=== PATIENT | female | born 1960 | race Caucasian/White ===

== ENCOUNTER 2023-01-09 16:18 | Outpatient (CLI) | payer MEDICAID, SELFPAY | END 2023-01-09 16:19 | disposition home or self-care (01) | LOC: NFLDREF 01-10 16:39 | PROVIDERS: PCP Family Medicine; Referring Provider Family Medicine; Visit Provider Family Medicine | DX: Z00.00 Encounter for general adult medical examination without abnormal findings (principal); R73.03 Prediabetes; I10 Essential (primary) hypertension; E55.9 Vitamin D deficiency, unspecified; M85.80 Other specified disorders of bone density and structure, unspecified site; E66.01 Morbid (severe) obesity due to excess calories; E78.5 Hyperlipidemia, unspecified; E11.69 Type 2 diabetes mellitus with other specified complication | CPT/HCPCS: 80048; 80061; 82306 ==

== ENCOUNTER 2023-04-10 16:35 | Outpatient (CLI) | payer MEDICAID, SELFPAY | END 2023-04-10 16:36 | disposition home or self-care (01) | LOC: NFLDREF 04-12 06:48 | PROVIDERS: PCP Family Medicine; Referring Provider Family Medicine; Visit Provider Family Medicine | DX: E11.69 Type 2 diabetes mellitus with other specified complication (principal); E66.9 Obesity, unspecified; I10 Essential (primary) hypertension; E55.9 Vitamin D deficiency, unspecified; E78.5 Hyperlipidemia, unspecified | CPT/HCPCS: 80053; 80061; 82043; 82306; 82570 ==

== ENCOUNTER 2023-04-20 16:18 | Outpatient (CLI) | payer MEDICAID, SELFPAY | END 2023-04-20 16:19 | disposition home or self-care (01) | LOC: NFLDREF 19:56 | PROVIDERS: PCP Family Medicine; Referring Provider Family Medicine; Visit Provider Family Medicine | DX: I10 Essential (primary) hypertension (principal) | CPT/HCPCS: 80048 ==

== ENCOUNTER 2023-05-09 16:20 | Outpatient (CLI) | payer MEDICAID, SELFPAY | END 2023-05-09 16:21 | disposition home or self-care (01) | LOC: NFLDREF 05-10 06:15 | PROVIDERS: PCP Family Medicine; Referring Provider Family Medicine; Visit Provider Family Medicine | DX: I10 Essential (primary) hypertension (principal); E78.5 Hyperlipidemia, unspecified; E55.9 Vitamin D deficiency, unspecified; Z79.1 Long term (current) use of non-steroidal anti-inflammatories (NSAID) | CPT/HCPCS: 80053 ==

== ENCOUNTER 2023-10-17 14:44 | Outpatient (CLI) | payer MEDICAID, SELFPAY | END 2023-10-17 14:45 | disposition home or self-care (01) | LOC: INJ CL 14:45 | PROVIDERS: PCP Family Medicine; Visit Provider Family Medicine | DX: M17.12 Unilateral primary osteoarthritis, left knee (principal); M25.562 Pain in left knee | CPT/HCPCS: 64454 ==

== ENCOUNTER 2023-11-21 13:09 | Outpatient (CLI) | payer MEDICAID, SELFPAY ==
--- OUTSIDE RECORDS SUMMARY | 2023-11-21 13:13 | XMS_ITS | Encounter Summary ---
Author Name Unknown Organization [facility] Address [address], [place] [address] Care Team Providers Care Special Education Classroom Aide Name Role Phone Needs Pcp, Assignment Primary Care Provider [phone] Reason for Visit * Reason Comments Refill Encounter Details Date Type Department Care Team Description 06/01/2023 Refill [place] [address] [place] [address]. [place], [place] [id number] Teresa Cameron MD [address] [place] [id number] Refill Social History Tobacco Use Types Packs/Day Years Used Date Smoking Tobacco: Never Smokeless Tobacco: Never Alcohol Use Standard Drinks/Week Comments Yes 0 (1 standard drink = 0.6 oz pur e alcohol) Sex and Gender Information Value Date Recorded Sex Assigned at Not on file Gender Identity Not on file Sexual Orientation Not on file documented as of this encounter Nursing Notes * Marjorie Dubois RN - 06/01/2023 11:42 AM CDT LV: 05/11/23 NV: 09/07/23 Renewed medication per medication refill standing order. Requested Prescriptions Signed Prescriptions Disp Refills secukinumab (COSENTYX SENSOREADY PEN) 150 MG/ML injection pen 1 mL 11 Sig: Inject 1 mL (150 mg) subcutaneously every 4 weeks. Indications: Rheumatic Disease causing Vertebrae Inflammation Authorizing Provider: TERESA CAMERON Ordering User: MARJORIE DUBOIS documented in this encounter Plan of Treatment Upcoming Encounters Date Type Department Care Team Description 12/14/2023 12:00 PM SWINE GENETICS RESEARCHER Appointment [facility] [address] [place], [place] [address] Teresa Cameron MD [address] [place] [address] documented as of this encounter Visit Diagnoses Not on filedocumented in this encounter Care Teams Special Education Classroom Aide Relationship Specialty Start Date End Date Needs Pcp, [place] [address] PCP - General 10/07/21 documented as of this encounter
--- OUTSIDE RECORDS SUMMARY | 2023-11-21 13:13 | XMS_ITS | Encounter Summary ---
Author Name Unknown Organization [facility] Address [address], [place] [address] Care Team Providers Care Hospice Volunteer Coordinator Name Role Phone Needs Pcp, Assignment Primary Care Provider [phone] Reason for Visit * Reason Comments Follow-up Encounter Details Date Type Department Care Team Description 09/07/2023 4:00 PM SUPERVISOR DRY CELL ASSEMBLY Office Visit [facility] [address] [place], [place] [address] Teresa Morales MD [address] [place] [address] Spondyloarthritis (HRC) (Primary Dx); Osteoarthritis of multiple joints, unspecified osteoarthritis type; Anti-cyclic citrullinated peptide antibody positive; 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); 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 current use of non-steroidal anti-inflammatories (NSAID) Social History Tobacco Use Types Packs/Day Years Used Date Smoking Tobacco: Never Smokeless Tobacco: Never Alcohol Use Standard Drinks/Week Comments Yes 0 (1 standard drink = 0.6 oz pur e alcohol) Sex and Gender Information Value Date Recorded Sex Assigned at Not on file Gender Identity Not on file Sexual Orientation Not on file documented as of this encounter Last Filed Vital Signs Vital Sign Reading Time Taken Comments Blood Pressure 133/88 09/07/2023 3:47 PM SUPERVISOR DRY CELL ASSEMBLY Pulse 99 09/07/2023 3:47 PM SUPERVISOR DRY CELL ASSEMBLY Temperature - - Respiratory Rate - - Oxygen Saturation - - Inhaled Oxygen Concentration - - Weight 125.2 kg (276 lb) 09/07/2023 3:47 PM SUPERVISOR DRY CELL ASSEMBLY Height - - Body Mass Index - - documented in this encounter Patient Instructions * Patient Instructions* Teresa Morales MD - 09/07/2023 4:00 PM SUPERVISOR DRY CELL ASSEMBLY CONTINUE the CONSENTYX for now Try diclofenac 1 tablet twice a day, don't take with IBUPROFEN MRI of the knees Touch base with PCP and avoid salty foods Follow up in 12-14 weeks RVISOR DRY CELL ASSEMBLY documented in this encounter Progress Notes * Teresa Morales MD - 09/07/2023 4:00 PM CST RHEUMATOLOGY FOLLOW-UP Chief Complaint Patient presents with Follow-up Encounter date: 09/07/2023 Date of last office visit: 05/11/2023 Rheumatologic history: The patient is a 62 y.o. female with medical history of breast ca, s/p bilateral mastectomy, pre diabetes, HTN, anxiety, hyperparathyroidism, and obesity who presented to our clinic initially in October 2020 for evaluation of joint pain in the setting of elevated inflammatory markers. Outside records received and reviewed from [facility]. She had been seen by her PCP regarding joint pain which started to worsen in July 2020. Prior to this time, she has had more chronic lower back pain for the past year. Her most recent visit with primary care in August 2020 she was started on prednisone 20 mg daily with tapering dose. She was noted to have a slightly elevated RF at 18 (ref at their clinic 0-14). CCP negative. AMY screen negative. ESR and CRP elevated at 61 and 4.50. HLA B27 negative. X-ray done of the bilateral hands done showing mild degenerative changes withno erosions. Left knee x-ray with tricompartmental DJD. Lumbar spine with degenerative disc disease. She was sick with a URI in December 2019 but no other preceding illness. She was taking daily tylenol, naproxen, and Advil up until August 2020 when she was given prednisone by her PCP. With 20 mg taper she had significant improvement in her pain. Denied dactylitis history, psoriasis, or IBD. Endorsed sicca symptoms. Denies known family history of autoimmune disease. Work up October 2020: HLA B27 negative RF 22 CCP 233 TSH wnl CRP 3.5 ESR 65 CK 59 Hepatitis panel negative HIV negative Synovial fluid inflammatory with greater than 10,000 WBC, no crystals, no growth Uric acid 4.4 SI joint x-ray with findings suspicious for sacroiliitis with enthesopathy at the b/l iliac crests. Oct 2020: started on sulfasalazine March 2021: Started on Humira and prednisone taper. September 2021: started methotrexate Nov 2021: restarted methotrexate February 2022, initially wanted to try prior authorization for Taltz though due to insurance issues needed to try Enbrel 1st. [employer] approved for this in February 2022. Started Celebrex. Stopped methotrexate. Nov 2022: approved for COSENTYX Interim history: She took the leflunomide for some time but stopped this a couple weeks ago. She did start taking ibuprofen 800 mg as needed. She continue to be on Consentyx once monthly. She feels like she has had some swelling of the legs and top of the feet. Her knees continue to be the most bothersome area. No rash. Fluoroscopic injection done of the left knee in February 2023. Notes that she only a couple minutes of benefit from this. She continues to be frustrated with her symptoms and is not interested in getting a knee replacement at this time. She did not feel that physical medicine and rehab was helpful for her. She already tried gabapentin without any improvement. ROS: Review of systems completed with patient today, and is as noted above. PMH: Updated in EMR Outpatient Encounter Medications as of 09/07/2023 Medication Sig Dispense Refill amLODIPine (NORVASC) 5 MG tablet Take 1 Tablet (5 mg) by mouth daily. chlorthalidone (HYGROTON) 25 MG tablet Take 0.5 Tablets (12.5 mg) by mouth every morning. cyclobenzaprine (FLEXERIL) 10 MG tablet Take 1-2 tablets at bedtime if needed 30 Tablet 0 ibuprofen (MOTRIN) 800 MG tablet Take 1 Tablet (800 mg) by mouth daily. metFORMIN (GLUCOPHAGE) 500 MG tablet Take 1 Tablet (500 mg) by mouth daily. rosuvastatin (CRESTOR) 5 MG tablet Take 1 Tablet (5 mg) by mouth daily. secukinumab (COSENTYX SENSOREADY PEN) 150 MG/ML injection pen Inject 1 mL (150 mg) subcutaneously every 4 weeks. Indications: Rheumatic Disease causing Vertebrae Inflammation 1 mL 11 [DISCONTINUED] cholecalciferol (VITAMIN D3) 1.25 MG (61512 UT) capsule Take 1 Capsule (50,000 Units) by mouth daily. [DISCONTINUED] diazePAM (VALIUM) 5 MG tablet Pt to bring with to appt. Do not take prior to arrival. MRI staff will instruct when to take med. 1 Tablet 0 [DISCONTINUED] leflunomide (ARAVA) 20 MG tablet TAKE 1 TABLET(20 MG) BY MOUTH DAILY 90 Tablet 0 No facility-administered encounter medications on file as of 09/07/2023. ALLERGIES: Updated in EMR Social History Tobacco Use Smoking Status Never Smokeless Tobacco Never Social History Substance and Sexual Activity Alcohol Use Yes MEDS: Reviewed and updated in the computerized record. Physical exam: Blood pressure 133/88, pulse 99, weight 276 lb (125.2 kg). General: Alert, no distress, appears comfortable Eyes: anicteric, no erythema, EOMI ENT: oral function appears symmetric Resp: breathing comfortably on room air. CV: Not examined Abd: Not examined Skin: no ulcerations, nodules, or rashes noted on visible skin Neuro: Continues to have a limping gait on the left side MSK: A focused joint exam was performed involving neck, back, SI joints, shoulders, elbows, wrists,hands, hips, knees, ankles, feet. The joint exam was negative for synovitis, deformity, tenderness,deformity with the exception of: Continues to have paraspinal muscle tenderness of the lower back and SI joint region. Full range of motion of the shoulders without tenderness to palpation. She does have soft tissue tender points of the upper body and iliotibial band region bilaterally. Crepitus ofthe knees bilaterally without effusion of the right knee. There is fullness and bony enlargement ofthe left knee in comparison to the right with pain with full extension. No tenderness to palpation of the left knee joint line. No evidence of synovitis of the elbows, wrists, hands. There is no evidence of overt dactylitis or synovitis of the MTP joints. Does have some soft tissue swelling of the bilateral lower extremities. Labs: Lab Results Component Value Date WBC 9.0 05/11/2023 RBC 4.97 05/11/2023 Hemoglobin 14.4 05/11/2023 HCT 42.6 05/11/2023 MCV 85.7 05/11/2023 RDW 13.2 05/11/2023 Platelets 220 05/11/2023 Lab Results Component Value Date AST (SGOT) 16 05/11/2023 , Lab Results Component Value Date ALT (SGPT) 11 05/11/2023 Lab Results Component Value Date Creatinine 0.70 05/11/2023 Lab Results Component Value Date Sedimentation Rate 54 (H) 05/11/2023 , Lab Results Component Value Date C-Reactive Protein 2.3 (H) 05/11/2023 RF 22 (negative) CCP 233 Outside records from [facility] reviewed August 2020: slightly elevated RF at 18 (ref at their clinic 0-14). CCP negative. AMY screen negative. ESR and CRP elevated at 61 and 4.50. HLA B27 negative. X-ray done of the bilateral hands done showing mild degenerative changes with no erosions. Left knee x-ray with tricompartmental DJD. Lumbar spine with degenerative disc disease. Imaging: MRI lumbar spine 05/19/2023: IMPRESSION: 1. Mild degenerative changes as above. 2. No evidence for focal nerve root impingement, stress reaction or vertebral body compression fracture. MR SI joints 05/19/2023: IMPRESSION: 1. Mild thinning of the cartilage in the anterior inferior aspects of both sacroiliac joints without evidence of erosive change or active synovitis. 2. Moderate degenerative arthritis in the visualized lower lumbar facet joints with mild surrounding edema and enhancement. XR left knee 02/28/2023: IMPRESSION COMPARISON: None. FINDINGS: 3 views obtained. No acute fracture. Severe medial compartment osteoarthritic degenerative narrowing. Mild-moderate lateral compartment osteoarthritic degenerative narrowing. Moderate-severe patellofemoral compartment osteoarthritic degenerative narrowing. Small-moderate joint effusion without layering lipohemarthrosis. Tricompartmental osteophytosis. Suggestion of osteopenia. XR SI joints 11/04/2020: FINDINGS: There is indistinctness of the lower synovial portions of the sacroiliac joints with adjacent sclerosis within the innominate greater than sacral bones. The finding are suspicious for sacroiliitis. The findings are greater on the right compared to left. Enthesopathy at the iliac crests. ASSESSMENT/PLAN: # asymmetric inflammatory arthritis with sacroilitis, SpA versus other inflammatory arthropathy # positive anti CCP # chronic back pain, likely mechanical back pain component # Immunosuppression due to drug therapy # severe osteoarthritis of the knees # myofascial pain # history of malignancy Ms. Alcaraz is a very pleasant 62 y.o.female with medical history of breast ca, s/p bilateral mastectomy (did not need chemotherapy or radiation), pre diabetes, HTN, anxiety, hyperparathyroidism, and obesity who is presenting to our clinic today for follow up in regards to her spondyloarthritis. She has continued to struggle with symptoms despite multiple biologics. We elected to get further imaging to evaluate for active inflammation in the lumbar spine and SI joints, we reviewed today that there was no evidence of active inflammatory changes or chronic inflammatory damage in her SI joints or lumbar spine which is very reassuring. At our last visit we did elect to do a trial of leflunomide, and she took this for a couple months without any significant benefit so stopped this about 2-3 weeks ago. She does feel that overall she has had less spasms/flare like episodes of back pain, though continues to struggles and early with bilateral knee pain that is limiting her ability to walk and work without pain. She is been taking ibuprofen 800 mg daily, we discussed trying a different anti-inflammatory with longer duration of efficacy, will try diclofenac 1 tablet twice daily and reviewed that she can take Tylenol as well. Reviewed today that I continue to feel that the majority of her knee pain is from severe osteoarthritis of the knees. She is very reluctant to consider a knee replacement though we reviewed that thisis the definitive treatment for osteoarthritis of the knees especially in her case where she is limited in her ability to function on a daily basis. I would recommend that we will forward with MRIs with and without contrast of the bilateral knees for further evaluation of active inflammatory changes verses additional etiologies such as meniscal involvement. Left knee is worse than the right though these both are very limiting for her. We did discuss consideration of a 2nd opinion from a different Orthopedics that may specialize in surgery on bariatric patients. She also continues to have a component of myofascial pain and we discussed consideration of other medications for this though elected to hold off on this for now. If she continues to have chronic pain symptoms despite all of the opt ions we have discussed, I would strongly recommend that she see a pain clinic for further management. Will plan on follow-up in 12-14 weeks. PLAN: - continue Cosentyx - trial of diclofenac 1 tablet twice daily, do not take with ibuprofen - MRI with and without contrast of the right and left knee - cyclobenzaprine at bedtime as needed - based on MRI results will consider referral to a different orthopedic surgeon for a 2nd opinion - continue follow-up with primary care provider - gentle exercise as tolerated - call if symptoms change prior to follow-up - follow up in 12-14 weeks Patient advised to call clinic if symptoms change or worsen or if new symptoms develop. All of the patient's questions were answered to the best of my ability. Billing based on: time. Teersa Morales MD [facility] RVISOR DRY CELL ASSEMBLY documented in this encounter Plan of Treatment Upcoming Encounters Date Type Department Care Team Description 12/14/2023 12:00 PM SUPERVISOR DRY CELL ASSEMBLY Appointment [facility] [address] [place], [place] [address] Teresa Morales MD [address] [place], [place] [phone] documented as of this encounter Visit Diagnoses Diagnosis Spondyloarthritis (HRC)- Primary Spondylosis of unspecified site without mention of myelopathy Osteoarthritis of multiple joints, unspecified osteoarthritis type Anti-cyclic citrullinated peptide antibody positive 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) 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
--- OUTSIDE RECORDS SUMMARY | 2023-11-21 13:13 | XMS_ITS | Encounter Summary ---
Author Name Unknown Organization [facility] Address [address], [place] [address] Care Team Providers Care Drop Clipper Name Role Phone Needs Pcp, Assignment Primary Care Provider [phone] Reason for Visit * Procedure/Equipment (Routine) - Incomplete Specialty Diagnoses / Procedures Referred By Zoran ibarra Referred To Contact Diagnoses Spondyloarthritis (HRC) Procedures MR Sacral-Iliac Joints W/WO IV Cont Teresa Morales MD [address] [place] [address] Referral ID Status Reason Start Date Expiration Date V isits Requested Visits Authorized [id number] Incomplete 05/11/2023 08/09/2024 1 1 Encounter Details Date Type Department Care Team Description 05/19/2023 1:30 PM CDT Ancillary Procedure [facility] [id number] [facility] [address] [place] [address] Teresa Morales MD [address] [place] [address] Spondyloarthritis (HRC) Social History Tobacco Use Types Packs/Day Years Used Date Smoking Tobacco: Never Smokeless Tobacco: Never Alcohol Use Standard Drinks/Week Comments Yes 0 (1 standard drink = 0.6 oz pur e alcohol) Sex and Gender Information Value Date Recorded Sex Assigned at Not on file Gender Identity Not on file Sexual Orientation Not on file documented as of this encounter Plan of Treatment Upcoming Encounters Date Type Department Care Team Description 12/14/2023 12:00 PM DISTILLERY MILLER Appointment [facility] [address] [place] [address] Teresa Morales MD [address] [place] [address] documented as of this encounter Procedures Procedure Name Priority Date/Time Associated Diagnosis Comments MR SACRAL-ILIAC JOINTS W/WO IV CONT STAT 05/19/2023 1:35 PM CDT Spondyloarthritis (HRC) documented in this encounter Results * MR Sacral-Iliac Joints W/WO IV Cont (05/19/2023 1:35 PM CDT) Anatomical Region Laterality Modality Spine, Pelvis, MSK Magnetic Reso nance 05/19/2023 1:01 PM CDT Impressions 05/19/2023 1:57 PM CDT COMPARISON: ??12/16/2022. TECHNIQUE: ??MRI of the sacroiliac joints without and with 13 mL IV Gadavist was performed. FINDINGS: ??There is mild thinning of the cartilage in the anterior inferior aspects of both sacroiliac joints. No significant effusion or synovial enhancement in either sacroiliac joint. No definite evidence of bony erosive change. There is minimal subchondral marrow edema about the anterior inferior aspects of both sacroiliac joints. There is moderate degenerative arthritis in the visualized lower lumbar facet joints with mild surrounding edema and enhancement. There are subcentimeter external iliac nodes bilaterally which are not pathologic by size criteria. The visualized intrapelvic soft tissues are otherwise unremarkable. IMPRESSION: ?? 1. Mild thinning of the cartilage in the anterior inferior aspects of both sacroiliac joints without evidence of erosive change or active synovitis. 2. Moderate degenerative arthritis in the visualized lower lumbar facet joints with mild surrounding edema and enhancement. Narrative Procedure Note Marino Garcia MD - 05/19/2023 IMPRESSION COMPARISON: 12/16/2022. TECHNIQUE: MRI of the sacroiliac joints without and with 13 mL IVGadavist was performed. FINDINGS: There is mild thinning of the cartilage in the anteriorinferior aspects of both sacroiliac joints. No significant effusion orsynovial enhancement in either sacroiliac joint. No definite evidence ofbony erosive change. There is minimal subchondral marrow edema about theanterior inferior aspects of both sacroiliac joints. There is moderatedegenerative arthritis in the visualized lower lumbar facet joints withmild surrounding edema and enhancement. There are subcentimeter external iliac nodes bilaterally which are notpathologic by size criteria. The visualized intrapelvic soft tissues areotherwise unremarkable. IMPRESSION: 1. Mild thinning of the cartilage in the anterior inferior aspects of bothsacroiliac joints without evidence of erosive change or activesynovitis. 2. Moderate degenerative arthritis in the visualized lower lumbar facetjoints with mild surrounding edema and enhancement. Teresa Morales MD RAD MRI documented in this encounter Visit Diagnoses Diagnosis Spondyloarthritis (HRC) Spondylosis of unspecified site without mention of myelopathy documented in this encounter Administered Medications Inactive Administered Medications - up to 3 most recent administrations Medication Order MAR Action Action Date Dose Rate Site gadobutrol (GADAVIST) 1 MMOL/ML injection 13 mL 13 mL, Intravenous, ONCE, On Mon05/19/23 at 1245, For 1 dose Given 05/19/2023 1:24 PM CDT 13 mL sodium chloride 0.9% injection 20 mL 20 mL, Intravenous, ONCE, On Mon05/19/23 at 1245, For 1 dose Given 05/19/2023 1:26 PM CDT 20 mL documented in this encounter Care Teams Drop Clipper Relationship Specialty Start Date End Date Needs Pcp, [place] [address] PCP - General 10/07/21 documented as of this encounter
--- OUTSIDE RECORDS SUMMARY | 2023-11-21 13:13 | XMS_ITS | Encounter Summary ---
Author Name Unknown Organization [facility] Address [address] [address] Care Team Providers Care Bulldogger Name Role Phone Needs Pcp, Assignment Primary Care Provider [phone] Reason for Visit * Reason Comments Refill Encounter Details Date Type Department Care Team Description 11/04/2023 Refill [facility] [address] [place], [place] [phone] Teresa Cameron MD [address] [place] [address] Refill Social History Tobacco Use Types Packs/Day [...] Nursing Notes * Marjorie Dubois RN - 11/06/2023 10:11 AM CST LV: 09/07/23 NV: 12/14/23 Lab Results Component Value Date Hemoglobin 14.4 05/11/2023 Lab Results Component Value Date Creatinine 0.70 05/11/2023 Renewed medication per medication refill standing order. Requested Prescriptions Signed Prescriptions Disp Refills diclofenac (VOLTAREN) 75 MG enteric coated tablet 180 Tablet 0 Sig: TAKE 1 TABLET(75 MG) BY MOUTH TWICE DAILY Authorizing Provider: TERESA CAMERON Ordering User: MARJORIE DUBOIS ING CUTTER documented in this encounter Plan of Treatment Upcoming Encounters Date Type Department Care Team Description 12/14/2023 12:00 PM MOLDING CUTTER Appointment [facility] [address] [place], [place] [phone] Teresa Cameron MD [address] [place], [place] [phone] documented as of this encounter Visit Diagnoses Not on filedocumented in this encounter Care Teams Bulldogger Relationship Specialty Start Date End Date Needs Pcp, Assignment [place], [place] [phone] PCP - General 10/07/21 documented as of this encounter
--- OUTSIDE RECORDS SUMMARY | 2023-11-21 13:13 | XMS_ITS | Encounter Summary ---
Author Name Unknown Organization [facility] Address [address], [place] [address] Care Team Providers Care Alarm Installation Technician Name Role Phone Needs Pcp, Assignment Primary Care Provider [phone] Reason for Visit * Procedure/Equipment (Routine) - Incomplete Specialty Diagnoses / Procedures Referred By Frenchac t Referred To Contact Diagnoses Lumbar radiculopathy Procedures MR Lumbar Spine WO IV Cont Teresa Crews, DO [address] [place] [address] Referral ID Status Reason Start Date Expiration Date V isits Requested Visits Authorized [id number] Incomplete 03/17/2023 06/15/2024 1 1 Encounter Details Date Type Department Care Team Description 05/19/2023 12:30 PM CDT Ancillary Procedure [facility] [id number] [place] [address] [place] [address] Teresa Crews DO [address] [place] [address] Lumbar radiculopathy Social History Tobacco Use Types Packs/Day Years [...] Department Care Team Description 12/14/2023 12:00 PM ACCOUNTS RECEIVABLE BOOKKEEPER Appointment [facility] [address] [place] [address] Teresa Morales MD [address] [place] [address] documented as of this encounter Procedures Procedure Name Priority Date/Time Associated Diagnosis Comments MR LUMBAR SPINE WO IV CONT Routine 05/19/2023 1:34 PM CDT Lumbar radiculopathy documented in this encounter Results * MR Lumbar Spine WO IV Cont (05/19/2023 1:34 PM CDT) Anatomical Region Laterality Modality Spine, L-Spine, Skeletal, MSK Ma gnetic Resonance 05/19/2023 12:2 3 PM CDT Impressions 05/19/2023 8:38 PM CDT INDICATION: Low back pain, symptoms persist with > 6 wks treatment; Lumbar radiculopathy, symptoms persist with > 6 wks treatment TECHNIQUE: ??Routine non-contrast MRI of the lumbar spine. COMPARISON: None. FINDINGS: Sagittal: 5 lumbar type vertebral bodies. First trapezoidal segment labeled S1. Moderate anterior osteophytosis L1-2 level eccentric to the right. Mild degenerative endplate signal change and/or small chronic-appearing endplate Schmorl's nodes from the T10 through the L4 levels. Mild grade 1 retrolisthesis L2-3 L3-4 levels. Bone marrow signal characteristics and lower thoracic spinal cord otherwise unremarkable. Axial: T11-T12 level: Mild bilateral facet hypertrophic change. T12-L1 level: Otherwise unremarkable. L1-2 level: Otherwise unremarkable. L2-3 level: Mild posterior disc bulge, small bilateral facet joint effusions. L3-4 level: Mild posterior disc bulge small bilateral facet joint effusions. L4-5 level: Unremarkable. L5-S1 level: Mild to moderate bilateral facet hypertrophic change. IMPRESSION: 1. Mild degenerative changes as above. 2. No evidence for focal nerve root impingement, stress reaction or vertebral body compression fracture. Comment: Many lumbar spine MRI findings are so common that while we may have reported their presence, they must be interpreted with caution and in the context of the clinical situation. The frequency of these findings in adults WITHOUT low back pain increases with age and are as follows: disk degeneration (37-96%), disk height loss (24-84%), disk bulge (30-84%), disk protrusion (29-43%), annular fissure (19- 29%), and facet degeneration (4-83%). Frequency percentages adapted from Mariya W, Marleen PH, Jorje B, et al. AJNR AM J Neuroradiol 2015:36:811-16. Narrative Procedure Note Willis Saba MD - 05/19/2023 IMPRESSION INDICATION: Low back pain, symptoms persist with > 6 wks treatment; Lumbarradiculopathy, symptoms persist with > 6 wks treatment TECHNIQUE: Routine non-contrast MRI of the lumbar spine. COMPARISON: None. FINDINGS: Sagittal: 5 lumbar type vertebral bodies. First trapezoidal segment labeled S1.Moderate anterior osteophytosis L1-2 level eccentric to the right. Milddegenerative endplate signal change and/or small chronic-appearingendplate Schmorl's nodes from the T10 through the L4 levels. Mild grade 1retrolisthesis L2-3 L3-4 levels. Bone marrow signal characteristics andlower thoracic spinal cord otherwise unremarkable. Axial: T11-T12 level: Mild bilateral facet hypertrophic change. T12-L1 level: Otherwise unremarkable. L1-2 level: Otherwise unremarkable. L2-3 level: Mild posterior disc bulge, small bilateral facet jointeffusions. L3-4 level: Mild posterior disc bulge small bilateral facet jointeffusions. L4-5 level: Unremarkable. L5-S1 level: Mild to moderate bilateral facet hypertrophic change. IMPRESSION: 1. Mild degenerative changes as above. 2. No evidence for focal nerve root impingement, stress reaction orvertebral body compression fracture. Comment: Many lumbar spine MRI findings are so common that while we mayhave reported their presence, they must be interpreted with caution and inthe context of the clinical situation. The frequency of these findings inadults WITHOUT low back pain increases with age and are as follows: diskdegeneration (37-96%), disk height loss (24-84%), disk bulge (30-84%),disk protrusion (29-43%), annular fissure (19- 29%), and facet degeneration(4-83%). Frequency percentages adapted from Mariya W, Marleen PH, Jorje B, etal. AJNR AM J Neuroradiol 2015:36:811-16. Teresa Crews DO RAD MRI documented in this encounter Visit Diagnoses Diagnosis Lumbar radiculopathy Thoracic or lumbosacral neuritis or radiculitis, unspecified documented in this encounter Care Teams Alarm Installation Technician Relationship Specialty Start Date End Date Needs Pcp, [place] [address] PCP - General 10/07/21 documented as of this encounter
--- OUTSIDE RECORDS SUMMARY | 2023-11-21 13:13 | XMS_ITS | Encounter Summary ---
Author Name Unknown Organization [facility] Address [address], [place] [address] Care Team Providers Care Kerrick Kleaner Operator Name Role Phone Needs Pcp, Assignment Primary Care Provider [phone] Reason for Visit * Procedure/Equipment (Routine) - Incomplete Specialty Diagnoses / Procedures Referred By Zoran ibarra Referred To Contact Diagnoses Spondyloarthritis (HRC) Osteoarthritis of multiple joints, unspecified osteoarthritis type Procedures MR Knee Rt WO IV Cont MR Knee Rt W/WO IV Cont MR Knee Rt W/WO IV Cont Teresa Morales MD [address] [place] [address] Referral ID Status Reason Start Date Expiration Date V isits Requested Visits Authorized [id number] Incomplete 09/07/2023 12/06/2024 1 1 Encounter Details Date Type Department Care Team Description 10/06/2023 9:00 AM TRAVEL COTA Ancillary Procedure [facility] [address] [place] [address] Teresa Morales MD [address] [place] [address] Spondyloarthritis (HRC); Osteoarthritis of multiple joints, unspecified osteoarthritis type Social History Tobacco Use Types Packs/Day Years [...] Department Care Team Description 12/14/2023 12:00 PM TRAVEL COTA Appointment [facility] [address] [place] [address] Teresa Morales MD [facility] [place] [address] documented as of this encounter Procedures Procedure Name Priority Date/Time Associated Diagnosis Comments MR KNEE RT WO IV CONT STAT 10/06/2023 10:10 AM TRAVEL COTA Spondyloarthritis (HRC) Osteoarthritis of multiple joints, unspecified osteoarthritis type documented in this encounter Results * MR Knee Rt WO IV Cont (10/06/2023 10:10 AM TRAVEL COTA) Anatomical Region Laterality Modality Lower Extremity, Knee, Skeletal, Thigh, Leg, MSK Right Magnetic Resonance 10/06/2023 8:44 AM TRAVEL COTA Impressions 10/06/2023 10:16 AM TRAVEL COTA TECHNIQUE: ??Routine MRI of the right knee was performed without contrast. COMPARISON: ??None. FINDINGS: MEDIAL COMPARTMENT: ??Diffuse high-grade and full thickness chondromalacia involving the weightbearing cartilage. Trace subchondral edema along the medial aspect of the tibial plateau. Complex tear in the medial meniscus body and posterior horn. Meniscal tissue is extruded toward the meniscotibial recess medially. LATERAL COMPARTMENT: ??A few scattered high grade in full-thickness cartilage fissures throughout the weightbearing cartilage. No subchondral edema. Mild degenerative signal in the anterior root ligament without a definite meniscal tear. PATELLOFEMORAL JOINT: ??High-grade chondromalacia throughout the patellofemoral compartment most pronounced medially where there is full-thickness cartilage in the medial patellar facet and medial femoral trochlea. Mild associated underlying subchondral edema. Small joint effusion and popliteal cyst. Evidence of synovitis. No osteocartilaginous bodies are identified. LIGAMENTS AND TENDONS: ??The anterior and posterior cruciate ligaments, medial collateral ligament, iliotibial band, fibular collateral ligament and biceps femoris tendons are intact. The popliteus muscle and tendon are normal. There is no evidence of injury to the posterolateral corner supporting structures. EXTENSOR MECHANISM: Mild tendinosis at the patellar tendon insertion. Unremarkable appearance of the quadriceps tendon. The medial retinaculum, medial patellofemoral ligament, and lateral retinaculum are normal. MARROW AND SOFT TISSUES: ??There is no abnormal marrow signal or evidence of soft tissue mass. IMPRESSION: ?? 1. Complex tear in the medial meniscus body and posterior horn with meniscal tissue extruded toward the meniscotibial recess medially. 2. 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 Mild chondromalacia in the lateral compartment. 3. Small joint effusion with evidence of synovitis. 4. Small popliteal cyst. 5. Mild tendinosis at the patellar tendon insertion. Narrative Procedure Note Jabier Bolanos MD - 10/06/2023 IMPRESSION TECHNIQUE: Routine MRI of the right knee was performed withoutcontrast. COMPARISON: None. FINDINGS: MEDIAL COMPARTMENT: Diffuse high-grade and full thickness chondromalaciainvolving the weightbearing cartilage. Trace subchondral edema along themedial aspect of the tibial plateau. Complex tear in the medial meniscusbody and posterior horn. Meniscal tissue is extruded toward themeniscotibial recess medially. LATERAL COMPARTMENT: A few scattered high grade in full-thicknesscartilage fissures throughout the weightbearing cartilage. No subchondraledema. Mild degenerative signal in the anterior root ligament without adefinite meniscal tear. PATELLOFEMORAL JOINT: High-grade chondromalacia throughout thepatellofemoral compartment most pronounced medially where there isfull-thickness cartilage in the medial patellar facet and medial femoraltrochlea. Mild associated underlying subchondral edema. Small jointeffusion and popliteal cyst. Evidence of synovitis. No osteocartilaginousbodies are identified. LIGAMENTS AND TENDONS: The anterior and posterior cruciate ligaments,medial collateral ligament, iliotibial band, fibular collateral ligamentand biceps femoris tendons are intact. The popliteus muscle and tendon arenormal. There is no evidence of injury to the posterolateral cornersupporting structures. EXTENSOR MECHANISM: Mild tendinosis at the patellar tendon insertion.Unremarkable appearance of the quadriceps tendon. The medial retinaculum,medial patellofemoral ligament, and lateral retinaculum are normal. MARROW AND SOFT TISSUES: There is no abnormal marrow signal or evidenceof soft tissue mass. IMPRESSION: 1. Complex tear in the medial meniscus body and posterior horn withmeniscal tissue extruded toward the meniscotibial recess medially. 2. Moderate to advanced chondromalacia in the medial and patellofemoralcompartment. Mild chondromalacia in the lateral compartment. 3. Small joint effusion with evidence of synovitis. 4. Small popliteal cyst. 5. Mild tendinosis at the patellar tendon insertion. Teresa Morales MD RAD MRI documented in this encounter Visit Diagnoses Diagnosis Spondyloarthritis (HRC) Spondylosis of unspecified site without mention of myelopathy Osteoarthritis of multiple joints, unspecified osteoarthritis type documented in this encounter Care Teams Kerrick Kleaner Operator Relationship Specialty Start Date End Date Needs Pcp, [place] [address] PCP - General 10/07/21 documented as of this encounter
--- OUTSIDE RECORDS SUMMARY | 2023-11-21 13:13 | XMS_ITS | Clinical Summary ---
Author Name Unknown Organization [facility] Address [place], [place] [address] Care Team Providers Care Heavy Mobile Equipment Operator Name Role Phone Lakisha Ramirezumer Heller DO Primary Care Provid er Allergies Active Allergy Reactions Criticality Noted Date Comments Lisinopril Other - Describe In Comment Field High 11/04/2020 Kidney failure Medications Medication Sig Dispensed Refills Start Date End Date Status amLODIPine (NORVASC) 10 mg tablet 0 07/23/2023 Active metFORMIN (GLUCOPHAGE) 500 mg tablet Take 500 mg by mouth. 0 Active chlorthalidone (HYGROTON) 25 mg tablet Take 12.5 mg by mouth. 0 04/14/2023 Active rosuvastatin (CRESTOR) 5 mg tablet Take 5 mg by mouth. 0 04/14/2023 Activ e Cosentyx Pen 150 mg/mL pen Inject 150 mg subcutaneous every 4 weeks. 0 06/01/2023 Active HYDROcodone-aceta minophen ([place]) (5-325 mg/tablet)Indicat ions:Chronic pain of left knee Take 1 Tablet by mouth 3 times daily if needed for Pain. Max acetaminophen dose: 4000mg in 24 hrs. 24 Tablet 0 10/18/2023 Active diclofenac (VOLTAREN) 75 mg delayed-release tablet Take 75 mg by mouth. 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 07/23/2012 Infection and inflammatory r eaction due to other internal prosthetic device, implant, and graft 07/23/2012 Hypertension 05/29/2009 GERD (gastroesophageal reflux disease) 9 Encounters Date Type Department Care Team Description 11/20/2023 Telephone [facility] [address] [place] [address] Jed Wong MD Questions 11/08/2023 2:15 PM BUSINESS ANALYTICS FACULTY MEMBER Office Visit [facility] [address] [place] [address] Gutierrez Juan DPM Consult (Right foot pain and numbness) 11/08/2023 Travel 10/18/2023 Telephone [facility] [address] [place] [address] Jed Wong MD questions 10/17/2023 3:20 PM BUSINESS ANALYTICS FACULTY MEMBER Procedure Only [facility] at [address] [address] Jed Wong MD Procedure (Left knee genicular nerve block ) 10/12/2023 Telephone [facility] [address] [place] [address] Jed Wong MD Questions 10/04/2023 3:00 PM BUSINESS ANALYTICS FACULTY MEMBER Office Visit [facility] [address] [place] [address] Jed Wong MD Musculoskeletal Problem (Consult left knee pain) 10/04/2023 Travel from Last 3 Months Immunizations Name Administration Dates Next Due Influenza, IIV3 (Age >=3 years) 07/24/2012 Family History Medical History Relation Name Comments Cancer-breast Mother dx age 73 Hypertension Mother Cancer-colon No Family History Cancer-ovarian No Family History Relation Name Status Comments Mother Social History Tobacco Use Types Packs/Day Years Used Date Smoking Tobacco: Never Tobacco Cessation:Counseling Given: Yes Comments: smokes in the house. Alcohol Use Standard Drinks/Week Comments Yes 0 (1 standard drink = 0.6 oz pur e alcohol) Alcoholic Drinks/day: 0 rare Social Connections Answer Date Recorded Frequency of Communication with Friends and Fami ly Not on file 10/04/2023 Sex and Gender Information Value Date Recorded Sex Assigned at Not on file Gender Identity Not on file Sexual Orientation Not on file Obstetrics History Last Filed Vital Signs Vital Sign Reading Time Taken Comments Blood Pressure 150/82 10/04/2023 3:09 PM BUSINESS ANALYTICS FACULTY MEMBER Pulse 99 11/08/2023 2:36 PM BUSINESS ANALYTICS FACULTY MEMBER Temperature 36.3 ??C (97.4 ??F) 10/04/2023 3:09 PM CS T Respiratory Rate 16 06/04/2014 8:32 AM CDT Oxygen Saturation 95% 11/08/2023 2:36 PM BUSINESS ANALYTICS FACULTY MEMBER Inhaled Oxygen Concentration - - Weight 126.2 kg (278 lb 3.2 oz) 11/08/2023 2:36 PM BUSINESS ANALYTICS FACULTY MEMBER Height 167.6 cm (5' 5.98) 10/04/2023 3:09 PM CS T Body Mass Index 44.92 10/04/2023 3:09 PM BUSINESS ANALYTICS FACULTY MEMBER Plan of Treatment Upcoming Encounters Date Type Department Care Team (Late st Contact Info) Description 11/21/2023 2:00 PM BUSINESS ANALYTICS FACULTY MEMBER Procedure Only [facility] at [facility] [address] [place] [address] Jed Wong MD [address] [place] [address] Arrived Health Maintenance Due Date Last Done Comments Tdap 1973 Depression screening for age 12+ 1974 HIV for age 15-65 1977 BMI (ht and wt on same day) for age 18+ 1980 Hepatitis C screening for ag e 18-79 1980 Zoster (shingles) series for age 50+ (1 of 2) 1981 Tetanus booster 1982 Pap test for age 21-65 1983 Colonoscopy through age 75 2007 Lipids for age 45-75 2007 Mammogram for age 45-75 2007 COVID-19 vaccine series (3 - Pfizer risk series) 03/06/2021 02/06/2021, 01/16/2021 Influenza for age 50-64 06/30/2023 07/24/2012 Pneumococcal series for age 6-64 Aged Out No longer eligible b ased on patient's age to complete this topic Medical Devices Implanted Type Area Senior Windows Administrator Device Identifier Shelf Expiration Date Model / Serial / Lot [id number] Implanted:Qty: 1 on 11/21/2012 at [facility] Left: Breast [employer] - Inamed [id number] / [id number] / Description:TISSUE CASE MANAGER [id number] Mammary 800cc [[id number]] Implanted:Qty: 1 on 06/26/2013 at [facility] Left: Breast [employer] [id number] # / [id number] breast 800cc Memorygel Rnd High Smooth Silcn - [id number] Implanted:Qty: 1 on 06/26/2013 at [facility] Explanted:at [facility] (Quantity not on file) Right: Breast [employer] 03/29/2018 [id number] # / [id number] Advance Directives Latest Code Status on File Code Status Date Activated Date Inactivated Comments Full Code 06/04/2014 9:04 AM 06/04/2014 11:58 AM Code Status History Code Status Date Activated Date Inactivated Comments Full Code 06/26/2013 9:08 AM 06/26/2013 1:13 PM Full Code 06/26/2013 6:22 AM 06/26/2013 9:08 AM Full Code 11/21/2012 8:45 AM 11/21/2012 1:08 PM Full Code 11/21/2012 6:23 AM 11/21/2012 8:45 AM Care Teams Heavy Mobile Equipment Operator Relationship Specialty Start Date End Date Brigitte Ramirez DO PCP - General Family Practice 06/24/13
--- OUTSIDE RECORDS SUMMARY | 2023-11-21 13:13 | XMS_ITS | Encounter Summary ---
Author Name Unknown Organization [facility] Address [address], [place] [address] Care Team Providers Care Baker Doughnut Name Role Phone Needs Pcp, Assignment Primary Care Provider [phone] Reason for Visit * Procedure/Equipment (Routine) - Incomplete Specialty Diagnoses / Procedures Referred By Zoran t Referred To Contact Diagnoses Spondyloarthritis (HRC) Osteoarthritis of multiple joints, unspecified osteoarthritis type Procedures MR Knee Lt WO IV Cont MR Knee Lt W/WO IV Cont MR Knee Lt W/WO IV Cont Teresa Morales MD [address] [place] [address] Referral ID Status Reason Start Date Expiration Date V isits Requested Visits Authorized [id number] Incomplete 09/07/2023 12/06/2024 1 1 Encounter Details Date Type Department Care Team Description 10/06/2023 10:00 AM FRAME MAKER Ancillary Procedure [facility] [address] [place] [address] Teresa Morales MD [address] [place] [address] Spondyloarthritis (HRC); Osteoarthritis of multiple [...] Department Care Team Description 12/14/2023 12:00 PM FRAME MAKER Appointment [facility] [address] [place] [address] Teresa Morales MD [facility] [place] [address] documented as of this encounter Procedures Procedure Name Priority Date/Time Associated Diagnosis Comments MR KNEE LT WO IV CONT STAT 10/06/2023 9:39 AM FRAME MAKER Spondyloarthritis (HRC) Osteoarthritis of multiple joints, unspecified osteoarthritis type documented in this encounter Results * MR Knee Lt WO IV Cont (10/06/2023 9:39 AM FRAME MAKER) Anatomical Region Laterality Modality Lower Extremity, Knee, Skeletal, Thigh, Leg, MSK Left Magnetic Resonance 10/06/2023 8:44 AM FRAME MAKER Impressions 10/06/2023 9:49 AM FRAME MAKER TECHNIQUE: Routine MRI of the left knee was performed without contrast. COMPARISON: X-rays 02/28/2023. FINDINGS: The exam is degraded by motion artifact. MEDIAL COMPARTMENT: Diffuse thinning with full-thickness loss of much of the weightbearing medial compartment cartilage. Some sparing more laterally. Some diminution/thinning of the medial meniscus likely reflecting degenerative type change. LATERAL COMPARTMENT: Thinning with full-thickness loss of the mid to posterior weightbearing lateral compartment cartilage some thinning elsewhere. Tearing of the posterior horn lateral meniscus somewhat irregular/truncated contour at the midportion. Blunting of the free edge of the lateral meniscus body compatible tear as well. Thinning/diminution of the anterior horn. PATELLOFEMORAL JOINT: Diffuse thinning with full-thickness loss of much of the patellar cartilage. Some spurring more superiorly. Diffuse thinning with full-thickness loss of much of the trochlear cartilage and particularly laterally. Associated lateral patellofemoral joint space narrowing. Subchondral marrow edema/developing cystic change at the lateral trochlea and to a lesser degree lateral patella. Moderate joint effusion with some synovitis. Complex popliteal cyst spanning 7 cm craniocaudal dimension. No osteocartilaginous loose bodies confirmed. LIGAMENTS AND TENDONS: The anterior and posterior cruciate ligaments, medial collateral ligament, iliotibial band, fibular collateral ligament and biceps femoris tendons are intact. The popliteus muscle and tendons are normal. There is no evidence of injury to the posterolateral corner supporting structures. EXTENSOR MECHANISM: The quadriceps and patellar tendons are normal. The medial retinaculum, medial patellofemoral ligament, and lateral retinaculum are normal. MARROW AND SOFT TISSUES: Tricompartmental marginal osteophytes. Subchondral marrow edema at the medial compartment. No definite discrete fracture. Subchondral marrow edema at the patellofemoral compartment as mentioned above. No soft tissue mass. IMPRESSION: 1. Exam degraded by motion artifact. 2. Advanced tricompartment osteoarthritis with areas of full-thickness cartilage loss. 3. Tearing of the posterior horn and body of the lateral meniscus. 4. Thinning/diminution of the anterior horn lateral meniscus and entire medial meniscus likely on degenerative basis. 5. Joint effusion and popliteal cyst. Narrative Procedure Note Doyle Winters MD - 10/06/2023 IMPRESSION TECHNIQUE: Routine MRI of the left knee was performed without contrast. COMPARISON: X-rays 02/28/2023. FINDINGS: The exam is degraded by motion artifact. MEDIAL COMPARTMENT: Diffuse thinning with full-thickness loss of much ofthe weightbearing medial compartment cartilage. Some sparing morelaterally. Some diminution/thinning of the medial meniscus likelyreflecting degenerative type change. LATERAL COMPARTMENT: Thinning with full-thickness loss of the mid toposterior weightbearing lateral compartment cartilage some thinningelsewhere. Tearing of the posterior horn lateral meniscus somewhatirregular/truncated contour at the midportion. Blunting of the free edgeof the lateral meniscus body compatible tear as well. Thinning/diminutionof the anterior horn. PATELLOFEMORAL JOINT: Diffuse thinning with full-thickness loss of much ofthe patellar cartilage. Some spurring more superiorly. Diffuse thinningwith full-thickness loss of much of the trochlear cartilage andparticularly laterally. Associated lateral patellofemoral joint spacenarrowing. Subchondral marrow edema/developing cystic change at thelateral trochlea and to a lesser degree lateral patella. Moderate jointeffusion with some synovitis. Complex popliteal cyst spanning 7 cmcraniocaudal dimension. No osteocartilaginous loose bodies confirmed. LIGAMENTS AND TENDONS: The anterior and posterior cruciate ligaments,medial collateral ligament, iliotibial band, fibular collateral ligamentand biceps femoris tendons are intact. The popliteus muscle and tendonsare normal. There is no evidence of injury to the posterolateral cornersupporting structures. EXTENSOR MECHANISM: The quadriceps and patellar tendons are normal. Themedial retinaculum, medial patellofemoral ligament, and lateralretinaculum are normal. MARROW AND SOFT TISSUES: Tricompartmental marginal osteophytes.Subchondral marrow edema at the medial compartment. No definite discretefracture. Subchondral marrow edema at the patellofemoral compartment asmentioned above. No soft tissue mass. IMPRESSION: 1. Exam degraded by motion artifact. 2. Advanced tricompartment osteoarthritis with areas of full-thicknesscartilage loss. 3. Tearing of the posterior horn and body of the lateral meniscus. 4. Thinning/diminution of the anterior horn lateral meniscus and entiremedial meniscus likely on degenerative basis. 5. Joint effusion and popliteal cyst. Teresa Morales MD RAD MRI documented in this encounter Visit Diagnoses Diagnosis Spondyloarthritis (HRC) Spondylosis of unspecified site without mention of myelopathy Osteoarthritis of multiple joints, unspecified osteoarthritis type documented in this encounter Care Teams Baker Doughnut Relationship Specialty Start Date End Date Needs Pcp, [place] [address] PCP - General 10/07/21 documented as of this encounter
--- OUTSIDE RECORDS SUMMARY | 2023-11-21 13:13 | XMS_ITS | Clinical Summary ---
Author Name Unknown Organization [facility] Address [address] [place] [address] Care Team Providers Care Rigging Loft Repairer Name Role Phone Needs Pcp, Assignment Primary Care Provider [phone] Source Comments You are receiving this document as you are listed as the primary care provider,follow-up provider, or the patient has been referred to you for consultation.This is in compliance with the Medicare andBar[facility] Cent[facility]aid EHR Incentive Program,which states Providers who transition their patient to another setting of careor provider of care or refers their patient to another provider of care shouldprovide summary care record for each transition of care or referral. Luminal Allergies Active Allergy Reactions Criticality Noted Date Comments Lisinopril Other, see comments High 11/04/2020 Kidney failure Medications Medication Sig Dispensed Refills Start Date End Date Status amLODIPine (NORVASC) 5 MG tablet Take 1 Tablet (5 mg) by mouth daily. 0 Active metFORMIN (GLUCOPHAGE) 500 MG tablet Take 1 Tablet (500 mg) by mouth daily. 0 Active chlorthalidone (HYGROTON) 25 MG tablet Take 0.5 Tablets (12.5 mg) by mouth every morning. 0 3 Active ibuprofen (MOTRIN) 800 MG tablet Take 1 Tablet (800 mg) by mouth daily. 0 3 Active rosuvastatin (CRESTOR) 5 MG tablet Take 1 Tablet (5 mg) by mouth daily. 0 3 Active cyclobenzaprine (FLEXERIL) 10 MG tablet Take 1-2 tablets at bedtime if needed 30 Tablet 0 3 Active secukinumab (COSENTYX SENSOREADY PEN) 150 MG/ML injection penIndications:A nkylosing Spondylitis Inject 1 mL (150 mg) subcutaneously every 4 weeks. Indications: Rheumatic Disease causing Vertebrae Inflammation 1 mL 11 3 Active diclofenac (VOLTAREN) 75 MG enteric coated tablet TAKE 1 TABLET(75 MG) BY MOUTH TWICE DAILY 180 Tablet 0 4 Active diclofenac (VOLTAREN) 75 MG enteric coated tablet Take 1 Tablet (75 mg) by mouth two times a day. 120 Tablet 0 3 11/06/19 24 Discontinued predniSONE (DELTASONE) 10 MG tablet Take 3 Tablets (30 mg) by mouth daily for 3 days, THEN 2 Tablets (20 mg) daily for 3 days, THEN 1 Tablet (10 mg) daily for 3 days, THEN 0.5 Tablets (5 mg) daily for 3 days. 20 Tablet 0 3 11/07/19 24 Active Problems Problem Noted Date Diagnosed Date Spondyloarthritis 04/21/2021 Encounters Date Type Department Care Team Description 11/04/2023 Refill [facility] [address] [place] [address] Teresa Morales MD Refill 10/26/[address] [place] [address] Teresa Morales MD KNEE PAIN 10/10/2023 Telephone [facility] [address] [place], [place] [phone] No Primary/ReferAna Rosa oden QUESTIONS, GENERAL 10/06/2023 10:00 AM AIRCRAFT DESIGN ENGINEER Ancillary Procedure [facility] [place] [address] [place] [address] Teresa Morales MD Spondyloarthritis ([facility]); Osteoarthritis of multiple joints, unspecified osteoarthritis type 10/06/2023 9:00 AM AIRCRAFT DESIGN ENGINEER Ancillary Procedure [facility] [place] [address] [place] [address] Teresa Morales MD Spondyloarthritis ([facility]); Osteoarthritis of multiple joints, unspecified osteoarthritis type 09/07/2023 4:00 PM AIRCRAFT DESIGN ENGINEER Office Visit [facility] [address] [place] [address] Teresa Morales MD Spondyloarthritis (HRC) (Primary Dx); Osteoarthritis of multiple joints, unspecified osteoarthritis type; Anti-cyclic citrullinated peptide antibody positive; 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); intermediate card tender current use of non-steroidal anti-inflammatories (NSAID) from Last 3 Months Immunizations Name Administration Dates Next Due Flu Vac (3+ yrs) 07/24/2012 Flublok (RIV4) 09/11/2020 Influenza Vaccine TIV, Nasal 08/16/2010 Pfizer Monovalent 12+ Purple Top 02/06/2021,12/29 Tdap 04/23/2021,01/27/2010 Zoster RZV (Shingrix) 04/23/2021 Social History Tobacco Use Types Packs/Day Years Used Date Smoking Tobacco: Never Smokeless Tobacco: Never Alcohol Use Standard Drinks/Week Comments Yes 0 (1 standard drink = 0.6 oz pur e alcohol) Sex and Gender Information Value Date Recorded Sex Assigned at Not on file Gender Identity Not on file Sexual Orientation Not on file Last Filed Vital Signs Vital Sign Reading Time Taken Comments Blood Pressure 133/88 09/07/2023 3:47 PM AIRCRAFT DESIGN ENGINEER Pulse 99 09/07/2023 3:47 PM AIRCRAFT DESIGN ENGINEER Temperature 36.4 ??C (97.5 ??F) 01/26/2023 3:54 PM CD T Respiratory Rate - - Oxygen Saturation - - Inhaled Oxygen Concentration - - Weight 125.2 kg (276 lb) 09/07/2023 3:47 PM AIRCRAFT DESIGN ENGINEER Height - - Body Mass Index - - Plan of Treatment Upcoming Encounters Date Type Department Care Team Description 12/14/2023 12:00 PM AIRCRAFT DESIGN ENGINEER Appointment [facility] [address] [place] [address] Teresa Morales MD [address] [place] [address] Health Maintenance Due Date Last Done Comments Cervical Cancer Screening Due 1962 Colon Cancer Screening Plan Due 1960 Mammogram 1962 Adult Preventive Visit 1980 Cholesterol 2007 COVID-19 Vaccine ( season) 2023 02/06/2021, 01/16/2021 Influenza (#1) 2023 10/15/2021, 09/29, 09/11/2020, Additional history exists DTaP/Tdap/Td (3 - Tdap) 04/23/2031 04/23/2021, 01/27 HIV Screening (Preventive Services) Completed 11/04/2020 Hep C Screening (Preventive Services) Completed 11/04/2020 Zoster/Shingles Completed 10/15/2021, 04/23/2021 HepA Aged Out No longer eligi ble based on patient's age to complete this topic HepB Aged Out No longer eligi ble based on patient's age to complete this topic Hib Aged Out No longer eligi ble based on patient's age to complete this topic IPV (Polio) Aged Out No longer eligi ble based on patient's age to complete this topic MCV4 Aged Out No longer eligi ble based on patient's age to complete this topic Pneumococcal Aged Out No longer eligi ble based on patient's age to complete this topic Procedures Procedure Name Priority Date/Time Associated Diagnosis Comments MR KNEE RT WO IV CONT STAT 10/06/2023 10:10 AM AIRCRAFT DESIGN ENGINEER Spondyloarthritis (HRC) Osteoarthritis of multiple joints, unspecified osteoarthritis type MR KNEE LT WO IV CONT STAT 10/06/2023 9:39 AM AIRCRAFT DESIGN ENGINEER Spondyloarthritis (HRC) Osteoarthritis of multiple joints, unspecified osteoarthritis type from Last 3 Months Results * MR Knee Rt WO IV Cont (10/06/2023 10:10 AM AIRCRAFT DESIGN ENGINEER) Anatomical Region Laterality Modality Lower Extremity, Knee, Skeletal, Thigh, Leg, MSK Right Magnetic Resonance 10/06/2023 8:44 AM AIRCRAFT DESIGN ENGINEER Impressions 10/06/2023 10:16 AM AIRCRAFT DESIGN ENGINEER TECHNIQUE: ??Routine MRI of the right knee [...] tendon insertion. Teresa Morales MD RAD MRI * MR Knee Lt WO IV Cont (10/06/2023 9:39 AM AIRCRAFT DESIGN ENGINEER) Anatomical Region Laterality Modality Lower Extremity, Knee, Skeletal, Thigh, Leg, MSK Left Magnetic Resonance 10/06/2023 8:44 AM AIRCRAFT DESIGN ENGINEER Impressions 10/06/2023 9:49 AM AIRCRAFT DESIGN ENGINEER TECHNIQUE: Routine MRI of the left knee [...] popliteal cyst. Teresa Morales MD RAD MRI from Last 3 Months Care Teams Rigging Loft Repairer Relationship Specialty Start Date End Date Needs Pcp, [place] [address] PCP - General 10/07/21
--- OUTSIDE RECORDS SUMMARY | 2023-11-21 13:13 | XMS_ITS | Encounter Summary ---
Author Name Unknown Organization [facility] Address [address], [place] [address] Care Team Providers Care Geek Squad Autotech Name Role Phone Needs Pcp, Assignment Primary Care Provider [phone] Reason for Visit * Reason Comments QUESTIONS, GENERAL Encounter Details Date Type Department Care Team Description 10/10/[address] [facility] [address] [place], [place] [phone] No Primary/Referring, Phy QUESTIONS, GENERAL Social History Tobacco Use Types Packs/Day Years Used Date Smoking Tobacco: Never Smokeless Tobacco: Never Alcohol Use Standard Drinks/Week Comments Yes 0 (1 standard drink = 0.6 oz pur e alcohol) Sex and Gender Information Value Date Recorded Sex Assigned at Not on file Gender Identity Not on file Sexual Orientation Not on file documented as of this encounter Nursing Notes * Laurita Xavier RN - 10/11/2023 10:[address] Morales back. She states patient has bilateral knee OA, left greater than right. Patient has tried injections andanti inflammatories but would like to proceed with TKA. She has been seen at a different orthopedicclinic and was told her BMI is too high to do surgery currently. Dr. Morales is wondering what our parameters are for BMI and surgery. She is not sure of the patient's BMI but does know it is over 40. Per care everywhere BMI is 45.58 Discussed if BMI is too high, patient might be sent to optimization clinic. Sending to [facility]As PRODUCTION * Dennis Blount - 10/10/2023 5:02 PM CST GENERAL QUESTIONS How may we help you today? Patient's home health occupational therapist called, asking if any providers specialize in bariatric patients, please call Dr. Morales to advise Describe your symptoms/concerns: Bilateral knee When did the issue start: >5 months Have you been seen for this recently?: No If we are unable to reach you can we leave a detailed message on your voicemail? Yes If we are unable to reach you can we send you a message in [email or web address]? No [Pilot Plant Operator/Accounts Payable Representative: Relay to patient; We make every effort to get back to you sameday, however it may take 1-2 business days depending on the nature of the communication.] PRODUCTION documented in this encounter Plan of Treatment Upcoming Encounters Date Type Department Care Team Description 12/14/2023 12:00 PM VP PRODUCTION Appointment [facility] [address] [place], [place] [address] Teresa Morales MD [address] [place] [address] documented as of this encounter Visit Diagnoses Not on filedocumented in this encounter Care Teams Geek Squad Autotech Relationship Specialty Start Date End Date Needs Pcp, Assignment [place], [place] [id number] PCP - General 10/07/21 documented as of this encounter
--- OUTSIDE RECORDS SUMMARY | 2023-11-21 13:13 | XMS_ITS | Encounter Summary ---
Author Name Unknown Organization [facility] Address [address], [place] [address] Care Team Providers Care Dispatcher Radio Name Role Phone Needs Pcp, Assignment Primary Care Provider [phone] Reason for Visit * Reason Comments Refill Encounter Details Date Type Department Care Team Description 08/12/2023 Refill [place] [address] Rheumat[facility] [place], [place] [phone] Teresa Cameron MD [address] [place], [place] [phone] Refill Social History Tobacco Use Types Packs/Day [...] Nursing Notes * Marjorie Dubois RN - 08/14/2023 8:28 AM CDT LV: 05/11/23 NV: 09/07/23 Lab Results Component Value Date WBC 9.0 05/11/2023 RBC 4.97 05/11/2023 Hemoglobin 14.4 05/11/2023 HCT 42.6 05/11/2023 MCV 85.7 05/11/2023 RDW 13.2 05/11/2023 Platelets 220 05/11/2023 Lab Results Component Value Date ALT (SGPT) 11 05/11/2023 Lab Results Component Value Date Creatinine 0.70 05/11/2023 Renewed medication per medication refill standing order. Requested Prescriptions Signed Prescriptions Disp Refills leflunomide (ARAVA) 20 MG tablet 90 Tablet 0 Sig: TAKE 1 TABLET(20 MG) BY MOUTH DAILY Authorizing Provider: TERESA CAMERON Ordering User: MARJORIE DUBOIS documented in this encounter Plan of Treatment Upcoming Encounters Date Type Department Care Team Description 12/14/2023 12:00 PM GROUND WATER CONTRACTOR Appointment [facility] [address] [place], [place] [phone] Teresa Cameron MD [address] [place], [place] [phone] documented as of this encounter Visit Diagnoses Not on filedocumented in this encounter Care Teams Dispatcher Radio Relationship Specialty Start Date End Date Needs Pcp, Assignment [place], [place] [phone] PCP - General 10/07/21 documented as of this encounter
--- OUTSIDE RECORDS SUMMARY | 2023-11-21 13:13 | XMS_ITS | Encounter Summary ---
Author Name Unknown Organization [facility] Address [address], [place] [address] Care Team Providers Care Epic Ambulatory Analyst Name Role Phone Needs Pcp, Assignment Primary Care Provider [phone] Reason for Visit * Reason Comments KNEE PAIN Encounter Details Date Type Department Care Team Description 10/26/2023 Telephone [place] [address] [place] [address]. [place], [place] [phone] Teresa Morales MD [facility] [place] [address] KNEE PAIN Social History Tobacco Use Types Packs/Day Years Used Date Smoking Tobacco: Never Smokeless Tobacco: Never Alcohol Use Standard Drinks/Week Comments Yes 0 (1 standard drink = 0.6 oz pur e alcohol) Sex and Gender Information Value Date Recorded Sex Assigned at Not on file Gender Identity Not on file Sexual Orientation Not on file documented as of this encounter Nursing Notes * Toshia Greene RN - 10/27/2023 8:32 AM CST Spoke with patient, given the providers message and they verbalized understanding. ONAUTICAL ENGINEER * Teresa Morales MD - 10/26/2023 4:49 PM CST Taper sent. Teresa Morales MD ONAUTICAL ENGINEER * Toshia Greene RN - 10/26/2023 8:35 AM CST Patient states that for the last week or so she has been having increased pain in her L-knee, leg, lower back, and L-hip. She denies any redness or warmth. She states that she has been icing/heat it and utilizing tylenol with little relief. She states that she is having her procedure through ortho at the end of October. She is requesting for a burst of prednisone to help. Please advise. -pharmacy verified. ONAUTICAL ENGINEER documented in this encounter Plan of Treatment Upcoming Encounters Date Type Department Care Team Description 12/14/2023 12:00 PM ASTRONAUTICAL ENGINEER Appointment [facility] [address] [place], [place] [phone] Teresa Morales MD [address] [place], [place] [phone] documented as of this encounter Visit Diagnoses Not on filedocumented in this encounter Care Teams Epic Ambulatory Analyst Relationship Specialty Start Date End Date Needs Pcp, Assignment [place], [place] [address] PCP - General 10/07/21 documented as of this encounter
--- OUTSIDE RECORDS SUMMARY | 2023-11-21 13:14 | XMS_ITS | Encounter Summary ---
Author Name Unknown Organization [facility] Address [address], [place] [address] Care Team Providers Care Group Managing Director Name Role Phone Needs Pcp, Assignment Primary Care Provider [phone] Reason for Referral * Procedure/Equipment (Routine) - Incomplete Specialty Diagnoses / Procedures Referred By Contac t Referred To Contact Diagnoses Lumbar radiculopathy Procedures MR Lumbar Spine WO IV Teresa Montiel DO [address] [place] [address] Referral ID Status Reason Start Date Expiration Date V isits Requested Visits Authorized [id number] Incomplete 03/17/2023 06/15/2024 1 1 Reason for Visit * Reason Comments CONSULT Back and Left leg * Consult/Transfer Care (Routine) - New Request Specialty Diagnoses / Procedures Referred By Contac t Referred To Contact Diagnoses Spondyloarthritis (HRC) Myofascial pain Chronic back pain, unspecified back location, unspecified back pain laterality Teresa Morales MD [address] [place] [address] Referral ID Status Reason Start Date Expiration Date V isits Requested Visits Authorized [id number] New Request 01/26/2023 04/26/2024 1 1 Encounter Details Date Type Department Care Team Description 03/17/2023 8:20 AM CDT Office Visit [facility] [address] [place] [address] Teresa Crews DO [address] [place] [address] Lumbar radiculopathy (Primary Dx); Chronic pain of left knee; Osteoarthritis of left knee, unspecified osteoarthritis type; Obesity, unspecified classification, unspecified obesity type, unspecified whether serious comorbidity present (HRC) Social History Tobacco Use Types Packs/Day Years Used Date Smoking Tobacco: Never Smokeless Tobacco: Never Alcohol Use Standard Drinks/Week Comments Yes 0 (1 standard drink = 0.6 oz pur e alcohol) Sex and Gender Information Value Date Recorded Sex Assigned at Not on file Gender Identity Not on file Sexual Orientation Not on file documented as of this encounter Patient Instructions * Patient Instructions* Teresa Crews DO - 03/17/2023 8:20 AM CDT Recommend orthopedic evaluation to consider surgical vs Synvisc/Monovisc which is a lubricating injection. Increase celebrex to 200mg twice daily Increase gabapentin to 1 tablet twice daily. After 2 weeks, then try 1 tablet three times per day. This is a nerve medication. Lumbar MRI without IV contrast to further evaluate for radiculopathy which can cause leg pain, instability and weakness. documented in this encounter Progress Notes * Teresa Crews DO - 03/17/2023 8:20 AM CDT Pain/PM&R Clinic Consult Note Referred by: Teresa Morales MD [address] [place] [address] Chief Complaint: Chief Complaint Patient presents with CONSULT Back and Left leg History of Present Illness: The patient is a pleasant, 62-year-old female with underlying history of spondyloarthritis presenting with chronic low back and left leg pain. She reports her symptoms started approximately two and half years ago around the time of her 's . She denies any known injury. She locates the area of pain to the low back worse on the left side with pain traveling into the left leg, knee and lópez. She does feel this condition is getting worse. She describes the pain as sharp. It is intermittent and comes on with prolonged standing, prolonged sitting, walking and bending. She has spasms in the back. She finds improvement with rest and sitting. She does feel give-way weakness in the bilateral lower extremities. She denies numbness. The patient is currently on gabapentin 300 mg at bedtime. She is unsure if this is helpful. She is also utilizing Celebrex 100 mg twice daily. She is unsureif this medication is helpful. She has only found benefit with use of oral prednisone. She understands that she can not be on this medication care home. With regards to her left knee she did try several steroid injections without durable relief. Today she rates her pain at 8/10. This is affecting her quality of life and job. 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 She struggles with walking and getting in and out of her car due to pain. [place] [employer]AC[employer] MEMBER: Reviewed 03/17/2023 Review of Systems: A 10-point review of systems was completed. Significant symptoms were noted in the above HPI. Social History: Reviewed Past Medical History: Reviewed Family History: Reviewed. Medications: Reviewed Allergies: Reviewed IMAGING: Imaging was reviewed with the patient at the time of the encounter. My independent interpretation of the imaging is noted below assessment and plan. Left Knee X-ray 02/28/2023 FINDINGS: 3 views obtained. No acute fracture. Severe medial compartment osteoarthritic degenerative narrowing. Mild-moderate lateral compartment osteoarthritic degenerative narrowing. Moderate-severe patellofemoral compartment osteoarthritic degenerative narrowing. Small-moderate joint effusion without layering lipohemarthrosis. Tricompartmental osteophytosis. Suggestion of osteopenia. Exam: There were no vitals filed for this visit. Constitutional: No acute distress, sitting comfortably ENT: Hearing intact to conversation Respiratory: Respirations are non-labored, patient is breathing comfortably on room air Musculoskeletal: Gait: Non-antalgic. The patient can walk without the use of an assistive device Inspection: Mild swelling of the left knee, obesity Palpation: mild tenderness to the left knee joint and lateral lópez Strength: 5/5 during seated HF, KE/KF, ankle DF/PF Special tests: Positive seated slump test Skin: Sensation intact to light touch b/l along L3, L4, L5, S1 in the lower extremities. No allodynia. Neurological: Speech clear and fluent Reflexes: 1+/4 at the patella and achilles Psychiatric: Pleasant, Good eye contact ASSESSMENT: Encounter Diagnoses Name Primary? Lumbar radiculopathy Yes Chronic pain of left knee Osteoarthritis of left knee, unspecified osteoarthritis type Obesity, unspecified classification, unspecified obesity type, unspecified whether serious comorbidity present (HRC) PLAN: Additional Work-up: -Recommend Orthopedics referral. The patient prefers to see orthopedics in [place] at a clinic near her home. Offered external referral. She will call me if she needs this in the future. We discussed that given her knee x-ray, which was reviewed with her during the time of the visit, with severe osteoarthritis I suspect much of her pain is related to this condition. Defer whether or not she yenyn surgical candidate to Orthopedics. We did discuss that her weight may be a contributing factor inthis decision. - Recommend dedicated lumbar MRI without IV contrast to further evaluate for left L4 versus L5 radiculopathy. Therapy/Exercise: Recommend physical therapy for mobility and strengthening of the left knee and leg. The patient prefers to hold for now. 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 She is currently taking 100 mg twice daily without relief. We discussed if she does not have benefit from this medication after two weeks would recommend she discontinue using it in the future. - Increase gabapentin to 300 mg 3 times per day. We discussed 1st starting with 300 mg tablets twice daily. After two weeks, she can increase to one tablet 3 times per day. We discussed risks and benefits of this medication. Interventions: -Pending lumbar MRI could consider epidural steroid injection - could consider injection with hyaluronic acid via Monovisc versus Synvisc. Follow-up: 2-3 months or as needed Please note that the above medical documentation was created with voice recognition software and may contain typographic errors. 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 Frequency percentages adapted from Mariya Almeida, Marleen MACHADO, Jorje Griffith, et al. AJNR AM J Neuroradiol 2015:36:811-16. [...] facet degeneration(4-83%). Frequency percentages adapted from Mariya Almeida, Marleen MACHADO, Jorje Griffith, etal. AJNR AM J Neuroradiol 2015:36:811-16. Teresa Crews DO RAD MRI documented in this encounter Visit Diagnoses Diagnosis Lumbar radiculopathy- Primary Thoracic or lumbosacral neuritis or radiculitis, unspecified Chronic pain of left knee Pain in joint, lower leg Osteoarthritis of left knee, unspecified osteoarthritis type Obesity, unspecified classification, unspecified obesity type, unspecified whether serious comorbidity present (HRC) Lumbar radiculopathy Thoracic or lumbosacral neuritis or radiculitis, unspecified documented in this encounter Care Teams Group Managing Director Relationship Specialty Start Date End Date Needs Pcp, [place] [address] PCP - General 10/07/21 documented as of this encounter
--- OUTSIDE RECORDS SUMMARY | 2023-11-21 13:14 | XMS_ITS | Encounter Summary ---
Author Name Unknown Organization [facility] Address [address], [place] [address] Care Team Providers Care Job Service Specialist Name Role Phone Needs Pcp, Assignment Primary Care Provider [phone] Reason for Referral * Consult/Transfer Care (Routine) - New Request Specialty Diagnoses / Procedures Referred By Zoran ibarra Referred To Contact Diagnoses Spondyloarthritis (HRC) Myofascial pain Chronic back pain, unspecified back location, unspecified back pain laterality Teresa Morales MD [address] [place] [address] Referral ID Status Reason Start Date Expiration Date V isits Requested Visits Authorized [id number] New Request 01/26/2023 04/26/2024 1 1 Scheduling Instructions Your clinician has recommended an appointment with [facility]. You can quickly make your appointment online at Heap/schedule. You can also call [phone] for help scheduling your appointment. We suggest you call your health insurance company about your coverage and benefits for this appointment. Question Answer Appointment Urgency? Within 1 Week (Urgent) Reason for visit? chronic back pain with history of ankylosing spondylitis but severe pain despite multiple modalities, looking for other causes of back pain/myofascial pain [facility] evaluation for possible lumbar surgery? 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) Social History Tobacco Use Types Packs/Day [...] Sign Reading Time Taken Comments Blood Pressure 130/84 01/26/2023 3:55 PM CDT Pulse 94 01/26/2023 3:55 PM CDT Temperature 36.4 ??C (97.5 ??F) 01/26/2023 3:54 PM CD T Respiratory Rate - - Oxygen Saturation - - Inhaled Oxygen Concentration - - Weight - - Height - - Body Mass Index - - documented in this encounter Patient Instructions * Patient Instructions* Teresa Morales MD - 01/26/2023 4:00 PM CDT CONTINUE the CONSENTYX Continue prednisone 5 mg daily until your prescription is out Continue the celebrex twice daily for now START gabapentin 100 mg at bedtime for the 4 days and if doing okay increase to 300 mg at bedtime Referral to physical medicine and rehab Call me if symptoms change or worsen Follow up in 10 weeks documented in this encounter Progress Notes * Teresa Morales MD - 01/26/2023 4:00 PM CDT RHEUMATOLOGY FOLLOW-UP Chief Complaint Patient presents with Follow-up Encounter date: 01/26/2023 Date of last office visit: 10/06/2022 Rheumatologic history: The patient is a 62 y.o. female with medical history of breast ca, s/p bilateral mastectomy, pre diabetes, HTN, anxiety, hyperparathyroidism, and obesity who presented to our clinic initially in October 2020 for evaluation of joint pain in the setting of elevated inflammatory markers. Outside records received and reviewed from [facility]. She had been seen by her PCP [...] initially wanted to try prior authorization for [place] though due to insurance issues needed to try Enbrel 1st. [employer] approved for this in February 2022. Started Celebrex. Stopped methotrexate. Interim history: She felt great on 20 mg of prednisone but when she dropped down to 10 mg the knees started hurting.She is now on 5 mg of prednisone and feels about the same. She overall thinks she is better than when she started the prednisone, but she continues to have issues with the back and knees. She has done 2 shots of the Cosentyx (still in loading dose). There is no issue with the injection.She is not taking anything else for pain. She does not think the muscle relaxant helps at all with the pain. ROS: Review of systems completed with patient today, and is as noted above. PMH: Updated in EMR Outpatient Encounter Medications as of 01/26/2023 Medication Sig Dispense Refill amLODIPine (NORVASC) 5 MG tablet Take 1 Tablet (5 mg) by mouth daily. celecoxib (CELEBREX) 100 MG capsule TAKE 1 CAPSULE(100 MG) BY MOUTH TWICE DAILY 60 Capsule 11 cholecalciferol (VITAMIN D3) 1.25 MG (10256 UT) capsule Take 1 Capsule (50,000 Units) by mouth daily. cyclobenzaprine (FLEXERIL) 10 MG tablet Take 1-2 tablets at bedtime if needed 30 Tablet 0 diazePAM (VALIUM) 5 MG tablet Pt to bring with to appt. Do not take prior to arrival. MRI staff will instruct when to take med. 1 Tablet 0 metFORMIN (GLUCOPHAGE) 500 MG tablet Take 1 Tablet (500 mg) by mouth daily. predniSONE (DELTASONE) 20 MG tablet Take 2 tabs one time daily for 5 days, then 1 tab daily for 5 days, then stop 15 Tablet 0 predniSONE (DELTASONE) 5 MG tablet Take 2 Tablets (10 mg) by mouth daily for 14 days, THEN 1 Tablet(5 mg) daily. 58 Tablet 0 secukinumab (COSENTYX) 150 MG/ML injection pen Loading dose only, Inject 1mL on weeks 0, 1, 2, 3 and 4 then every 4 weeks thereafter Indications: Rheumatic Disease causing Vertebrae Inflammation, M45.9 5 mL 0 [START ON 02/05/2023] secukinumab (COSENTYX) 150 MG/ML injection pen Inject 1 mL (150 mg) subcutaneously every 4 weeks. Indications: Rheumatic Disease causing Vertebrae Inflammation, M45.9 Do not startbefore February 05, 2023. 1 mL 3 No facility-administered encounter medications on file as of 01/26/2023. ALLERGIES: Updated in EMR Social History Tobacco Use Smoking Status Never Smokeless Tobacco Never Social History Substance and Sexual Activity Alcohol Use Yes MEDS: Reviewed and updated in the computerized record. Physical exam: Blood pressure 130/84, pulse 94, temperature 97.5 ??F (36.4 ??C), temperature source Skin. General: Alert, no distress, appears comfortable Eyes: anicteric, no erythema, EOMI ENT: mask kept in place Resp: breathing comfortably on room air. CV: Not examined Abd: Not examined Skin: no ulcerations, nodules, or rashes noted on visible skin Neuro: Appears to have pain with ambulation with limping MSK: A focused joint exam was performed involving neck, back, SI joints, shoulders, elbows, wrists,hands, hips, knees, ankles, feet. The joint exam was negative for synovitis, deformity, tenderness,deformity with the exception of: Continues to have paraspinal muscle tenderness of the lower back and SI joint region. There is pain with range of motion of the shoulders today without tenderness to palpation of the shoulder joints.There is crepitus of the knees bilaterally with popping of the right knee and pain with full extension. No tenderness to palpation of the joint. There is warmth, swelling, tenderness to palpation and pain with range of motion of the left knee. No evidence of dactylitis or swelling of the hands or wrists. She does have some myofascial tender points of the lower extremities and upper arms Labs: Lab Results Component Value Date EXT RSLT - WBC 8.72 01/07/2022 RBC 4.60 04/21/2021 EXT RSLT - HGB 13.7 01/07/2022 HCT 39.4 04/21/2021 MCV 85.7 04/21/2021 RDW 13.8 04/21/2021 EXT RSLT - PLATELET COUNT 247 01/07/2022 Lab Results Component Value Date EST RSLT - AST 22 11/05/2021 , Lab Results Component Value Date EXT RSLT - ALT 15 11/05/2021 Lab Results Component Value Date Creatinine 0.60 10/06/2022 Lab Results Component Value Date Sedimentation Rate 43 (H) 10/06/2022 , Lab Results Component Value Date C-Reactive Protein 2.4 (H) 10/06/2022 RF 22 CCP 233 Outside records from [facility] reviewed August 2020: slightly elevated RF at 18 (ref at their clinic 0-14). CCP negative. AMY screen negative. ESR and CRP elevated at 61 and 4.50. HLA B27 negative. X-ray done of the bilateral hands done showing mild degenerative changes with no erosions. Left knee x-ray with tricompartmental DJD. Lumbar spine with degenerative disc disease. Imaging: XR SI joints 11/04/2020: FINDINGS: There is indistinctness of the lower synovial portions of the sacroiliac joints with adjacent sclerosis within the innominate greater than sacral bones. The finding are suspicious for sacroiliitis. The findings are greater on the right compared to left. Enthesopathy at the iliac crests. ASSESSMENT/PLAN: # asymmetric inflammatory arthritis with sacroilitis, SpA # positive anti CCP # chronic back pain, likely mechanical back pain component # high risk medication use # myofascial pain # history of malignancy Ms. Alcaraz is a very pleasant 62 y.o.female with medical history of breast ca, s/p bilateral mastectomy (did not need chemotherapy or radiation), pre diabetes, HTN, anxiety, hyperparathyroidism, and obesity who is presenting to our clinic today for follow up in regards to her spondyloarthritis. She has continued to struggle with symptoms despite multiple biologics, and at our last visit we electedto start Cosentyx. She is only done 2 doses thus far and tolerating this well. We reviewed that this can take 3-4 months to reach full effect. She is frustrated with how she is feeling in the only thing that has been beneficial for his prednisone, however she was recently diagnosed with diabetes and is concerned about going on higher doses. I also expressed my concern with her being on long-term glucocorticoids, and I recommend that we try different modalities to get her off of medication. She does not find prednisone very helpful at doses less than 20 mg. She is currently on 5 mg daily. I recommend that she continue her current for description which runs out on the 15 of February and then she can stop this. We discussed some other options moving forward. We reviewed that in her case, typically when I see patients that are not responding to multiple biologics, I do wonder about a different etiology contributing to their symptoms in addition to her underlying inflammatory arthritis. I do recommend that we have her see Physical Medicine and Rehabilitation for chronic degenerative arthritis changes of the spine and mechanical back pain symptoms. Could consider injections. I also recommend that we try gabapentin for myofascial pain/neuropathic pain which may be contributing to her symptoms as well. Recommend that she continue Celebrex for now though will likely discontinue this in the future. Advised to stop Flexeril at bedtime. Encouraged to try and increase gentle exercise. Continue follow-up with primary care and biometrics analyst for further education and management of her diabetes. We also reviewed consideration of fluoroscopic guided knee injections should her knee pain change or worsen prior to follow-up. She would like to hold off on this for now but advised to call if symptoms change. PLAN: - continue Cosentyx loading dose - continue Celebrex to 200 mg twice daily - start gabapentin 100 mg at bedtime for the 1st 4 days and if doing well can increase to 300 mg atbedtime and continue this dose - stop cyclobenzaprine - consider fluoroscopic knee injections - referral to Physical Medicine and Rehabilitation - continue follow-up with primary care provider and biometrics analyst - gentle exercise as tolerated - call if symptoms change prior to follow-up - follow up in 10 weeks Patient advised to call clinic if symptoms change or worsen or if new symptoms develop. All of the patient's questions were answered to the best of my ability. Billing based on: complexity. 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 Appointment [facility] [address] [place], [place] [id number] Teresa Morales MD [address] [place], [place] [id number] Scheduled Referrals Name Type Priority Associated Diagnoses Orde r Schedule Physical Medicine & Rehab Consult-Adult Referral Routine Spondyloarthritis Myofascial pain Chronic back pain, unspecified back location, unspecified back pain laterality Ordered: 01/26/2023 documented as of this encounter Visit Diagnoses Diagnosis Spondyloarthritis (HRC)- Primary Spondylosis of unspecified site without mention of myelopathy Myofascial pain Mylagia and myositis, unspecified Chronic back pain, unspecified back location, unspecified back pain laterality 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
--- OUTSIDE RECORDS SUMMARY | 2023-11-21 13:14 | XMS_ITS | Encounter Summary ---
Author Name Unknown Organization [facility] Address [address] [address] Care Team Providers Care Optometrist Assistant Name Role Phone Needs Pcp, Assignment Primary Care Provider [phone] Reason for Referral * Procedure/Equipment (Routine) - Incomplete Specialty Diagnoses / Procedures Referred By Contac t Referred To Contact Diagnoses Pain in both knees, unspecified chronicity Procedures XR Knee Lt 3 Views Teresa Cameron MD [address] [place] [address] Referral ID Status Reason Start Date Expiration Date V isits Requested Visits Authorized [id number] Incomplete 02/27/2023 05/28/2024 1 1 * Procedure/Equipment (Routine) - Incomplete Specialty Diagnoses / Procedures Referred By Contac t Referred To Contact Diagnoses Pain in both knees, unspecified chronicity Procedures FL Injection Knee Lt Teresa Cameron MD [address] [place] [address] Referral ID Status Reason Start Date Expiration Date V isits Requested Visits Authorized [id number] Incomplete 02/27/2023 05/28/2024 1 1 Reason for Visit * Reason Comments KNEE PAIN Encounter Details Date Type Department Care Team Description 02/27/2023 Telephone [facility] [address] Rheumatology [address] [facility] [address] Teresa Cameron MD [address] [place] [address] KNEE PAIN Social History Tobacco Use Types Packs/Day Years Used Date Smoking Tobacco: Never Smokeless Tobacco: Never Alcohol Use Standard Drinks/Week Comments Yes 0 (1 standard drink = 0.6 oz pur e alcohol) Sex and Gender Information Value Date Recorded Sex Assigned at Not on file Gender Identity Not on file Sexual Orientation Not on file documented as of this encounter Progress Notes * Teresa Cameron MD - 02/28/2023 10:54 AM CDTAddended by: TERESA CAMERON on: 02/28/2023 10:54 AM Modules accepted: Orders * Linda Mcmahon LPN - 02/28/2023 10:41 AM CDTAddended by: LINDA MCMAHON on: 02/28/2023 10:41 AM Modules accepted: Orders documented in this encounter Nursing Notes * Linda Mcmahon LPN - 02/28/2023 11:27 AM CDT Patient informed. Verbalized understanding. Xray tonight and injection next week. She states the celebrex twice daily isn't helping at all so she will try the prednisone. * Teresa Cameron MD - 02/28/2023 10:51 AM CDT For her pain the best option would be for her to use the celebrex she already has versus the prednisone taper. I have lowered the dose so this may be better for her blood sugar. Agree if pain worsensto go to urgent care. I do not use stronger pain medications for inflammation arthritis or osteoarthritis. I have sent a refill for her prednisone taper if she chooses to take this. Recommend she get scheduled for the injection and get the x-juan. Teresa Cameron MD * Linda Mcmahon LPN - 02/28/2023 10:39 AM CDT Patient informed. Verbalized understanding. She states she does not have a refill. With her diabetes she really prefers not to take prednisone and if you do not want to prescribe somethig for pain she will take it. * Teresa Cameron MD - 02/28/2023 9:38 AM CDT She should have a prednisone taper on hand if needed for a flare. Did she run out of this, I could send a additional 1 if needed. Teresa Cameron MD * Toshia Greene RN - 02/28/2023 8:50 AM CDT Patient calling back and wonders if she can get something for her pain as her knee is really hurting her? Please advise. -Patient advised to go to urgent care if the pain gets worse or if she feels she cant handle it anymore. * Ludmila Fofana RN - 02/27/2023 4:17 PM CDT Spoke with patient, given the information below and patient verbalized understanding. Pt was transferred to radiology to schedule. * Teresa Cameron MD - 02/27/2023 4:11 PM CDT I have ordered a x-ray of the knee and placed a order for a fluoroscopic injection of the knee as we had previously discussed. Teresa Cameron MD * Toshia Greene RN - 02/27/2023 9:01 AM CDT Patient states that for the last month she has been experiencing L-knee and lópez pain. She states it is throbbing and is very painful. She states that at times she gets a shooting pain that goes into her L-hip. At her last visit she was told to call if it gets worse. She wonders if she can do any imaging of it and wonders what she should do? Please advise. -pharmacy verified. documented in this encounter Plan of Treatment Upcoming Encounters Date Type Department Care Team Description 12/14/2023 12:00 PM COPER HAND Appointment [facility] [address] [place] [address] Teresa Cameron MD [address] [place] [id number] documented as of this encounter Results * FL Injection Knee Lt (03/09/2023 2:05 PM CDT) Anatomical Region Laterality Modality Lower Extremity, Knee Radio Fluo roscopy 03/09/2023 1:22 PM CDT Impressions 03/09/2023 2:44 PM CDT FINDINGS: The procedure, goals, risks and benefits of the procedure were discussed with the patient, who gave full written and verbal consent to proceed. The location of the procedure was confirmed and pause for cause performed. Using sterile technique, local anesthesia and fluoroscopic guidance a 22 gauge needle was advanced via anterolateral approach into the left knee. Intraarticular location of the needle tip was confirmed with the injection of 1 mL of Isovue. Then approximately 5 mL of a mixture of 1 mL Kenalog (40 mg) and 4 mL 0.5% ropivacaine was injected. ??Patient tolerated the procedure well. ?? A single spot image taken to document intraarticular location of the injection. IMPRESSION: ??Left knee injection with combination anesthetic/steroid. ??Preprocedure pain rating = 7/10, postprocedure = 0/10. Narrative Procedure Note Nick Taylor MD - 03/09/2023 IMPRESSION FINDINGS: The procedure, goals, risks and benefits of the procedure werediscussed with the patient, who gave full written and verbal consent toproceed. The location of the procedure was confirmed and pause for causeperformed. Using sterile technique, local anesthesia and fluoroscopic guidance a 22gauge needle was advanced via anterolateral approach into the left knee.Intraarticular location of the needle tip was confirmed with the injectionof 1 mL of Isovue. Then approximately 5 mL of a mixture of 1 mL Kenalog(40 mg) and 4 mL 0.5% ropivacaine was injected. Patient tolerated theprocedure well. A single spot image taken to document intraarticular location of theinjection. IMPRESSION: Left knee injection with combination anesthetic/steroid.Preprocedure pain rating = 7/10, postprocedure = 0/10. Teresa Cameron MD RAD FL * XR Knee Lt 3 Views (02/28/2023 5:18 PM CDT) Anatomical Region Laterality Modality Lower Extremity, Knee Digital Ra diography 02/28/2023 5:10 PM CDT Impressions 02/28/2023 5:21 PM CDT COMPARISON: ??None. FINDINGS: ??3 views obtained. No acute fracture. Severe medial compartment osteoarthritic degenerative narrowing. Mild-moderate lateral compartment osteoarthritic degenerative narrowing. Moderate-severe patellofemoral compartment osteoarthritic degenerative narrowing. Small-moderate joint effusion without layering lipohemarthrosis. Tricompartmental osteophytosis. Suggestion of osteopenia. Narrative Procedure Note Raji Michael MD - 02/28/2023 IMPRESSION COMPARISON: None. FINDINGS: 3 views obtained. No acute fracture. Severe medial compartmentosteoarthritic degenerative narrowing. Mild-moderate lateral compartmentosteoarthritic degenerative narrowing. Moderate-severe patellofemoralcompartment osteoarthritic degenerative narrowing. Small-moderate jointeffusion without layering lipohemarthrosis. Tricompartmentalosteophytosis. Suggestion of osteopenia. Teresa Cameron MD RAD GD documented in this encounter Visit Diagnoses Diagnosis Pain in both knees, unspecified chronicity- Primary Pain in both knees, unspecified chronicity Pain in both knees, unspecified chronicity documented in this encounter Care Teams Optometrist Assistant Relationship Specialty Start Date End Date Needs Pcp, [place] [address] PCP - General 10/07/21 documented as of this encounter
--- OUTSIDE RECORDS SUMMARY | 2023-11-21 13:14 | XMS_ITS | Encounter Summary ---
Author Name Unknown Organization [facility] Address [address], [place] [address] Care Team Providers Care Hand Assembler Name Role Phone Needs Pcp, Assignment Primary Care Provider [phone] Reason for Visit * Procedure/Equipment (Routine) - Incomplete Specialty Diagnoses / Procedures Referred By Zoran ibarra Referred To Contact Diagnoses Spondyloarthritis (HRC) Enthesitis Procedures MR Spine WO IV Cont Spondyloarthropathy Teresa Morales MD [address] [place] [address] Referral ID Status Reason Start Date Expiration Date V isits Requested Visits Authorized [id number] Incomplete 10/06/2022 01/05/2024 1 1 Encounter Details Date Type Department Care Team Description 12/16/2022 9:30 AM CHARGE GANG WEIGHER Ancillary Procedure [facility] [id number] Radiology MRI [address] [place] [id number] Teresa Morales MD [address] [place] [address] Spondyloarthritis; Enthesitis Social History Tobacco Use Types Packs/Day Years [...] Department Care Team Description 12/14/2023 12:00 PM CHARGE GANG WEIGHER Appointment [facility] [address] [place] [address] Teresa Morales MD [address] [place] [address] documented as of this encounter Procedures Procedure Name Priority Date/Time Associated Diagnosis Comments MR SPINE WO IV CONT SPONDYLOARTHROPATHY Routine 12/16/2022 9:23 AM CHARGE GANG WEIGHER Spondyloarthritis Enthesitis documented in this encounter Results * MR Spine WO IV Cont Spondyloarthropathy (12/16/2022 9:23 AM CHARGE GANG WEIGHER) Anatomical Region Laterality Modality Spine, MSK Magnetic Resonan ce 12/16/2022 8:58 AM CHARGE GANG WEIGHER Impressions 12/16/2022 10:05 AM CHARGE GANG WEIGHER CLINICAL HISTORY: ??Evaluate for spondyloarthropathy. TECHNIQUE: Sagittal T1 STIR sequences were obtained through the entire spine. ??Oblique coronal T1 and STIR sequences were obtained through the sacroiliac joints. ?? FINDINGS: The spinal cord appears grossly intrinsically normal. No evidence of cord compression. ??Midline posterior fossa structures and conus medullaris are in normal position. ?? CERVICAL SPINE: ?? The marrow signal is normal, without evidence for active osteitis, nor fatty deposition. Anterior and posterior vertebral endplate corners appear normal. Disc desiccation vertebral spurring noted at C5-6 and C6-7. THORACIC SPINE: ??Suggestion of flowing confluent right anterolateral osteophytosis involving the lower thoracic spine, including the T8-T10 vertebral bodies (series 19, image 6), most compatible with developing diffuse idiopathic skeletal hyperostosis. Mild fatty infiltration involving the anterior-inferior corner of the T3 vertebral body, the anterior-superior and anterior-inferior corners of the T4 vertebral body, and the anterior-superior corner of the T5 vertebral body. Fat infiltration involving the anterior-inferior corner of the T10 vertebral body and the anterior-superior corner of the T11 vertebral body. Mild edema infiltrating the left T7 costovertebral junction (series 12, images 14-16). LUMBAR SPINE: ??Multilevel disc desiccation and disc height loss throughout the lumbar spine. No acute fracture. Fatty infiltration involving the anterior- superior corner of the L3 vertebral body, the anterior-inferior and anterior-superior corners of the L2 vertebral body, and the anterior-inferior and anterior-superior corners of the L1 vertebral body. A few scattered diminutive Schmorl's nodes are identified. No evidence for spondylolysis. Hemangioma within the L5 vertebral body. SACROILIAC JOINTS: ??Mild osteoarthritic degenerative changes across the bilateral sacroiliac joints. No abnormal fat deposition margins of the margins of the bilateral sacroiliac joints. Trace physiologic fluid within the bilateral sacroiliac joints. No sacroiliac osseous erosions identified. IMPRESSION: ?? 1. Multiple thoracolumbar vertebral bodies with focal fatty deposition at their anterior-superior and anterior-inferior corners, nonspecific, though can be seen in patients with a history of / developing ankylosing spondylitis. However, aside from flowing, confluent, right anterolateral osteophytosis involving the lower thoracic spine, as described above and most compatible with developing diffuse idiopathic skeletal hyperostosis, no diffuse spinal syndesmophyte formation/fusion is identified. 2. Questionable edema infiltrating the left T7 costovertebral junction; the remainder of the costovertebral junctions demonstrate no significant edema/inflammation. 3. Degenerative changes of the spine, as described above. 4. No evidence of acute or chronic sacroiliitis. Narrative Procedure Note Raji Michael MD - 12/16/2022 IMPRESSION CLINICAL HISTORY: Evaluate for spondyloarthropathy. TECHNIQUE: Sagittal T1 STIR sequences were obtained through the entirespine. Oblique coronal T1 and STIR sequences were obtained through thesacroiliac joints. FINDINGS: The spinal cord appears grossly intrinsically normal. No evidence of cordcompression. Midline posterior fossa structures and conus medullaris arein normal position. CERVICAL SPINE: The marrow signal is normal, without evidence for activeosteitis, nor fatty deposition. Anterior and posterior vertebral endplatecorners appear normal. Disc desiccation vertebral spurring noted at C5-6and C6-7. THORACIC SPINE: Suggestion of flowing confluent right anterolateralosteophytosis involving the lower thoracic spine, including the T8-K85wwutjceuj bodies (series 19, image 6), most compatible with developingdiffuse idiopathic skeletal hyperostosis. Mild fatty infiltrationinvolving the anterior-inferior corner of the T3 vertebral body, theanterior-superior and anterior-inferior corners of the T4 vertebral body,and the anterior-superior corner of the T5 vertebral body. Fatinfiltration involving the anterior-inferior corner of the T10 vertebralbody and the anterior-superior corner of the T11 vertebral body. Mildedema infiltrating the left T7 costovertebral junction (series 12, [id number]). LUMBAR SPINE: Multilevel disc desiccation and disc height loss throughoutthe lumbar spine. No acute fracture. Fatty infiltration involving theanterior-superior corner of the L3 vertebral body, the anterior-inferiorand anterior-superior corners of the L2 vertebral body, and theanterior-inferior and anterior-superior corners of the L1 vertebral body.A few scattered diminutive Schmorl's nodes are identified. No evidence forspondylolysis. Hemangioma within the L5 vertebral body. SACROILIAC JOINTS: Mild osteoarthritic degenerative changes across thebilateral sacroiliac joints. No abnormal fat deposition margins of themargins of the bilateral sacroiliac joints. Trace physiologic fluid withinthe bilateral sacroiliac joints. No sacroiliac osseous erosionsidentified. IMPRESSION: 1. Multiple thoracolumbar vertebral bodies with focal fatty deposition attheir anterior-superior and anterior-inferior corners, nonspecific, thoughcan be seen in patients with a history of / developing ankylosingspondylitis. However, aside from flowing, confluent, right anterolateralosteophytosis involving the lower thoracic spine, as described above andmost compatible with developing diffuse idiopathic skeletal hyperostosis,no diffuse spinal syndesmophyte formation/fusion is identified. 2. Questionable edema infiltrating the left T7 costovertebral junction;the remainder of the costovertebral junctions demonstrate no significantedema/inflammation. 3. Degenerative changes of the spine, as described above. 4. No evidence of acute or chronic sacroiliitis. Teresa Morales MD RAD MRI documented in this encounter Visit Diagnoses Diagnosis Spondyloarthritis (HRC) Spondylosis of unspecified site without mention of myelopathy Enthesitis Enthesopathy of unspecified site documented in this encounter Care Teams Hand Assembler Relationship Specialty Start Date End Date Needs Pcp, [place] [address] PCP - General 10/07/21 documented as of this encounter
--- OUTSIDE RECORDS SUMMARY | 2023-11-21 13:14 | XMS_ITS | Encounter Summary ---
Author Name Unknown Organization [facility] Address [address], [place] [address] Care Team Providers Care Senior Technical Recruiter Name Role Phone Needs Pcp, Assignment Primary Care Provider [phone] Reason for Visit * Reason Comments Prior Authorization For Medication Leflu nomide 10mg- 20mg Encounter Details Date Type Department Care Team Description 05/15/2023 Telephone [place] [address] Rheumatology [facility] [place] [address] Teresa Morales MD [address] [place] [address] Prior Authorization For Medication (Leflunomide 10mg- 20mg) Social History Tobacco Use Types Packs/Day Years Used Date Smoking Tobacco: Never Smokeless Tobacco: Never Alcohol Use Standard Drinks/Week Comments Yes 0 (1 standard drink = 0.6 oz pur e alcohol) Sex and Gender Information Value Date Recorded Sex Assigned at Not on file Gender Identity Not on file Sexual Orientation Not on file documented as of this encounter Nursing Notes * Teresa Morales MD - 05/15/2023 10:12 AM CDT Thank you! Order signed. Teresa Morales MD * Kate Alejandre - 05/15/2023 9:46 AM CDT Cannot do tirating dose with this medication must move to 20mg tabs as more then 1 tab daily of 10mg tab are not covered. Updated script teed to [facility]. ( Patient has filled first 14 days of 10mg) documented in this encounter Plan of Treatment Upcoming Encounters Date Type Department Care Team Description 12/14/2023 12:00 PM COUNSELOR MARRIAGE AND FAMILY Appointment [facility] [address] [place], [place] [phone] Teresa Morales MD [address] [place] [address] documented as of this encounter Visit Diagnoses Not on filedocumented in this encounter Care Teams Senior Technical Recruiter Relationship Specialty Start Date End Date Needs Pcp, Assignment [place], [place] [phone] PCP - General 10/07/21 documented as of this encounter
--- OUTSIDE RECORDS SUMMARY | 2023-11-21 13:14 | XMS_ITS | Encounter Summary ---
Author Name Unknown Organization [facility] Address [address], [place] [address] Care Team Providers Care Bogger Operator Name Role Phone Needs Pcp, Assignment Primary Care Provider [phone] Reason for Visit * Reason Comments Patient Calling Back Prior Authorization For Medication Cosen tyx Encounter Details Date Type Department Care Team Description 12/23/2022 Telephone [place] [address] [place] [address]. [place], [place] [phone] Teresa Cameron MD [address] [place] [address] Patient Calling Back; Prior Authorization For Medication (Cosentyx) Social History Tobacco Use Types Packs/Day Years [...] Progress Notes * Teresa Cameron MD - 01/05/2023 9:46 AM CSTAddended by: TERESA CAMERON on: 01/05/2023 09:46 AM Modules accepted: Orders SERVICES MANAGER * Rodney Alejandre - 01/04/2023 1:13 PM CSTAddended by: RODNEY ALEJANDRE on: 01/04/2023 01:13 PM Modules accepted: Orders SERVICES MANAGER * Teresa Cameron MD - 01/02/2023 5:36 PM CSTAddended by: TERESA CAMERON on: 01/02/2023 05:36 PM Modules accepted: Orders SERVICES MANAGER documented in this encounter Nursing Notes * Teresa Cameron MD - 01/05/2023 9:45 AM CST Orders signed thank you! Teresa Cameron MD SERVICES MANAGER * Rodney Alejandre - 01/04/2023 12:53 PM CST Cosentyx 150mg PA to insurance is Approved- script t'd to speciality pharmacy[facility] SERVICES MANAGER * Rodney Alejandre - 01/04/2023 10:41 AM CST Cosentyx request sent to plan. SERVICES MANAGER * Teresa Cameron MD - 01/04/2023 9:36 AM CST Could we do COSENTYX instead? Dosing for . Thank you! Teresa Cameron MD SERVICES MANAGER * Rodney Alejandre - 01/04/2023 7:26 AM CST Images from the original note were not included. [facility] denied- must fail 1 non-preferred agent. (Actemra, Cosentyx, Entyvio, Inflectra, Infliximab, Orencia, Otezla, Renflexis, or Stelara. SERVICES MANAGER * Teresa Cameron MD - 01/02/2023 5:27 PM CST Touched base with patient regarding her MRI results and blood work. Continues to have symptoms consistent with active ankylosing spondylitis. We discussed our next step options. After discussion, elected to move forward with [place]. She is currently on prednisone and has found this significantly beneficial for her pain. We discuss further tapering, recommend that she go to 10 mg daily for the next14 days then 5 mg daily until follow-up. Advised to keep scheduled follow-up for January 26. Teresa Cameron MD SERVICES MANAGER * Toshia Greene RN - 12/27/2022 9:34 AM CST Patient calling again. She states you had called regarding her labs and changing a medication. She wonders if you were still wanting to change one of her medications? Please advise. SERVICES MANAGER * Caren Butt LPN - 12/23/2022 10:23 AM CST Patient calling back; she tells me that you had left a message wanting her to call back regarding results. SERVICES MANAGER documented in this encounter Plan of Treatment Upcoming Encounters Date Type Department Care Team Description 12/14/2023 12:00 PM TAX SERVICES MANAGER Appointment [facility] [address] [place], [place] [phone] Teresa Cameron MD [address] [place] [phone] documented as of this encounter Visit Diagnoses Not on filedocumented in this encounter Care Teams Bogger Operator Relationship Specialty Start Date End Date Needs Pcp, Assignment [place], [place] [phone] PCP - General 10/07/21 documented as of this encounter
--- OUTSIDE RECORDS SUMMARY | 2023-11-21 13:14 | XMS_ITS | Encounter Summary ---
Author Name Unknown Organization [facility] Address [address], [place] [address] Care Team Providers Care Mysql Developer Name Role Phone Needs Pcp, Assignment Primary Care Provider [phone] Reason for Referral * Procedure/Equipment (Routine) - Incomplete Specialty Diagnoses / Procedures Referred By Zoran ibarra Referred To Contact Diagnoses Spondyloarthritis (HRC) Procedures MR Sacral-Iliac Joints W/WO IV Cont Teresa Morales MD [address] [place] [address] Referral ID Status Reason Start Date Expiration Date V isits Requested Visits Authorized [id number] Incomplete 05/11/2023 08/09/2024 1 1 Reason for Visit * Reason Comments Follow-up Encounter Details Date Type Department Care Team Description 05/11/2023 3:30 PM CDT Office Visit [facility] [address] [place] [address] Teresa Morales MD [address] [place] [address] Spondyloarthritis (HRC) (Primary Dx); 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); Osteoarthritis of multiple joints, unspecified osteoarthritis type; Chronic back pain, unspecified back location, unspecified back pain laterality; Anti-cyclic citrullinated peptide antibody positive; Myofascial pain Social History Tobacco Use Types Packs/Day Years [...] Sign Reading Time Taken Comments Blood Pressure 126/80 05/11/2023 3:23 PM CDT Pulse 96 05/11/2023 3:23 PM CDT Temperature - - Respiratory Rate - - Oxygen Saturation - - Inhaled Oxygen Concentration - - Weight 128.4 kg (283 lb) 05/11/2023 3:23 PM CDT Height - - Body Mass Index - - documented in this encounter Patient Instructions * Patient Instructions* Teresa Morales MD - 05/11/2023 3:30 PM CDT CONTINUE the CONSENTYX for now TRY adding leflunomide, 10 mg daily for the first 2 weeks and if feeling okay increase to 20 mg daily and continue this dose START prednisone: 20 mg daily for 7 days then 10 mg daily for 7 days then 5 mg daily for 7 days then 2.5 mg for 7 days MRI of the SI joint and lumbar spine Call me if symptoms change or worsen Follow up in 8 weeks Arava (Leflunomide) Purpose Arava is a potent DMARD (disease-modifying antirheumatic drug). It is equal in potency to methotrexate and can be added to methotrexate. It is used for rheumatoid arthritis and other forms of inflammatory arthritis. It works by inhibiting a certain type of white blood cell, the T cells, which play an important role in causing inflammation in the joints. Dose The dose of Arava is 10 or 20 mg/day. Potential side effects should be avoided while on Arava, because of the potential for significant defects.Any woman of child-bearing age on Arava should use effective forms of contraception. Arava lasts a very long time in your body. Therefore, if is desired, Arava must be cleared from your body. This can be accomplished by giving a resin called cholestyramine at 8 grams three times/day for 11 days. Other potential side effects include fatigue, flu-like symptoms, upset stomach, diarrhea, headaches, thinning of the hair, mouth sores, elevated liver tests, lowering of the red cell (anemia), or white cell (infection fighting) counts, and increased risk of infections. Alcohol should be minimized while on Arava. Expected Effects Arava can begin to take effect after 4 weeks, reaching maximum effect after 3-5 months. Not everyone responds to Arava optimally, and your doctor may discuss adding other medications if necessary. Because it is a slow acting medicine, holding it for 1 week or two while you have an infection or if you require surgery does not usually result in a flare of symptoms. Only if the medicine is held for several weeks, do symptoms usually start to recur. Monitoring Before starting Arava, you will need to have a baseline complete blood count (CBC) and liver test (ALT). One month after starting Arava, these labs are repeated to make sure your body is tolerating the medicine at periodic intervals determined by your bilingual research interviewer. If multiple abnormal liver tests occur, liver biopsy might be required, but this is extremely uncommon. Special Instructions If you have any infection more serious than a cold or bladder infection, it is a good idea to temporarily stop Arava for a week or two until you???re better. It is also fairly standard to temporarilystop Arava the week before and the week of a significant surgery. documented in this encounter Progress Notes * Teresa Morales MD - 05/11/2023 3:30 PM CDT RHEUMATOLOGY FOLLOW-UP Chief Complaint Patient presents with Follow-up Encounter date: 05/11/2023 Date of last office visit: 01/26/2023 Rheumatologic history: The patient is a 62 y.o. female with medical history of breast ca, s/p bilateral mastectomy, pre diabetes, HTN, anxiety, hyperparathyroidism, and obesity who presented to our clinic initially in October 2020 for evaluation of joint pain in the setting of elevated inflammatory markers. Outside records received and reviewed from [facility]. She had been seen by her PCP [...] insurance issues needed to try Enbrel 1st. [place] approved for this in February 2022. Started Celebrex. Stopped methotrexate. Nov 2022: approved for COSENTYX Interim history: Fluoroscopic injection done of the left knee in February 2023. She was seen by PM&R in February 2023. They recommended a orthopedics referral at that time and alsoa dedicated lumbar MRI to evaluate for radiculopathy symptoms. They did recommend physical therapy though patient declined at that time. They recommended increasing her Celebrex to 200 mg twice daily. They also increased her gabapentin to 300 mg 3 times daily. She noticed no difference in the increased celebrex and gabapentin dosing so she stopped this about2 months ago. Symptom are no worse off of the medication. She is frustrated with her symptoms and how she is feeling. She couldn't sleep in a comfortable position. She saw orthopedics and she was told that she is not a surgical candidate. She states she was not given any additional plan for next steps. She has been off or prednisone but the pain has not come back as bad for her. SHe continues to be on Cosentyx once monthly. She is not feeling like this is working in general. She is getting the MRI next week. ROS: Review of systems completed with patient today, and is as noted above. PMH: Updated in EMR Outpatient Encounter Medications as of 05/11/2023 Medication Sig Dispense Refill amLODIPine (NORVASC) 5 MG tablet Take 1 Tablet (5 mg) by mouth daily. chlorthalidone (HYGROTON) 25 MG tablet Take 0.5 Tablets (12.5 mg) by mouth every morning. cholecalciferol (VITAMIN D3) 1.25 MG (14578 UT) capsule Take 1 Capsule (50,000 Units) by mouth daily. cyclobenzaprine (FLEXERIL) 10 MG tablet Take 1-2 tablets at bedtime if needed 30 Tablet 0 diazePAM (VALIUM) 5 MG tablet Pt to bring with to appt. Do not take prior to arrival. MRI staff will instruct when to take med. 1 Tablet 0 ibuprofen (MOTRIN) 800 MG tablet Take 1 Tablet (800 mg) by mouth daily. metFORMIN (GLUCOPHAGE) 500 MG tablet Take 1 Tablet (500 mg) by mouth daily. rosuvastatin (CRESTOR) 5 MG tablet Take 1 Tablet (5 mg) by mouth daily. secukinumab (COSENTYX) 150 MG/ML injection pen Inject 1 mL (150 mg) subcutaneously every 4 weeks. Indications: Rheumatic Disease causing Vertebrae Inflammation, M45.9 Do not start before February 05, 2023. 1 mL 3 [DISCONTINUED] celecoxib (CELEBREX) 200 MG capsule Take 1 Capsule (200 mg) by mouth two times a day. 60 Capsule 2 [DISCONTINUED] gabapentin (NEURONTIN) 300 MG capsule Take 1 Capsule (300 mg) by mouth daily at bedtime. Indications: Neuropathic Pain 90 Capsule 2 No facility-administered encounter medications on file as of 05/11/2023. ALLERGIES: Updated in EMR Social History Tobacco Use Smoking Status Never Smokeless Tobacco Never Social History Substance and Sexual Activity Alcohol Use Yes MEDS: Reviewed and updated in the computerized record. Physical exam: There were no vitals taken for this visit. General: Alert, no distress, appears comfortable Eyes: [...] without tenderness to palpation of the shoulder joints. She does have diffuse soft tissue tender points consistent with myofascial pain. Crepitus of the knees bilaterally with popping of the left knee and tenderness to palpation. There is no evidence of synovitis of the elbows, wrists, hands. Labs: Lab Results Component Value Date EXT [...] C-Reactive Protein 2.4 (H) 10/06/2022 RF 22 (negative) CCP 233 [facility] reviewed August 2020: slightly elevated RF at 18 (ref at their clinic 0-14). CCP negative. AMY screen negative. ESR and CRP elevated at 61 and 4.50. HLA B27 negative. X-ray done of the bilateral hands done showing mild degenerative changes with no erosions. Left knee x-ray with tricompartmental DJD. Lumbar spine with degenerative disc disease. Imaging: XR left knee 02/28/2023: IMPRESSION COMPARISON: None. [...] last visit we electedto start Cosentyx. She continues to feel that this has had little benefit for her. She did call in with a significant flare mostly involving in the knees that was limiting her ability to ambulate. Wedid an x-ray which showed severe osteoarthritis and she was also seen by Physical Medicine and Rehabilitation for her chronic back clinical back pain symptoms. They recommended an MRI and this is scheduled for next week. She also saw an outside orthopedic provider who said that she was not a surgical candidate at this time due to her weight. We reviewed today that I continue to feel that her symptoms are multifactorial. She continues to have inflammatory and noninflammatory symptoms. I have added on a MRI of the sacroiliac joints with and without contrast that we can hopefully do at the same time she gets her lumbar spine MRI to evaluate for active inflammatory changes. I would like her to continue the Cosentyx for now, and we did review some additional biologic options moving forward as well as DMARD options. After discussion, we elected to add leflunomide 10 mg daily for the 1st 2 weeks and if well tolerated will increase to 20mg daily and to continue this dose until follow-up. We reviewed the side effects and risks today and given a handout on this. We reviewed the importance of monitoring blood work today and in 1 month.I have also given her a prednisone taper as a bridge. Okay to stay off Celebrex and gabapentin as she did not find these beneficial. I have given her Flexeril to use as needed. Close follow-up in 8 weeks. PLAN: - continue Cosentyx - Start leflunomide 10 mg daily for 14 days and if tolerating well can increase to 20 mg daily and continue this dose until follow-up - start prednisone taper - cyclobenzaprine at bedtime as needed - MRI sacroiliac joints with and without contrast, keep lumbar spine MRI as scheduled - follow-up with Physical Medicine and Rehabilitation - continue follow-up with primary care provider - gentle exercise as tolerated - call if symptoms change prior to follow-up - follow up in 8 weeks Patient advised to call clinic if symptoms change or worsen or if new symptoms develop. All of the patient's questions were answered to the best of my ability. Billing based on: time. Teresa Morales MD [facility] documented in this encounter Plan of Treatment Upcoming Encounters Date Type Department Care Team Description 12/14/2023 12:00 PM PLASTICS PRODUCTION MACHINE OPERATOR Appointment [facility] [address] [place], [place] [address] Teresa Morales MD [address] [place], [place] [address] documented as of this encounter Results * MR Sacral-Iliac Joints [...] and enhancement. Teresa Morales MD RAD MRI * (ABNORMAL) C-Reactive Protein (05/11/2023 4:08 PM CDT) C-Reactive Protein 2.3(H) 0.0 - 0.7 mg/dL 05/11/2023 4:57 PM CDT [facility] Blood Venipuncture / Unknown 05/11/2023 4:08 PM CDT 05/11/2023 4:08 PM CDT Teresa Morales MD LAB_1 Performing Organization Address [facility] [address]/ZIP Co de Phone Number [facility] [id number] [employer], [place] [phone], [facility] [phone] * (ABNORMAL) ESR (05/11/2023 4:08 PM CDT) Pathologist [facility] Sedimentation Rate 54(H) 0 - 20 mm/hr 05/11/2023 4:59 PM CDT [facility] Blood Venipuncture / Unknown 05/11/2023 4:08 PM CDT 05/11/2023 4:08 PM CDT Teresa Morales MD LAB_1 Performing Organization Address [facility] [address]/[facility] de Phone Number [facility] [address] [place], [place] [phone], [facility] [phone] * (ABNORMAL) Basic Metabolic Panel (05/11/2023 4:08 PM CDT) [facility] Sodium 139 136 - 145 mmol/L 05/11/2023 4:[address] [facility] Potassium 3.6 3.5 - 5.1 mmol/L 05/11/2023 4:[address] [facility] Chloride 98 98 - 109 mmol/L 05/11/2023 4:[address] [facility] CO2 27 20 - 29 mmol/L 05/11/2023 4:[address] [facility] Anion Gap 14 7 - 16 mmol/L 05/11/2023 4:[address] [facility] Calcium 10.0 8.4 - 10.4 mg/dL 05/11/2023 4:[address] [facility] BUN 18 7 - 26 mg/dL 05/11/2023 4:[address] [facility] Creatinine 0.70 0.55 - 1.02 mg/dL 05/11/2023 4:[address] [facility] Glucose 109(H) 70 - 100 mg/dL 05/11/2023 4:[address] [facility] Comment:The given reference range is for the fasting state. Non-fasting reference range for glucose is 70 - 180 mg/dL. Hours Fasting 12 05/11/2023 4:[address] [facility] GFR, Estimated >60 >60 mL/min/1.7 3m2 05/11/2023 4:[address] [facility] Blood Venipuncture / Unknown 05/11/2023 4:08 PM CDT 05/11/2023 4:08 PM CDT Teresa Morales MD LAB_1 [facility] [address] [place] [address], [facility] [phone] * (ABNORMAL) Liver Panel(Hepatic Function Panel) (05/11/2023 4:08 PM CDT) Alkaline Phosphatase 52 40 - 150 U/L 05/11/2023 4:[address] [facility] Bilirubin, Total 0.7 0.2 - 1.2 mg/dL 05/11/2023 4:[address] [facility] Bilirubin, Direct 0.3 0.0 - 0.5 mg/dL 05/11/2023 4:[address] [facility] AST (SGOT) 16 10 - 40 U/L 05/11/2023 4:[address] [facility] ALT (SGPT) 11 <=55 U/L 05/11/2023 4:[address] [facility] Protein, Total 8.5(H) 6.4 - 8.3 g/dL 05/11/2023 4:[address] [facility] Albumin 3.8 3.5 - 5.0 g/dL 05/11/2023 4:[address] 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
--- OUTSIDE RECORDS SUMMARY | 2023-11-21 13:14 | XMS_ITS | Encounter Summary ---
Author Name Unknown Organization [facility] Address [address], [place] [address] Care Team Providers Care Crew Leader Gluing Name Role Phone Needs Pcp, Assignment Primary Care Provider [phone] Encounter Details Date Type Department Care Team Description 01/04/2023 Notes/Orders [place] [address] [place] [address]. [place] [address] Teresa Morales MD [address] [place] [phone] Social History Tobacco Use Types Packs/Day Years [...] Department Care Team Description 12/14/2023 12:00 PM FOSTER PARENT Appointment [facility] [address] [place] [address] Teresa Morales MD [address] [place] [address] documented as of this encounter Visit Diagnoses Not on filedocumented in this encounter Care Teams Crew Leader Gluing Relationship Specialty Start Date End Date Needs Pcp, [place] [address] PCP - General 10/07/21 documented as of this encounter
--- OUTSIDE RECORDS SUMMARY | 2023-11-21 13:14 | XMS_ITS | Encounter Summary ---
Author Name Unknown Organization [facility] Address [address], [place] [address] Care Team Providers Care Career Services Director Name Role Phone Needs Pcp, Assignment Primary Care Provider [phone] Reason for Visit * Procedure/Equipment (Routine) - Incomplete Specialty Diagnoses / Procedures Referred By Zoran t Referred To Contact Diagnoses Pain in both knees, unspecified chronicity Procedures XR Knee Lt 3 Views Teresa Morales MD [address] [place] [address] Referral ID Status Reason Start Date Expiration Date V isits Requested Visits Authorized [id number] Incomplete 02/27/2023 05/28/2024 1 1 Encounter Details Date Type Department Care Team Description 02/28/2023 5:05 PM CDT [facility] [place] [address] [facility] [address] [place] [phone] Teresa Morales MD [address] [place] [address] Pain in both knees, unspecified chronicity Social History Tobacco Use Types Packs/Day Years [...] Department Care Team Description 12/14/2023 12:00 PM BOILER PLANT WORKER Appointment [facility] [address] [place] [address] Teresa Morales MD [address] [place], [place] [phone] documented as of this encounter Procedures Procedure Name Priority Date/Time Associated Diagnosis Comments XR KNEE LT 3 VIEWS Routine 02/28/2023 5: 18 PM CDT Pain in both knees, unspecified chronicity documented in this encounter Results * XR Knee Lt 3 Views (02/28/2023 [...] layering lipohemarthrosis. Tricompartmentalosteophytosis. Suggestion of osteopenia. Teresa Morales MD RAD [facility] documented in this encounter Visit Diagnoses Diagnosis Pain in both knees, unspecified chronicity documented in this encounter Care Teams Career Services Director Relationship Specialty Start Date End Date Needs Pcp, Assignment [place], [place] [phone] PCP - General 10/07/21 documented as of this encounter
--- OUTSIDE RECORDS SUMMARY | 2023-11-21 13:14 | XMS_ITS | Encounter Summary ---
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) Social [...] Department Care Team Description 12/14/2023 12:00 PM CUSTOMER RELATIONS COORDINATOR Appointment [facility] [address] [place] [address] Teresa Morales MD [address] [place] [address] [phone] documented as of this encounter Procedures Procedure Name Priority Date/Time Associated Diagnosis Comments CBC AND DIFFERENTIAL PANEL Routine 05/11/2023 4:08 PM CDT Spondyloarthritis (HRC) 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) COMPLETE BLOOD COUNT-W/DIFF Routine 05/11/2023 4:08 PM CDT Spondyloarthritis (HRC) 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) LIVER PANEL(HEPATIC FUNCTION PANEL) Routine 05/11/2023 4:08 PM CDT Spondyloarthritis (HRC) 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) BASIC METABOLIC PANEL Routine 05/11/2023 4:08 PM CDT Spondyloarthritis (HRC) 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) C-REACTIVE PROTEIN Routine 05/11/2023 4: 08 PM CDT Spondyloarthritis (HRC) 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) ESR Routine 05/11/2023 4:08 PM CDT Spondyloarthritis (HRC) 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) documented in this encounter Results * Complete Blood Count-W/Diff (05/11/2023 4:08 PM CDT) [facility] WBC 9.0 3.5 - 10.5 x10(9)/L 05/11/2023 4:14 PM CDT [facility] RBC 4.97 3.90 - 5.03 x10(12)/L 05/11/2023 4:14 PM CDT [facility] Hemoglobin 14.4 12.0 - 15.5 g/dL 05/11/2023 4:14 PM CDT [facility] HCT 42.6 34.9 - 44.5 % 05/11/2023 4:14 PM CDT [facility] MCV 85.7 80.0 - 100.0 fL 05/11/2023 4:14 PM CDT [facility] MCH 29.0 27.6 - 33.3 pg 05/11/2023 4:14 PM CDT [facility] MCHC 33.8 31.5 - 35.2 g/dL 05/11/2023 4:14 PM CDT [facility] RDW 13.2 11.9 - 15.5 % 05/11/2023 4:14 PM CDT [facility] Platelets 220 150 - 450 x10(9)/L 05/11/2023 4:14 PM [facility] Automated NRBC 0 <=0 /100 WBC 05/11/2023 4:14 PM T [facility] Neutrophil Absolute 6.5 1.7 - 7.0 10(9)/L 05/11/2023 4:14 PM T [facility] Lymphocyte Absolute 1.6 1.0 - 4.8 10(9)/L 05/11/2023 4:14 PM T [facility] Monocyte Absolute 0.6 0.2 - 0.9 10(9)/L 05/11/2023 4:14 PM [facility] Eosinophil Absolute 0.1 0.0 - 0.5 10(9)/L 05/11/2023 4:14 PM T [facility] Basophil Absolute 0.1 0.0 - 0.3 10(9)/L 05/11/2023 4:14 PM [facility] Immature Granulocyte % 0.4 0.0 - 0.5 % 05/11/2023 4:14 PM T [facility] Blood Venipuncture / Unknown 05/11/2023 4:08 PM CDT 05/11/2023 4:08 PM CDT Teresa Morales MD LAB_1 Performing Organization Address [facility]/ZIP Co de Phone Number [facility] [address] [place] [address], [facility] [phone] * (ABNORMAL) C-Reactive Protein (05/11/2023 4:08 PM CDT) [facility] [address] [facility] C-Reactive Protein 2.3(H) 0.0 - 0.7 mg/dL 05/11/2023 4:57 PM CDT [facility] Blood Venipuncture / Unknown 05/11/2023 4:08 PM CDT 05/11/2023 4:08 PM CDT Teresa Morales MD LAB_1 Performing Organization Address City/[facility]/ZIP Co de Phone Number [facility] [address] [place] [address], [facility] [phone] * (ABNORMAL) ESR (05/11/2023 4:08 PM CDT) Pathologist [facility] Sedimentation Rate 54(H) 0 - 20 mm/hr 05/11/2023 4:59 PM [facility] Blood Venipuncture / Unknown 05/11/2023 4:08 PM CDT 05/11/2023 4:08 PM CDT Teresa Morales MD LAB_1 [facility] [address] [place] [address], [facility] [phone] * (ABNORMAL) Basic Metabolic Panel (05/11/2023 4:08 PM CDT) [facility] [address] Sodium 139 136 - 145 mmol/L 05/11/2023 4:57 PM [facility] Potassium 3.6 3.5 - 5.1 mmol/L 05/11/2023 4:57 PM [facility] Chloride 98 98 - 109 mmol/L 05/11/2023 4:57 PM [facility] CO2 27 20 - 29 mmol/L 05/11/2023 4:57 PM [facility] Anion Gap 14 7 - 16 mmol/L 05/11/2023 4:57 PM [facility] Calcium 10.0 8.4 - 10.4 mg/dL 05/11/2023 4:57 PM [facility] BUN 18 7 - 26 mg/dL 05/11/2023 4:57 PM [facility] Creatinine 0.70 0.55 - 1.02 mg/dL 05/11/2023 4:57 PM [facility] Glucose 109(H) 70 - 100 mg/dL 05/11/2023 4:57 PM [facility] Comment:The given reference range is for the fasting state. Non-fasting reference range for glucose is 70 - 180 mg/dL. Hours Fasting 12 05/11/2023 4:57 PM [facility] GFR, Estimated >60 >60 mL/min/1.7 3m2 05/11/2023 4:57 PM T [facility] Blood Venipuncture / Unknown 05/11/2023 4:08 PM CDT 05/11/2023 4:08 PM CDT Teresa Morales MD LAB_1 Performing Organization Address [facility] de Phone Number [facility] [address] [place] [address], [facility] [phone] * (ABNORMAL) Liver Panel(Hepatic Function Panel) (05/11/2023 4:08 PM CDT) Alkaline Phosphatase 52 40 - 150 U/L 05/11/2023 4:57 PM T [facility] Bilirubin, Total 0.7 0.2 - 1.2 mg/dL 05/11/2023 4:57 PM [facility] Bilirubin, Direct 0.3 0.0 - 0.5 mg/dL 05/11/2023 4:57 PM T [facility] AST (SGOT) 16 10 - 40 U/L 05/11/2023 4:57 PM [facility] ALT (SGPT) 11 <=55 U/L 05/11/2023 4:57 PM T [facility] Protein, Total 8.5(H) 6.4 - 8.3 g/dL 05/11/2023 4:57 PM T [facility] Albumin 3.8 3.5 - 5.0 g/dL 05/11/2023 4:57 PM T [facility] Blood Venipuncture / Unknown 05/11/2023 4:08 PM CDT 05/11/2023 4:08 PM CDT Teresa Morales MD LAB_1 Performing Organization Address [facility] Co de Phone Number [facility] [address] [place] [address], [facility] [phone] documented in this encounter Visit Diagnoses Diagnosis Spondyloarthritis (HRC) Spondylosis of unspecified site without mention of myelopathy 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
--- OUTSIDE RECORDS SUMMARY | 2023-11-21 13:14 | XMS_ITS | Encounter Summary ---
Author Name Unknown Organization [facility] Address [address], [place] [address] Care Team Providers Care Metal Burrer Name Role Phone Needs Pcp, Assignment Primary Care Provider [phone] Reason for Visit * Reason Comments Refill Encounter Details Date Type Department Care Team Description 03/26/2023 Refill [facility] [address] [place], [place] [address] Teresa Morales MD [address] [place] [address] Refill Social History Tobacco Use Types [...] Nursing Notes * Marjorie Dubois RN - 03/28/2023 7:39 AM CDT Quantity Refills Start End gabapentin (NEURONTIN) 300 MG capsule 90 Capsule 2 03/17/2023 Sig: Take 1 Capsule (300 mg) by mouth daily at bedtime. Indications: Neuropathic Pain Route: Oral Class: E-Prescribing Order #: [id number] Refill too soon, denied. documented in this encounter Plan of Treatment Upcoming Encounters Date Type Department Care Team Description 12/14/2023 12:00 PM CANNON FIRE DIRECTION SPECIALIST Appointment [facility] [address] [place] [address] Teresa Morales MD [address] [place], [place] [address] documented as of this encounter Visit Diagnoses Not on filedocumented in this encounter Care Teams Metal Burrer Relationship Specialty Start Date End Date Needs Pcp, [place] [address] PCP - General 10/07/21 documented as of this encounter
--- OUTSIDE RECORDS SUMMARY | 2023-11-21 13:14 | XMS_ITS | Encounter Summary ---
Author Name Unknown Organization [facility] Address [address], [place] [address] Care Team Providers Care Auto Dealership Porter Name Role Phone Needs Pcp, Assignment Primary Care Provider [phone] Reason for Visit * Reason Comments Follow-up Encounter Details Date Type Department Care Team Description 01/04/2023 Telephone [facility] [address] [place], [place] [phone] Needs Pcp, [place] [address] Follow-up Social History Tobacco Use Types Packs/Day Years [...] Nursing Notes * Teresa Morales MD - 01/05/2023 9:46 AM CST Orders signed, thank you! Teresa Morales MD HEAD PUMPER * Kate Eng RN - 01/04/2023 6:29 PM CST Clinician Action: FARHEEN LIZARRAGA approval Clinician Next Step: Patient is NOT expecting a call back from care team Specific Request(s): 1. Coverage approval for Cosentyx Pen 150mg/ml injector. Will send copy to patient and office. Denies other questions or concerns at this time. HEAD PUMPER documented in this encounter Plan of Treatment Upcoming Encounters Date Type Department Care Team Description 12/14/2023 12:00 PM WELL HEAD PUMPER Appointment [facility] [address] [place], [place] [phone] Teresa Morales MD [address] [place], [place] [phone] documented as of this encounter Visit Diagnoses Not on filedocumented in this encounter Care Teams Auto Dealership Porter Relationship Specialty Start Date End Date Needs Pcp, Assignment [place], [place] [phone] PCP - General 10/07/21 documented as of this encounter
--- OUTSIDE RECORDS SUMMARY | 2023-11-21 13:14 | XMS_ITS | Encounter Summary ---
Author Name Unknown Organization [facility] Address [address] [place] [address] Care Team Providers Care Breaster Name Role Phone Needs Pcp, Assignment Primary Care Provider [phone] Reason for Referral * Consult/Transfer Care (Routine) - New Request Specialty Diagnoses / Procedures Referred By Zoran ibarra Referred To Contact Diagnoses Pain in both knees, unspecified chronicity Teresa Morales MD [address] [place] [address] Referral ID Status Reason Start Date Expiration Date V isits Requested Visits Authorized [id number] New Request 03/28/2023 06/26/2024 1 1 Scheduling Instructions Your clinician has recommended an appointment with [facility]. You can quickly make your appointment online at [employer]/schedule. You can also call [phone] for help scheduling your appointment. We suggest you call your health insurance company about your coverage and benefits for this appointment. Question Answer Appointment Urgency? Non-Urgent Reason for visit? severe OA of the knees, spondyloarthritis The patient should be seen by: Orthopaedic Surgeon Reason for Visit * Reason Comments LEG PAIN Encounter Details Date Type Department Care Team Description 03/28/2023 Telephone [place] [address] [facility] [place] [facility] [place], [place] [phone] Teresa Morales MD [address] [place] [address] LEG PAIN Social History Tobacco Use Types Packs/Day Years Used Date Smoking Tobacco: Never Smokeless Tobacco: Never Alcohol Use Standard Drinks/Week Comments Yes 0 (1 standard drink = 0.6 oz pur e alcohol) Sex and Gender Information Value Date Recorded Sex Assigned at Not on file Gender Identity Not on file Sexual Orientation Not on file documented as of this encounter Nursing Notes * Linda Walters LPN - 03/28/2023 11:10 AM CDT Patient informed. Verbalized understanding. She actually set up an appointment at the [facility] to see orthopedics in a week.. * Teresa Morales MD - 03/28/2023 11:00 AM CDT Taper sent to pharmacy. Would also recommend that we have her see orthopedics as well as the severeosteoarthritis can be contributing to her leg/knee pain and inability to walk. Teresa Morales MD * Linda Walters LPN - 03/28/2023 9:02 AM CDT Patient states for the last week that her left leg is painful from the knee down. She states she cannot straighten it out to walk or even stand. No redness but swelling in both legs. She states this is happening a lot. She is asking for a burst of prednisone. documented in this encounter Plan of Treatment Upcoming Encounters Date Type Department Care Team Description 12/14/2023 12:00 PM TRUSTEE OF ESTATE Appointment [facility] [address] [place] [address] Teresa Morales MD [address] [place] [address] Scheduled Referrals Name Type Priority Associated Diagnoses Orde r Schedule Orthopaedic Consult Adult/Peds Referral Routine Pain in both knees, unspecified chronicity Ordered: 03/28/2023 documented as of this encounter Visit Diagnoses Diagnosis Pain in both knees, unspecified chronicity- Primary documented in this encounter Care Teams Breaster Relationship Specialty Start Date End Date Needs Pcp, [place] [address] PCP - General 10/07/21 documented as of this encounter
--- OUTSIDE RECORDS SUMMARY | 2023-11-21 13:14 | XMS_ITS | Encounter Summary ---
Author Name Unknown Organization [facility] Address [address] [address] Care Team Providers Care Export Packer Name Role Phone Needs Pcp, Assignment Primary Care Provider [phone] Reason for Visit * Procedure/Equipment (Routine) - Incomplete Specialty Diagnoses / Procedures Referred By Zoran t Referred To Contact Diagnoses Pain in both knees, unspecified chronicity Procedures FL Injection Knee Lt Teresa Morales MD [address] [place] [address] Referral ID Status Reason Start Date Expiration Date V isits Requested Visits Authorized [id number] Incomplete 02/27/2023 05/28/2024 1 1 Encounter Details Date Type Department Care Team Description 03/09/2023 1:45 PM CDT Ancillary Procedure [facility] [address] [place] [address] Teresa Morales MD [address] [place] [address] Pain in both knees, unspecified chronicity Social [...] Department Care Team Description 12/14/2023 12:00 PM RELATIONSHIP ADVISOR Appointment [facility] [address] [place] [address] Teresa Morales MD [facility] [place] [address] documented as of this encounter Procedures Procedure Name Priority Date/Time Associated Diagnosis Comments FL INJECTION KNEE LT Routine 03/09/2023 2:05 PM CDT Pain in both knees, unspecified chronicity documented in this encounter Results * FL Injection Knee [...] rating = 7/10, postprocedure = 0/10. Teresa Morales MD [facility] documented in this encounter Visit Diagnoses Diagnosis Pain in both knees, unspecified chronicity documented in this encounter Administered Medications Inactive Administered Medications - up to 3 most recent administrations Medication Order MAR Action Action Date Dose Rate Site iopamidol (ISOVUE-M 200) 41 % intrathecal injection 10 mL 10 mL, Intrathecal, ONCE, On Kavya 03/09/23 at 1430, For 1 dose Given 03/09/2023 2:09 PM CDT 10 mL ropivacaine 0.5% (5 mg/mL) (NAROPIN) 5 MG/ML injection 25 mg 25 mg (5 mL), Intracapsular, ONCE, On Kavya 03/09/23 at 1430, For 1 dose Given 03/09/2023 2:08 PM CDT 25 mg triamcinolone acetonide (KENALOG-40) 40 MG/ML injection 40 mg 40 mg, Intracapsular, ONCE, On Kavya 03/09/23 at 1430, For 1 dose Given 03/09/2023 2:07 PM CDT 40 mg documented in this encounter Care Teams Export Packer Relationship Specialty Start Date End Date Needs Pcp, [place] [address] PCP - General 10/07/21 documented as of this encounter
== END 2023-11-21 13:10 | disposition home or self-care (01) ==
LOC: INJ CL 13:11
PROVIDERS: PCP Family Medicine; Visit Provider Family Medicine
DX: M17.12 Unilateral primary osteoarthritis, left knee (principal); M25.562 Pain in left knee; G89.29 Other chronic pain
CPT/HCPCS: 64624; J2250; J3010

== ENCOUNTER 2023-12-04 16:20 | Outpatient (CLI) | payer MEDICAID, SELFPAY ==
--- OUTSIDE RECORDS SUMMARY | 2023-12-06 11:35 | XMS_ITS | Encounter Summary ---
Author Name Unknown Organization [facility] Address [address] [address] Care Team Providers Care Stockroom Coordinator Name Role Phone Needs Pcp, Assignment Primary Care Provider [phone] Reason for Visit * Reason Comments KNEE PAIN Encounter Details Date Type Department Care Team Description 10/26/2023 Telephone [place] [address] [place] [address]. [place], [place] [phone] Teresa Morales MD [facility] [place] [address] KNEE PAIN Social History Tobacco [...] the providers message and they verbalized understanding. YTICAL RESEARCH PROGRAM MANAGER * Teresa Morales MD - 10/26/2023 4:49 PM CST Taper sent. Teresa Morales MD YTICAL RESEARCH PROGRAM MANAGER * Toshia Greene RN - 10/26/2023 8:35 [...] prednisone to help. Please advise. -pharmacy verified. YTICAL RESEARCH PROGRAM MANAGER documented in this encounter Plan of Treatment Upcoming Encounters Date Type Department Care Team Description 12/14/2023 12:00 PM ANALYTICAL RESEARCH PROGRAM MANAGER Appointment [facility] [address] [place], [place] [phone] eTresa Morales MD [address] [place], [place] [phone] documented as of this encounter Visit Diagnoses Not on filedocumented in this encounter Care Teams Stockroom Coordinator Relationship Specialty Start Date End Date Needs Pcp, Assignment [place], [place] [address] PCP - General 10/07/21 documented as of this encounter
--- OUTSIDE RECORDS SUMMARY | 2023-12-06 11:35 | XMS_ITS | Encounter Summary ---
Author Name Unknown Organization [facility] Address [address], [place] [address] Care Team Providers Care Learning Officer Name Role Phone Needs Pcp, Assignment Primary Care Provider [phone] Reason for Visit * Procedure/Equipment (Routine) - Incomplete Specialty Diagnoses / Procedures Referred By Zoran t Referred To Contact Diagnoses Spondyloarthritis (HRC) Osteoarthritis of multiple joints, unspecified osteoarthritis type Procedures MR Knee Lt WO IV Cont MR Knee Lt W/WO IV Cont MR Knee Lt W/WO IV Cont Teresa Morales MD [address] [place] [address] Referral ID Status Reason Start Date Expiration Date V isits Requested Visits Authorized [id number] Incomplete 09/07/2023 12/06/2024 1 1 Encounter Details Date Type Department Care Team Description 10/06/2023 10:00 AM PHOTOGRAPHY EDITOR Ancillary Procedure [facility] [address] [place] [address] Teresa Morales MD [address] [place] [address] Spondyloarthritis (HRC); Osteoarthritis of multiple [...] Department Care Team Description 12/14/2023 12:00 PM PHOTOGRAPHY EDITOR Appointment [facility] [address] [place] [address] Teresa Morales MD [facility] [place] [address] documented as of this encounter Procedures Procedure Name Priority Date/Time Associated Diagnosis Comments MR KNEE LT WO IV CONT STAT 10/06/2023 9:39 AM PHOTOGRAPHY EDITOR Spondyloarthritis (HRC) Osteoarthritis of multiple joints, unspecified osteoarthritis type documented in this encounter Results * MR Knee Lt WO IV Cont (10/06/2023 9:39 AM PHOTOGRAPHY EDITOR) Anatomical Region Laterality Modality Lower Extremity, Knee, Skeletal, Thigh, Leg, MSK Left Magnetic Resonance 10/06/2023 8:44 AM PHOTOGRAPHY EDITOR Impressions 10/06/2023 9:49 AM PHOTOGRAPHY EDITOR TECHNIQUE: Routine MRI of the left knee [...] type documented in this encounter Care Teams Learning Officer Relationship Specialty Start Date End Date Needs Pcp, [place] [address] PCP - General 10/07/21 documented as of this encounter
--- OUTSIDE RECORDS SUMMARY | 2023-12-06 11:35 | XMS_ITS | Encounter Summary ---
Author Name Unknown Organization [facility] Address [address] [address] Care Team Providers Care Construction Engineering Manager Name Role Phone Needs Pcp, Assignment Primary Care Provider [phone] Reason for Visit * Procedure/Equipment (Routine) - Incomplete Specialty Diagnoses / Procedures Referred By Zoran ibarra Referred To Contact Diagnoses Spondyloarthritis (HRC) Osteoarthritis of multiple joints, unspecified osteoarthritis type Procedures MR Knee Rt WO IV Cont MR Knee Rt W/WO IV Cont MR Knee Rt W/WO IV Cont Teresa Morales MD [address] [place] [address] Referral ID Status Reason Start Date Expiration Date V isits Requested Visits Authorized [id number] Incomplete 09/07/2023 12/06/2024 1 1 Encounter Details Date Type Department Care Team Description 10/06/2023 9:00 AM HYSTER MACHINE OPERATOR Ancillary Procedure [facility] [address] [place] [address] Teresa Morales MD [address] [place] [address] Spondyloarthritis (HRC); Osteoarthritis of multiple [...] Department Care Team Description 12/14/2023 12:00 PM HYSTER MACHINE OPERATOR Appointment [facility] [address] [place] [address] Teresa Morales MD [facility] [place] [address] documented as of this encounter Procedures Procedure Name Priority Date/Time Associated Diagnosis Comments MR KNEE RT WO IV CONT STAT 10/06/2023 10:10 AM HYSTER MACHINE OPERATOR Spondyloarthritis (HRC) Osteoarthritis of multiple joints, unspecified osteoarthritis type documented in this encounter Results * MR Knee Rt WO IV Cont (10/06/2023 10:10 AM HYSTER MACHINE OPERATOR) Anatomical Region Laterality Modality Lower Extremity, Knee, Skeletal, Thigh, Leg, MSK Right Magnetic Resonance 10/06/2023 8:44 AM HYSTER MACHINE OPERATOR Impressions 10/06/2023 10:16 AM HYSTER MACHINE OPERATOR TECHNIQUE: ??Routine MRI of the right knee [...] type documented in this encounter Care Teams Construction Engineering Manager Relationship Specialty Start Date End Date Needs Pcp, [place] [address] PCP - General 10/07/21 documented as of this encounter
--- OUTSIDE RECORDS SUMMARY | 2023-12-06 11:35 | XMS_ITS | Encounter Summary ---
Author Name Unknown Organization [facility] Address [address], [place] [address] Care Team Providers Care Exercise Physiologist Certified Name Role Phone Needs Pcp, Assignment Primary Care Provider [phone] Reason for Visit * Reason Comments Refill Encounter Details Date Type Department Care Team Description 11/04/2023 Refill [facility] [address] [place], [place] [phone] Teresa Cameron MD [address] [place] [address] Refill Social History Tobacco Use Types [...] Provider: TERESA CAMERON Ordering User: MARJORIE DUBOIS LE LABELER documented in this encounter Plan of Treatment Upcoming Encounters Date Type Department Care Team Description 12/14/2023 12:00 PM BOTTLE LABELER Appointment [facility] [address] [place], [place] [phone] Teresa Cameron MD [address] [place], [place] [phone] documented as of this encounter Visit Diagnoses Not on filedocumented in this encounter Care Teams Exercise Physiologist Certified Relationship Specialty Start Date End Date Needs Pcp, Assignment [place], [place] [phone] PCP - General 10/07/21 documented as of this encounter
--- OUTSIDE RECORDS SUMMARY | 2023-12-06 11:35 | XMS_ITS | Clinical Summary ---
Author Name Unknown Organization [facility] Address [address] [place] [address] Care Team Providers Care Wire Frame Lamp Shade Maker Name Role Phone Needs Pcp, Assignment Primary Care Provider [phone] Source Comments You are receiving this document as you are listed as the primary care provider,follow-up provider, or the patient has been referred to you for consultation.This is in compliance with the Medicare and[facility] EHR Incentive Program,which states Providers who transition their patient to another setting of careor provider of care or refers their patient to another provider of care shouldprovide summary care record for each transition of care or referral. [employer] Allergies Active Allergy Reactions Criticality Noted Date [...] (12.5 mg) by mouth every morning. 0 04/14/2023 Active ibuprofen (MOTRIN) 800 MG tablet Take 1 Tablet (800 mg) by mouth daily. 0 04/14/2023 Active rosuvastatin (CRESTOR) 5 MG tablet Take 1 Tablet (5 mg) by mouth daily. 0 04/14/2023 Active cyclobenzaprine (FLEXERIL) 10 MG tablet Take 1-2 tablets at bedtime if needed 30 Tablet 0 05/11/2023 Active secukinumab (COSENTYX SENSOREADY PEN) 150 MG/ML injection penIndications:An kylosing Spondylitis Inject 1 mL (150 mg) subcutaneously every 4 weeks. Indications: Rheumatic Disease causing Vertebrae Inflammation 1 mL 11 06/01/2023 Active diclofenac (VOLTAREN) 75 MG enteric coated tablet TAKE 1 TABLET(75 MG) BY MOUTH TWICE DAILY 180 Tablet 0 11/06/2023 Active predniSONE (DELTASONE) 10 MG tablet Take 3 Tablets (30 mg) by mouth daily for 3 days, THEN 2 Tablets (20 mg) daily for 3 days, THEN 1 Tablet (10 mg) daily for 3 days, THEN 0.5 Tablets (5 mg) daily for 3 days. 20 Tablet 0 10/26/2023 Active Problems Problem Noted Date Diagnosed Date Spondyloarthritis 04/21/2021 Encounters Date Type Department Care Team Description 11/04/2023 Refill [facility] [address] [place] [address] Teresa Morales MD Refill 10/26/[address] [place] [address] Teresa Morales MD KNEE PAIN 10/10/2023 Telephone [facility] [address] [place] [address] No Primary/Referrin Ana Rosa burch QUESTIONS, GENERAL 10/06/2023 10:00 AM RADIATION ONCOLOGY THERAPIST Ancillary Procedure [facility] [place] [address] [place] [address] Teresa Morales MD Spondyloarthritis ([facility]); Osteoarthritis of multiple joints, unspecified osteoarthritis type 10/06/2023 9:00 AM RADIATION ONCOLOGY THERAPIST Ancillary Procedure [facility] [place] [address] [place] [address] Teresa Morales MD Spondyloarthritis ([facility]); Osteoarthritis of multiple joints, unspecified osteoarthritis type 09/07/2023 4:00 PM RADIATION ONCOLOGY THERAPIST Office Visit [facility] [address] [place] [address] Teresa Morales MD Spondyloarthritis ([facility]) (Primary Dx); Osteoarthritis of multiple joints, unspecified osteoarthritis type; Anti-cyclic citrullinated peptide antibody positive; 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); retirement current use of non-steroidal anti-inflammatories (NSAID) from [...] Comments Blood Pressure 133/88 09/07/2023 3:47 PM RADIATION ONCOLOGY THERAPIST Pulse 99 09/07/2023 3:47 PM RADIATION ONCOLOGY THERAPIST Temperature 36.4 ??C (97.5 ??F) 01/26/2023 3:54 PM CD T Respiratory Rate - - Oxygen Saturation - - Inhaled Oxygen Concentration - - Weight 125.2 kg (276 lb) 09/07/2023 3:47 PM RADIATION ONCOLOGY THERAPIST Height - - Body Mass Index - - Plan of Treatment Upcoming Encounters Date Type Department Care Team Description 12/14/2023 12:00 PM RADIATION ONCOLOGY THERAPIST Appointment [facility] [address] [place], [place] [phone] Teresa Morales MD [address] [place] [address] [id number] Health Maintenance Due Date Last Done Comments [...] WO IV CONT STAT 10/06/2023 10:10 AM RADIATION ONCOLOGY THERAPIST Spondyloarthritis (HRC) Osteoarthritis of multiple joints, unspecified osteoarthritis type MR KNEE LT WO IV CONT STAT 10/06/2023 9:39 AM RADIATION ONCOLOGY THERAPIST Spondyloarthritis (HRC) Osteoarthritis of multiple joints, unspecified osteoarthritis type from Last 3 Months Results * MR Knee Rt WO IV Cont (10/06/2023 10:10 AM RADIATION ONCOLOGY THERAPIST) Anatomical Region Laterality Modality Lower Extremity, Knee, Skeletal, Thigh, Leg, MSK Right Magnetic Resonance 10/06/2023 8:44 AM RADIATION ONCOLOGY THERAPIST Impressions 10/06/2023 10:16 AM RADIATION ONCOLOGY THERAPIST TECHNIQUE: ??Routine MRI of the right knee [...] Lt WO IV Cont (10/06/2023 9:39 AM RADIATION ONCOLOGY THERAPIST) Anatomical Region Laterality Modality Lower Extremity, Knee, Skeletal, Thigh, Leg, MSK Left Magnetic Resonance 10/06/2023 8:44 AM RADIATION ONCOLOGY THERAPIST Impressions 10/06/2023 9:49 AM RADIATION ONCOLOGY THERAPIST TECHNIQUE: Routine MRI of the left knee [...] MRI from Last 3 Months Care Teams Wire Frame Lamp Shade Maker Relationship Specialty Start Date End Date Needs Pcp, [place], [place] [address] PCP - General 10/07/21
--- OUTSIDE RECORDS SUMMARY | 2023-12-06 11:35 | XMS_ITS | Encounter Summary ---
Author Name Unknown Organization [facility] Address [address] [address] Care Team Providers Care Technology Assistant Name Role Phone Needs Pcp, Assignment Primary Care Provider [phone] Reason for Visit * Reason Comments Refill Encounter Details Date Type Department Care Team Description 08/12/2023 Refill [place] [address] Rheumatology [facility] [place], [place] [phone] Teresa Cameron MD [address] [place], [place] [phone] Refill Social History Tobacco Use Types Packs/Day [...] Department Care Team Description 12/14/2023 12:00 PM QUILTING MACHINE OPERATOR Appointment [facility] [address] [place], [place] [phone] Teresa Cameron MD [address] [place], [place] [phone] documented as of this encounter Visit Diagnoses Not on filedocumented in this encounter Care Teams Technology Assistant Relationship Specialty Start Date End Date Needs Pcp, Assignment [place], [place] [phone] PCP - General 10/07/21 documented as of this encounter
--- OUTSIDE RECORDS SUMMARY | 2023-12-06 11:35 | XMS_ITS | Encounter Summary ---
Author Name Unknown Organization [facility] Address [address] [address] Care Team Providers Care Hair Spinner Name Role Phone Needs Pcp, Assignment Primary Care Provider [phone] Reason for Visit * Reason Comments Follow-up Encounter Details Date Type Department Care Team Description 09/07/2023 4:00 PM DIRECTOR CUSTOMER Office Visit [facility] [address] [place], [place] [phone] Teresa Morales MD [address] [place] [address] Spondyloarthritis (HRC) (Primary Dx); Osteoarthritis of multiple joints, unspecified osteoarthritis type; Anti-cyclic citrullinated peptide antibody positive; 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); pulper tender current use of non-steroidal anti-inflammatories (NSAID) Social [...] Comments Blood Pressure 133/88 09/07/2023 3:47 PM DIRECTOR CUSTOMER Pulse 99 09/07/2023 3:47 PM DIRECTOR CUSTOMER Temperature - - Respiratory Rate - - Oxygen Saturation - - Inhaled Oxygen Concentration - - Weight 125.2 kg (276 lb) 09/07/2023 3:47 PM DIRECTOR CUSTOMER Height - - Body Mass Index - - documented in this encounter Patient Instructions * Patient Instructions* Teresa Morales MD - 09/07/2023 4:00 PM DIRECTOR CUSTOMER CONTINUE the CONSENTYX for now Try diclofenac 1 tablet twice a day, don't take with IBUPROFEN MRI of the knees Touch base with PCP and avoid salty foods Follow up in 12-14 weeks CTOR CUSTOMER documented in this encounter Progress Notes * [...] records received and reviewed from [facility]. She had been seen by her PCP [...] 11 [DISCONTINUED] cholecalciferol (VITAMIN D3) 1.25 MG (64774 UT) capsule Take 1 Capsule (50,000 Units) [...] 22 (negative) CCP 233 Outside records from [facility] reviewed August 2020: slightly elevated RF at [...] Billing based on: time. 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
--- OUTSIDE RECORDS SUMMARY | 2023-12-06 11:35 | XMS_ITS | Encounter Summary ---
Author Name Unknown Organization [facility] Address [address], [place] [address] Care Team Providers Care Automobile Service Advisor Name Role Phone Needs Pcp, Assignment Primary Care Provider [phone] Reason for Visit * Reason Comments QUESTIONS, GENERAL Encounter Details Date Type Department Care Team Description 10/10/2023 Telephone [facility] [address] [place], [place] [address] No Primary/Referring, Phy QUESTIONS, GENERAL Social History [...] sent to optimization clinic. Sending to AAs S BOX CUSTODIAN * Dennis Blount - 10/10/2023 5:02 PM CST GENERAL QUESTIONS How may we help you today? Patient's garage mechanic called, asking if any providers specialize in [...] can we send you a message in Canpages? No [Screen Handler/Peanut Grader: Relay to patient; We make every effort to get back to you sameday, however it may take 1-2 business days depending on the nature of the communication.] S BOX CUSTODIAN documented in this encounter Plan of Treatment Upcoming Encounters Date Type Department Care Team Description 12/14/2023 12:00 PM PRESS BOX CUSTODIAN Appointment [facility] [address] [place], [place] [phone] Teresa Morales MD [address] [place] [address] documented as of this encounter Visit Diagnoses Not on filedocumented in this encounter Care Teams Automobile Service Advisor Relationship Specialty Start Date End Date Needs Pcp, Assignment [place], [place] [phone] PCP - General 10/07/21 documented as of this encounter
--- OUTSIDE RECORDS SUMMARY | 2023-12-06 11:35 | XMS_ITS | Encounter Summary ---
Author Name Unknown Organization [facility] Address [address] [address] Care Team Providers Care Ceramics Teacher Name Role Phone Needs Pcp, Assignment Primary Care Provider [phone] Reason for Visit * Procedure/Equipment (Routine) - Incomplete Specialty Diagnoses / Procedures Referred By Zoran ibarra Referred To Contact Diagnoses Spondyloarthritis (HRC) Procedures MR Sacral-Iliac Joints W/WO IV Cont Teresa Morales MD [address] [place] [address] Referral ID Status Reason Start Date Expiration Date V isits Requested Visits Authorized [id number] Incomplete 05/11/2023 08/09/2024 1 1 Encounter Details Date Type Department Care Team Description 05/19/2023 1:30 PM CDT Ancillary Procedure [facility] [address] Radiology MRI [address] [place] [phone] Teresa Morales MD [address] [place] [address] Spondyloarthritis (HRC) Social History Tobacco [...] Care Team Description 12/14/2023 12:00 PM DIRECTOR OF HOUSING Appointment [facility] [address] [place] [address] Teresa Morales MD [address] [place] [address] documented as of this encounter Procedures Procedure [...] mL documented in this encounter Care Teams Ceramics Teacher Relationship Specialty Start Date End Date Needs Pcp, [place] [address] PCP - General 10/07/21 documented as of this encounter
--- OUTSIDE RECORDS SUMMARY | 2023-12-06 11:35 | XMS_ITS | Clinical Summary ---
Author Name Unknown Organization [employer] [facility] [employer] Address [place], [place] [address] Care Team Providers Care Haulage Boss Name Role Phone Lakisha Ramirezumer Heller DO [...] Take 5 mg by mouth. 0 04/14/2023 Active Cosentyx Pen 150 mg/mL pen Inject 150 mg subcutaneous every 4 weeks. 0 06/01/2023 Active HYDROcodone-acet aminophen ([place]) (5-325 mg/tablet)Indica tions:Chronic pain of left knee Take 1 Tablet by mouth 3 times daily if needed for Pain. Max acetaminophen dose: 4000mg in 24 hrs. 24 Tablet 0 11/21/2023 Active diclofenac (VOLTAREN) 75 mg delayed-release tablet Take 75 mg by mouth. 0 09/07/2023 4 HYDROcodone-acet aminophen ([place]) (5-325 mg/tablet)Indica tions:Chronic pain of left knee Take 1 Tablet by mouth 3 times daily if needed for Pain. Max acetaminophen dose: 4000mg in 24 hrs. 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 Infection and inflammatory r eaction due to other internal prosthetic device, implant, and graft 07/23/2012 Hypertension 05/29/2009 GERD (gastroesophageal reflux disease) 9 Encounters Date Type Department Care Team Description 11/21/2023 2:00 PM LINOTYPER Procedure Only [facility] [address] [place] [address] Jed Wong MD Procedure (Left knee Coolief RFA) 11/20/2023 Telephone [facility] [address] [place] [address] Jed Wong MD Questions 11/08/2023 2:15 PM LINOTYPER Office Visit [facility] [address] [place] [address] Gutierrez Juan DPM Consult (Right foot pain and numbness) 11/08/2023 Travel 10/18/2023 Telephone [facility] [address] [place] [address] Jed Wong MD questions 10/17/2023 3:20 PM LINOTYPER Procedure Only [facility] [address] [place] [address] Jed Wong MD Procedure (Left knee genicular nerve block ) 10/12/2023 Telephone [facility] [address] [place] [address] Jed Wong MD Questions 10/04/2023 3:00 PM LINOTYPER Office Visit [facility] [address] [place] [address] Jed Wong MD Musculoskeletal Problem (Consult left [...] Comments Blood Pressure 150/82 10/04/2023 3:09 PM LINOTYPER Pulse 99 11/08/2023 2:36 PM LINOTYPER Temperature 36.3 ??C (97.4 ??F) 10/04/2023 3:09 PM CS T Respiratory Rate 16 06/04/2014 8:32 AM CDT Oxygen Saturation 95% 11/08/2023 2:36 PM LINOTYPER Inhaled Oxygen Concentration - - Weight 126.2 kg (278 lb 3.2 oz) 11/08/2023 2:36 PM LINOTYPER Height 167.6 cm (5' 5.98) 10/04/2023 3:09 PM CS T Body Mass Index 44.92 10/04/2023 3:09 PM LINOTYPER Plan of Treatment Health Maintenance Due Date Last Done Comments [...] this topic Medical Devices Implanted Type Area Biology Manager Device Identifier Shelf Expiration Date Model / Serial / Lot [id number] [id number] Implanted:Qty: 1 on 11/21/2012 at [facility] Left: Breast [employer] - Inamed [id number]-16 / [id number] / Description:TISSUE TANDEM MILL ROLLER [id number] implnt Mammary 800cc [[id number]] Implanted:Qty: 1 on 06/26/2013 at [facility] Left: Breast [employer] [id number] # / [id number] / [id number] breast 800cc Memorygel Rnd High Smooth Silcn - [id number] Implanted:Qty: 1 on 06/26/2013 at [facility] Explanted:at [facility] (Quantity not on file) Right: Breast [employer] 03/29/2018 [id number] # / [id number] / [id number] Advance Directives Latest Code Status on File [...] 6:23 AM 11/21/2012 8:45 AM Care Teams Haulage Boss Relationship Specialty Start Date End Date Brigitte Ramirez DO PCP - General Family Practice 06/24/13
--- OUTSIDE RECORDS SUMMARY | 2023-12-06 11:35 | XMS_ITS | Encounter Summary ---
Author Name Unknown Organization [facility] Address [address], [place] [address] Care Team Providers Care Music Writer Name Role Phone Needs Pcp, Assignment Primary Care Provider [phone] Reason for Visit * Reason Comments Refill Encounter Details Date Type Department Care Team Description 06/01/2023 Refill [place] [address] [place] [address]. [place], [place] [phone] Teresa Cameron MD [address] [place] [phone] Refill Social History Tobacco Use Types Packs/Day [...] Department Care Team Description 12/14/2023 12:00 PM ONLINE TUTOR Appointment [facility] [address] [place], [place] [address] Teresa Cameron MD [address] [place] [address] documented as of this encounter Visit Diagnoses Not on filedocumented in this encounter Care Teams Music Writer Relationship Specialty Start Date End Date Needs Pcp, [place] [address] PCP - General 10/07/21 documented as of this encounter
--- OUTSIDE RECORDS SUMMARY | 2023-12-06 11:36 | XMS_ITS | Encounter Summary ---
Author Name Unknown Organization [facility] Address [address], [place] [address] Care Team Providers Care Labor Arbitrator Hearing Office Name Role Phone Needs Pcp, Assignment Primary Care Provider [phone] Reason for Visit * Procedure/Equipment (Routine) - Incomplete Specialty Diagnoses / Procedures Referred By Zoran ibarra Referred To Contact Diagnoses Spondyloarthritis (HRC) Enthesitis Procedures MR Spine WO IV Cont Spondyloarthropathy Teresa Morales MD [address] [place] [address] Referral ID Status Reason Start Date Expiration Date V isits Requested Visits Authorized [id number] Incomplete 10/06/2022 01/05/2024 1 1 Encounter Details Date Type Department Care Team Description 12/16/2022 9:30 AM STEAM TANK OPERATOR Ancillary Procedure [facility] [address] Rad[address] MRI [address] [place] [phone] Teresa Morales MD [address] [place] [address] Spondyloarthritis; Enthesitis Social History Tobacco [...] Department Care Team Description 12/14/2023 12:00 PM STEAM TANK OPERATOR Appointment [facility] [address] [place] [address] Teresa Morales MD [address] [place] [address] documented as of this encounter Procedures Procedure Name Priority Date/Time Associated Diagnosis Comments MR SPINE WO IV CONT SPONDYLOARTHROPATHY Routine 12/16/2022 9:23 AM STEAM TANK OPERATOR Spondyloarthritis Enthesitis documented in this encounter Results * MR Spine WO IV Cont Spondyloarthropathy (12/16/2022 9:23 AM STEAM TANK OPERATOR) Anatomical Region Laterality Modality Spine, MSK Magnetic Resonan ce 12/16/2022 8:58 AM STEAM TANK OPERATOR Impressions 12/16/2022 10:05 AM STEAM TANK OPERATOR CLINICAL HISTORY: ??Evaluate for spondyloarthropathy. TECHNIQUE: Sagittal [...] involving the lower thoracic spine, including the [id number] bodies (series 19, image 6), most compatible [...] the left T7 costovertebral junction (series 12, [id number]). LUMBAR SPINE: Multilevel disc desiccation and disc [...] site documented in this encounter Care Teams Labor Arbitrator Hearing Office Relationship Specialty Start Date End Date Needs Pcp, [place] [address] PCP - General 10/07/21 documented as of this encounter
--- OUTSIDE RECORDS SUMMARY | 2023-12-06 11:36 | XMS_ITS | Encounter Summary ---
Author Name Unknown Organization [facility] Address [address], [place] [address] Care Team Providers Care Polystyrene Molding Machine Tender Name Role Phone Needs Pcp, Assignment Primary Care Provider [phone] Reason for Visit * Reason Comments Prior Authorization For Medication Leflu nomide 10mg- 20mg Encounter Details Date Type Department Care Team Description 05/15/2023 Telephone [place] [address] Rheumatology [facility] [place] [address] Teresa Morales MD [address] [place] [address] Prior Authorization For Medication (Leflunomide [...] Department Care Team Description 12/14/2023 12:00 PM VENEER SLICING MACHINE OPERATOR Appointment [facility] [address] [place], [place] [phone] Teresa Morales MD [address] [place] [address] documented as of this encounter Visit Diagnoses Not on filedocumented in this encounter Care Teams Polystyrene Molding Machine Tender Relationship Specialty Start Date End Date Needs Pcp, Assignment [place], [place] [phone] PCP - General 10/07/21 documented as of this encounter
--- OUTSIDE RECORDS SUMMARY | 2023-12-06 11:36 | XMS_ITS | Encounter Summary ---
Author Name Unknown Organization [facility] Address [address], [place] [address] Care Team Providers Care Block Chopper Hand Name Role Phone Needs Pcp, Assignment Primary Care Provider [phone] Reason for Referral * Procedure/Equipment (Routine) - Incomplete Specialty Diagnoses / Procedures Referred By Zoran ibarra Referred To Contact Diagnoses Spondyloarthritis (HRC) Procedures MR Sacral-Iliac Joints W/WO IV Cont Teresa Morales MD [address] [place] [address] Referral ID Status Reason Start Date Expiration Date V isits Requested Visits Authorized [id number] Incomplete 05/11/2023 08/09/2024 1 1 Reason for Visit * Reason Comments Follow-up Encounter Details Date Type Department Care Team Description 05/11/2023 3:30 PM CDT Office Visit [facility] [address] [place] [address] Teresa Morales MD [address] [place] [address] Spondyloarthritis (HRC) (Primary Dx); Immunosuppression due [...] medicine at periodic intervals determined by your nurse practitioner adult. If multiple abnormal liver tests occur, liver [...] markers. Outside records received and reviewed from [facility]. She had been seen by her PCP [...] every morning. cholecalciferol (VITAMIN D3) 1.25 MG (86324 UT) capsule Take 1 Capsule (50,000 Units) [...] 22 (negative) CCP 233 Outside records from [place] reviewed August 2020: slightly elevated RF at [...] Billing based on: time. Teresa Morales MD [facility] documented in this encounter Plan of Treatment Upcoming Encounters Date Type Department Care Team Description 12/14/2023 12:00 PM TELEVISION STATION MANAGER Appointment [facility] [address] [place], [place] [address] Teresa Morales MD [address] [place], [place] [address] documented as of this encounter Results * [...] - 0.7 mg/dL 05/11/2023 4:57 PM CDT [facility] Blood Venipuncture / Unknown 05/11/2023 4:08 PM CDT 05/11/2023 4:08 PM CDT Teresa Morales MD LAB_1 Performing Organization Address [facility]/ZIP Co de Phone Number [facility] [id number] [place], [place] [address], [facility] [phone] * (ABNORMAL) ESR (05/11/2023 4:08 PM CDT) Pathologist [facility] Sedimentation Rate 54(H) 0 - 20 mm/hr 05/11/2023 4:59 PM CDT [facility] Blood Venipuncture / Unknown 05/11/2023 4:08 PM CDT 05/11/2023 4:08 PM CDT Teresa Morales MD LAB_1 Performing Organization Address [facility] de Phone Number [facility] [address] [place], [place] [phone], [facility] [phone] * (ABNORMAL) Basic Metabolic Panel (05/11/2023 4:08 PM CDT) [facility] Sodium 139 136 - 145 mmol/L 05/11/2023 4:57 PM [facility] Potassium 3.6 3.5 - 5.1 mmol/L 05/11/2023 4:57 PM [facility] Chloride 98 98 - 109 mmol/L 05/11/2023 4:57 PM [facility] CO2 27 20 - 29 mmol/L 05/11/2023 4:57 PM [facility] Anion Gap 14 7 - 16 mmol/L 05/11/2023 4:57 PM [facility] Calcium 10.0 8.4 - 10.4 mg/dL 05/11/2023 4:57 PM [facility] BUN 18 7 - 26 mg/dL 05/11/2023 4:57 PM [facility] Creatinine 0.70 0.55 - 1.02 mg/dL 05/11/2023 4:57 PM [facility] Glucose 109(H) 70 - 100 mg/dL 05/11/2023 4:57 PM [facility] Comment:The given reference range is for the fasting state. Non-fasting reference range for glucose is 70 - 180 mg/dL. Hours Fasting 12 05/11/2023 4:57 PM [facility] GFR, Estimated >60 >60 mL/min/1.7 3m2 05/11/2023 4:57 PM [facility] Blood Venipuncture / Unknown 05/11/2023 4:08 PM CDT 05/11/2023 4:08 PM CDT Teresa Morales MD LAB_1 [facility] [address] [place] [address], [facility] [phone] * (ABNORMAL) Liver Panel(Hepatic Function Panel) (05/11/2023 4:08 PM CDT) Alkaline Phosphatase 52 40 - 150 U/L 05/11/2023 4:57 PM [facility] Bilirubin, Total 0.7 0.2 - 1.2 mg/dL 05/11/2023 4:57 PM [facility] Bilirubin, Direct 0.3 0.0 - 0.5 mg/dL 05/11/2023 4:57 PM [facility] AST (SGOT) 16 10 - 40 U/L 05/11/2023 4:57 PM [facility] ALT (SGPT) 11 <=55 U/L 05/11/2023 4:57 PM [facility] Protein, Total 8.5(H) 6.4 - 8.3 g/dL 05/11/2023 4:57 PM [facility] Albumin 3.8 3.5 - 5.0 g/dL 05/11/2023 4:57 PM [facility] Blood Venipuncture / Unknown 05/11/2023 4:08 PM CDT 05/11/2023 4:08 PM CDT Teresa Morales MD LAB_1 [facility] [address] [place] [address], [facility] [phone] documented in this encounter Visit Diagnoses Diagnosis [...] myelopathy documented in this encounter Care Teams Block Chopper Hand Relationship Specialty Start Date End Date Needs Pcp, [place] [address] PCP - General 10/07/21 documented as of this encounter
--- OUTSIDE RECORDS SUMMARY | 2023-12-06 11:36 | XMS_ITS | Encounter Summary ---
Author Name Unknown Organization [facility] Address [address], [place] [address] Care Team Providers Care Mat Packer Name Role Phone Needs Pcp, Assignment Primary Care Provider [phone] Encounter Details Date Type Department Care Team Description 05/11/2023 4:00 PM CDT Lab Visit [facility] [address] [place] [address] Spondyloarthritis (HRC); Immunosuppression due to drug therapy [...] Department Care Team Description 12/14/2023 12:00 PM COLLABORATING SUPERVISING PHYSICIAN Appointment [facility] [address] [place] [address] Teresa Morales MD [address] [place] [phone] documented as of this encounter Procedures Procedure [...] Complete Blood Count-W/Diff (05/11/2023 4:08 PM CDT) [facility] WBC 9.0 3.5 - 10.5 x10(9)/L 05/11/2023 4:14 PM CDT [facility] RBC 4.97 3.90 - 5.03 x10(12)/L 05/11/2023 4:14 PM CDT [facility] Hemoglobin 14.4 12.0 - 15.5 g/dL 05/11/2023 4:14 PM CDT [facility] HCT 42.6 34.9 - 44.5 % 05/11/2023 4:14 PM CDT [facility] MCV 85.7 80.0 - 100.0 fL 05/11/2023 4:14 PM CDT [facility] MCH 29.0 27.6 - 33.3 pg 05/11/2023 4:14 PM CDT [facility] MCHC 33.8 31.5 - 35.2 g/dL 05/11/2023 4:14 PM CDT [facility] RDW 13.2 11.9 - 15.5 % 05/11/2023 4:14 PM CDT [facility] Platelets 220 150 - 450 x10(9)/L 05/11/2023 4:14 PM [facility] Automated NRBC 0 <=0 /100 WBC 05/11/2023 4:14 PM T [facility] Neutrophil Absolute 6.5 1.7 - 7.0 10(9)/L 05/11/2023 4:14 PM [facility] Lymphocyte Absolute 1.6 1.0 - 4.8 10(9)/L 05/11/2023 4:14 PM [facility] Monocyte Absolute 0.6 0.2 - 0.9 10(9)/L 05/11/2023 4:14 PM [facility] Eosinophil Absolute 0.1 0.0 - 0.5 10(9)/L 05/11/2023 4:14 PM [facility] Basophil Absolute 0.1 0.0 - 0.3 10(9)/L 05/11/2023 4:14 PM [facility] Immature Granulocyte % 0.4 0.0 - 0.5 % 05/11/2023 4:14 PM [facility] Blood Venipuncture / Unknown 05/11/2023 4:08 PM CDT 05/11/2023 4:08 PM CDT Teresa Morales MD LAB_1 Performing Organization Address [facility]/ZIP Co de Phone Number [facility] [address] [place] [address], [facility] [phone] * (ABNORMAL) C-Reactive Protein (05/11/2023 4:08 PM CDT) [facility] C-Reactive Protein 2.3(H) 0.0 - 0.7 mg/dL 05/11/2023 4:57 PM CDT [facility] Blood Venipuncture / Unknown 05/11/2023 4:08 PM CDT 05/11/2023 4:08 PM CDT Teresa Morales MD LAB_1 Performing Organization Address City/[facility]/ZIP Co de Phone Number [facility] [address] [place] [address], [facility] [phone] * (ABNORMAL) ESR (05/11/2023 4:08 PM CDT) Pathologist [facility] Sedimentation Rate 54(H) 0 - 20 mm/hr 05/11/2023 4:59 PM [facility] Blood Venipuncture / Unknown 05/11/2023 4:08 PM CDT 05/11/2023 4:08 PM CDT Teresa Morales MD LAB_1 [facility] [address] [place] [address], [facility] [phone] * (ABNORMAL) Basic Metabolic Panel (05/11/2023 4:08 PM CDT) [facility] Sodium 139 136 - 145 mmol/L 05/11/2023 4:57 PM [facility] Potassium 3.6 3.5 - 5.1 mmol/L 05/11/2023 4:57 PM [facility] Chloride 98 98 - 109 mmol/L 05/11/2023 4:57 PM [facility] CO2 27 20 - 29 mmol/L 05/11/2023 4:57 PM [facility] Anion Gap 14 7 - 16 mmol/L 05/11/2023 4:57 PM [facility] Calcium 10.0 8.4 - 10.4 mg/dL 05/11/2023 4:57 PM [facility] BUN 18 7 - 26 mg/dL 05/11/2023 4:57 PM [facility] Creatinine 0.70 0.55 - 1.02 mg/dL 05/11/2023 4:57 PM [facility] Glucose 109(H) 70 - 100 mg/dL 05/11/2023 4:57 PM [facility] Comment:The given reference range is for the fasting state. Non-fasting reference range for glucose is 70 - 180 mg/dL. Hours Fasting 12 05/11/2023 4:57 PM [facility] GFR, Estimated >60 >60 mL/min/1.7 3m2 05/11/2023 4:57 PM [facility] Blood Venipuncture / Unknown 05/11/2023 4:08 PM CDT 05/11/2023 4:08 PM CDT Teresa Morales MD LAB_1 Performing Organization Address [facility] de Phone Number [facility] [address] [place] [address], [facility] [phone] * (ABNORMAL) Liver Panel(Hepatic Function Panel) (05/11/2023 4:08 PM CDT) Alkaline Phosphatase 52 40 - 150 U/L 05/11/2023 4:57 PM [facility] Bilirubin, Total 0.7 0.2 - 1.2 mg/dL 05/11/2023 4:57 PM [facility] Bilirubin, Direct 0.3 0.0 - 0.5 mg/dL 05/11/2023 4:57 PM [facility] AST (SGOT) 16 10 - 40 U/L 05/11/2023 4:57 PM [facility] ALT (SGPT) 11 <=55 U/L 05/11/2023 4:57 PM [facility] Protein, Total 8.5(H) 6.4 - 8.3 g/dL 05/11/2023 4:57 PM [facility] Albumin 3.8 3.5 - 5.0 g/dL 05/11/2023 4:57 PM [facility] Blood Venipuncture / Unknown 05/11/2023 4:08 PM CDT 05/11/2023 4:08 PM CDT Teresa Morales MD LAB_1 Performing Organization Address [facility] Co de Phone Number [facility] [address] [place] [address], [facility] [phone] documented in this encounter Visit Diagnoses Diagnosis Spondyloarthritis (HRC) Spondylosis of unspecified site without mention of myelopathy 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
--- OUTSIDE RECORDS SUMMARY | 2023-12-06 11:36 | XMS_ITS | Encounter Summary ---
Author Name Unknown Organization [facility] Address [address], [place] [address] Care Team Providers Care Synthetic Plasterer Name Role Phone Needs Pcp, Assignment Primary Care Provider [phone] Reason for Visit * Reason Comments Refill Encounter Details Date Type Department Care Team Description 03/26/2023 Refill [facility] [address] [place], [place] [address] Teresa Morales MD [address] [place] [address] Refill Social History Tobacco Use Types [...] Pain Route: Oral Class: E-Prescribing Order #: [id number] Refill too soon, denied. documented in this encounter Plan of Treatment Upcoming Encounters Date Type Department Care Team Description 12/14/2023 12:00 PM HORSE SHOER Appointment [facility] [address] [place] [address] Teresa Morales MD [address] [place], [place] [address] documented as of this encounter Visit Diagnoses Not on filedocumented in this encounter Care Teams Synthetic Plasterer Relationship Specialty Start Date End Date Needs Pcp, [place] [address] PCP - General 10/07/21 documented as of this encounter
--- OUTSIDE RECORDS SUMMARY | 2023-12-06 11:36 | XMS_ITS | Encounter Summary ---
Author Name Unknown Organization [facility] Address [address], [place] [address] Care Team Providers Care House Manager Name Role Phone Needs Pcp, Assignment Primary Care Provider [phone] Reason for Visit * Procedure/Equipment (Routine) - Incomplete Specialty Diagnoses / Procedures Referred By Zoran t Referred To Contact Diagnoses Pain in both knees, unspecified chronicity Procedures FL Injection Knee Lt Teresa Morales MD [address] [place] [address] Referral ID Status Reason Start Date Expiration Date V isits Requested Visits Authorized [id number] Incomplete 02/27/2023 05/28/2024 1 1 Encounter Details Date Type Department Care Team Description 03/09/2023 1:45 PM CDT Ancillary Procedure [facility] [address] [place] [address] Teresa Morales MD [address] [place] [address] Pain in both knees, unspecified chronicity Social [...] Department Care Team Description 12/14/2023 12:00 PM DIAL POLISHER Appointment [facility] [address] [place] [address] Teresa Morales MD [facility] [place] [address] documented as of this encounter Procedures Procedure [...] 7/10, postprocedure = 0/10. Teresa Morales MD [facility] documented in this encounter Visit Diagnoses [...] mg documented in this encounter Care Teams House Manager Relationship Specialty Start Date End Date Needs Pcp, [place] [address] PCP - General 10/07/21 documented as of this encounter
--- OUTSIDE RECORDS SUMMARY | 2023-12-06 11:36 | XMS_ITS | Encounter Summary ---
Author Name Unknown Organization [facility] Address [address], [place] [address] Care Team Providers Care Diesel Dragline Operator Name Role Phone Needs Pcp, Assignment Primary Care Provider [phone] Reason for Visit * Procedure/Equipment (Routine) - Incomplete Specialty Diagnoses / Procedures Referred By Frenchac t Referred To Contact Diagnoses Lumbar radiculopathy Procedures MR Lumbar Spine WO IV Cont Teresa Crews, DO [address] [place] [address] Referral ID Status Reason Start Date Expiration Date V isits Requested Visits Authorized [id number] Incomplete 03/17/2023 06/15/2024 1 1 Encounter Details Date Type Department Care Team Description 05/19/2023 12:30 PM CDT Ancillary Procedure [facility] [address] Radiology [facility] [address] [place] [address] Teresa Crews DO [address] [place] [address] Lumbar radiculopathy Social History Tobacco Use Types [...] Department Care Team Description 12/14/2023 12:00 PM HYPERCIL CORE TRANSFORMER ASSEMBLER Appointment [facility] [address] [place] [address] Teresa Morales MD [address] [place] [address] documented as of this encounter Procedures Procedure [...] unspecified documented in this encounter Care Teams Diesel Dragline Operator Relationship Specialty Start Date End Date Needs Pcp, [place] [address] PCP - General 10/07/21 documented as of this encounter
--- OUTSIDE RECORDS SUMMARY | 2023-12-06 11:36 | XMS_ITS | Encounter Summary ---
Author Name Unknown Organization [facility] Address [address], [place] [address] Care Team Providers Care Personal Trainer Name Role Phone Needs Pcp, Assignment Primary Care Provider [phone] Encounter Details Date Type Department Care Team Description 01/04/2023 Notes/Orders [facility] [address] [place] [address]. [place] [address] Teresa Morales MD [address] [place] [address] Social History Tobacco Use Types Packs/Day Years [...] Care Team Description 12/14/2023 12:00 PM BOILER COVERER HELPER Appointment [facility] [address] [place] [address] Teresa Morales MD [address] [place] [address] documented as of this encounter Visit Diagnoses Not on filedocumented in this encounter Care Teams Personal Trainer Relationship Specialty Start Date End Date Needs Pcp, [place] [address] PCP - General 10/07/21 documented as of this encounter
--- OUTSIDE RECORDS SUMMARY | 2023-12-06 11:36 | XMS_ITS | Encounter Summary ---
Author Name Unknown Organization [facility] Address [address], [place] [address] Care Team Providers Care Company Accountant Name Role Phone Needs Pcp, Assignment Primary Care Provider [phone] Reason for Referral * Consult/Transfer Care (Routine) - New Request Specialty Diagnoses / Procedures Referred By Zoran ibarra Referred To Contact Diagnoses Spondyloarthritis (HRC) Myofascial pain Chronic back pain, unspecified back location, unspecified back pain laterality Teresa Morales MD [address] [place] [address] Referral ID Status Reason Start Date Expiration Date V isits Requested Visits Authorized [id number] New Request 01/26/2023 04/26/2024 1 1 Scheduling Instructions Your clinician has recommended an appointment with [facility]. You can quickly make your appointment online at [email or web address]. You can also call [phone] for help scheduling your appointment. We suggest [...] Description 01/26/2023 4:00 PM CDT Office Visit [facility] [address] [place], [place] [address] Teresa Morales MD [facility] [place] [address] Spondyloarthritis (Primary Dx); Myofascial pain; Chronic back [...] markers. Outside records received and reviewed from [facility]. She had been seen by her [...] Capsule 11 cholecalciferol (VITAMIN D3) 1.25 MG (50277 UT) capsule Take 1 Capsule (50,000 Units) [...] RF 22 CCP 233 Outside [facility] [place] [facility] reviewed August 2020: slightly elevated RF at [...] exercise. Continue follow-up with primary care and beer cooler for further education and management of her [...] continue follow-up with primary care provider and beer cooler - gentle exercise as tolerated - call if symptoms change prior to follow-up - follow up in 10 weeks Patient advised to call clinic if symptoms change or worsen or if new symptoms develop. All of the patient's questions were answered to the best of my ability. Billing based on: complexity. Teresa Morales MD [facility] documented in this encounter Plan of Treatment Upcoming Encounters Date Type Department Care Team Description 12/14/2023 12:00 PM CLERICAL METHODS ANALYST Appointment [facility] [address] [place], [place] [address] Teresa Morales MD [address] [place], [place] [address] Scheduled Referrals Name Type Priority Associated Diagnoses [...] (HRC) documented in this encounter Care Teams Company Accountant Relationship Specialty Start Date End Date Needs Pcp, [place] [address] PCP - General 10/07/21 documented as of this encounter
--- OUTSIDE RECORDS SUMMARY | 2023-12-06 11:36 | XMS_ITS | Encounter Summary ---
Author Name Unknown Organization [facility] Address [address] [address] Care Team Providers Care Ict Security Specialist Name Role Phone Needs Pcp, Assignment Primary Care Provider [phone] Reason for Visit * Procedure/Equipment (Routine) - Incomplete Specialty Diagnoses / Procedures Referred By Zoran t Referred To Contact Diagnoses Pain in both knees, unspecified chronicity Procedures XR Knee Lt 3 Views Teresa Morales MD [address] [place] [address] Referral ID Status Reason Start Date Expiration Date V isits Requested Visits Authorized [id number] Incomplete 02/27/2023 05/28/2024 1 1 Encounter Details Date Type Department Care Team Description 02/28/2023 5:05 PM CDT [facility] [address] [facility] [address] [place] [phone] Teresa Morales MD [address] [place] [address] Pain in both knees, unspecified [...] Department Care Team Description 12/14/2023 12:00 PM FELTMAKER Appointment [facility] [address] [place] [address] Teresa Morales MD [address] [place], [place] [phone] documented as of this encounter Procedures Procedure [...] chronicity documented in this encounter Care Teams Ict Security Specialist Relationship Specialty Start Date End Date Needs Pcp, Assignment [place], [place] [id number] PCP - General 10/07/21 documented as of this encounter
--- OUTSIDE RECORDS SUMMARY | 2023-12-06 11:36 | XMS_ITS | Encounter Summary ---
Author Name Unknown Organization [facility] Address [address] [address] Care Team Providers Care Outside Sales Executive Name Role Phone Needs Pcp, Assignment Primary Care Provider [phone] Reason for Referral * Consult/Transfer Care (Routine) - New Request Specialty Diagnoses / Procedures Referred By Zoran ibarra Referred To Contact Diagnoses Pain in both knees, unspecified chronicity Teresa Morales MD [address] [place] [address] Referral ID Status Reason Start Date Expiration Date V isits Requested Visits Authorized [id number] New Request 03/28/2023 06/26/2024 1 1 Scheduling Instructions Your clinician has recommended an appointment with [facility]. You can quickly make your appointment online at [email or web address]. You can also call [phone] for help scheduling your appointment. We suggest you call your health insurance company about your coverage and benefits for this appointment. Question Answer Appointment Urgency? Non-Urgent Reason for visit? severe OA of the knees, spondyloarthritis The patient should be seen by: Orthopaedic Surgeon Reason for Visit * Reason Comments LEG PAIN Encounter Details Date Type Department Care Team Description 03/28/2023 Telephone [place] [address] Rheumatology [facility] [place] [facility] [place], [place] [id number] Teresa Morales MD [address] [place] [address] LEG PAIN Social History Tobacco Use Types [...] actually set up an appointment at the [facility] to see orthopedics in a week.. * [...] Department Care Team Description 12/14/2023 12:00 PM NANOSCIENCE TECHNICIAN Appointment [facility] [address] [place] [address] Teresa Morales MD [address] [place] [address] Scheduled Referrals Name Type Priority Associated Diagnoses Orde r Schedule Orthopaedic Consult Adult/Peds Referral Routine Pain in both knees, unspecified chronicity Ordered: 03/28/2023 documented as of this encounter Visit Diagnoses Diagnosis Pain in both knees, unspecified chronicity- Primary documented in this encounter Care Teams Outside Sales Executive Relationship Specialty Start Date End Date Needs Pcp, [place] [address] PCP - General 10/07/21 documented as of this encounter
--- OUTSIDE RECORDS SUMMARY | 2023-12-06 11:36 | XMS_ITS | Encounter Summary ---
Author Name Unknown Organization [facility] Address [address], [place] [address] Care Team Providers Care Physical Therapy Aide Name Role Phone Needs Pcp, Assignment Primary Care Provider [phone] Reason for Referral * Procedure/Equipment (Routine) - Incomplete Specialty Diagnoses / Procedures Referred By Contac t Referred To Contact Diagnoses Pain in both knees, unspecified chronicity Procedures XR Knee Lt 3 Views Teresa Cameron MD [address] [place] [address] Referral ID Status Reason Start Date Expiration Date V isits Requested Visits Authorized [id number] Incomplete 02/27/2023 05/28/2024 1 1 * Procedure/Equipment (Routine) - Incomplete Specialty Diagnoses / Procedures Referred By Contac t Referred To Contact Diagnoses Pain in both knees, unspecified chronicity Procedures FL Injection Knee Lt Teresa Cameron MD [address] [place] [address] Referral ID Status Reason Start Date Expiration Date V isits Requested Visits Authorized [id number] Incomplete 02/27/2023 05/28/2024 1 1 Reason for Visit * Reason Comments KNEE PAIN Encounter Details Date Type Department Care Team Description 02/27/2023 Telephone [facility] [address] Rheumatology [address] [facility] [place] [address] Teresa Cameron MD [address] [place] [address] KNEE PAIN Social History Tobacco Use Types [...] Department Care Team Description 12/14/2023 12:00 PM PRICER BAGGER Appointment [facility] [address] [place] [address] Teresa Cameron MD [address] [place] [id number] documented as of this encounter Results * [...] chronicity documented in this encounter Care Teams Physical Therapy Aide Relationship Specialty Start Date End Date Needs Pcp, [place] [address] PCP - General 10/07/21 documented as of this encounter
--- OUTSIDE RECORDS SUMMARY | 2023-12-06 11:36 | XMS_ITS | Encounter Summary ---
Author Name Unknown Organization [facility] Address [address] [address] Care Team Providers Care Sales Team Recruiter Name Role Phone Needs Pcp, Assignment Primary Care Provider [phone] Reason for Visit * Reason Comments Patient Calling Back Prior Authorization For Medication Cosen tyx Encounter Details Date Type Department Care Team Description 12/23/2022 Telephone [place] [address] [place] [address]. [place], [place] [phone] Teresa Cameron MD [address] [place] [address] Patient Calling Back; Prior Authorization [...] on: 01/05/2023 09:46 AM Modules accepted: Orders OFICHE DUPLICATOR * Rodney Alejandre - 01/04/2023 1:13 PM CSTAddended by: RODNEY ALEJANDRE on: 01/04/2023 01:13 PM Modules accepted: Orders OFICHE DUPLICATOR * Teresa Cameron MD - 01/02/2023 5:36 PM CSTAddended by: TERESA CAMERON on: 01/02/2023 05:36 PM Modules accepted: Orders OFICHE DUPLICATOR documented in this encounter Nursing Notes * Teresa Cameron MD - 01/05/2023 9:45 AM CST Orders signed thank you! Teresa Cameron MD OFICHE DUPLICATOR * Rodney Alejandre - 01/04/2023 12:53 PM CST Cosentyx 150mg PA to insurance is Approved- script t'd to speciality pharmacy[facility] OFICHE DUPLICATOR * Rodney Alejandre - 01/04/2023 10:41 AM CST Cosentyx request sent to plan. OFICHE DUPLICATOR * Teresa Cameron MD - 01/04/2023 9:36 AM CST Could we do COSENTYX instead? Dosing for . Thank you! Teresa Cameron MD OFICHE DUPLICATOR * Rodney Alejandre - 01/04/2023 7:26 AM CST Images from the original note were not included. Taltz denied- must fail 1 non-preferred agent. (Actemra, Cosentyx, Entyvio, Inflectra, Infliximab, Orencia, Otezla, Renflexis, or Stelara. OFICHE DUPLICATOR * Teresa Cameron MD - 01/02/2023 5:27 [...] follow-up for January 26. Teresa Cameron MD OFICHE DUPLICATOR * Toshia Greene RN - 12/27/2022 9:34 AM CST Patient calling again. She states you had called regarding her labs and changing a medication. She wonders if you were still wanting to change one of her medications? Please advise. OFICHE DUPLICATOR * Caren Butt LPN - 12/23/2022 10:23 AM CST Patient calling back; she tells me that you had left a message wanting her to call back regarding results. OFICHE DUPLICATOR documented in this encounter Plan of Treatment Upcoming Encounters Date Type Department Care Team Description 12/14/2023 12:00 PM MICROFICHE DUPLICATOR Appointment [facility] [address] [place], [place] [phone] Teresa Cameron MD [address] [place] [phone] documented as of this encounter Visit Diagnoses Not on filedocumented in this encounter Care Teams Sales Team Recruiter Relationship Specialty Start Date End Date Needs Pcp, Assignment [place], [place] [phone] PCP - General 10/07/21 documented as of this encounter
--- OUTSIDE RECORDS SUMMARY | 2023-12-06 11:36 | XMS_ITS | Encounter Summary ---
Author Name Unknown Organization [facility] Address [address] [address] Care Team Providers Care Washing Machine Mechanic Name Role Phone Needs Pcp, Assignment Primary Care Provider [phone] Reason for Visit * Reason Comments Follow-up Encounter Details Date Type Department Care Team Description 01/04/2023 Telephone [facility] [address] [place], [place] [phone] Needs Pcp, [place] [address] Follow-up Social History Tobacco Use [...] Orders signed, thank you! Teresa Morales MD ANESTHETIST * Kate Eng RN - 01/04/2023 6:29 PM CST Clinician Action: FARHEEN LIZARRAGA approval Clinician Next Step: Patient is NOT expecting a call back from care team Specific Request(s): 1. Coverage approval for Cosentyx Pen 150mg/ml injector. Will send copy to patient and office. Denies other questions or concerns at this time. ANESTHETIST documented in this encounter Plan of Treatment Upcoming Encounters Date Type Department Care Team Description 12/14/2023 12:00 PM RN ANESTHETIST Appointment [facility] [address] [place], [place] [phone] Teresa Morales MD [address] [place], [place] [phone] documented as of this encounter Visit Diagnoses Not on filedocumented in this encounter Care Teams Washing Machine Mechanic Relationship Specialty Start Date End Date Needs Pcp, Assignment [place], [place] [phone] PCP - General 10/07/21 documented as of this encounter
--- OUTSIDE RECORDS SUMMARY | 2023-12-06 11:36 | XMS_ITS | Encounter Summary ---
Author Name Unknown Organization [facility] Address [address], [place] [address] Care Team Providers Care Industrial Engineering Manager Name Role Phone Needs Pcp, Assignment Primary Care Provider [phone] Reason for Referral * Procedure/Equipment (Routine) - Incomplete Specialty Diagnoses / Procedures Referred By Contac t Referred To Contact Diagnoses Lumbar radiculopathy Procedures MR Lumbar Spine WO IV Teresa Montiel DO [address] [place] [address] Referral ID Status Reason Start Date Expiration Date V isits Requested Visits Authorized [id number] Incomplete 03/17/2023 06/15/2024 1 1 Reason for Visit * Reason Comments CONSULT Back and Left leg * Consult/Transfer Care (Routine) - New Request Specialty Diagnoses / Procedures Referred By Contac t Referred To Contact Diagnoses Spondyloarthritis (HRC) Myofascial pain Chronic back pain, unspecified back location, unspecified back pain laterality Teresa Morales MD [address] [place] [address] Referral ID Status Reason Start Date Expiration Date V isits Requested Visits Authorized [id number] New Request 01/26/2023 04/26/2024 1 1 Encounter Details Date Type Department Care Team Description 03/17/2023 8:20 AM CDT Office Visit [facility] [address] [place] [address] Tereas Crews DO [address] [place] [address] Lumbar radiculopathy (Primary Dx); Chronic [...] Consult Note Referred by: Teresa Morales MD [address] [place] [address] Chief Complaint: Chief Complaint Patient presents with [...] she can not be on this medication retirement. With regards to her left knee she did try several steroid injections without durable relief. Today she rates her pain at 8/10. This is affecting her quality of life and job. 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 She struggles with walking and getting in and out of her car due to pain. [place] SET DESIGNER: Reviewed 03/17/2023 Review of Systems: A 10-point [...] The patient prefers to see orthopedics in [place] at a clinic near her home. Offered external referral. She will call me if she needs this in the future. We discussed that given her knee x-ray, which was reviewed with her during the time of the visit, with severe osteoarthritis I suspect much of her pain is related to this condition. Defer whether or not she yenny surgical candidate to Orthopedics. We did discuss that her weight may be a contributing factor inthis decision. - Recommend dedicated lumbar MRI without IV contrast to further evaluate for left L4 versus L5 radiculopathy. Therapy/Exercise: Recommend physical therapy for mobility and strengthening of the left knee and leg. The patient prefers to hold for now. Medications: SET DESIGNER reviewed - Increase Celebrex to 200 mg [...] Department Care Team Description 12/14/2023 12:00 PM DITCH TENDER Appointment [facility] [address] [place] [address] Teresa Morales MD [address] [place], [place] [phone] documented as of this encounter Results * [...] unspecified documented in this encounter Care Teams Industrial Engineering Manager Relationship Specialty Start Date End Date Needs Pcp, [place] [address] PCP - General 10/07/21 documented as of this encounter
== END 2023-12-04 16:21 | disposition home or self-care (01) ==
LOC: NFLDREF 12-06 11:32
PROVIDERS: PCP Family Medicine; Referring Provider Family Medicine; Visit Provider Family Medicine
DX: I10 Essential (primary) hypertension (principal); E78.5 Hyperlipidemia, unspecified; E11.69 Type 2 diabetes mellitus with other specified complication; Z79.84 Long term (current) use of oral hypoglycemic drugs
CPT/HCPCS: 80053; 80061

== ENCOUNTER 2024-03-26 15:34 | Outpatient (CLI) | payer MEDICAID, SELFPAY ==
--- OUTSIDE RECORDS SUMMARY | 2024-03-28 09:51 | XMS_ITS | Clinical Summary ---
Author Organization [employer] [facility] Address [place], [place] [address] Care Team Providers Care Crime Specialist Name Role Phone Lakisha Ramirezhleen Pina HOWARD Primary Care Provid er Allergies Active Allergy Reactions Criticality Noted Date Comments Lisinopril Other - Describe In Comment Field High 11/04/2020 Kidney failure Medications Medication Sig Dispensed Refills Start Date End Date Status amLODIPine (NORVASC) 10 mg tablet 07/23/2023 Active metFORMIN (GLUCOPHAGE) 500 mg tablet Take 500 mg by mouth. Active chlorthalidone (HYGROTON) 25 mg tablet Take 12.5 mg by mouth. 04/14/2023 Active rosuvastatin (CRESTOR) 5 mg tablet Take 5 mg by mouth. 04/14/2023 Activ e Cosentyx Pen 150 mg/mL pen Inject 150 mg subcutaneous every 4 weeks. 06/01/2023 Active HYDROcodone-acetam inophen ([place]) (5-325 mg/tablet)Indicati ons:Chronic pain of left knee Take 1 Tablet by mouth 3 times daily if needed for Pain. Max acetaminophen dose: 4000mg in 24 hrs. 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 Infection and inflammatory r eaction due to other internal prosthetic device, implant, and graft 07/23/2012 Hypertension 05/29/2009 GERD (gastroesophageal reflux disease) 9 Immunizations Name Administration Dates Next Due Influenza, [...] Comments Blood Pressure 150/82 10/04/2023 3:09 PM ICE CREAM DISPENSER Pulse 99 11/08/2023 2:36 PM ICE CREAM DISPENSER Temperature 36.3 ??C (97.4 ??F) 10/04/2023 3:09 PM CS T Respiratory Rate 16 06/04/2014 8:32 AM CDT Oxygen Saturation 95% 11/08/2023 2:36 PM ICE CREAM DISPENSER Inhaled Oxygen Concentration - - Weight 126.2 kg (278 lb 3.2 oz) 11/08/2023 2:36 PM ICE CREAM DISPENSER Height 167.6 cm (5' 5.98) 10/04/2023 3:09 PM CS T Body Mass Index 44.92 10/04/2023 3:09 PM ICE CREAM DISPENSER Plan of Treatment Upcoming Encounters Date Type Department Care Team (Late st Contact Info) Description 05/22/2024 3:00 PM CDT Office Visit [facility] [address] [place] [address] Jed Wong MD [address] [place] [address] Health Maintenance Due Date Last Done Comments [...] 03/06/2021 02/06/2021, 01/16/2021 Influenza for age 50-64 06/30/2024 07/24/2012 Pneumococcal series for age 6-64 Aged Out No longer eligible b ased on patient's age to complete this topic Medical Devices Implanted Type Area Tie Man Device Identifier Shelf Expiration Date Model / Serial / Lot [id number] [id number] Implanted:Qty: 1 on 11/21/2012 at [facility] Left: Breast [employer] - Inamed [id number] / [id number] / Description:TISSUE DRYWALL HANGER HELPER [id number] implnt Mammary 800cc [[id number]] Implanted:Qty: 1 on 06/26/2013 at [facility] Left: Breast J bCODE J [employer] [id number] # / [id number] / [id number] breast 800cc Memorygel Rnd High Smooth Sil - [id number] Implanted:Qty: 1 on 06/26/2013 at [facility] Explanted:at [facility] (Quantity not on file) Right: Breast [employer] 03/29/2018 [id number] # / [id number] Advance Directives * Full Code (Latest Code Status on File) Date Activated Date Inactivated Comments 06/04/2014 9:04 AM 06/04/2014 11:58 AM * Full Code Date Activated Date Inactivated Comments 06/26/2013 9:08 AM 06/26/2013 1:13 PM * Full Code Date Activated Date Inactivated Comments 06/26/2013 6:22 AM 06/26/2013 9:08 AM * Full Code Date Activated Date Inactivated Comments 11/21/2012 8:45 AM 11/21/2012 1:08 PM * Full Code Date Activated Date Inactivated Comments 11/21/2012 6:23 AM 11/21/2012 8:45 AM Care Teams Crime Specialist Relationship Specialty Start Date End Date Brigitte Ramirez DO PCP - General Family Practice 06/24/13
== END 2024-03-26 15:35 | disposition home or self-care (01) ==
LOC: NFLDREF 03-28 09:49
PROVIDERS: PCP Family Medicine; Referring Provider Family Medicine; Visit Provider Family Medicine
DX: Z79.1 Long term (current) use of non-steroidal anti-inflammatories (NSAID) (principal); I10 Essential (primary) hypertension; E78.5 Hyperlipidemia, unspecified; E11.69 Type 2 diabetes mellitus with other specified complication; E66.9 Obesity, unspecified; R53.83 Other fatigue
CPT/HCPCS: 80053; 80061; 82043; 82570; 82607; 84443

== ENCOUNTER 2024-05-24 09:58 | Outpatient (CLI) | payer MEDICAID, SELFPAY ==
--- OUTSIDE RECORDS SUMMARY | 2024-05-27 11:16 | XMS_ITS | Encounter Summary ---
Author Organization [facility] Address [address], [place] [address] Care Team Providers Care Wood Furniture Assembler Name Role Phone Needs Pcp, Assignment Primary Care Provider [phone] Reason for Visit * Reason Comments LEG PAIN Encounter Details Date Type Department Care Team ([facility] st Contact Info) Description 04/01/2024 Telephone [place] [address] Rheumatology [facility] [place], [place] [phone] Teresa Morales MD [address] [place] [address] LEG PAIN Social History Tobacco Use Types [...] Nursing Notes * Toshia Greene RN - 04/01/2024 2:39 PM CDT Spoke with patient, given the providers message and they verbalized understanding. * Teresa Morales MD - 04/01/2024 1:03 PM CDT We have previously reviewed that is not safe for her to be on high doses of prednisone such as 30 mg daily. I am okay with giving her a refill for flare symptoms at this higher dose, though would like her to get back on 5 mg daily as we had previously discussed. Teresa Morales MD * Toshia Greene RN - 04/01/2024 8:59 AM CDT Patient states that for the last couple of weeks she has been having bilateral leg and knee pain. She states that her feet are slightly swollen and hurt to walk on as well. She tapered down to 5 mg in early February and has been having back to back flares since then. She states that when the pain gets too bad she increases her prednisone from 5 mg to 30 mg. She states that the 30 mg helps take some of the pain away. She is requesting for another prescription of Prednisone as she is completely out as of now. Please advise. -pharmacy verified. documented in this encounter Plan of Treatment Upcoming Encounters Date Type Department Care Team (Late st Contact Info) Description 08/14/2024 4:00 PM CDT Appointment [facility] [address] [place] [address] Teresa Morales MD [address] [place], [place] [phone] documented as of this encounter Visit Diagnoses Not on filedocumented in this encounter Care Teams Wood Furniture Assembler Relationship Specialty Start Date End Date Needs Pcp, Assignment [place], [place] [phone] PCP - General 10/07/21 documented as of this encounter
--- OUTSIDE RECORDS SUMMARY | 2024-05-27 11:16 | XMS_ITS | Encounter Summary ---
Author Organization [facility] Address [address], [place] [address] Care Team Providers Care Aoc Operations Intelligence Chief Name Role Phone Needs Pcp, Assignment Primary Care Provider [phone] Reason for Visit * Reason Comments Refill Encounter Details Date Type Department Care Team ([facility] st Contact Info) Description 03/02/2024 Refill [facility] [address] [place], [place] [address] Teresa Morales MD [facility] [place] [address] Refill Social History Tobacco Use Types [...] Nursing Notes * Marjorie Dubois RN - 03/04/2024 9:28 AM CDT predniSONE (DELTASONE) 5 MG tablet 216 Tablet 0 12/14/2023 04/24/2024 Sig: Take 4 Tablets (20 mg) by mouth daily for 14 days, THEN 3 Tablets (15 mg) daily for 14 days, THEN 2 Tablets (10 mg) daily for 14 days, THEN 1 Tablet (5 mg) daily. Route: Oral Class: E-Prescribing Order #: [id number] Dosage Start Date End Date 20 mg DAILY 12/14/23 12/27/23 15 mg DAILY 12/28/23 01/10/24 10 mg DAILY 01/11/24 01/24/24 5 mg DAILY 01/25/24 04/23/24 Rx gets patient through until her appointment 04/13/24, refill not appropriate at this time, denied. documented in this encounter Plan of Treatment Upcoming Encounters Date Type Department Care Team (Late st Contact Info) Description 08/14/2024 4:00 PM CDT Appointment [facility] [address] [place] [address] Teresa Morales MD [address] [place], [place] [phone] documented as of this encounter Visit Diagnoses Not on filedocumented in this encounter Care Teams Aoc Operations Intelligence Chief Relationship Specialty Start Date End Date Needs Pcp, Assignment [place], [place] [phone] PCP - General 10/07/21 documented as of this encounter
--- OUTSIDE RECORDS SUMMARY | 2024-05-27 11:16 | XMS_ITS | Encounter Summary ---
Author Organization [employer] Address [address], [place] [address] Care Team Providers Care Composite Worker Name Role Phone Needs Pcp, Assignment Primary Care Provider [phone] Reason for Visit * Reason Comments Follow-up Encounter Details Date Type Department Care Team ([facility] st Contact Info) Description 04/17/2024 4:00 PM CDT Office Visit [facility] [address] [place], [place] [phone] Teresa Morales MD [address] [place] [address] Spondyloarthritis (HRC) (Primary Dx); Osteoarthritis of multiple joints, unspecified osteoarthritis type; Myofascial pain; 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); level glass vial filler current use of systemic steroids Social History Tobacco Use Types Packs/Day Years [...] Sign Reading Time Taken Comments Blood Pressure 149/92 04/17/2024 3:55 PM CDT Pulse 98 04/17/2024 3:55 PM CDT Temperature - - Respiratory Rate - - Oxygen Saturation - - Inhaled Oxygen Concentration - - Weight 122 kg (269 lb) 04/17/2024 3:55 PM CDT Height - - Body Mass Index 46.17 01/26/2024 9:26 AM CDT documented in this encounter Patient Instructions * Patient Instructions* Teresa Morales MD - 04/17/2024 4:00 PM CDT CONTINUE the CONSENTYX monthly, would make sure you are healing well before your surgery Good luck with your breast implant removal! Continue cymbalta 30 mg daily Call me if you have any issues Continue prednisone, 20 mg x 7 days then 15 mg x 7 days then 10 mg x 7 days then 5 mg x 5 days then2.5 mg x 5 days Continue ozempic Follow up in 12 weeks documented in this encounter Progress Notes * Teresa Morales MD - 04/17/2024 4:00 PM CDT RHEUMATOLOGY FOLLOW-UP Chief Complaint Patient presents with Follow-up Encounter date: 04/17/2024 Date of last office visit: 12/14/2023 Rheumatologic history: The patient is a 63 y.o. female with medical history of breast ca, s/p bilateral mastectomy, pre diabetes, HTN, anxiety, hyperparathyroidism, and obesity who presented to our clinic initially in October 2020 for evaluation of joint pain in the setting of elevated inflammatory markers. Outside records received and reviewed from [facility]. She had been seen by her [...] Stopped methotrexate. Nov 2022: approved for COSENTYX August 2023: stopped leflunomide. Given trial of diclofenac 11/2023: Has continued to have issues with pain, most bothersome in the legs and knees. She was taking higher doses of prednisone and we reviewed the risks of greater than 5 mg daily. We elected to continue on 5 mg daily until she would further evaluation by orthopedics for consideration for knee replacements. We also elected to do a trial of duloxetine. Called in January 2024 wondering about a 2nd opinion. Agreed with this. Given recommendations for additional providers versus the [facility] as patient had requested. Interim history: Patient referred to pain clinic by orthopedics. Seen in December 2023. She does not think that her duloxetine has been beneficial but she did speak with her primary care provider and does think that hermood has been significantly improved. She does think that her left knee is less bothersome compared to her right knee. She does have plans to have her breast implants removed in May because she is wondering about breast implant syndrome and has done a lot of research on this, she is going to [facility].She just took her Cosentyx last week. She is still having most of her pain in her lower body. She is currently on 20 mg of prednisone. Has been on this for 5 days. She is getting this from her friend. ROS: Review of systems completed with patient today, and is as noted above. PMH: Updated in EMR Outpatient Encounter Medications as of 04/17/2024 Medication Sig Note Dispense Refill amLODIPine (NORVASC) 5 MG tablet Take 1 Tablet (5 mg) by mouth daily. 12/14/2023: Pt takes 10 mg daily chlorthalidone (HYGROTON) 25 MG tablet Take 0.5 Tablets (12.5 mg) by mouth every morning. DULoxetine (CYMBALTA) 30 MG capsule Take 2 Capsules (60 mg) by mouth daily. 180 Capsule 3 metFORMIN (GLUCOPHAGE) 500 MG tablet Take 1 Tablet (500 mg) by mouth daily. 12/14/2023: Pt takes 500mg bid predniSONE (DELTASONE) 5 MG tablet Take 6 Tablets (30 mg) by mouth daily for 5 days, THEN 4 Tablets(20 mg) daily for 5 days, THEN 2 Tablets (10 mg) daily for 5 days, THEN 1 Tablet (5 mg) daily. 90 Tablet 0 predniSONE (DELTASONE) 5 MG tablet Take 4 Tablets (20 mg) by mouth daily for 14 days, THEN 3 Tablets (15 mg) daily for 14 days, THEN 2 Tablets (10 mg) daily for 14 days, THEN 1 Tablet (5 mg) daily. 216 Tablet 0 secukinumab (COSENTYX SENSOREADY PEN) 150 MG/ML injection pen Inject 1 mL (150 mg) subcutaneously every 4 weeks. Indications: Rheumatic Disease causing Vertebrae Inflammation 1 mL 11 semaglutide (OZEMPIC, 0.25/0.5 MG/DOSE,) 2 MG/1.5ML injection Inject 0.25 mg subcutaneously once a week. No facility-administered encounter medications on file as of 04/17/2024. ALLERGIES: Updated in EMR Social History Tobacco Use Smoking Status Never Smokeless Tobacco Never Social History Substance and Sexual Activity Alcohol Use Yes MEDS: Reviewed and updated in the computerized record. Physical exam: Blood pressure (!) 149/92, pulse 98, weight 269 lb (122 kg). General: Alert, no distress, appears comfortable today Eyes: anicteric, no erythema ENT: oral function appears symmetric Resp: breathing comfortably on room air. CV: Not examined Abd: Not examined Skin: no rashes on visible skin Neuro: Improvement in limping compared to prior visit, proximal upper extremity and lower extremitystrength is intact today. MSK: A focused joint exam was performed [...] band region bilaterally. Crepitus ofthe knees bilaterally with improvement in previously noted tenderness of the joint line. There is no evidence of overt effusion of the knees. Does have tenderness to palpation of the shins. Difficult to assess for swelling of the ankles. No pain on MTP squeeze. She continues to have diffuse soft tissue tender points though these appear improved today. Labs: Lab Results Component Value Date WBC 9.0 05/11/2023 RBC 4.97 05/11/2023 Hemoglobin 14.4 05/11/2023 HCT 42.6 05/11/2023 MCV 85.7 05/11/2023 RDW 13.2 05/11/2023 Platelets 220 05/11/2023 Lab Results Component Value Date AST (SGOT) 16 05/11/2023 , Lab Results Component Value Date ALT (SGPT) 11 05/11/2023 Lab Results Component Value Date Creatinine 0.70 05/11/2023 Lab Results Component Value Date Sedimentation Rate 37 (H) 12/14/2023 , Lab Results Component Value Date C-Reactive Protein 0.5 12/14/2023 RF 22 (negative) CCP [address] from [address] reviewed August 2020: slightly elevated RF at 18 (ref at their clinic 0-14). CCP negative. AMY screen negative. ESR and CRP elevated at 61 and 4.50. HLA B27 negative. X-ray done of the bilateral hands done showing mild degenerative changes with no erosions. Left knee x-ray with tricompartmental DJD. Lumbar spine with degenerative disc disease. Imaging: MRI left knee wo contrast 10/06/2023: IMPRESSION: 1. Exam degraded by motion artifact. 2. Advanced tricompartment osteoarthritis with areas of full-thickness cartilage loss. 3. Tearing of the posterior horn and body of the lateral meniscus. 4. Thinning/diminution of the anterior horn lateral meniscus and entire medial meniscus likely on degenerative basis. 5. Joint effusion and popliteal cyst. MRI right knee wo contrast 10/06/2023: IMPRESSION: 1. Complex tear in the medial meniscus body and posterior horn with meniscal tissue extruded towardthe meniscotibial recess medially. 2. 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 Mild chondromalacia in the lateral compartment. 3. Small joint effusion with evidence of synovitis. 4. Small popliteal cyst. 5. Mild tendinosis at the patellar tendon insertion. MRI lumbar spine 05/19/2023: IMPRESSION: 1. Mild [...] # positive anti CCP # chronic back pain # Immunosuppression due to drug therapy # severe osteoarthritis of the knees # myofascial pain # history of malignancy Ms. Alcaraz is a very pleasant 63 y.o.female with medical history of breast ca, s/p bilateral mastectomy (did not need chemotherapy or radiation), pre diabetes, HTN, anxiety, hyperparathyroidism, and obesity who is presenting to our clinic today for follow up in regards to her spondyloarthritis. She has continued to struggle with symptoms despite multiple biologics. Her pain is complex as she is multiple etiologies contributing to her symptoms. At our last visit we elected to do a trial of duloxetine. She has not sure if this has been beneficial, however, she does feel like this has helped with her mood significantly. In addition, we reviewed today that her myofascial tender points have significantly improved on exam. She did self decrease her dose back to 30 mg daily and has been tolerating this well. Given we are making some additional changes and she will be undergoing surgery in May, I would recommend that we continue her current dosing for now and we will reassess after she has her breast implant removal done in May. Patient is agreeable with this plan. We also discussed the need to taper off of glucocorticoids prior to her surgery to ensure good wound healing, decreased risk of infection, decrease risk of bleeding. She notes that she was also told by her surgeon that she needs to stop glucocorticoids and NSAIDs 2 weeks prior to surgery. We had a long discussion today regarding the long-term side effects and risksof long-term glucocorticoids, and she is interested in trying a different prescription anti-inflammatory if needed. May benefit from diclofenac as she knows a friend that is on this and has had significant benefit. We reviewed that I think this would be a safer option for her long-term rather than long-term glucocorticoids. We will consider based on her response to tapering her medication. She did see Orthopedics for her severe osteoarthritis of the knees. They did recommend moving forward with a TKA. We did review that she continues to have evidence of myofascial pain which is contributing to her chronic pain as well. Hopefully she will have improvement with per breast implant removal. We did review that should she continue have significant chronic pain despite undergoing explant surgery, she would be interested to move forward with a 2nd opinion at that time. Encouraged to continue Cosentyx once monthly. Would hold dose after her surgery if she has issues with infection or healing. Can use Tylenol as needed for pain. Encouraged to continue lifestyle modifications, increased movement, and Ozempic as per primary care. Will plan on follow-up in 12-14 weeks. PLAN: - continue Cosentyx - continue duloxetine 30 mg daily - taper off of glucocorticoids, prednisone 20 mg daily x7 days then 15 mg daily for 7 days then 10 mg daily for 7 days then 5 mg daily for 5 days then 2.5 mg for 5 days - consider trial of other prescription NSAID medications for osteoarthritis symptoms, we reviewed that we would need to hold this for 1-2 weeks prior to her surgery as well - follow-up with Plastic surgery team as planned - continue follow-up with primary care provider - gentle exercise as tolerated - call if symptoms change prior to follow-up - follow up in 12-14 weeks Patient advised to call clinic if symptoms change or worsen or if new symptoms develop. All of the patient's questions were answered to the best of my ability. Billing based on: complexity Teresa Morales MD [facility] documented in this encounter Plan of Treatment Upcoming Encounters Date Type Department Care Team (Late st Contact Info) Description 08/14/2024 4:00 PM CDT Appointment [facility] [address] [place], [place] [address] Teresa Morales MD [address] [place], [place] [phone] documented as of this encounter Visit Diagnoses Diagnosis Spondyloarthritis (HRC)- Primary Spondylosis of unspecified site without mention of myelopathy Osteoarthritis of multiple joints, unspecified osteoarthritis type Myofascial pain Mylagia and myositis, unspecified 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) level glass vial filler current use of systemic steroids Encounter for long-term (current) use of steroids documented in this encounter Care Teams Composite Worker Relationship Specialty Start Date End Date Needs Pcp, [place] [address] PCP - General 10/07/21 documented as of this encounter
--- OUTSIDE RECORDS SUMMARY | 2024-05-27 11:16 | XMS_ITS | Clinical Summary ---
Author Organization [facility] Address [address] [place] [address] Care Team Providers Care Information Assistant Name Role Phone Needs Pcp, Assignment Primary Care Provider [phone] Source Comments You are receiving this document as you are listed as the primary care provider,follow-up provider, or the patient has been referred to you for consultation.This is in compliance with the Medicare and[facility] EHR Incentive Program,which states Providers who transition their patient to another setting of careor provider of care or refers their patient to another provider of care shouldprovide summary care record for each transition of care or referral. [employer] Allergies Active Allergy Reactions Criticality Noted Date Comments Lisinopril Other, see comments High 11/04/2020 Kidney failure Medications Medication Sig Dispensed Refills Start Date End Date Status amLODIPine (NORVASC) 5 MG tablet Take 1 Tablet (5 mg) by mouth daily. Active metFORMIN (GLUCOPHAGE) 500 MG tablet Take 1 Tablet (500 mg) by mouth daily. Active chlorthalidone (HYGROTON) 25 MG tablet Take 0.5 Tablets (12.5 mg) by mouth every morning. 04/14/2023 Active secukinumab (COSENTYX SENSOREADY PEN) 150 MG/ML injection penIndications:An kylosing Spondylitis Inject 1 mL (150 mg) subcutaneously every 4 weeks. Indications: Rheumatic Disease causing Vertebrae Inflammation 1 mL 11 06/01/2023 Active semaglutide (OZEMPIC, 0.25/0.5 MG/DOSE,) 2 MG/1.5ML injection Inject 0.25 mg subcutaneously once a week. 04/03/2024 Active DULoxetine (CYMBALTA) 30 MG capsule Take 1 Capsule (30 mg) by mouth daily. 90 Capsule 1 04/17/2024 Active predniSONE (DELTASONE) 5 MG tablet Take 6 Tablets (30 mg) by mouth daily for 5 days, THEN 4 Tablets (20 mg) daily for 5 days, THEN 2 Tablets (10 mg) daily for 5 days, THEN 1 Tablet (5 mg) daily. 90 Tablet 04/01/2024 4 predniSONE (DELTASONE) 5 MG tablet Take 4 Tablets (20 mg) by mouth daily for 7 days, THEN 3 Tablets (15 mg) daily for 7 days, THEN 2 Tablets (10 mg) daily for 7 days, THEN 1 Tablet (5 mg) daily for 5 days, THEN 0.5 Tablets (2.5 mg) daily for 5 days. 71 Tablet 04/17/2024 4 Active Problems Problem Noted Date Diagnosed Date Spondyloarthritis 04/21/2021 Encounters Date Type Department Care Team Description 04/17/2024 4:00 PM CDT Office Visit [facility] [address] [place] [address] Teresa Morales MD Spondyloarthritis (HRC) (Primary Dx); Osteoarthritis of multiple joints, unspecified osteoarthritis type; Myofascial pain; 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); custodial current use of systemic steroids 04/01/2024 Telephone [facility] [address] [place] [address]. [place] [address] Teresa Morales MD LEG PAIN 03/28/2024 E-[address] [facility] [address] [place] [phone] Mychart, Generic Provider 03/26/2024 Telephone [facility] [address] [place], [place] [phone] Manda Padgett MD Orders Needed (Right Knee radiofrequency ablation) 03/02/2024 Refill [facility] [address] [place] [address] Teresa Morales MD Refill from Last 3 Months Immunizations Name Administration Dates Next Due Flu Vac (3+ yrs) 07/24/2012 Flublok (RIV4) 09/11/2020 Influenza Vaccine TIV, Nasal 08/16/2010 Pfizer Monovalent 12+ Purple Top 02/06/2021,03/2 Tdap 04/23/2021,01/27/2010 Zoster RZV (Shingrix) 04/23/2021 Social [...] Pulse 98 04/17/2024 3:55 PM CDT Temperature 36.4 ??C (97.5 ??F) 01/26/2023 3:54 PM CD T Respiratory Rate - - Oxygen Saturation - - Inhaled Oxygen Concentration - - Weight 122 kg (269 lb) 04/17/2024 3:55 PM CDT Height 162.6 cm (5' 4) 01/26/2024 9:26 AM CDT Body Mass Index 46.17 01/26/2024 9:26 AM CDT Plan of Treatment Upcoming Encounters Date Type Department Care Team (Late st Contact Info) Description 08/14/2024 4:00 PM CDT Appointment [facility] [address] [place], [place] [address] Teresa Morales MD [address] [place] [phone] Health Maintenance Due Date Last Done Comments Cervical Cancer Screening Due 1960 Colon Cancer Screening Plan Due 1960 Mammogram 1962 Adult Preventive Visit 1980 Cholesterol 2007 COVID-19 Vaccine ( season) 2023 02/06/2021, 01/16/2021 Influenza (#1) 2024 12/08/2023, 09/29, 09/11/2020, Additional history exists Diabetes Screening- (based on age and BMI) 05/11/2026 05/11/2023, 10/06/2022, 11/25/2020 DTaP/Tdap/Td (3 - Tdap) 04/23/2031 04/23/2021, 01/27 [...] Procedure Name Priority Date/Time Associated Diagnosis Comments HIV 1/2 AG/AB 4TH GEN Routine 11/04/2020 12:43 PM BITUMINOUS DISTRIBUTOR OPERATOR Inflammatory arthritis HEPATITIS PANEL ACUTE WITH REFLEX TO CONFIRMATION Routine 11/04/2020 12:43 PM BITUMINOUS DISTRIBUTOR OPERATOR Inflammatory arthritis from Last 3 Months or Most Recently Relevant to Health Maintenance Results * Hepatitis Panel with Reflex to Confirmation (11/04/2020 12:43 PM BITUMINOUS DISTRIBUTOR OPERATOR) Hepatitis A Antibody, IgM Negative (Non Reactive) Negative (Non Reactive) 11/04/2020 4:30 PM BITUMINOUS DISTRIBUTOR OPERATOR [facility] Comment:IgM anti-HAV not det ected. Does not exclude the possibility of exposure to or infection with HAV. Levels of IgM anti-HAV may be below the cut-off in early infection. Hepatitis Bc Antibody,IgM Negative (Non Reactive) Negative (Non-Reacti ve) 11/04/2020 4:30 PM BITUMINOUS DISTRIBUTOR OPERATOR [facility] Comment:IgM anti-HBc not det ected. Does not exclude the possibility of exposure to or infection with HBV. Hepatitis B Surface Antigen Negative (Non Reactive) Negative (Non Reactive) 11/04/2020 4:30 PM BITUMINOUS DISTRIBUTOR OPERATOR [facility] Hepatitis C Antibody Negative (Non Reactive) Negative (Non Reactive) 11/04/2020 4:30 PM BITUMINOUS DISTRIBUTOR OPERATOR [facility] Comment:Antibodies to HCV no t detected. Does not exclude the possiblity of exposure to HCV. Blood Venipuncture / Unknown 11/04/2020 12:43 PM BITUMINOUS DISTRIBUTOR OPERATOR 11/04/2020 12:43 PM BITUMINOUS DISTRIBUTOR OPERATOR Teresa Morales MD LAB_1 [facility] [address] * HIV 1/2 Ag/Ab 4th Generation (11/04/2020 12:43 PM BITUMINOUS DISTRIBUTOR OPERATOR) Pathologist [facility] HIV 1/2 Antigen/Antib jeremy (4th generation) Negative (Non Reactive) Negative (Non Reactive) 11/06/2020 11:07 AM BITUMINOUS DISTRIBUTOR OPERATOR [facility] Comment:HIV-1 p24 Antigen an d HIV-1/HIV-2 Antibody not detected Blood Venipuncture / Unknown 11/04/2020 12:43 PM BITUMINOUS DISTRIBUTOR OPERATOR 11/04/2020 12:43 PM BITUMINOUS DISTRIBUTOR OPERATOR Teresa Morales MD LAB_1 Performing Organization Address City/[facility]/ZIP Co de Phone Number [facility] [address] from Last 3 Months or Most Recently Relevant to Health Maintenance Care Teams Information Assistant Relationship Specialty Start Date End Date Needs Pcp, [place] [address] PCP - General 10/07/21
--- OUTSIDE RECORDS SUMMARY | 2024-05-27 11:16 | XMS_ITS | Encounter Summary ---
Author Organization [employer] Address [address], [place] [address] Care Team Providers Care Senior Production Supervisor Name Role Phone Needs Pcp, Assignment Primary Care Provider [phone] Reason for Visit * Reason Comments Refill Encounter Details Date Type Department Care Team ([facility] st Contact Info) Description 02/17/2024 Refill [facility] [address] [place], [place] [phone] Teresa Cameron MD [address] [place] [id number] Refill Social History Tobacco Use Types [...] Nursing Notes * Marjorie Dubois RN - 02/19/2024 7:50 AM CDT LV: 12/14/23 NV: 04/17/24 Renewed medication per medication refill standing order. Requested Prescriptions Signed Prescriptions Disp Refills DULoxetine (CYMBALTA) 30 MG capsule 180 Capsule 3 Sig: Take 2 Capsules (60 mg) by mouth daily. Authorizing Provider: TERESA CAMERON Ordering User: MARJORIE DUBOIS documented in this encounter Plan of Treatment Upcoming Encounters Date Type Department Care Team (Late st Contact Info) Description 08/14/2024 4:00 PM CDT Appointment [facility] [address] [place] [address] Teresa Cameron MD [address] [place], [place] [phone] documented as of this encounter Visit Diagnoses Not on filedocumented in this encounter Care Teams Senior Production Supervisor Relationship Specialty Start Date End Date Needs Pcp, Assignment [place], [place] [phone] PCP - General 10/07/21 documented as of this encounter
--- OUTSIDE RECORDS SUMMARY | 2024-05-27 11:16 | XMS_ITS | Encounter Summary ---
Author Organization [facility] Address [address] [address] Care Team Providers Care Director Water And Waste Services Name Role Phone Needs Pcp, Assignment Primary Care Provider [phone] Reason for Referral * Consult/Transfer Care (Routine) - New Request Specialty Diagnoses / Procedures Referred By Zoran ibarra Referred To Contact Diagnoses Primary osteoarthritis of right knee Manda Padgett MD [address] [facility] [address] [place] [id number] Referral ID Status Reason Start Date Expiration Date V isits Requested Visits Authorized [id number] New Request 03/28/2024 06/27/2025 1 1 Scheduling Instructions Your clinician has recommended an appointment with [facility]. You can quickly make your appointment online at '[employer]/schedule. You can also call [phone] for help scheduling your appointment. We suggest you call your health insurance company about your coverage and benefits for this appointment. Question Answer Appointment Urgency? Non-Urgent Consult for Interventional Pain Consult Comments Requesting R knee nerve ablation Reason for Visit * Reason Comments Orders Needed Right Knee radiofreq uency ablation Encounter Details Date Type Department Care Team ([facility] st Contact Info) Description 03/26/2024 Telephone [facility] [address] [place], [place] [phone] Manda Padgett MD [address] [address] Orders Needed (Right Knee radiofrequency ablation) Social History Tobacco Use Types Packs/Day Years Used Date Smoking Tobacco: Never Smokeless Tobacco: Never Alcohol Use Standard Drinks/Week Comments Yes 0 (1 standard drink = 0.6 oz pur e alcohol) Sex and Gender Information Value Date Recorded Sex Assigned at Not on file Gender Identity Not on file Sexual Orientation Not on file documented as of this encounter Nursing Notes * Blossom Mendoza - 03/28/2024 11:15 AM CDT Msg routed to pt from Radha Lucero: Omar Yin, Since the order has been placed for a pain consult, you can call [phone] to schedule that. I have also sent a message to our razor sharpener to try to contact you, so one way or another it should get scheduled. :) Called pt with this information to ensure they received it. Pt is thankful for the call and will call the above number to set up her consult. * Laurita Xavier RN - 03/28/2024 10:09 AM CDT Patient would like to proceed with pain consult to discuss R knee nerve ablation. Pain consult placed with cosign * Josefina Christensen RN - 03/26/2024 1:00 PM CDT JOSE G 01/26/24 for BL knee OA. Has had previous left knee RF ablation and now asking for right knee RF ablation. Routing to Dr. Padgett to review and advise on request for right knee RF ablation. * Lacey Camacho - 03/26/2024 10:43 AM CDT ORDERS / REFERRAL What referral/order are you requesting: Right Knee radiofrequency ablation Why is the referral/order needed: Pt is requesting a right knee radiofrequency ablation. Pt states she has now come to notice that her left one has made a significant difference and now pt would liketo get one for her right side. Please advise. Where would you like the order/referral sent to: [facility] What is their fax number: n/a If we are unable to reach you can we leave a detailed message on your voicemail? Yes If we are unable to reach you can we send you a message in [employer]? Yes [Foundry Patternmaker/Women Specialist: Relay to patient; We make every effort to get back to you sameday, however it may take 1-2 business days depending on the nature of the communication.] [Foundry Patternmaker/Women Specialist: Please inform the patient that a referral/order does not guarantee insurance coverage. Patients should call the member services number on the back of their insurance ID card to understand what coverage for the services they are requesting.] documented in this encounter Plan of Treatment Upcoming Encounters Date Type Department Care Team (Late st Contact Info) Description 08/14/2024 4:00 PM CDT Appointment [facility] [address] [place], [place] [phone] Teresa Morales MD [address] [place], [place] [address] Scheduled Referrals Name Type Priority Associated Diagnoses Orde r Schedule Pain-Medical Adult Consult [facility] Location Referral Routine Primary osteoarthritis of right knee Ordered: 03/28/2024 documented as of this encounter Visit Diagnoses Diagnosis Primary osteoarthritis of right knee- Primary Primary localized osteoarthrosis, lower leg documented in this encounter Care Teams Director Water And Waste Services Relationship Specialty Start Date End Date Needs Pcp, Assignment [place], [place] [id number] PCP - General 10/07/21 documented as of this encounter
--- OUTSIDE RECORDS SUMMARY | 2024-05-27 11:16 | XMS_ITS | Clinical Summary ---
Author Organization [employer] [facility] Address [place], [place] [address] Care Team Providers Care Sales Inspector Name Role Phone Lakisha Ramirezhleen Pina HOWARD [...] every 4 weeks. 06/01/2023 Active HYDROcodone-acetam inophen ([place]) (5-325 mg/tablet)Indicati ons:Chronic pain of left knee [...] Blood Pressure 150/82 10/04/2023 3:09 PM BUSINESS REPRESENTATIVE Pulse 99 11/08/2023 2:36 PM BUSINESS REPRESENTATIVE Temperature 36.3 ??C (97.4 ??F) 10/04/2023 3:09 PM CS T Respiratory Rate 16 06/04/2014 8:32 AM CDT Oxygen Saturation 95% 11/08/2023 2:36 PM BUSINESS REPRESENTATIVE Inhaled Oxygen Concentration - - Weight 126.2 kg (278 lb 3.2 oz) 11/08/2023 2:36 PM BUSINESS REPRESENTATIVE Height 167.6 cm (5' 5.98) 10/04/2023 3:09 PM CS T Body Mass Index 44.92 10/04/2023 3:09 PM BUSINESS REPRESENTATIVE Plan of Treatment Health Maintenance Due Date [...] this topic Medical Devices Implanted Type Area Cloth Finishing Range Operator Chief Device Identifier Shelf Expiration Date Model / Serial / Lot [id number] Implanted:Qty: 1 on 11/21/2012 at [facility] Left: Breast [employer] - Inamed [id number] / [id number] / Description:TISSUE HEALTH CARE CONSULTANT [id number] [id number] Mammary 800cc [[id number]] Implanted:Qty: 1 on 06/26/2013 at [facility] Left: Breast [employer] [id number] # / [id number] / [id number] breast 800cc Memorygel Rnd High Smooth Silcn - [id number] Implanted:Qty: 1 on 06/26/2013 at [facility] Explanted:at [facility] (Quantity not on file) Right: Breast [employer] 03/29/2018 [id number] # / [id number] / [id number] Advance Directives * Full Code (Latest Code [...] 6:23 AM 11/21/2012 8:45 AM Care Teams Sales Inspector Relationship Specialty Start Date End Date RamirezBrigitte DO Pina PCP - General Family Practice 06/24/13
--- OUTSIDE RECORDS SUMMARY | 2024-05-27 11:16 | XMS_ITS | Encounter Summary ---
Author Organization [facility] Address [address] [address] Care Team Providers Care Historic Sites Registrar Name Role Phone Needs Pcp, Assignment Primary Care Provider [phone] Encounter Details Date Type Department Care Team (Late Contact Info) Description 03/28/2024 E-Visit [facility] [address] [place] [address] Mychart, [place] [address] Social History Tobacco Use Types Packs/Day Years [...] Upcoming Encounters Date Type Department Care Team ([facility] Contact Info) Description 08/14/2024 4:00 PM CDT Appointment [facility] [address] [place] [address] Teresa Morales MD [address] [place], [place] [address] documented as of this encounter Visit Diagnoses Not on filedocumented in this encounter Care Teams Historic Sites Registrar Relationship Specialty Start Date End Date Needs Pcp, Assignment [place], [place] [address] PCP - General 10/07/21 documented as of this encounter
== END 2024-05-24 09:59 | disposition home or self-care (01) ==
LOC: NFLDREF 05-27 11:14
PROVIDERS: PCP Family Medicine; Referring Provider Family Medicine; Visit Provider Family Medicine
DX: Z01.818 Encounter for other preprocedural examination (principal); I10 Essential (primary) hypertension; E78.5 Hyperlipidemia, unspecified; E66.01 Morbid (severe) obesity due to excess calories; E11.69 Type 2 diabetes mellitus with other specified complication; E53.8 Deficiency of other specified B group vitamins; G89.4 Chronic pain syndrome; M45.0 Ankylosing spondylitis of multiple sites in spine; Z68.42 Body mass index [BMI] 45.0-49.9, adult
CPT/HCPCS: 80053; 80061; 82607

== ENCOUNTER 2024-06-18 14:32 | Outpatient (CLI) | payer MEDICAID, SELFPAY ==
--- OUTSIDE RECORDS SUMMARY | 2024-06-18 14:34 | XMS_ITS | Referral Summary ---
Author Organization [facility] Address [address] [place] [address] Care Team Providers Care Pathology Specialist Name Role Phone Anneliese Mayorga MD Primary Care Provider + Encounters Date Type Department Care Team Description 06/03/2024 Travel 06/03/2024 1:00 PM CDT - 06/03/2024 3:45 PM CDT Surgery [facility] [address] [place] [address] Long López MD Removal and enbloc capsulectomy bilateral breast reconstruction implants 06/03/2024 12:47 PM CDT [facility] [address] [place] [address] Nasrin Palumbo MD 06/03/2024 10:52 AM CDT - 06/03/2024 5:33 PM CDT Hospital Encounter [facility] PreOP/Phase II [address] [place] [address] Long López MD S/p breast implant removal (Primary Dx) Discharge Disposition: Home or Self Care from Last 3 Months Allergies Active Allergy Reactions Criticality Noted Date Comments Lisinopril High 11/04/2020 Caused acute Kidney failure Medications Medication Sig Dispensed Refills Start Date End Date Status amLODIPine (NORVASC) 10 MG tablet Take 10 mg by mouth daily Active chlorthalidone (HYGROTON) 12.5 mg TABS half-tab Take 12.5 mg by mouth daily Active DULoxetine (CYMBALTA) 30 MG capsule Take 30 mg by mouth 2 times daily Active ibuprofen (ADVIL/MOTRIN) 800 MG tablet Take 800 mg by mouth every 8 hours as needed for moderate pain Active METFORMIN HCL ER PO Take 1 tablet by mouth daily Active secukinumab (COSENTYX) 150 MG/ML Sensoready pen Inject 150 mg subcutaneously every 28 days Active SEMAGLUTIDE, 1 MG/DOSE, SC Inject subcutaneously every 7 days Active PREDNISONE PO Take 1 tablet by mouth daily Active oxyCODONE (ROXICODONE) 5 MG tabletIndication s:S/p breast implant removal Take 1 tablet (5 mg) by mouth every 6 hours as needed for pain 10 tablet 06/03/2024 06/06/2024 Social History Tobacco Use Types Packs/Day Years Used Date Smoking Tobacco: Never Smokeless Tobacco: Never Tobacco Cessation:Counseling Given: Not Answered Alcohol Use Standard Drinks/Week Comments Yes 0 (1 standard drink = 0.6 oz pur e alcohol) RARE Adolescent Education Answer Date Record ed Getting School Help Needed Not on file 06/03 Sex and Gender Information Value Date Recorded Sex Assigned at Not on file Gender Identity Not on file Sexual Orientation Not on file Last Filed Vital Signs Vital Sign Reading Time Taken Comments Blood Pressure 146/87 06/03/2024 5:24 PM CDT Pulse 87 06/03/2024 4:55 PM CDT Temperature 36.1 ??C (97 ??F) 06/03/2024 5:24 PM CDT Respiratory Rate 16 06/03/2024 5:24 PM CDT Oxygen Saturation 93% 06/03/2024 4:55 PM CDT Inhaled Oxygen Concentration - - Weight 123.1 kg (271 lb 6.4 oz) 11:22 AM CDT Height 175.3 cm (5' 9) 06/03/2024 11:2 2 AM CDT Body Mass Index 40.08 06/03/2024 11:22 AM CDT Plan of Treatment Not on file Procedures Procedure Name Priority Date/Time Associated Diagnosis Comments SURGICAL PATHOLOGY EXAM Routine 06/03/2024 1:27 PM CDT ANE AIRWAY ETT PERFORMABLE Routine 06/03/2024 12:57 PM CDT REVISION, SCAR, BREAST 06/03/2024 12:47 PM CDT History of mastectomy, bilateral Hx of breast cancer Special Needs *htn, y2ze-va lfwlpdo-znjcdav-zobn dose Monday20min req RECONSTRUCTION, BREAST, BILATERAL, WITH BREAST IMPLANT INSERTION 06/03/2024 12:47 PM CDT History of mastectomy, bilateral Hx of breast cancer Special Needs *htn, r9dn-pn lskpwul-elqwuiz-yvom dose Monday20min req GLUCOSE BY METER Routine 06/03/2024 11:4 2 AM CDT LAB RESULT - HIM SCAN 05/24/2024 12:00 AM CDT EKG CARDIAC - HIM SCAN 05/24/2024 12:00 AM CDT EKG CARDIAC - HIM SCAN 05/04/2024 12:00 AM CDT from Last 3 Months Results * Surgical Pathology Exam (06/03/2024 1:27 PM CDT) Case Report Surgical Pathology Report ? Case: [id number] ? Authorizing Provider: ??Long López, ??Collected: ? 06/03/2024 02:07 PM ? MD ? Ordering Location: ? [facility] ?Received: ?06/03/2024 02:58 PM ? [facility] ? Pathologist: ? Marquise Boothe MD ? Specimens: ?? A) - Breast, Right, RIGHT BREAST ??IMPLANT AND CAPSULE ? B) - Breast, Left, LEFT BREAST IMPLANT AND CAPSULE ? 06/06/2024 3:39 PM [facility] Final Diagnosis A. Right breast implant capsule: - Breast implant identified (see gross description) with benign fibrofatty cystic capsule without appreciable inflammation or atypia B. Left breast implant and capsule: - Breast implant identified (see gross description) with benign fibrofatty cystic capsule without appreciable inflammation or atypia 06/06/2024 3:39 PM [facility] Clinical Information 63-year-old female. Procedure: Removal and enbloc capsulectomy bilateral breast reconstruction implants - Bilateral bilateral mastectomy scar revision - Bilateral Pre-op Diagnosis: History of mastectomy, bilateral [Z90.13] Hx of breast cancer [Z85.3] Post-op Diagnosis: Z90.13 - History of mastectomy, bilateral [ICD-10-CM] Z85.3 - Hx of breast cancer [ICD-10-CM] 06/06/2024 3:39 PM [facility] Gross Description A(1). Breast, Right, RIGHT BREAST IMPLANT AND CAPSULE: The specimen is received in formalin, labeled with the patient's name, medical record number and other identifying information designated right breast implant and capsule. It consists of a 800 g, 17.0 x 17.0 x 4.1 cm intact silicone breast implant. The implant is labeled as follows: [place], [id number], HP 800 cc. Also received is a 82.9 g, 13.4 x 12.5 x 1.4 cm segment of soft tissue consistent with breast capsule. The outer surface is coffman-pink, fibrous with minimal attached adipose tissue. The inner surface is coffman-pink, smooth, and glistening. Sectioning reveals the capsule is up to 0.1 cm thick. No tumor is identified. General Foundry Worker sections of capsule are submitted in 2 cassette. Time collected: 1407 Time in formalin: 1407 B(2). Breast, Left, LEFT BREAST IMPLANT AND CAPSULE: The specimen is received in formalin, labeled with the patient's name, medical record number and other identifying information designated left breast implant and capsule.. It consists of a 800 g, 17.0 x 17.0 x 4.0 cm intact silicone breast implant. The breast implant is labeled as follows: Imelda, [id number], HP 800 cc. Also received is a 76.5 g, 13.4 x 11.3 x 1.3 cm segment of soft tissue consistent with breast capsule. The outer surface is coffman-pink, fibrous with minimal attached coffman-yellow adipose tissue. The inner lining is coffman-pink, smooth, is glistening. Sectioning reveals the capsule is up to 0.1 cm thick. No tumor is identified. General Foundry Worker sections of the capsule are submitted in 2 cassettes. Time collected: 1327 Time in formalin: [address] ([address])06/04/2024 8:41 AM 06/06/2024 3:39 PM [facility] Microscopic Description Microscopic examination is performed with findings supportive of the diagnosis as noted. 06/06/2024 3:39 PM [facility] Performing Labs The technical component of this testing was completed at [facility]. Stain controls for all stains resulted within this report have been reviewed and show appropriate reactivity. 06/06/2024 3:39 PM [facility] Case Images 06/06/2024 3:39 PM [facility] Implant LEFT BREAST STRUCTURE / Unknown 06/03/2024 2:07 PM CDT 06/03/2024 2:58 PM CDT Comment:RIGHT BREAST IMPLANT AND CAPSULE Implant submitted as specimen (specimen) LEFT BREAST STRUCTURE / Unknown 06/03/2024 1:27 PM CDT 06/03/2024 2:58 PM CDT Comment:LEFT BREAST IMPLANT AND CAPSULE Long López MD [facility] [address] 1[address] floor, [address] [place] [address], [facility] [phone] * ANE AIRWAY ETT PERFORMABLE (06/03/2024 12:57 PM CDT) Narrative Janett Rodriguez APRN OUTSOLE LEVELER - 06/03/2024 12:57 PM CDT Janett Rodriguez APRN CRNA ? 06/03/2024 ??1:08 PM Airway ? Patient location during procedure: OR ? Procedure Start/Stop Times: 06/03/2024 12:57 PM Staff - ? Anesthesiologist: ??Nasrin Palumbo MD ? OUTSOLE LEVELER: Janett Rodriguez APRN CRNA ? Performed By: OUTSOLE LEVELER Consent for Airway ? Urgency: elective Indications and Patient Condition ? Indications for airway management: cheryl-procedural ? Mask difficulty assessment: 1 - vent by mask Final Airway Details ? Final airway type: endotracheal airway ? Successful airway: ETT - single Endotracheal Airway Details ? Cuffed: yes ? Successful intubation technique: video laryngoscopy ? VL Blade Size: MAC 3 ? Grade View of Cords: 1 ? Position: Right ? Measured from: gums/teeth ? Secured at (cm): 21 ? Bite block used: None Post intubation assessment ? Placement verified by: capnometry and equal breath sounds ? Number of attempts at approach: 1 ? Secured with: tape ? Ease of procedure: easy ? Dentition: Intact and Unchanged Medication(s) Administered Medication Administration Time: 06/03/2024 12:57 PM Nasrin Palumbo MD [place] ANESTHESIA * (ABNORMAL) Glucose by meter (06/03/2024 11:42 AM CDT) GLUCOSE BY METER POCT 102(H) 70 - 99 mg/dL 06/03/2024 11:49 AM CDT LABORATORY POC Blood, Capillary BLOOD SPECIMEN / Unknown 06/03/2024 11:42 AM CDT 06/03/2024 11:49 AM CDT Long López MD LAB - BEAKER POCT LABORATORY POC [facility] [address] 1[address] floor, [address] [place] [address] * Lab Result - HIM Scan (05/24/2024 12:00 AM CDT) 05/24/2024 Provider Outside NON-BEAKER LAB TE STING * EKG Cardiac - HIM Scan (05/24/2024 12:00 AM CDT) Only the most recent of2 resultswithin the time period is included. 05/24/2024 Provider Outside ECG ORDERABLES from Last 3 Months Care Teams Pathology Specialist Relationship Specialty Start Date End Date Anneliese Mayorga MD [facility] & [address] [address] PCP - General Family Medicine 05/01/24
--- OUTSIDE RECORDS SUMMARY | 2024-06-18 14:34 | XMS_ITS | Encounter Summary ---
Author Organization [facility] Address [address] [place] [address] Care Team Providers Care Premium Note Interest Calculator Clerk Name Role Phone Anneliese Mayorga MD Primary Care Provider + Encounter Details Date Type Department Care Team (Latest Contact Info) Description 06/03/2024 Travel Social History Tobacco Use Types Packs/Day Years [...] as of this encounter Plan of Treatment Not on file documented as of this encounter Visit Diagnoses Not on filedocumented in this encounter Care Teams Premium Note Interest Calculator Clerk Relationship Specialty Start Date End Date Anneliese Mayorga MD [facility] & [address] [address] PCP - General Family Medicine 05/01/24 documented as of this encounter
--- OUTSIDE RECORDS SUMMARY | 2024-06-18 14:34 | XMS_ITS | Encounter Summary ---
Author Organization [facility] Address [address] [place] [id number] Care Team Providers Care Hat Blocker Name Role Phone Anneliese Mayorga MD Primary Care Provider + Reason for Visit * Auth/Cert (Routine) Specialty Diagnoses / Procedures Referred By Zoran t Referred To Contact Surgery Diagnoses History of mastectomy, bilateral Hx of breast cancer History of mastectomy, bilateral [Z90.13] Hx of breast cancer [Z85.3] Procedures MI INSERT BREAST PROS IMMED AFTER EXCIS MI DELAY BREAST PROS AFTER BREAST SURG MI BREAST RECONSTRUC W LAT DORSI FLAP MI BREAST RECONSTRUC W FREE FLAP MI BREAST RECONSTRUCTION SINGLE PEDICLED TRAM FLAP MI BREAST RECONSTRUCTION 1PEDICLED TRAM FLAP ANAST MI BREAST RECONSTRUCTION BIPEDICLED TRAM FLAP MI EXC BENIGN SKIN LESION TRUNK/ARM/LEG <=0.5 CM MI EXC BENIGN SKIN LESION TRUNK/ARM/LEG 0.6-1.0 CM MI EXC BENIGN SKIN LESION TRUNK/ARM/LEG 1.1-2.0 CM MI EXC BENIGN SKIN LESION TRUNK/ARM/LEG 2.1-3.0 CM MI EXC BENIGN SKIN LESION TRUNK/ARM/LEG 3.1-4.0 CM MI EXC BENIGN SKIN LESION TRUNK/ARM/LEG >4 CM Removal and enbloc capsulectomy bilateral breast reconstruction implants bilateral mastectomy scar revision [facility] [address], [address] [place] [address] Referral ID Status Reason Start Date Expiration Date Visits Re quested Visits Authorized [id number] 1 1 Encounter Details Date Type Department Care Team (Late st Contact Info) Description 06/03/2024 12:47 PM CDT Anesthesia Event [facility] [address], [address] [place] [id number] Nasrin Palumbo MD [facility] ANESTHESIOLOG[facility] [address] [place] [id number] Anesthesia Record Procedure Summary Procedure Name Responsible Anesthesiologist Anesthesia Start Time Anesthesia Stop Time Removal and enbloc capsulectomy bilateral breast reconstruction implants (Bilateral: Breast) Nasrin Palumbo MD 06/03/24 1247 06/03/24 1458 Events Date Time Event Comment 06/03/2024 1218 1247 An Start Anesthesia Star t is defined as when the anesthesia provider assumed care, began anesthesia prep, remained continuously present with the patient, and excludes all time for performing the pre-anesthesia evaluation. The Pre-Anesthesia Evaluation was completed before Anesthesia Start. 1247 An Start Data 1247 AN REASSESS I attest that I have identified and re-evaluated the patient immediately before the induction of anesthesia and I am satisfied that the anesthetic plan is suitable for the patient's condition and procedure. The first vital signs recorded are pre- induction. Domenica Fu APRN BUTCHER SCULLION 1252 MD Present 1255 An Induction 1257 An Intubation 1309 Anesthesia Ready for Procedu re 1315 AN INCISION 1408 MD Present 1449 MD Present 1452 AN Extubation All extubation criteria met prior to removal. 1455 an stop data 1458 An Stop Electronically signed by Janett Rodriguez APRN CRNA on June 03, 2024 2:58 PM Meds Name Total midazolam 1 mg/mL 2 mg fentaNYL 50 mcg/mL 200 mcg HYDROmorphone 1 mg/mL 0.5 mg lidocaine 2% 40 mg propofol 10 mg/mL 250 mg propofol drip mcg/kg/min 336.06 mg rocuronium 10 mg/mL 60 mg phenylephrine (GERARDO-SYNEPHRINE) injection 50 mcg dexamethasone (DECADRON) 4 mg/mL 4 mg ondansetron 2 mg/mL 4 mg sugammadex (BRIDION) 200mg/2mL 240 mg ceFAZolin Sodium (ANCEF) injection 2 g 3 g ketorolac 30 mg/mL 15 mg lactated ringers infusion 700 mL * Agents Name O2 N2O Air Exp Sevoflurane Exp Isoflurane Exp Desflurane O2 Delivery Device Ins Sevoflurane Ins Isoflurane Ins Desflurane O2 Auxiliary * Blood No blood administrations on file. Lines, Drains, and Airways Type Details Placement Removal Incision/Surgical Site 06/03/24; Right; Breast; incision, suture, steri strips, kerlix, roslyn wrap 06/03/24 0000 by Marko Colin, SANDRO Incision/Surgical Site 06/03/24; 1326; L eft, Lower; Breast; incision, suture, steri strips, kerlix, roslyn wrap 06/03/24 1326 by Laisha Ferrara RN Closed/Suction Drain 06/03/24; Left; Breast; Bulb (round drain); 15 Filipino 06/03/24 0000 by Marko Colin RN 06/03/24 1833 by Inpatient, Nurse Closed/Suction Drain 06/03/24; Right; Breast; Bulb (round drain); 15 Filipino 06/03/24 0000 by Marko Colin RN 06/03/24 1833 by Inpatient, Nurse Peripheral IV 06/03/24; 1144; 20 G ; Left; Lower forearm; Chlorhexidine; 1; Tolerated well 06/03/24 1144 by Annie Buchanan RN 06/03/24 1723 by Marry Mendiola, SANDRO ETT Placement Date: 06/03/24; Placement Time: 1257 (created via procedure documentation); Mask Ventilation: 1; Ease of Intubation: Easy; Technique: Video laryngoscopy; VL Blade Size: MAC 3; Grade View: 1; Placement Person: BUTCHER SCULLION; Attempts: 1 06/03/24 1257 by Janett Rodriguez APRN CRNA 06/03/24 1452 by Janett Rodriguez APRN CRNA documented in this encounter Social History Tobacco Use Types Packs/Day Years [...] on file documented as of this encounter OR Notes * Anesthesia Postprocedure Evaluation - Nasrin Palumbo MD - 06/03/2024 5:37 PM CDT Patient: Annamaria Alcaraz Procedure: Procedure(s): Removal and enbloc capsulectomy bilateral breast reconstruction implants bilateral mastectomy scar revision Anesthesia Type: General Note: Disposition: Inpatient Postop Pain Control: Uneventful Sign Out: Well controlled pain PONV: No Neuro/Psych: Uneventful Sign Out: Acceptable/Baseline neuro status Airway/Respiratory: Uneventful Sign Out: Acceptable/Baseline resp. status CV/Hemodynamics: Uneventful Sign Out: Acceptable CV status; No obvious hypovolemia; No obvious fluid overload Other NRE: NONE DID A NON-ROUTINE EVENT OCCUR? No Last vitals: Vitals Value Taken Time BP 152/86 06/03/24 1625 Temp 36 ??C (96.8 ??F) 06/03/24 1500 Pulse 84 06/03/24 1629 Resp 18 06/03/24 1629 SpO2 95 % 06/03/24 1629 Vitals shown include unfiled device data. Electronically Signed By: Nasrin Palumbo MD June 03, 2024 5:37 PM * Anesthesia Procedure Notes - Janett Rodriguez APRN CRNA - 06/03/2024 1:07 PM CDT Associated Order(s): Airway Airway Patient location during procedure: OR Procedure Start/Stop Times: 06/03/2024 12:57 PM Staff - Anesthesiologist: Nasrin Palumbo MD BUTCHER SCULLION: Janett Rodriguez APRN CRNA Performed By: BUTCHER SCULLION Consent for Airway Urgency: elective Indications and Patient Condition Indications for airway management: cheryl-procedural Mask difficulty assessment: 1 - vent by mask Final Airway Details Final airway type: endotracheal airway Successful airway: ETT - single Endotracheal Airway Details Cuffed: yes Successful intubation technique: video laryngoscopy VL Blade Size: MAC 3 Grade View of Cords: 1 Position: Right Measured from: gums/teeth Secured at (cm): 21 Bite block used: None Post intubation assessment Placement verified by: capnometry and equal breath sounds Number of attempts at approach: 1 Secured with: tape Ease of procedure: easy Dentition: Intact and Unchanged Medication(s) Administered Medication Administration Time: 06/03/2024 12:57 PM * Anesthesia Preprocedure Evaluation - Nasrin Palumbo MD - 06/02/2024 9:02 PM CDT Anesthesia Pre-Procedure Evaluation Patient: Annamaria Alcaraz : 1960 Procedure : Procedure(s): Removal and enbloc capsulectomy bilateral breast reconstruction implants bilateral mastectomy scar revision Past Medical History: Diagnosis Date Ankylosing spondylitis (H) Chronic pain Depression Dyslipidemia History of breast cancer HTN (hypertension) Hyperparathyroidism (H24) Inflammatory arthritis Low serum vitamin B12 Morbid obesity with BMI of 45.0-49.9, adult (H) Osteoarthritis Osteoarthritis of left knee Type 2 diabetes mellitus (H) Vitamin D deficiency Past Surgical History: Procedure Laterality Date BREAST RECONSTRUCTION Bilateral SECTIONS x2 MASTECTOMY Bilateral PARATHYROIDECTOMY RECONSTRUCTION OF BREASTS Bilateral TUBAL LIGATION Allergies Allergen Reactions Lisinopril Kidney failure Social History Tobacco Use Smoking status: Never Smokeless tobacco: Never Substance Use Topics Alcohol use: Yes Comment: RARE Wt Readings from Last 1 Encounters: No data found for Wt Prior to Admission medications Medication Sig Start Date End Date Taking? Authorizing Provider amLODIPine (NORVASC) 10 MG tablet Take 10 mg by mouth daily Yes Reported, Patient chlorthalidone (HYGROTON) 12.5 mg TABS half-tab Take 12.5 mg by mouth daily Yes Reported, Patient DULoxetine (CYMBALTA) 30 MG capsule Take 30 mg by mouth 2 times daily Yes Reported, Patient ibuprofen (ADVIL/MOTRIN) 800 MG tablet Take 800 mg by mouth every 8 hours as needed for moderate pain Yes Reported, Patient METFORMIN HCL ER PO Yes Reported, Patient secukinumab (COSENTYX) 150 MG/ML Sensoready pen Yes Reported, Patient SEMAGLUTIDE, 1 MG/DOSE, SC Inject subcutaneously every 7 days Yes Reported, Patient ECG 05/24/24: NSR Anesthesia Evaluation Type: General. ROS/MED HX ENT/Pulmonary: Comment: Chronic dry cough (-) tobacco use, asthma and sleep apnea Neurologic: (-) no seizures, no CVA and migraines Cardiovascular: (+) hypertension- - - - - (-) CAD, GENAO, arrhythmias, valvular problems/murmurs, dyslipidemia and murmur METS/Exercise Tolerance: Hematologic: (-) history of blood clots and anemia Musculoskeletal: Comment: Inflammatory arthritis (+) arthritis, GI/Hepatic: (+) GERD, (-) liver disease Renal/Genitourinary: (-) renal disease and nephrolithiasis Endo: (+) type II DM (on ozempic - last dose 7 days ago), Obesity, (-) Type I DM and thyroid disease Psychiatric/Substance Use: (+) psychiatric history depression Infectious Disease: (-) Recent Fever Malignancy: Other: (+) , H/O Chronic Pain, Physical Exam Airway Mallampati: III TM distance: > 3 FB Neck ROM: full Mouth opening: > 3 cm Respiratory Devices and Support Dental (+) Modest Abnormalities - crowns, retainers, 1 or 2 missing teeth Cardiovascular cardiovascular exam normal Rhythm and rate: regular and normal (-) no murmur Pulmonary pulmonary exam normal breath sounds clear to auscultation OUTSIDE LABS: CBC: No results found for: WBC, HGB, HCT, PLT BMP: No results found for: NA, POTASSIUM, CHLORIDE, CO2, BUN, CR, GLC COAGS: No results found for: PTT, INR, FIBR POC: No results found for: BGM, HCG, HCGS HEPATIC: No results found for: ALBUMIN, PROTTOTAL, ALT, AST, GGT, ALKPHOS, BILITOTAL,BILIDIRECT, CRYSTAL OTHER: No results found for: PH, LACT, A1C, NO, PHOS, MAG, LIPASE, AMYLASE, TSH,T4, T3, CRP, SED Anesthesia Plan ASA Status: 2 NPO Status: NPO Appropriate Anesthesia Type: General. - Airway: ETT Induction: Propofol. Maintenance: Balanced. Consents Anesthesia Plan(s) and associated risks, benefits, and realistic alternatives discussed. Questions answered and patient/customer retention representative(s) expressed understanding. - Discussed: - Discussed with: Patient Postoperative Care Pain management: Multi-modal analgesia. PONV prophylaxis: Ondansetron (or other 5HT-3), Dexamethasone or Solumedrol, Background Propofol Infusion Comments: Other Comments: Zoya Palumbo MD I have reviewed the pertinent notes and labs in the chart from the past 30 days and (re)examined the patient. Any updates or changes from those notes are reflected in this note. documented in this encounter Miscellaneous Notes * Anesthesia Care Transfer Note - Janett Rodriguez APRN CRNA - 06/03/2024 2:58 PM CDT Patient: Annamaria Alcaraz Procedure: Procedure(s): Removal and enbloc capsulectomy bilateral breast reconstruction implants bilateral mastectomy scar revision Diagnosis: History of mastectomy, bilateral [Z90.13] Hx of breast cancer [Z85.3] Diagnosis Additional Information: No value filed. Anesthesia Type: General Note: Oropharynx: oropharynx clear of all foreign objects Level of Consciousness: awake Oxygen Supplementation: face mask Level of Supplemental Oxygen (L/min / FiO2): 8 Independent Airway: airway patency satisfactory and stable Dentition: dentition unchanged Vital Signs Stable: post-procedure vital signs reviewed and stable Report to RN Given: handoff report given Patient transferred to: PACU Handoff Report: Identifed the Patient, Identified the Reponsible Provider, Reviewed the pertinent medical history, Discussed the surgical course, Reviewed Intra-OP anesthesia mangement and issues during anesthesia, Set expectations for post-procedure period and Allowed opportunity for questions andacknowledgement of understanding Vitals: Vitals Value Taken Time BP 149/82 Temp 94 Pulse 36.4 Resp 14 SpO2 93 % 06/03/24 1457 Vitals shown include unfiled device data. Electronically Signed By: Janett Rodriguez APRN CRNA June 03, 2024 2:58 PM documented in this encounter Plan of Treatment Not on file documented as of this encounter Procedures Procedure Name Priority Date/Time Associated Diagnosis Comments ANE AIRWAY ETT PERFORMABLE Routine 06/03/2024 12:57 PM CDT documented in this encounter Results * ANE AIRWAY ETT PERFORMABLE (06/03/2024 12:57 PM CDT) Narrative Janett Rodriguez APRN CRNA - 06/03/2024 12:57 PM CDT Janett Rodriguez APRN CRNA ? 06/03/2024 ??1:08 PM Airway ? Patient location during procedure: OR ? Procedure Start/Stop Times: 06/03/2024 12:57 PM Staff - ? Anesthesiologist: ??Nasrin Palumbo MD ? BUTCHER SCULLION: Janett Rodriguez APRN BUTCHER SCULLION ? Performed By: BUTCHER SCULLION Consent for Airway ? Urgency: elective Indications [...] Time: 06/03/2024 12:57 PM Nasrin Palumbo MD [place] [facility] documented in this encounter Visit Diagnoses Not on filedocumented in this encounter Administered Medications Inactive Administered Medications - up to 3 most recent administrations Medication Order MAR Action Action Date Dose Rate Site ceFAZolin Sodium (ANCEF) injection 2 g Routine, 2 g, Intravenous, PRE-OP/PRE-PROCEDURE, Starting on Mon06/03/24 at 1111, For 1 dose, Give first dose within 1 hour PRIOR to incision. If patient weight is greater than or equal to 120 kg increase dose to 3 g., Indications: Perioperative Pharmacoprophylaxis, Pre-procedure $Given 06/03/2024 12:55 PM CDT 3 g dexAMETHasone (DECADRON) injection Intravenous, PRN, Administer over 1 Minutes, Starting on Mon06/03/24 at 1255, Anesthesia Intra-op $Given 06/03/2024 12:55 PM CDT 4 mg fentaNYL (PF) (SUBLIMAZE) injection Intravenous, PRN, Administer over 3-5 Minutes, Starting on Mon06/03/24 at 1255, Anesthesia Intra-op $Given 06/03/2024 2:58 PM CDT 50 mcg $Given 06/03/2024 2:54 PM CDT 50 mcg $Given 06/03/2024 12:55 PM CDT 100 mcg HYDROmorphone (DILAUDID) injection Intravenous, PRN, Starting on Mon06/03/24 at 1319, Anesthesia Intra-op $Given 06/03/2024 1:19 PM CDT 0.5 mg ketorolac (TORADOL) injection Intravenous, PRN, Administer over 2 Minutes, Starting on Mon06/03/24 at 1428, Anesthesia Intra-op $Given 06/03/2024 2:28 PM CDT 15 mg lactated ringers infusion at 10 mL/hr, Intravenous, CONTINUOUS, IF patient NOT on dialysis., Pre-procedure, Starting on Mon06/03/24 at 1130, Until Mon06/03/24 at 1456 Restarted 06/03/2024 12:47 PM CDT $New Bag 06/03/2024 11:46 AM CDT 10 mL/hr lidocaine 2% injection (MDV) Intravenous, PRN, Starting on Mon06/03/24 at 1255, Anesthesia Intra-op $Given 06/03/2024 12:55 PM CDT 40 mg midazolam (VERSED) injection Intravenous, Administer over 2 Minutes, PRN, Starting on Mon06/03/24 at 1248, Anesthesia Intra-op $Given 06/03/2024 12:48 PM CDT 2 mg ondansetron (ZOFRAN) injection Intravenous, PRN, Administer over 2-5 Minutes, Starting on Mon06/03/24 at 1428, Anesthesia Intra-op $Given 06/03/2024 2:28 PM CDT 4 mg phenylephrine (GERARDO-SYNEPHRINE) injection Intravenous, CONTINUOUS PRN, Starting on Mon06/03/24 at 1309, Anesthesia Intra-op $New Bag 06/03/2024 1:09 PM CDT 50 mcg propofol (DIPRIVAN) infusion Intravenous, CONTINUOUS PRN, Starting on Mon06/03/24 at 1257, Anesthesia Intra-op $New Bag 06/03/2024 12:57 PM CDT 30 mcg/kg/min 22.158 mL/hr propofol (DIPRIVAN) injection 10 mg/mL vial Intravenous, PRN, Starting on Mon06/03/24 at 1255, Anesthesia Intra-op $Given 06/03/2024 2:45 PM CDT 50 mg $Given 06/03/2024 12:55 PM CDT 200 mg rocuronium injection Intravenous, PRN, Starting on Mon06/03/24 at 1255, Anesthesia Intra-op $Given 06/03/2024 2:11 PM CDT 10 mg $Given 06/03/2024 12:55 PM CDT 50 mg sugammadex (BRIDION) injection Intravenous, PRN, Starting on Mon06/03/24 at 1441, Anesthesia Intra-op $Given 06/03/2024 2:41 PM CDT 240 mg documented in this encounter Care Teams Hat Blocker Relationship Specialty Start Date End Date Anneliese Mayorga MD [address] [address] PCP - General Family Medicine 05/01/24 documented as of this encounter
--- OUTSIDE RECORDS SUMMARY | 2024-06-18 14:34 | XMS_ITS | Clinical Summary ---
Author Organization [facility] Address [address] [place] [id number] Care Team Providers Care Congressional Representative Name Role Phone Anneliese Mayorga MD Primary Care Provider + Allergies Active Allergy Reactions Criticality Noted Date [...] needed for pain 10 tablet 06/03/2024 06/06/2024 Encounters Date Type Department Care Team Description 06/03/2024 1:00 PM CDT - 06/03/2024 3:45 PM CDT Surgery [facility] Peri[facility] Services [address] [place] [address] Long López MD Removal and enbloc capsulectomy bilateral breast reconstruction implants 06/03/2024 12:47 PM CDT Anesthesia Event [facility] [address] [place] [phone] Nasrin Palumbo MD 06/03/2024 10:52 AM CDT - 06/03/2024 5:33 PM CDT Hospital Encounter [facility] PreOP/Phase II [address] [place] [phone] Long López MD S/p breast implant removal (Primary Dx) Discharge Disposition: Home or Self Care 06/03/2024 Travel from Last 3 Months Social History Tobacco Use Types Packs/Day Years [...] Weight 123.1 kg (271 lb 6.4 oz) 024 11:22 AM CDT Height 175.3 cm (5' 9) 06/03/2024 11:2 2 AM CDT Body Mass Index 40.08 06/03/2024 11:22 AM CDT Plan of Treatment Health Maintenance Due Date Last Done Comments ADVANCE CARE PLANNING 1962 ANNUAL REVIEW OF HM ORDERS 1962 CT COLONOGRAPHY 1962 FIT 1962 FLEX SIG 1962 YEARLY PREVENTIVE VISIT 1962 sDNA (Cologuard) 1962 Pneumococcal Vaccine: Pediatrics (0 to 5 Years) and At-Risk Patients (6 to 64 Years) (1 of 2 - PCV) 1968 COLONOSCOPY 1972 COLORECTAL CANCER SCREENING 1972 HIV SCREENING 1977 HEPATITIS C SCREENING 1980 PAP 1983 LIPID 2002 COVID-19 Vaccine (3 - Pfizer risk series) 03/06/2021 02/06/2021, 01/16/2021 RSV VACCINE ( & 60+) (1 - 1-dose 60+ series) 2022 PHQ-2 (once per calendar year) 2023 INFLUENZA VACCINE (#1) 2024 4, 10/15/2021, 09/11/2020, Additional history exists GLUCOSE 06/03/2027 06/03/2024 DTAP/TDAP/TD IMMUNIZATION (3 - Td or Tdap) 04/23/2031 04/23/2021, 01/27/2010 ZOSTER IMMUNIZATION Completed 10/15/2021, HPV IMMUNIZATION Aged Out No longer e ligible based on patient's age to complete this topic IPV IMMUNIZATION Aged Out No longer e ligible based on patient's age to complete this topic MENINGITIS IMMUNIZATION Aged Out No l onger eligible based on patient's age to complete this topic RSV MONOCLONAL ANTIBODY Aged Out No l onger eligible based on patient's age to complete this topic Procedures Procedure Name Priority Date/Time Associated Diagnosis Comments SURGICAL PATHOLOGY EXAM Routine 06/03/2024 1:27 PM CDT ANE AIRWAY ETT PERFORMABLE Routine 06/03/2024 12:57 PM CDT REVISION, SCAR, BREAST 06/03/2024 12:47 PM CDT History of mastectomy, bilateral Hx of breast cancer Special Needs *htn, [id number]-he [id number] dose Mondaymin req RECONSTRUCTION, BREAST, BILATERAL, WITH BREAST IMPLANT INSERTION 06/03/2024 12:47 PM CDT History of mastectomy, bilateral Hx of breast cancer Special Needs *htn, [id number]-ph [id number]-[id number]-[id number] dose Mondaymin req GLUCOSE BY METER Routine 06/03/2024 11:4 2 AM CDT LAB RESULT - HIM SCAN 05/24/2024 12:00 AM CDT EKG CARDIAC - HIM SCAN 05/24/2024 12:00 AM CDT EKG CARDIAC - HIM SCAN 05/04/2024 12:00 AM CDT from Last 3 Months Results * Surgical Pathology Exam (06/03/2024 1:27 PM CDT) Case Report Surgical Pathology Report ? Case: [id number] ? Authorizing Provider: ??Long López, ??Collected: ? 06/03/2024 02:07 PM ? MD ? Ordering Location: ? [facility] ?Received: ?06/03/2024 02:58 PM ? [facility] ? Pathologist: ? Marquise Boothe MD ? Specimens: ?? A) - Breast, Right, RIGHT BREAST ??IMPLANT AND CAPSULE ? B) - Breast, Left, LEFT BREAST IMPLANT AND CAPSULE ? 06/06/2024 3:39 PM [facility] Final Diagnosis A. Right breast implant capsule: - Breast implant identified (see gross description) with benign fibrofatty cystic capsule without appreciable inflammation or atypia B. Left breast implant and capsule: - Breast implant identified (see gross description) with benign fibrofatty cystic capsule without appreciable inflammation or atypia 06/06/2024 3:39 PM [facility] Clinical Information 63-year-old female. Procedure: Removal and enbloc capsulectomy bilateral breast reconstruction implants - Bilateral bilateral mastectomy scar revision - Bilateral Pre-op Diagnosis: History of mastectomy, bilateral [Z90.13] Hx of breast cancer [Z85.3] Post-op Diagnosis: Z90.13 - History of mastectomy, bilateral [ICD-10-CM] Z85.3 - Hx of breast cancer [ICD-10-CM] 06/06/2024 3:39 PM [facility] Gross Description A(1). Breast, Right, RIGHT BREAST IMPLANT AND CAPSULE: The specimen is received in formalin, labeled with the patient's name, medical record number and other identifying information designated right breast implant and capsule. It consists of a 800 g, 17.0 x 17.0 x 4.1 cm intact silicone breast implant. The implant is labeled as follows: [place], [id number], HP 800 cc. Also received is a 82.9 g, 13.4 x 12.5 x 1.4 cm segment of soft tissue consistent with breast capsule. The outer surface is coffman-pink, fibrous with minimal attached adipose tissue. The inner surface is coffman-pink, smooth, and glistening. Sectioning reveals the capsule is up to 0.1 cm thick. No tumor is identified. Bottoming Machine Operator sections of capsule are submitted in 2 [...] The breast implant is labeled as follows: [place], [id number], HP 800 cc. Also received is a 76.5 g, 13.4 x 11.3 x 1.3 cm segment of soft tissue consistent with breast capsule. The outer surface is coffman-pink, fibrous with minimal attached coffman-yellow adipose tissue. The inner lining is coffman-pink, smooth, is glistening. Sectioning reveals the capsule is up to 0.1 cm thick. No tumor is identified. Bottoming Machine Operator sections of the capsule are submitted in 2 cassettes. Time collected: 1327 Time in formalin: [address] ([address])06/04/2024 8:41 AM 06/06/2024 3:39 PM CDT LABORATORY Microscopic Description Microscopic examination is performed with findings supportive of the diagnosis as noted. 06/06/2024 3:39 PM CDT LABORATORY Performing Labs The technical component of this testing was completed at [facility]. Stain controls for all stains resulted within this report have been reviewed and show appropriate reactivity. 06/06/2024 3:39 PM CDT LABORATORY Case Images 06/06/2024 3:39 PM CDT LABORATORY Implant LEFT BREAST STRUCTURE / Unknown 06/03/2024 2:07 PM CDT 06/03/2024 2:58 PM CDT Comment:RIGHT BREAST IMPLANT AND CAPSULE Implant submitted as specimen (specimen) LEFT BREAST STRUCTURE / Unknown 06/03/2024 1:27 PM CDT 06/03/2024 2:58 PM CDT Comment:LEFT BREAST IMPLANT AND CAPSULE Long [facility] [address], [address] [place] [address], [facility] [phone] * ANE AIRWAY ETT PERFORMABLE (06/03/2024 12:57 PM CDT) Narrative Janett Rodriguez APRN TRANSFER ENGINEER - 06/03/2024 12:57 PM CDT Janett Rodriguez APRN TRANSFER ENGINEER ? 06/03/2024 ??1:08 PM Airway ? Patient location during procedure: OR ? Procedure Start/Stop Times: 06/03/2024 12:57 PM Staff - ? Anesthesiologist: ??Nasrin Palumbo MD ? TRANSFER ENGINEER: Janett Rodriguez APRN CRNA ? Performed By: TRANSFER ENGINEER Consent for Airway ? Urgency: elective Indications [...] Time: 06/03/2024 12:57 PM Nasrin Palumbo MD [place] ANESTHESIA * (ABNORMAL) Glucose by meter (06/03/2024 11:42 AM CDT) GLUCOSE BY METER POCT 102(H) 70 - 99 mg/dL 06/03/2024 11:49 AM CDT LABORATORY POC Blood, Capillary BLOOD SPECIMEN / Unknown 06/03/2024 11:42 AM CDT 06/03/2024 11:49 AM CDT Long López MD LAB - BEAKER POCT LABORATORY POC [facility] [address], [address] [place] [phone], [facility] * Lab Result - HIM Scan (05/24/2024 12:00 AM CDT) 05/24/2024 Provider Outside NON-BEAKER LAB TE STING * EKG Cardiac - HIM Scan (05/24/2024 12:00 AM CDT) Only the most recent of2 resultswithin the time period is included. 05/24/2024 Provider Outside ECG ORDERABLES from Last 3 Months Care Teams Congressional Representative Relationship Specialty Start Date End Date Anneliese Mayorga MD [facility] [address] [place] [address] PCP - General Family Medicine 05/01/24
--- OUTSIDE RECORDS SUMMARY | 2024-06-18 14:34 | XMS_ITS | Encounter Summary ---
Author Organization [facility] Address [address] [place] [id number] Care Team Providers Care Manager Of Drilling Name Role Phone Anneliese Mayorga MD Primary Care Provider + Reason for Visit * Auth/Cert (Routine) Specialty Diagnoses / Procedures Referred By Zoran ibarra Referred To Contact Surgery Diagnoses History of mastectomy, bilateral Hx of breast cancer History of mastectomy, bilateral [Z90.13] Hx of breast cancer [Z85.3] Procedures IN INSERT BREAST PROS IMMED AFTER EXCIS IN DELAY BREAST PROS AFTER BREAST SURG IN BREAST RECONSTRUC W LAT DORSI FLAP IN BREAST RECONSTRUC W FREE FLAP IN BREAST RECONSTRUCTION SINGLE PEDICLED TRAM FLAP IN BREAST RECONSTRUCTION 1PEDICLED TRAM FLAP ANAST IN BREAST RECONSTRUCTION BIPEDICLED TRAM FLAP IN EXC BENIGN SKIN LESION TRUNK/ARM/LEG <=0.5 CM IN EXC BENIGN SKIN LESION TRUNK/ARM/LEG 0.6-1.0 CM IN EXC BENIGN SKIN LESION TRUNK/ARM/LEG 1.1-2.0 CM IN EXC BENIGN SKIN LESION TRUNK/ARM/LEG 2.1-3.0 CM IN EXC BENIGN SKIN LESION TRUNK/ARM/LEG 3.1-4.0 CM IN EXC BENIGN SKIN LESION TRUNK/ARM/LEG >4 CM Removal and enbloc capsulectomy bilateral breast reconstruction implants bilateral mastectomy scar revision [facility] [address], [address] [place] [address] Referral ID Status Reason Start Date Expiration Date Visits Re quested Visits Authorized [id number] 1 1 Encounter Details Date Type Department Care Team (Late st Contact Info) Description 06/03/2024 1:00 PM CDT - 06/03/2024 3:45 PM CDT Surgery [facility] [address], [address] [place] [address] Long López MD [facility] [address] [address] Removal and enbloc capsulectomy bilateral breast reconstruction implants Surgery Details Date/Time Status Location OR Service Patient Class Case Class Case Type Trauma Case? 06/03/24 1:00 PM Posted [facility] OR OR [facility] Plastics [facility] Reconstruction Same Day Surgery Elective Panel 1 Procedure [facility] Anes Op Region Wound Class Comments Removal and enbloc capsulect isai bilateral breast reconstruction implants Bilateral General Breast I-Clean bilateral mastectomy scar revision Bilateral General Breas t I-Clean Surgeon Surgeon Role Service Panel Long López MD Primary Plastics & R econstruction 1 Lacey Sanchez PA-C Assisting Service Aide Authoriz ation 1 Special Needs *htn, a4yf-wt lxaczkd-dnjklct-xywk dose Sunday 05/27/33985tna req documented in this encounter Social History Tobacco [...] Sign Reading Time Taken Comments Blood Pressure 178/89 06/03/2024 3:45 PM CDT Pulse 96 06/03/2024 3:45 PM CDT Temperature 36 ??C (96.8 ??F) 06/03/2024 3:00 PM CDT Respiratory Rate 11 06/03/2024 3:45 PM CDT Oxygen Saturation 95% 06/03/2024 3:45 PM CDT Inhaled Oxygen Concentration - - Weight 123.1 kg (271 lb 6.4 oz) 024 11:22 AM CDT Height 175.3 cm (5' 9) 06/03/2024 11:2 2 AM CDT Body Mass Index 40.08 06/03/2024 11:22 AM CDT documented in this encounter Discharge Instructions * Discharge Instructions* Juve Marcos RN - 06/03/2024 3:35 PM CDT Today you received Toradol, an antiinflammatory medication similar to Ibuprofen. You should not take other antiinflammatory medication, such as Ibuprofen, Motrin, Advil, Aleve, Naprosyn, etc until 2027. Same Day Surgery Discharge Instructions for Sedation and General Anesthesia It's not unusual to feel dizzy, light-headed or faint for up to 24 hours after surgery or while taking pain medication. If you have these symptoms: sit for a few minutes before standing and have someone assist you when you get up to walk or use the bathroom. You should rest and relax for the next 24 hours. We recommend you make arrangements to have an adult stay with you for at least 24 hours after your discharge. Avoid hazardous and strenuous activity. DO NOT DRIVE any vehicle or operate mechanical equipment for 24 hours following the end of your surgery. Even though you may feel normal, your reactions may be affected by the medication you have received. Do not drink alcoholic beverages for 24 hours following surgery. Slowly progress to your regular diet as you feel able. It's not unusual to feel nauseated and/or vomit after receiving anesthesia. If you develop these symptoms, drink clear liquids (apple juice, franco susy, broth, 7-up, etc. ) until you feel better. If your nausea and vomiting persists for 24 hours, please notify your surgeon. All narcotic pain medications, along with inactivity and anesthesia, can cause constipation. Drinking plenty of liquids and increasing fiber intake will help. For any questions of a medical nature, call your surgeon. Do not make important decisions for 24 hours. If you had general anesthesia, you may have a sore throat for a couple of days related to the breathing tube used during surgery. You may use Cepacol lozenges to help with this discomfort. If it worsens or if you develop a fever, contact your surgeon. If you feel your pain is not well managed with the pain medications prescribed by your surgeon, please contact your surgeon's office to let them know so they can address your concerns. Reasons to contact your surgeon: Signs of possible infection: Check your incision daily for redness, swelling, warmth, red streaks or foul drainage. Elevated temperature. Pain not controlled with pain medication and/or rest. Uncontrolled nausea or vomiting. Any questions or concerns. Aurelio Blount Drain Home Care Instructions What is a Aurelio Blount (SARIKA) Drain? This is a small tube that connects to a bulb. Its gentle suction removes extra fluid from a surgical wound. Your doctor will remove the tube when the amount of fluid decreases. The color and amount of fluid varies. Right after surgery the fluid is bright red. Over time, it changes to light pink and may become clear or the color of straw. How should I care for my tube site? Keep the skin around the tube dry. Check with your doctor about how to shower. You may need to cover the site with plastic when you shower. Or, it may be okay to let the site get wet and put on a clean bandage after you shower. If the bandage gets wet, you will need to change it. How should I care for the bulb? Keep the bulb compressed at all times except while you empty it. Attach the bulb to your clothing with tape and a safety pin. Try to empty the bulb at the same time every day. Empty the bulb at least once a day, or when the bulb becomes half full. If it becomes too full, there will not be enough suction. To empty the bulb: Wash your hands. Open the bulb cap. Drain the fluid from the bulb into the measuring cup. If you have two drains, use two cups. Clean the mouth of the bulb with an alcohol wipe if your nurse told you to. Squeeze the bulb (fold it in half before you close the bulb cap) If it does not stay compressed, call your nurse or clinic. Write the amount of drainage on the drainage record (see back page). If you have two drains, write the amount for each bulb. Flush the drainage down the toilet. Rinse the measuring cup. Wash your hands. When should I call my doctor? Call your doctor if: You have a fever over 101??F (38.3??C), taken under the tongue. The drainage increases or smells bad. The skin around your tube has increased redness, swelling, warmth or pain. You have pus or fluid leaking at the tube site. Your stitches break. You think the tube is not draining. The tube falls out. You have any problems or concerns. Your drainage record: Empty your bulb at least once per day or when 1/2 to 1/3 full. Write down the date, time and amountof drainage in each bulb. Bring this record to each clinic visit. Date Time Bulb 1: amount of Drainage in (ml or cc) Bulb 2: amount of drainage (in ml or cc) Notes If you have questions or concerns about your procedure, call Dr López at [phone] documented in this encounter Medications at Time of Discharge Medication Sig Dispensed Refills Start Date End Date amLODIPine (NORVASC) 10 MG tablet Take 10 mg by mouth daily chlorthalidone (HYGROTON) 12.5 mg TABS half-tab Take 12.5 mg by mouth daily DULoxetine (CYMBALTA) 30 MG capsule Take 30 mg by mouth 2 times daily ibuprofen (ADVIL/MOTRIN) 800 MG tablet Take 800 mg by mouth every 8 hours as needed for moderate pain METFORMIN HCL ER PO Take 1 tablet by mouth daily PREDNISONE PO Take 1 tablet by mouth daily secukinumab (COSENTYX) 150 MG/ML Sensoready pen Inject 150 mg subcutaneously every 28 days SEMAGLUTIDE, 1 MG/DOSE, SC Inject subcutaneously every 7 days oxyCODONE (ROXICODONE) 5 MG tabletIndications:S/ p breast implant removal Take 1 tablet (5 mg) by mouth every 6 hours as needed for pain 10 tablet 06/03/2024 06/06/2024 documented as of this encounter Progress Notes * Juve Marcos RN - 06/03/2024 4:42 PM CDT Pt dressed, up in recliner and transported to Phase 2. documented in this encounter Nursing Notes * Marry Mendiola RN - 06/03/2024 5:29 PM CDT Discharge instructions given to patient to daughters. No question sand concerns at this time * Marry Mendiola RN - 06/03/2024 5:15 PM CDT MDA was paged due to patient hypertensive PHASE II. MDA order Hydralazine . Medication was not given because blood pressure back to normal limits by itself. * Leisa Stephen RN - 06/03/2024 3:[address] Palumbo of HTN. HR 96-102. Ordered to give 10mg IV labetalol documented in this encounter Miscellaneous Notes * Op Note - Long López MD - 06/03/2024 2:52 PM CDT OPERATIVE NOTE Date of procedure: 06/03/24 PREOPERATIVE DIAGNOSIS: History of breast cancer with acquired absence of bilateral breasts POSTOPERATIVE DIAGNOSIS: Same PROCEDURE: Removal of bilateral breast reconstruction implants and total periprosthetic capsulectomy. 2. Revision of bilateral mastectomy scars total complex closure length 64 cm SURGEON: Long López MD ANIMAL ECOLOGIST: Lacey Sanchez PA-C A manager surgical was medically necessary for patient positioning, retraction and visualization of anatomic structures, hemostasis, and suture closure of incisions. TECHNIQUE: The patient was marked preoperatively. We discussed the planned treatment including removal of bothbreast implants including periprosthetic total capsulectomy and a extended incision in order to allow removal of excess expanded mastectomy skin and also infra axillary skin excess which has a folded over shape which resulted in intertrigo skin irritation. We discussed the length of the incision and the expected discomfort time off work activity restrictions wound care. She voiced understanding was agreeable to proceed. She She was placed supine on the procedure table under general endotracheal anesthesia administered by the anesthesia department. The chest was prepped and draped in sterile fashion and a timeout was done. I began on the left side. I began by making an incision just above her transverse mastectomy scarjust above the reconstructed nipple areolar complex and extending this laterally into the subaxillary and posterior axillary area in order to achieve the reduction and the excess skin in that region.I then lifted the skin back and exposed the capsule in the lower pole and then lifted the muscle away from the capsule and the upper pole. I then the implant and capsule construct from the p osterior aspect it from the intercostal muscles and ribs. It was removed in an en bloc fashion. Final hemostasis was achieved with electrocautery. The implant and capsule were photographedand taken to and sent to pathology for routine examination. After the wound was irrigated a final ch shanel for hemostasis was performed and the excess skin in the lower pole was excised and discarded. The wounds were undermined advanced and closed over a drain with 3-0 and 4-0 Vicryl. Prior to final skin closure I did reattach the pectoralis major to the pectoralis major muscle minor muscle with 2-0Vicryl to allow some resumption of normal muscle length for the pectoralis major. The drain was sewn in with 2-0 silk. I turned my attention the right side. Same technique was used to make the upper incision, created the subcutaneous and submuscular flaps and then lift the implant and capsule away from the posterior aspect from the ribs and intercostal muscles. This tissue was also sent to pathology for routine examination after photographing. The same irrigation and hemostasis and closure performed over the soft tissues were injected with a total of 30 cc 0.5% Marcaine 1-200,000 epinephrine.Sterile compressive dressing was applied. Anesthesia was reversed and the patient was taken to the recovery room in satisfactory condition. ESTIMATED BLOOD LOSS 50cc Sponge and needle counts correct Findings noted above Specimens: bilateral breast implants and capsules Long López MD on 06/03/2024 at 2:52 PM documented in this encounter Plan of Treatment Not on file documented as of this encounter Procedures Procedure Name Priority Date/Time Associated Diagnosis Comments SURGICAL PATHOLOGY EXAM Routine 06/03/2024 1:27 PM CDT REVISION, SCAR, BREAST 06/03/2024 12:47 PM CDT History of mastectomy, bilateral Hx of breast cancer Special Needs *htn, u2sh-kl mqrlmrl-dizncqk-notp dose Sunday 05/27/12123duy req RECONSTRUCTION, BREAST, BILATERAL, WITH BREAST IMPLANT INSERTION 06/03/2024 12:47 PM CDT History of mastectomy, bilateral Hx of breast cancer Special Needs *htn, f7iw-tk phluixu-mxypqhw-yrwf dose Sunday 05/27/43152wks req GLUCOSE BY METER Routine 06/03/2024 11:4 2 AM CDT LAB RESULT - HIM SCAN 05/24/2024 12:00 AM CDT EKG CARDIAC - HIM SCAN 05/24/2024 12:00 AM CDT EKG CARDIAC - HIM SCAN 05/04/2024 12:00 AM CDT documented in this encounter Results * Surgical Pathology Exam (06/03/2024 1:27 PM CDT) Case Report Surgical Pathology Report ? Case: [id number] ? Authorizing Provider: ??Long López, ??Collected: ? 06/03/2024 02:07 PM ? MD ? Ordering Location: ? [facility] ?Received: ?06/03/2024 02:58 PM ? [facility] ? Pathologist: ? Marquise Boothe MD ? Specimens: ?? A) - Breast, Right, RIGHT BREAST ??IMPLANT AND CAPSULE ? B) - Breast, Left, LEFT BREAST IMPLANT AND CAPSULE ? 06/06/2024 3:39 PM [facility] Final Diagnosis A. Right breast implant capsule: - Breast implant identified (see gross description) with benign fibrofatty cystic capsule without appreciable inflammation or atypia B. Left breast implant and capsule: - Breast implant identified (see gross description) with benign fibrofatty cystic capsule without appreciable inflammation or atypia 06/06/2024 3:39 PM [facility] Clinical Information 63-year-old female. Procedure: Removal and enbloc capsulectomy bilateral breast reconstruction implants - Bilateral bilateral mastectomy scar revision - Bilateral Pre-op Diagnosis: History of mastectomy, bilateral [Z90.13] Hx of breast cancer [Z85.3] Post-op Diagnosis: Z90.13 - History of mastectomy, bilateral [ICD-10-CM] Z85.3 - Hx of breast cancer [ICD-10-CM] 06/06/2024 3:39 PM [facility] Gross Description A(1). Breast, Right, RIGHT BREAST IMPLANT AND CAPSULE: The specimen is received in formalin, labeled with the patient's name, medical record number and other identifying information designated right breast implant and capsule. It consists of a 800 g, 17.0 x 17.0 x 4.1 cm intact silicone breast implant. The implant is labeled as follows: [place], [id number], HP 800 cc. Also received is a 82.9 g, 13.4 x 12.5 x 1.4 cm segment of soft tissue consistent with breast capsule. The outer surface is coffman-pink, fibrous with minimal attached adipose tissue. The inner surface is coffman-pink, smooth, and glistening. Sectioning reveals the capsule is up to 0.1 cm thick. No tumor is identified. [facility] sections of capsule are submitted in 2 [...] breast implant is labeled as follows: [place]elda, [id number], HP 800 cc. Also received is a 76.5 g, 13.4 x 11.3 x 1.3 cm segment of soft tissue consistent with breast capsule. The outer surface is coffman-pink, fibrous with minimal attached coffman-yellow adipose tissue. The inner lining is coffman-pink, smooth, is glistening. Sectioning reveals the capsule is up to 0.1 cm thick. No tumor is identified. [facility] sections of the capsule are submitted in 2 cassettes. Time collected: 1327 Time in formalin: [address] ([address])06/04/2024 8:41 AM 06/06/2024 3:39 PM [facility] Microscopic Description Microscopic examination is performed with findings supportive of the diagnosis as noted. 06/06/2024 3:39 PM [facility] Performing Labs The technical component of this testing was completed at [facility]. Stain controls for all stains resulted within this report have been reviewed and show appropriate reactivity. 06/06/2024 3:39 PM [facility] Case Images 06/06/2024 3:39 PM T LABORATORY Implant LEFT BREAST STRUCTURE / Unknown 06/03/2024 2:07 PM CDT 06/03/2024 2:58 PM CDT Comment:RIGHT BREAST IMPLANT AND CAPSULE Implant submitted as specimen (specimen) LEFT BREAST STRUCTURE / Unknown 06/03/2024 1:27 PM CDT 06/03/2024 2:58 PM CDT Comment:LEFT BREAST IMPLANT AND CAPSULE Long [facility] [address], [address] [place] [address], [facility] [phone] * (ABNORMAL) Glucose by meter (06/03/2024 11:42 AM CDT) [facility] GLUCOSE BY METER POCT 102(H) 70 - 99 mg/dL 06/03/2024 11:49 AM CDT LABORATORY POC Blood, Capillary BLOOD SPECIMEN / Unknown 06/03/2024 11:42 AM CDT 06/03/2024 11:49 AM CDT Long [facility] POC [facility] [address], [address] [address], [facility] * Lab Result - HIM Scan (05/24/2024 12:00 AM CDT) 05/24/2024 Provider Outside NON-BEAKER LAB TE STING * EKG Cardiac - HIM Scan (05/24/2024 12:00 AM CDT) 05/24/2024 Provider Outside ECG ORDERABLES * EKG Cardiac - HIM Scan (05/04/2024 12:00 AM CDT) 05/04/2024 Provider Outside ECG ORDERABLES documented in this encounter Visit Diagnoses Diagnosis S/p breast implant removal- Primary Breast implant removal status History of mastectomy, bilateral Hx of breast cancer Personal history of malignant neoplasm of breast documented in this encounter Administered Medications Inactive Administered Medications - up to 3 most recent administrations Medication Order MAR Action Action Date Dose Rate Site BUPivacaine 0.5 % - EPINEPHrine 1:200,000 injection PRN, Starting on Mon06/03/24 at 1426, Intra-procedure $Given 06/03/2024 2:26 PM CDT 30 mLs Operative Site/Surgical Site HYDROmorphone (DILAUDID) injection 0.4 mg 0.4 mg, Intravenous, EVERY 5 MIN PRN, severe pain, Starting on Mon06/03/24 at 1431, Use FentaNYL (SUBLIMAZE) first if ordered. Maximum total cumulative dose NOT to exceed 2 mg. DO NOT revert back to fentanyl (SUBLIMAZE) after administering HYDROmorphone (DILAUDID). Notify Provider to assess for uncontrolled pain or analgesic side effects., PACU $Given 06/03/2024 3:29 PM CDT 0.4 mg $Given 06/03/2024 3:04 PM CDT 0.4 mg labetalol (NORMODYNE/TRANDATE) injection 10 mg 10 mg, Intravenous, ONCE, On Mon06/03/24 at 1600, For 1 dose, PACU $Given 06/03/2024 3:51 PM CDT 10 mg lactated ringers infusion at 10 mL/hr, Intravenous, CONTINUOUS, IF patient NOT on dialysis., Pre-procedure, Starting on Mon06/03/24 at 1130, Until Mon06/03/24 at 1456 Restarted 06/03/2024 12:47 PM CDT $New Bag 06/03/2024 11:46 AM CDT 10 mL/hr sodium chloride 0.9% (bottle) irrigation PRN, Starting on Mon06/03/24 at 1310, Intra-procedure $Given 06/03/2024 1:14 PM CDT 1,000 mLs Operative Site/Surgi shakira Site documented in this encounter Active and Recently Administered Medications Times are shown in CDT. Scheduled Medication Order 06/01/2024 06/02/2024 06/03/2024 ceFAZolin Sodium (ANCEF) injection 2 g (COMPLETED) Routine, 2 g, Intravenous, PRE-OP/PRE-PROCEDURE, Starting on Mon06/03/24 at 1111, For 1 dose, Give first dose within 1 hour PRIOR to incision. If patient weight is greater than or equal to 120 kg increase dose to 3 g., Indications: Perioperative Pharmacoprophylaxis, Pre-procedure 1255 ($Given - Provi kory: Janett Rodriguez APRN CRNA) labetalol (NORMODYNE/TRANDATE) injection 10 mg (COMPLETED) 10 mg, Intravenous, ONCE, On Mon06/03/24 at 1600, For 1 dose, PACU 1551 ($Given - Provi kory: Leisa Stephen RN) Continuous Medication Order 06/01/2024 06/02/2024 06/03/2024 lactated ringers infusion (CANCELED) at 10 mL/hr, Intravenous, CONTINUOUS, IF patient NOT on dialysis., Pre-procedure, Starting on Mon06/03/24 at 1130, Until Mon06/03/24 at 1456 1146 ($New Bag - Pro vider: Annie Buchanan RN)1246 (Paused - Provider: Janett Rodriguez APRN CRNA - Comment: Switch to gravity)1247 (Restarted - Provider: Janett Rodriguez APRN CRNA)1421 (Anesthesia Volume Adjustment - Provider: Janett Rodriguez APRN CRNA)1452 (Stopped - Provider: Janett Rodriguez APRN CRNA) PRN Medication Order 06/01/2024 06/02/2024 06/03/2024 BUPivacaine 0.5 % - EPINEPHrine 1:200,000 injection (CANCELED) PRN, Starting on Mon06/03/24 at 1426, Intra-procedure 1426 ($Given - Provi kory: Long López MD) HYDROmorphone (DILAUDID) injection 0.4 mg (CANCELED) 0.4 mg, Intravenous, EVERY 5 MIN PRN, severe pain, Starting on Mon06/03/24 at 1431, Use FentaNYL (SUBLIMAZE) first if ordered. Maximum total cumulative dose NOT to exceed 2 mg. DO NOT revert back to fentanyl (SUBLIMAZE) after administering HYDROmorphone (DILAUDID). Notify Provider to assess for uncontrolled pain or analgesic side effects., PACU 1504 ($Given - Provi kory: Jvue Marcos RN)1529 ($Given - Provider: Juve E Hemant, RN) sodium chloride 0.9% (bottle) irrigation (CANCELED) PRN, Starting on Mon06/03/24 at 1310, Intra-procedure 1310 (Canceled Entry - Provider: Long López MD)1314 ($Given - Provider: Long López MD) documented in this encounter Care Teams Manager Of Drilling Relationship Specialty Start Date End Date Anneliese Mayorga MD [facility] [address] [address] PCP - General Family Medicine 05/01/24 documented as of this encounter
--- OUTSIDE RECORDS SUMMARY | 2024-06-18 14:35 | XMS_ITS | Encounter Summary ---
Author Organization [facility] Address [address] [place] [id number] Care Team Providers Care Accounts Specialist Name Role Phone Anneliese Mayorga MD [...] [address] [place] [phone] Referral ID Status Reason Start Date Expiration Date Visits Re quested Visits Authorized [id number] 1 1 Encounter Details Date Type Department Care Team (Latest Contact Info) Description 06/03/2024 10:52 AM CDT - 06/03/2024 5:33 PM CDT Hospital Encounter [facility] PreOP/Phase II [address] [place] [id number] Long López MD [facility] [address] [place] [id number] S/p breast implant removal (Primary Dx) Discharge Disposition: Home or Self Care Social History Tobacco Use Types Packs/Day Years [...] about your procedure, call Dr López at [phone] documented in this encounter Medications at Time [...] length 64 cm SURGEON: Long López MD CONTRIBUTION SOLICITOR: Lacey Sanchez PA-C A surgical territory manager was medically necessary for patient positioning, retraction [...] Hx of breast cancer Special Needs *htn, p0jh-mk jskncdq-binibid-vyql dose Mondaymin req RECONSTRUCTION, BREAST, BILATERAL, WITH BREAST IMPLANT INSERTION 06/03/2024 12:47 PM CDT History of mastectomy, bilateral Hx of breast cancer Special Needs *htn, q5lo-rc gpqxiwm-tbqutrr-oeka dose Monday20min req GLUCOSE BY METER Routine 06/03/2024 11:4 2 AM CDT LAB RESULT - HIM SCAN 05/24/2024 12:00 AM CDT EKG CARDIAC - HIM SCAN 05/24/2024 12:00 AM CDT EKG CARDIAC - HIM SCAN 05/04/2024 12:00 AM CDT documented in this encounter Results * Surgical Pathology Exam (06/03/2024 1:27 PM CDT) Case Report Surgical Pathology Report ? Case: [id number] ? Authorizing Provider: ??Long López, ??Collected: ? 06/03/2024 02:07 PM ? MD ? Ordering Location: ? [facility] ?Received: ?06/03/2024 02:58 PM ? [facility] ? Pathologist: ? Marquise Boothe MD ? Specimens: ?? A) - Breast, Right, RIGHT BREAST ??IMPLANT AND CAPSULE ? B) - Breast, Left, LEFT BREAST IMPLANT AND CAPSULE ? 06/06/2024 3:39 PM T LABORATORY Final Diagnosis A. Right breast implant capsule: - Breast implant identified (see gross description) with benign fibrofatty cystic capsule without appreciable inflammation or atypia B. Left breast implant and capsule: - Breast implant identified (see gross description) with benign fibrofatty cystic capsule without appreciable inflammation or atypia 06/06/2024 3:39 PM [facility] Clinical Information 63-year-old female. Procedure: Removal and enbloc capsulectomy bilateral breast reconstruction implants - Bilateral bilateral mastectomy scar revision - Bilateral Pre-op Diagnosis: History of mastectomy, bilateral [Z90.13] Hx of breast cancer [Z85.3] Post-op Diagnosis: Z90.13 - History of mastectomy, bilateral [ICD-10-CM] Z85.3 - Hx of breast cancer [ICD-10-CM] 06/06/2024 3:39 PM [facility] Gross Description A(1). Breast, Right, RIGHT BREAST IMPLANT AND CAPSULE: The specimen is received in formalin, labeled with the patient's name, medical record number and other identifying information designated right breast implant and capsule. It consists of a 800 g, 17.0 x 17.0 x 4.1 cm intact silicone breast implant. The implant is labeled as follows: Imelda, [id number], HP 800 cc. Also received is a 82.9 g, 13.4 x 12.5 x 1.4 cm segment of soft tissue consistent with breast capsule. The outer surface is coffman-pink, fibrous with minimal attached adipose tissue. The inner surface is coffman-pink, smooth, and glistening. Sectioning reveals the capsule is up to 0.1 cm thick. No tumor is identified. Style Advisor sections of capsule are submitted in 2 [...] breast implant is labeled as follows: Imelda, [id number], HP 800 cc. Also received is a 76.5 g, 13.4 x 11.3 x 1.3 cm segment of soft tissue consistent with breast capsule. The outer surface is coffman-pink, fibrous with minimal attached coffman-yellow adipose tissue. The inner lining is coffman-pink, smooth, is glistening. Sectioning reveals the capsule is up to 0.1 cm thick. No tumor is identified. Style Advisor sections of the capsule are submitted in 2 cassettes. Time collected: 1327 Time in formalin: [address] ([address])06/04/2024 8:41 AM 06/06/2024 3:39 PM CDT LABORATORY Microscopic Description Microscopic examination is performed with findings supportive of the diagnosis as noted. 06/06/2024 3:39 PM CDT LABORATORY Performing Labs The technical component of this testing was completed at [facility]. Stain controls for all [...] CAPSULE Long [facility] [address] 1[address] floor, [address] [place] [address], [facility] [phone] * (ABNORMAL) Glucose by meter (06/03/2024 11:42 AM CDT) GLUCOSE BY METER POCT 102(H) 70 - 99 mg/dL 06/03/2024 11:49 AM CDT LABORATORY POC Blood, Capillary BLOOD SPECIMEN / Unknown 06/03/2024 11:42 AM CDT 06/03/2024 11:49 AM CDT Long López MD LAB - BEAKER POCT LABORATORY POC [facility] [address] 1[address] floor, [address] [place] [phone] * Lab Result - HIM Scan (05/24/2024 12:00 AM CDT) 05/24/2024 Provider Outside [facility] NON-[facility]AKER LAB TE STING * EKG Cardiac - HIM Scan (05/24/2024 12:00 AM CDT) 05/24/2024 Provider Outside ECG ORDERABLES * EKG Cardiac - HIM Scan (05/04/2024 12:00 AM CDT) 05/04/2024 Provider Outside ECG ORDERABLES documented in this encounter Visit Diagnoses Diagnosis S/p breast implant removal- Primary Breast implant removal status documented in this encounter Administered Medications Inactive Administered Medications - up to 3 most recent administrations Medication Order MAR Action Action Date Dose Rate Site HYDROmorphone (DILAUDID) injection 0.4 mg 0.4 [...] Bag 06/03/2024 11:46 AM CDT 10 mL/hr documented in this encounter Active and Recently [...] effects., PACU 1504 ($Given - Provi kory: Juve Marcos RN)1529 ($Given - Provider: Juve Marcos RN) sodium chloride 0.9% (bottle) irrigation (CANCELED) PRN, Starting on Mon06/03/24 at 1310, Intra-procedure 1310 (Canceled Entry - Provider: Long López MD)1314 ($Given - Provider: Long López MD) documented in this encounter Care Teams Accounts Specialist Relationship Specialty Start Date End Date Anneliese Mayorga MD [facility] & [address] [address] PCP - General Family Medicine 05/01/24 documented as of this encounter
--- OUTSIDE RECORDS SUMMARY | 2024-06-18 14:35 | XMS_ITS | Encounter Summary ---
Author Organization [employer] Address [address], [place] [address] Care Team Providers Care Trial Court Justice Name Role Phone Needs Pcp, Assignment Primary Care Provider [phone] Reason for Visit * Reason Comments LEG PAIN Encounter Details Date Type Department Care Team ([facility] st Contact Info) Description 04/01/2024 Telephone [place] [id number] [facility] [place], [place] [id number] Teresa Morales MD [address] [place] [address] LEG PAIN Social History Tobacco [...] Care Team (Late st Contact Info) Description 06/27/2024 7:30 AM CDT Appointment [facility] [address] [place] [address] 06/27/2024 8:00 AM CDT Appointment [facility] [address] [place] [address] Malia Kearney PA-C [address] [place] [address] 08/14/2024 4:00 PM CDT Appointment [facility] [address] [place] [address] Teresa Morales MD [address] [place] [address] documented as of this encounter Visit Diagnoses Not on filedocumented in this encounter Care Teams Trial Court Justice Relationship Specialty Start Date End Date Needs Pcp, Assignment [place], [place] [phone] PCP - General 10/07/21 documented as of this encounter
--- OUTSIDE RECORDS SUMMARY | 2024-06-18 14:35 | XMS_ITS | Encounter Summary ---
Author Organization [facility] Address [address], [place] [address] Care Team Providers Care Summons Server Name Role Phone Needs Pcp, Assignment Primary Care Provider [phone] Reason for Referral * Procedure/Equipment (Routine) - Incomplete Specialty Diagnoses / Procedures Referred By Zoran t Referred To Contact Diagnoses Chronic back pain, unspecified back location, unspecified back pain laterality Chronic pain of lower extremity, bilateral Procedures MR Lumbar Spine W/WO IV Cont Malia Kearney PA-C [address] [place] [address] Referral ID Status Reason Start Date Expiration Date V isits Requested Visits Authorized [id number] Incomplete 06/17/2024 09/16/2025 1 1 Reason for Visit * Reason Comments Follow-up Encounter Details Date Type Department Care Team (Latest Contact Info) Description 06/17/2024 8:00 AM CDT Office Visit [facility] [address] [place], [place] [address] Malia Kearney PA-C [address] [place] [address] Spondyloarthritis (HRC) (Primary Dx); Anti-cyclic citrullinated peptide antibody positive; Osteoarthritis of multiple joints, unspecified osteoarthritis type; Chronic back pain, unspecified back location, unspecified back pain laterality; Primary osteoarthritis of both knees; Chronic pain of lower extremity, bilateral; Myofascial pain; Chronic pain syndrome; High risk medication use; residential current use of systemic steroids; 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) Social [...] Sign Reading Time Taken Comments Blood Pressure 145/71 06/17/2024 7:55 AM CDT Pulse 91 06/17/2024 7:55 AM CDT Temperature - - Respiratory Rate - - Oxygen Saturation - - Inhaled Oxygen Concentration - - Weight 119.3 kg (263 lb) 06/17/2024 7:55 AM CDT Height - - Body Mass Index 45.14 01/26/2024 9:26 AM CDT documented in this encounter Patient Instructions * Patient Instructions* Malia Kearney PA-C - 06/17/2024 8:00 AM CDT Continue Cosentyx 150 mg monthly Prednisone 20 mg/d for 3 days, 10 mg/d x3 days, 5 mg/d x3 days Ibuprofen/tylenol (acetaminophen) as needed -take with food Continue Cymbalta 30 mg daily Trial Lyrica 50 mg twice daily Set up MRI / labs same day as MRI Follow up with Dr. Morales in July as planned documented in this encounter Progress Notes * Malia Kearney PA-C - 06/17/2024 8:00 AM CDT Rheumatology Clinic Progress Note Encounter Date: 06/17/2024 Date of Last Clinic Visit: 04/17/2024, Dr. Morales Subjective Cc: Follow-up spondyloarthritis, joint pain Other pertinent medical history: HTN, prediabetes, h/o breast cancer s/p bilateral mastectomy, hyperparathyroidism, obesity HPI: Rheum History Annamaria Alcaraz is a very pleasant 63 y.o. F, patient of Dr. 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 Negative HLA-B27, positive CCP antibody 233, negative RF; h/o elevated ESR and CRP; SI joint x-ray with findings suspicious for sacroiliitis with enthesopathy at the bilateral iliac crests. No history of dactylitis, iritis/uveitis, psoriasis or IBD. Denies known family history of autoimmune disease. I refer to Dr. Morales's last clinic progress note for a detailed rheum history & details of that visit. Past medications: SSZ, MTX, LEF, Humira, Enbrel; currently Cosentyx. Celebrex and diclofenac. Prednisone responsive. H/o of advanced osteoarthritis of both knees. Updated x-rays and bilateral knee MRI's detailed below. Referred to orthopedics for consideration of knee replacements, saw Ortho in December 2023, offered knee replacements and referred to the pain clinic. Given trial of Duloxetine in November 2023 - did not feel that this was helpful for joint pain but did feel that her mood was significantly improved. She does have plans to have her breast implants removed in May because she is wondering about breast implant syndrome and has done a lot of research on this, she is going to [facility]. November 2023: Continued to have issues with pain, most bothersome in the legs and knees. She was taking higher doses of prednisone and the risks of >5 mg daily were reviewed. We elected to continue on 5 mg daily until she would further evaluation by orthopedics for consideration for knee replacements. We also elected to do a trial of duloxetine. December 2023: Saw Dr. Padgett in orthopedics regarding her knee OA. Prior cortisone injections not helpful. Prior L knee ablation. Bilateral TKA offered. January 2024: Contacted us wondering about a second opinion. Agreed with this. Given recommendations for additional providers versus the [facility] as patient had requested. March 2024: I refer to the clinic progress note for details of that visit. Interval History Reviewed: This is a 2 month follow up for the patient and the first time that I am meeting her. She had her breast implants removed in early May, healing well, but unfortunately has not noticed any significant change in msk symptoms/myofacial pain with this thus far. She remains on Cosentyx 150 mg monthly, took this recently, tolerating it well. She tapered off of prednisone completely about 2.5 weeks prior to her surgery, during those 2 weekswas 'miserable' and in a lot of pain in her bilateral legs so much that she had to use a wheelchair. The first 2 days postoperatively interestingly had no pain but then on postop day 3 had a flare ofsignificant bilateral lower extremity pain again, the pain was so severe that she 'could not move','could not bend/straighten her legs', 'feels like her shins are crumbling' when weight-bearing, sweating profusly, could not get comfortable, sleep disturbed due to the pain, and had to use a wheelchair to get around. She had an ablation on the L knee about a year or so ago and the L knee had been feeling pretty good, definitely having less pain in the left knee compared to her right preoperatively but postop even the L knee was painful. She does note some low back pain as well. Given the severe pain she restarted prednisone 30 mg/d 7 days ago on her own and reports feeling much better with this. She is understandably frustrated with the pain. She denies any paresthesias or focal weakness (although feels weaker when she is in pain) in the lower extremities. No bowel/bladder dysfunction. Still having most of her pain in the lower extremities. Denies pain or swelling in any additional joints at this time. She tells me that she is scheduledto meet with orthopedics locally latera today to discuss possible ablation/genicular nerve block for the R knee osteoarthritis. No fevers, unexplained weight loss, rashes, ocular symptoms suggestive of iritis/uveitis or bowel symptoms suggestive of IBD. Lab data November 2023 with low CK 24, chronically elevated but overall improved ESR 37, normal CRP0.5, and normal vitamin D 42. Review of Systems: Comprehensive review of systems was reviewed with the patient and pertinent positives are outlined in the HPI above. High-risk Medication Monitoring: Negative hepatitis B&C and tuberculosis screening tests. Immunizations: Updated in the EMR and reviewed with the patient. Social History: . 2 adult children. Lives in [place]. Nonsmoker. No significant alcohol use. Patient Active Problem List Diagnosis Date Noted Spondyloarthritis ([facility]) 04/21/2021 Allergies Allergen Reactions Lisinopril Other, see comments Kidney failure Objective EXAM Vitals: Per flow sheet. General: Very pleasant. Conversant. NAD. Overweight. Eyes: Externally clear. Skin: Warm and dry. No pertinent skin rashes. No Raynaud changes. No digital pitting or open wound ulcers. No nailfold capillary changes. Neuro: Antalgic gait. Normal muscle bulk and tone. Sensation intact in bilateral upper and lower extremities. No focal deficits. MSK: All 4 extremities were examined today. There is no active synovitis, dactylitis, inflammatory arthritis or joint effusion in any joints of the upper or lower extremities. No enthesitis. No tender or swollen joints in the hands. Wrists, elbows, shoulders normal. Hips with good painless ROM. Knees with varus deformities, no significant joint line TTP, no warmth, no significant appreciable inflammatory arthritis or effusion. Ankles nontender, mild puffiness. Negative MTPJ squeeze test bilaterally. Paired myofacial tender points - bilateral greater trochanters, anserine bursa. No TTP bilateral thighs or L lower extremity. Some TTP R anterior lower leg/lópez. TTP midline lumbar spine, bilateral SI joints, and diffusely across the bilateral low back. Negative straight leg raise bilaterally. Imaging Studies - MRI Lt. Knee WO Contrast, 10/06/2023: IMPRESSION: 1. Exam degraded by motion artifact. 2. Advanced tricompartment osteoarthritis with areas of full-thickness cartilage loss. 3. Tearing of the posterior horn and body of the lateral meniscus. 4. Thinning/diminution of the anterior horn lateral meniscus and entire medial meniscus likely on degenerative basis. 5. Joint effusion and popliteal cyst. MRI Rt. Knee WO Contrast, 10/06/2023: IMPRESSION: 1. Complex tear in the medial meniscus body and posterior horn with meniscal tissue extruded towardthe meniscotibial recess medially. 2. 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 Mild chondromalacia in the lateral compartment. 3. Small joint effusion with evidence of synovitis. 4. Small popliteal cyst. 5. Mild tendinosis at the patellar tendon insertion. MRI Lumbar Spine, 05/19/2023: IMPRESSION: 1. Mild degenerative changes as above. 2. No evidence for focal nerve root impingement, stress reaction or vertebral body compression fracture. MR SI Joints, 05/19/2023: IMPRESSION: 1. Mild thinning of the cartilage in the anterior inferior aspects of both sacroiliac joints without evidence of erosive change or active synovitis. 2. Moderate degenerative arthritis in the visualized lower lumbar facet joints with mild surrounding edema and enhancement. XR Lt. Knee, 02/28/2023: IMPRESSION COMPARISON: None. FINDINGS: 3 views obtained. No acute fracture. Severe medial compartment osteoarthritic degenerative narrowing. Mild-moderate lateral compartment osteoarthritic degenerative narrowing. Moderate-severe patellofemoral compartment osteoarthritic degenerative narrowing. Small-moderate joint effusion without layering lipohemarthrosis. Tricompartmental osteophytosis. Suggestion of osteopenia. XR SI Joints, 11/04/2020: FINDINGS: There is indistinctness of the lower synovial portions of the sacroiliac joints with adjacent sclerosis within the innominate greater than sacral bones. The finding are suspicious for sacroiliitis. The findings are greater on the right compared to left. Enthesopathy at the iliac crests. Assessment: 1. History of asymmetric inflammatory arthritis with sacroiliitis, SpA verses other inflammatory arthropathy 2. Positive CCP 3. Chronic bilateral low back pain 4. Severe osteoarthritis of the knees 5. Chronic bilateral lower extremity pain 6. Myofacial pain/chronic pain 7. Chronically elevated ESR - possibly in part related to obesity 8. Chronic high-risk medication monitoring Other - - HTN - Prediabetes - Hyperparathyroidism - History of breast cancer s/p bilateral mastectomy now s/p breast implant explant surgery May 2024 - Obesity Plan: The patient is a very pleasant 63 y.o. F who presents today in follow up. She continues to strugglewith episodic flares of severe bilateral lower extremity pain, exact etiology remains unclear, but her pain appears complex and is likely multifactorial. In terms of her spondyloarthritis/inflammatory arthritis, things appear controlled, no evidence of active synovitis or inflammatory arthritis on exam today and we will plan to continue the Cosentyx unchanged. She does have severe osteoarthritis of the knees with internal derangement which is likely contributing to her chronic lower extremity pain, however, I do not think that this completely explains the flares of severe bilateral LE pain. She has not noticed any major change in symptoms following her recent breast implant explant surgery earlier this month. I do wonder about a possible spine etiology. I recommend that we repeat imaging of the lumbar spine to look for a possible nerve impingement/radiculopathy. We will also update ESR,CRP, CPK at the time of the MRI. Another option would be an EMG study verses MRI femur evaluating for a muscle etiology. She did have an unremarkable CPK in November 2023 as well as a chronically elevated but improved ESR (likely in part still elevated due to high BMI) and unremarkable CRP. Anotherpossibility is myofacial pain but I would not expect this to significant improve with prednisone. She did self restart prednisone 30 mg/d 7 days ago which she notes has been extremely helpful for her bilateral lower extremity symptoms. We again discussed the potential risks and side effects of long-term corticosteroid use and that this is not a great long-term option for probable noninflammatory related pain. We will plan to taper off of the prednisone prior to the upcoming MRI and labs. I have strongly encouraged her to consider the possibility of knee replacement surgery which will likelybe inevitable at some point but may not completely resolve all of her bilateral LE pain. She is scheduled to see orthopedics locally today to discuss possible genicular nerve block for the R knee OA as this was helpful for the L knee about a year or so ago. Pending the upcoming MRI results could consider formal physical therapy and/or revisiting with PM&R. Consider trial of other prescriptionNSAID mediations for OA symptoms p.r.n. We did review that she still also has some evidence of myofacial pain contributing to her chronic pain as well. Continue Cymbalta 30 mg/d. Gabapentin not helpful in the past, recommend trial of Lyrica 50 mg b.i.d. She can also consider having a second opinionas previously discussed with Dr. Morales. Encouraged her to focus on lifestyle modifications including healthy weight reduction, low-impact exercise as tolerated, and Ozempic per PCP. Continue Cosentyx 150 mg monthly Prednisone taper - 20 mg/d x3 days, 10 mg/d x3 days, 5 mg/d x3 days and then stop Can use ibuprofen and/or Tylenol (acetaminophen) once tapered off prednisone as needed Set up lumbar spine MRI w/wo IV Cont - 10 days out Labs same day as MRI Continue Cymbalta 30 mg daily Trial Lyrica 50 mg b.i.d. Consider trial of other prescription NSAID medications for osteoarthritis symptoms Consider formal physical therapy and/or revisiting with PM&R I will correspond with her with the upcoming lab and MRI results when they return Follow up with Dr. Morales in July 2024 as planned, earlier if needed, she was advised to contact us and/or follow up in clinic earlier if there are questions, concerns or problems in the interim. Plan discussed with the patient in detail, verbalized understanding and agreement with this approach, all questions answered. Malia Kearney PA-C Department of Rheumatology documented in this encounter Plan of Treatment Upcoming Encounters Date Type Department Care Team (Late st Contact Info) Description 06/27/2024 7:30 AM CDT Appointment [facility] [address] [place] [address] 06/27/2024 8:00 AM CDT Appointment [facility] [address] [place] [address] Malia Kearney PA-C [address] [place] [address] 08/14/2024 4:00 PM CDT Appointment [facility] [address] [place] [address] Teresa Morales MD [address] [place] [address] Scheduled Orders Name Type Priority Associated Diagnoses Orde r Schedule MR Lumbar Spine W/WO IV Cont Imaging New Routine Chronic back pain, unspecified back location, unspecified back pain laterality Chronic pain of lower extremity, bilateral Expected: 06/17/2024 (Approximate), Expires: 06/17/2025 Sedimentation Rate (ESR) Lab Routine Chronic pain of lower extremity, bilateral Expected: 06/17/2024, Expires: 09/15/2024 C-Reactive Protein - CRP Lab Routine Chronic pain of lower extremity, bilateral Expected: 06/17/2024, Expires: 09/15/2024 CK, Total Lab Routine Chronic pain of lower extremity, bilateral Expected: 06/17/2024, Expires: 09/15/2024 documented as of this encounter Visit Diagnoses Diagnosis Spondyloarthritis (HRC)- Primary Spondylosis of unspecified site without mention of myelopathy Anti-cyclic citrullinated peptide antibody positive Osteoarthritis of multiple joints, unspecified osteoarthritis type Chronic back pain, unspecified back location, unspecified back pain laterality Primary osteoarthritis of both knees Primary localized osteoarthrosis, lower leg Chronic pain of lower extremity, bilateral Myofascial pain Mylagia and myositis, unspecified Chronic pain syndrome High risk medication use Encounter for long-term (current) use of other medications residential current use of systemic steroids Encounter for long-term (current) use of steroids 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
--- OUTSIDE RECORDS SUMMARY | 2024-06-18 14:35 | XMS_ITS | Clinical Summary ---
Author Organization [facility] Address [address] [place] [address] Care Team Providers Care Drum Carrier Name Role Phone Needs Pcp, Assignment Primary Care Provider [phone] Source Comments You are receiving this document as you are listed as the primary care provider,follow-up provider, or the patient has been referred to you for consultation.This is in compliance with the Medicare andMedicaid EHR Incentive Program,which states Providers who transition their patient to another setting of careor provider of care or refers their patient to another provider of care shouldprovide summary care record for each transition of care or referral. [employer] Allergies Active Allergy Reactions Criticality Noted Date [...] Tablets (12.5 mg) by mouth every morning. 3 Active semaglutide (OZEMPIC, 0.25/0.5 MG/DOSE,) 2 MG/1.5ML injection Inject 0.25 mg subcutaneously once a week. 4 Active DULoxetine (CYMBALTA) 30 MG capsule Take 1 Capsule (30 mg) by mouth daily. 90 Capsule 1 4 Active secukinumab (COSENTYX SENSOREADY PEN) 150 MG/ML injection penIndications:A nkylosing Spondylitis Inject 1 mL (150 mg) subcutaneously every 4 weeks. Indications: Rheumatic Disease causing Vertebrae Inflammation 1 mL 11 4 Active predniSONE (DELTASONE) 5 MG tablet Take 20 mg/d for 3 days, 10 mg/d for 3 days, 5 mg/d for 3 days and then stop. 50 Tablet 4 Active pregabalin (LYRICA) 50 MG capsule Take 1 Capsule (50 mg) by mouth two times a day. 180 Capsule 1 4 06/17/20 25 Active secukinumab (COSENTYX SENSOREADY PEN) 150 MG/ML injection penIndications:A nkylosing Spondylitis Inject 1 mL (150 mg) subcutaneously every 4 weeks. Indications: Rheumatic Disease causing Vertebrae Inflammation 1 mL 11 3 06/04/20 24 Discontinued Active Problems Problem Noted Date Diagnosed Date Spondyloarthritis 04/21/2021 Encounters Date Type Department Care Team Description 06/17/2024 8:00 AM CDT Office Visit [facility] [address] [place] [id number] Malia Kearney PA-C Spondyloarthritis (HRC) (Primary Dx); Anti-cyclic citrullinated peptide antibody positive; Osteoarthritis of multiple joints, unspecified osteoarthritis type; Chronic back pain, unspecified back location, unspecified back pain laterality; Primary osteoarthritis of both knees; Chronic pain of lower extremity, bilateral; Myofascial pain; Chronic pain syndrome; High risk medication use; watermaster current use of systemic steroids; 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 [place] [address] Teresa Morales MD LEG PAIN 03/28/2024 E-Visit [facility] [address] [place] [phone] Mychart, Generic Provider 03/26/[address] [facility] [address] [place], [place] [id number] Manda Padgett MD Orders Needed (Right Knee radiofrequency ablation) from Last 3 Months Immunizations Name Administration [...] Pulse 91 06/17/2024 7:55 AM CDT Temperature 36.4 ??C (97.5 ??F) 01/26/2023 3:54 PM CD T Respiratory Rate - - Oxygen Saturation - - Inhaled Oxygen Concentration - - Weight 119.3 kg (263 lb) 06/17/2024 7:55 AM CDT Height 162.6 cm (5' 4) 01/26/2024 9:26 AM CDT Body Mass Index 45.14 01/26/2024 9:26 AM CDT Plan of Treatment Upcoming Encounters Date Type Department Care Team (Late st Contact Info) Description 06/27/2024 7:30 AM CDT Appointment [facility] [address] [place] [address] 06/27/2024 8:00 AM CDT Appointment [facility] [address] [place] [address] Malia Kearney PA-C [address] [place] [address] 08/14/2024 4:00 PM CDT Appointment [facility] [address] [place] [address] Teresa Morales MD [address] [place] [address] Health Maintenance Due Date Last Done Comments Cervical Cancer Screening Due 1962 Colon Cancer Screening Plan Due 1962 MTM Covered 1962 Mammogram 1962 Adult Preventive Visit 1980 [...] AG/AB 4TH GEN Routine 11/04/2020 12:43 PM PRODUCT MANAGEMENT MANAGER Inflammatory arthritis HEPATITIS PANEL ACUTE WITH REFLEX TO CONFIRMATION Routine 11/04/2020 12:43 PM PRODUCT MANAGEMENT MANAGER Inflammatory arthritis from Last 3 Months or Most Recently Relevant to Health Maintenance Results * Hepatitis Panel with Reflex to Confirmation (11/04/2020 12:43 PM PRODUCT MANAGEMENT MANAGER) Hepatitis A Antibody, IgM Negative (Non Reactive) Negative (Non Reactive) 11/04/2020 4:30 PM PRODUCT MANAGEMENT MANAGER [facility] Comment:IgM anti-HAV not det ected. Does not exclude the possibility of exposure to or infection with HAV. Levels of IgM anti-HAV may be below the cut-off in early infection. Hepatitis Bc Antibody,IgM Negative (Non Reactive) Negative (Non-Reacti ve) 11/04/2020 4:30 PM PRODUCT MANAGEMENT MANAGER [facility] Comment:IgM anti-HBc not det ected. Does not exclude the possibility of exposure to or infection with HBV. Hepatitis B Surface Antigen Negative (Non Reactive) Negative (Non Reactive) 11/04/2020 4:30 PM PRODUCT MANAGEMENT MANAGER [facility] Hepatitis C Antibody Negative (Non Reactive) Negative (Non Reactive) 11/04/2020 4:30 PM PRODUCT MANAGEMENT MANAGER [facility] Comment:Antibodies to HCV no t detected. Does not exclude the possiblity of exposure to HCV. Blood Venipuncture / Unknown 11/04/2020 12:43 PM PRODUCT MANAGEMENT MANAGER 11/04/2020 12:43 PM PRODUCT MANAGEMENT MANAGER Teresa Morales MD LAB_1 [facility] [address] * HIV 1/2 Ag/Ab 4th Generation (11/04/2020 12:43 PM PRODUCT MANAGEMENT MANAGER) HIV 1/2 Antigen/Antib jeremy (4th generation) Negative (Non Reactive) Negative (Non Reactive) 11/06/2020 11:07 AM PRODUCT MANAGEMENT MANAGER [facility] Comment:HIV-1 p24 Antigen an d HIV-1/HIV-2 Antibody not detected Blood Venipuncture / Unknown 11/04/2020 12:43 PM PRODUCT MANAGEMENT MANAGER 11/04/2020 12:43 PM PRODUCT MANAGEMENT MANAGER Teresa Morales MD LAB_1 [facility] [address] [place] [address], [facility] from Last 3 Months or Most Recently Relevant to Health Maintenance Care Teams Drum Carrier Relationship Specialty Start Date End [place] [address] PCP - General 10/07/21
--- OUTSIDE RECORDS SUMMARY | 2024-06-18 14:35 | XMS_ITS | Encounter Summary ---
Author Organization [facility] Address [address] [place] [address] Care Team Providers Care M1 Armor Crewman Name Role Phone Needs Pcp, Assignment Primary Care Provider [phone] Encounter Details Date Type Department Care Team (Late Contact Info) Description 03/28/2024 E-Visit [facility] [address] [place] [address] Mychart, [place] [address] Social History Tobacco Use Types Packs/Day Years [...] Upcoming Encounters Date Type Department Care Team ([facility] Contact Info) Description 06/27/2024 7:30 AM CDT Appointment [facility] [address] [place] [address] 06/27/2024 8:00 AM CDT Appointment [facility] [address] [place] [address] Malia Kearney PA-C [facility] [place] [address] 08/14/2024 4:00 PM CDT Appointment [facility] [address] [place] [address] Teresa Morales MD [address] [place], [place] [phone] documented as of this encounter Visit Diagnoses Not on filedocumented in this encounter Care Teams M1 Armor Crewman Relationship Specialty Start Date End Date Needs Pcp, Assignment [place], [place] [id number] PCP - General 10/07/21 documented as of this encounter
--- OUTSIDE RECORDS SUMMARY | 2024-06-18 14:35 | XMS_ITS | Encounter Summary ---
Author Organization [facility] Address [address], [place] [address] Care Team Providers Care Electronic Engineering Technician Name Role Phone Needs Pcp, Assignment Primary Care Provider [phone] Reason for Visit * Reason Comments Follow-up Encounter Details Date Type Department Care Team ([facility] st Contact Info) Description 04/17/2024 4:00 PM CDT Office Visit [facility] [address] [place], [place] [address] Teresa Morales MD [address] [place] [address] Spondyloarthritis (HRC) (Primary Dx); Osteoarthritis of multiple joints, unspecified osteoarthritis type; Myofascial pain; 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 Outside records received and reviewed from [facility]. She had been seen by her [...] Given recommendations for additional providers versus the [facility] as patient had requested. Interim [...] research on this, she is going to [facility].She just took her Cosentyx last [...] 22 (negative) CCP 233 Outside records from [place] reviewed August 2020: slightly elevated RF at [...] Billing based on: complexity Teresa Morales MD [facility] documented in this encounter Plan of Treatment Upcoming Encounters Date Type Department Care Team (Late st Contact Info) Description 06/27/2024 7:30 AM CDT Appointment [facility] [address] [place] [address] 06/27/2024 8:00 AM CDT Appointment [facility] [address] [place] [address] Malia Kearney PA-C [address] [place] [address] 08/14/2024 4:00 PM CDT Appointment [facility] [address] [place] [address] Teresa Morales MD [address] [place] [address] documented as of this encounter Visit Diagnoses Diagnosis Spondyloarthritis (HRC)- Primary Spondylosis of unspecified site without mention of myelopathy Osteoarthritis of multiple joints, unspecified osteoarthritis type Myofascial pain Mylagia and myositis, unspecified 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
--- OUTSIDE RECORDS SUMMARY | 2024-06-18 14:35 | XMS_ITS | Clinical Summary ---
Author Organization [facility] Address [place], [place] [address] Care Team Providers Care Truck Mechanic Apprentice Name Role Phone Brigitte Ramirez Nareshvaldez Primary Care Provid er Allergies Active Allergy [...] mg subcutaneous every 4 weeks. 06/01/2023 Active HYDROcodone-acetami nophen ([place]) (5-325 mg/tablet)Indicatio ns:Chronic pain of left knee Take 1 Tablet by mouth 3 times daily if needed for Pain. Max acetaminophen dose: 4000mg in 24 hrs. 24 Tablet 11/21/2023 Active DULoxetine (CYMBALTA) 30 mg Delayed-release capsule Take 30 mg by mouth. 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F) 06/17/2024 1 0:49 AM CDT Respiratory Rate 16 06/04/2014 8:32 AM CDT Oxygen Saturation 95% 06/17/2024 10: 49 AM CDT Inhaled Oxygen Concentration - - Weight 119.8 kg (264 lb 3.2 oz) 024 10:49 AM CDT Height 167.6 cm (5' 5.98) 10/04/2023 3:09 PM CS T Body Mass Index 42.66 10/04/2023 3:09 PM AUTOMATIC DISPENSER MECHANIC Plan of Treatment Upcoming Encounters Date Type Department Care Team (Late st Contact Info) Description 06/18/2024 3:00 PM CDT Procedure Only [facility] [address] [place] [address] Jed Wong MD [address] [place] [address] Arrived Health Maintenance Due Date Last Done [...] this topic Medical Devices Implanted Type [place] Stocker Device Identifier Shelf Expiration Date Model / Serial / Lot [id number] [id number] Implanted:Qty: 1 on 11/21/2012 at [facility] Left: Breast [employer] - Inamed 133SX-16 / [id number] / Description:TISSUE FOOD PORTER [id number] implnt Mammary 800cc [[id number]] Implanted:Qty: 1 on 06/26/2013 at [facility] Left: Breast [employer] [id number] # / [id number] breast 800cc Memorygel Rnd High Smooth Silcn - [id number] Implanted:Qty: 1 on 06/26/2013 at [facility] Explanted:at [facility] (Quantity not on file) Right: Breast [employer] 03/29/2018 [id number] # / [id number] Advance Directives * Full Code (Latest Code [...] 6:23 AM 11/21/2012 8:45 AM Care Teams Truck Mechanic Apprentice Relationship Specialty Start Date End Date Brigitte Ramirez DO PCP - General Family Practice 06/24/13
--- OUTSIDE RECORDS SUMMARY | 2024-06-18 14:35 | XMS_ITS | Encounter Summary ---
Author Organization [facility] Address [address], [place] [address] Care Team Providers Care Decorative Engraver Apprentice Name Role Phone Needs Pcp, Assignment Primary Care Provider [phone] Reason for Visit * Reason Comments Refill COSENTYX SENSOREADY PEN 150 MG/ML injection pen [Pharmacy Med Name: COSENTYX 150MG/ML SENSOREADY PEN] Encounter Details Date Type Department Care Team (Late st Contact Info) Description 06/04/2024 Refill [facility] [address] [place] [address]. [place], [place] [phone] Teresa Cameron MD [address] [place] [id number] Refill (COSENTYX SENSOREADY PEN 150 MG/ML injection pen [Pharmacy Med Name: COSENTYX 150MG/ML SENSOREADY PEN]) Social History Tobacco Use Types Packs/Day Years [...] Nursing Notes * Marjorie Dubois RN - 06/04/2024 1:22 PM CDT Renewed medication per medication refill standing order. Requested Prescriptions Signed Prescriptions Disp Refills secukinumab (COSENTYX SENSOREADY PEN) 150 MG/ML injection pen 1 mL 11 Sig: Inject 1 mL (150 mg) subcutaneously every 4 weeks. Indications: Rheumatic Disease causing Vertebrae Inflammation Authorizing Provider: TERESA CAMERON Ordering User: MARJORIE DUBOIS * Win Upantoninaarmin Xrwcomm - 06/04/2024 12:08 PM CDT COSENTYX SENSOREADY PEN 150 MG/ML injection pen [Pharmacy Med Name: COSENTYX 150MG/ML SENSOREADY PEN] Miscellaneous -> Unable to determine if sig has changed, review required. -> Refill x 12 months (until due for an office visit) -> Calculate the quantity and number of refills manually. Last qualifying visit: 04/17/2024 (in Rheumatology) Next scheduled visit: 08/14/2024 (in Rheumatology) Last ordered by TERESA CAMERON: 06/01/2023 (369 days ago) QTY: 1, Refills: 11, Sig: inject 1 ml (150 mg) subcutaneously every 4 weeks. indications: rheumatic disease causing vertebrae inflammation (changed) [employer] Embedded Refills, Reference: [id number], 06/04/2024 12:08:07 PM CDT, Pool: RHEUM PN REFILL [[id number]] ([id number]) documented in this encounter Plan of Treatment Upcoming Encounters Date Type Department Care Team (Late st Contact Info) Description 06/27/2024 7:30 AM CDT Appointment [facility] [address] [place] [address] 06/27/2024 8:00 AM CDT Appointment [facility] [address] [place] [address] Malia Kearney PA-C [address] [place] [address] 08/14/2024 4:00 PM CDT Appointment [facility] [address] [place] [address] [place] [address] [place] [address] documented as of this encounter Visit Diagnoses Not on filedocumented in this encounter Care Teams Decorative Engraver Apprentice Relationship Specialty Start Date End Date Needs Pcp, [place] [address] PCP - General 10/07/21 documented as of this encounter
--- OUTSIDE RECORDS SUMMARY | 2024-06-18 14:35 | XMS_ITS | Encounter Summary ---
Author Organization [facility] Address [address], [place] [address] Care Team Providers Care Stone Crusher Operator Name Role Phone Needs Pcp, Assignment Primary Care Provider [phone] Reason for Referral * Consult/Transfer Care (Routine) - New Request Specialty Diagnoses / Procedures Referred By Zoran ibarra Referred To Contact Diagnoses Primary osteoarthritis of right knee Manda Padgett MD [address] [facility] [address] [place] [address] Referral ID Status Reason Start Date Expiration Date V isits Requested Visits Authorized [id number] New Request 03/28/2024 06/27/2025 1 1 Scheduling Instructions Your clinician has recommended an appointment with [facility]. You can quickly make your appointment online at [facility]/schedule. You can also call [phone] for help scheduling your appointment. We suggest you call your health insurance company about your coverage and benefits for this appointment. Question Answer Appointment Urgency? Non-Urgent Consult for Interventional Pain Consult Comments Requesting R knee nerve ablation Reason for Visit * Reason Comments Orders Needed Right Knee radiofreq uency ablation Encounter Details Date Type Department Care Team ([facility] st Contact Info) Description 03/26/2024 Telephone [facility] [address] [place], [place] [address] Manda Padgett MD [address] [address] Orders Needed (Right Knee radiofrequency ablation) Social [...] for a pain consult, you can call [phone] to schedule that. I have also sent a message to our dry cleaning attendant to try to contact you, so one [...] can we send you a message in [employer]? Yes [Day Habilitation Specialist/Park Keeper: Relay to patient; We make every effort to get back to you sameday, however it may take 1-2 business days depending on the nature of the communication.] [Day Habilitation Specialist/Park Keeper: Please inform the patient that a referral/order does not guarantee insurance coverage. Patients should call the member services number on the back of their insurance ID card to understand what coverage for the services they are requesting.] documented in this encounter Plan of Treatment Upcoming Encounters Date Type Department Care Team (Late st Contact Info) Description 06/27/2024 7:30 AM CDT Appointment [facility] [address] [place] [address] 06/27/2024 8:00 AM CDT Appointment [facility] [address] [place] [address] Malia Kearney PA-C [address] [place] [address] 08/14/2024 4:00 PM CDT Appointment [facility] [address] [place] [address] Teresa Morales MD [address] [place] [address] Scheduled Referrals Name Type Priority Associated Diagnoses Orde r Schedule Pain-Medical Adult Consult [facility] Location Referral Routine Primary osteoarthritis of right knee Ordered: 03/28/2024 documented as of this encounter Visit Diagnoses Diagnosis Primary osteoarthritis of right knee- Primary Primary localized osteoarthrosis, lower leg documented in this encounter Care Teams Stone Crusher Operator Relationship Specialty Start Date End Date Needs Pcp, [place] [address] PCP - General 10/07/21 documented as of this encounter
== END 2024-06-18 14:33 | disposition home or self-care (01) ==
LOC: INJ CL 14:32
PROVIDERS: PCP Family Medicine; Visit Provider Family Medicine
DX: M17.11 Unilateral primary osteoarthritis, right knee (principal); M25.561 Pain in right knee
CPT/HCPCS: 64454

== ENCOUNTER 2024-07-16 11:49 | Outpatient (CLI) | payer MEDICAID, SELFPAY ==
--- OUTSIDE RECORDS SUMMARY | 2024-07-16 11:51 | XMS_ITS | Referral Summary ---
Author Organization [facility] Address [address] [place] [address] Care Team Providers Care Software Test Automation Engineer Name Role Phone Anneliese Mayorga MD Primary Care Provider + Encounters Date Type Department Care Team Description 06/03/2024 Travel 06/03/2024 1:00 PM CDT - 06/03/2024 3:45 PM CDT Surgery [facility] [address] [place] [address] Long López MD Removal and enbloc capsulectomy bilateral breast reconstruction implants 06/03/2024 12:47 PM CDT [facility] [address] [place] [address] Nasrin Palumbo MD 06/03/2024 10:52 AM CDT - 06/03/2024 5:33 PM CDT Hospital Encounter [facility] PreOP/Phase II [address] [place] [address] Long López MD S/p breast implant removal [...] Take 1 tablet by mouth daily Active Social History Tobacco Use Types Packs/Day Years [...] Hx of breast cancer Special Needs *htn, e2pg-ry upieljl-cktlaiu-tqmm dose Sunday 05/27/62533evj req RECONSTRUCTION, BREAST, BILATERAL, WITH BREAST IMPLANT INSERTION 06/03/2024 12:47 PM CDT History of mastectomy, bilateral Hx of breast cancer Special Needs *htn, x5ly-hl szxonzh-gtwamwl-jxjw dose Sunday 05/27/05521rbg req GLUCOSE BY METER Routine 06/03/2024 11:4 2 AM CDT LAB RESULT - HIM SCAN 05/24/2024 12:00 AM CDT EKG CARDIAC - HIM SCAN 05/24/2024 12:00 AM CDT EKG CARDIAC - HIM SCAN 05/04/2024 12:00 AM CDT from Last 3 Months Results * Surgical Pathology Exam (06/03/2024 1:27 PM CDT) Case Report Surgical Pathology Report ? Case: [id number] ? Authorizing Provider: ??Long López, ??Collected: ? 06/03/2024 02:07 PM ? MD ? Ordering Location: ? [facility] ?Received: ?06/03/2024 02:58 PM ? [facility] ? Pathologist: ? Marquise Boothe MD ? Specimens: ?? A) - Breast, Right, RIGHT BREAST ??IMPLANT AND CAPSULE ? B) - Breast, Left, LEFT BREAST IMPLANT AND CAPSULE ? 06/06/2024 3:[address] [facility] Final Diagnosis A. Right breast implant capsule: - Breast implant identified (see gross description) with benign fibrofatty cystic capsule without appreciable inflammation or atypia B. Left breast implant and capsule: - Breast implant identified (see gross description) with benign fibrofatty cystic capsule without appreciable inflammation or atypia 06/06/2024 3:[address] [facility] Clinical Information 63-year-old female. Procedure: Removal and enbloc capsulectomy bilateral breast reconstruction implants - Bilateral bilateral mastectomy scar revision - Bilateral Pre-op Diagnosis: History of mastectomy, bilateral [Z90.13] Hx of breast cancer [Z85.3] Post-op Diagnosis: Z90.13 - History of mastectomy, bilateral [ICD-10-CM] Z85.3 - Hx of breast cancer [ICD-10-CM] 06/06/2024 3:[address] [facility] Gross Description A(1). Breast, Right, RIGHT BREAST IMPLANT AND CAPSULE: The specimen is received in formalin, labeled with the patient's name, medical record number and other identifying information designated right breast implant and capsule. It consists of a 800 g, 17.0 x 17.0 x 4.1 cm intact silicone breast implant. The implant is labeled as follows: [place], [id number], HP 800 cc. Also received is a 82.9 g, 13.4 x 12.5 x 1.4 cm segment of soft tissue consistent with breast capsule. The outer surface is coffman-pink, fibrous with minimal attached adipose tissue. The inner surface is coffman-pink, smooth, and glistening. Sectioning reveals the capsule is up to 0.1 cm thick. No tumor is identified. Tele Marketing Executive sections of capsule are submitted in 2 [...] The breast implant is labeled as follows: Essex, [id number], HP 800 cc. Also received is a 76.5 g, 13.4 x 11.3 x 1.3 cm segment of soft tissue consistent with breast capsule. The outer surface is coffman-pink, fibrous with minimal attached coffman-yellow adipose tissue. The inner lining is coffman-pink, smooth, is glistening. Sectioning reveals the capsule is up to 0.1 cm thick. No tumor is identified. Tele Marketing Executive sections of the capsule are submitted in 2 cassettes. Time collected: 1327 Time in formalin: [address] ([address])06/04/2024 8:41 AM 06/06/2024 3:[address] [facility] Microscopic Description Microscopic examination is performed with findings supportive of the diagnosis as noted. 06/06/2024 3:[address] [facility] Performing Labs The technical component of this testing was completed at [facility]. Stain controls for all stains resulted within this report have been reviewed and show appropriate reactivity. 06/06/2024 3:[address] [facility] Case Images 06/06/2024 3:[address] [facility] Implant LEFT BREAST STRUCTURE / Unknown 06/03/2024 2:07 PM CDT 06/03/2024 2:58 PM CDT Comment:RIGHT BREAST IMPLANT AND CAPSULE Implant submitted as specimen (specimen) LEFT BREAST STRUCTURE / Unknown 06/03/2024 1:27 PM CDT 06/03/2024 2:58 PM CDT Comment:LEFT BREAST IMPLANT AND CAPSULE Long [facility] [address], [address] [place] [address], [place] [phone] * ANE AIRWAY ETT PERFORMABLE (06/03/2024 12:57 PM CDT) Narrative Janett Rodriguez APRN SPECIALTIES OPERATOR - 06/03/2024 12:57 PM CDT Janett Rodriguez APRN CRNA ? 06/03/2024 ??1:08 PM Airway ? Patient location during procedure: OR ? Procedure Start/Stop Times: 06/03/2024 12:57 PM Staff - ? Anesthesiologist: ??Nasrin Palumbo MD ? SPECIALTIES OPERATOR: Janett Rodriguez APRN CRNA ? Performed By: SPECIALTIES OPERATOR Consent for Airway ? Urgency: elective Indications [...] Time: 06/03/2024 12:57 PM Nasrin Palumbo MD [place] ANESTHESIA * (ABNORMAL) Glucose by meter (06/03/2024 11:42 AM CDT) GLUCOSE BY METER POCT 102(H) 70 - 99 mg/dL 06/03/2024 11:49 AM CDT LABORATORY POC Blood, Capillary BLOOD SPECIMEN / Unknown 06/03/2024 11:42 AM CDT 06/03/2024 11:49 AM CDT Long López MD LAB - BEAKER POCT LABORATORY POC [facility] [address] floor, [address] [place] [address], [facility] * Lab Result - HIM Scan (05/24/2024 12:00 AM CDT) 05/24/2024 Provider Outside NON-BEAKER LAB TE STING * EKG Cardiac - HIM Scan (05/24/2024 12:00 AM CDT) Only the most recent of2 resultswithin the time period is included. 05/24/2024 Provider Outside ECG ORDERABLES from Last 3 Months Care Teams Software Test Automation Engineer Relationship Specialty Start Date End Date Anneliese Mayorga MD [facility] [address] [place] [address] PCP - General Family Medicine 05/01/24
--- OUTSIDE RECORDS SUMMARY | 2024-07-16 11:51 | XMS_ITS | Clinical Summary ---
Author Organization [place] Address [address] [place] [address] Care Team Providers Care Virtual Assistant For Advertisers Name Role Phone Anneliese Mayorga MD Primary [...] Take 1 tablet by mouth daily Active Encounters Date Type Department Care Team Description 06/03/2024 1:00 PM CDT - 06/03/2024 3:45 PM CDT Surgery [facility] PeriOP Services [address] [place] [phone] Long López MD Removal and enbloc capsulectomy bilateral breast reconstruction implants 06/03/2024 12:47 PM CDT Anesthesia Event [facility] PeriOP Services [address] [place] [phone] Nasrin Palumbo MD 06/03/2024 10:52 AM CDT - 06/03/2024 5:33 PM CDT Hospital Encounter [facility] PreOP/Phase II [address] [place] [address] Long López MD S/p breast implant removal [...] risk series) 03/06/2021 02/06/2021, 01/16/2021 RSV VACCINE (1 - Risk 60-74 years 1-dose series) 2022 PHQ-2 (once per calendar year) [...] Hx of breast cancer Special Needs *htn, u1tk-rl syvmeyd-mwzdviv-jngv dose Monday20min req RECONSTRUCTION, BREAST, BILATERAL, WITH BREAST IMPLANT INSERTION 06/03/2024 12:47 PM CDT History of mastectomy, bilateral Hx of breast cancer Special Needs *htn, b7qz-dy amllcuk-ubehzhs-hwfb dose Monday20min req GLUCOSE BY METER Routine 06/03/2024 11:4 2 AM CDT LAB RESULT - HIM SCAN 05/24/2024 12:00 AM CDT EKG CARDIAC - HIM SCAN 05/24/2024 12:00 AM CDT EKG CARDIAC - HIM SCAN 05/04/2024 12:00 AM CDT from Last 3 Months Results * Surgical Pathology Exam (06/03/2024 1:27 PM CDT) Case Report Surgical Pathology Report ? Case: [id number] ? Authorizing Provider: ??Long López, ??Collected: ? 06/03/2024 02:07 PM ? MD ? Ordering Location: ? [facility] ?Received: ?06/03/2024 02:58 PM ? [place] [facility] ? Pathologist: ? Marquise Boothe MD ? Specimens: ?? A) - Breast, Right, RIGHT BREAST ??IMPLANT AND CAPSULE ? B) - Breast, Left, LEFT BREAST IMPLANT AND CAPSULE ? 06/06/2024 3:39 PM [facility] Final Diagnosis A. Right breast implant capsule: - Breast implant identified (see gross description) with benign fibrofatty cystic capsule without appreciable inflammation or atypia B. Left breast implant and capsule: - Breast implant identified (see gross description) with benign fibrofatty cystic capsule without appreciable inflammation or atypia 06/06/2024 3:39 PM [facility] Clinical Information 63-year-old female. Procedure: Removal and enbloc capsulectomy bilateral breast reconstruction implants - Bilateral bilateral mastectomy scar revision - Bilateral Pre-op Diagnosis: History of mastectomy, bilateral [Z90.13] Hx of breast cancer [Z85.3] Post-op Diagnosis: Z90.13 - History of mastectomy, bilateral [ICD-10-CM] Z85.3 - Hx of breast cancer [ICD-10-CM] 06/06/2024 3:39 PM [facility] Gross Description A(1). Breast, Right, RIGHT BREAST IMPLANT AND CAPSULE: The specimen is received in formalin, labeled with the patient's name, medical record number and other identifying information designated right breast implant and capsule. It consists of a 800 g, 17.0 x 17.0 x 4.1 cm intact silicone breast implant. The implant is labeled as follows: Imelda, [id number], HP 800 cc. Also received is a 82.9 g, 13.4 x 12.5 x 1.4 cm segment of soft tissue consistent with breast capsule. The outer surface is coffman-pink, fibrous with minimal attached adipose tissue. The inner surface is coffman-pink, smooth, and glistening. Sectioning reveals the capsule is up to 0.1 cm thick. No tumor is identified. Die Mounter sections of capsule are submitted in 2 [...] breast implant is labeled as follows: Imelda, [id number], HP 800 cc. Also received is a 76.5 g, 13.4 x 11.3 x 1.3 cm segment of soft tissue consistent with breast capsule. The outer surface is coffman-pink, fibrous with minimal attached coffman-yellow adipose tissue. The inner lining is coffman-pink, smooth, is glistening. Sectioning reveals the capsule is up to 0.1 cm thick. No tumor is identified. Die Mounter sections of the capsule are submitted in 2 cassettes. Time collected: 1327 Time in formalin: 132[address] ([address])06/04/2024 8:41 AM 06/06/2024 3:39 PM CDT LABORATORY Microscopic Description Microscopic examination is performed with findings supportive of the diagnosis as noted. 06/06/2024 3:39 PM CDT LABORATORY Performing Labs The technical component of this testing was completed at [facility]. Stain controls for all stains [...] LABORATORY [facility] [address] 1st floor, [address] [place] [address], [facility] [phone] * ANE AIRWAY ETT PERFORMABLE (06/03/2024 12:57 PM CDT) Narrative Janett Rodriguez APRN MANAGER HOSPITALITY - 06/03/2024 12:57 PM CDT Janett Rodriguez APRN MANAGER HOSPITALITY ? 06/03/2024 ??1:08 PM Airway ? Patient location during procedure: OR ? Procedure Start/Stop Times: 06/03/2024 12:57 PM Staff - ? Anesthesiologist: ??Nasrin Palumbo MD ? MANAGER HOSPITALITY: Janett Rodriguez APRN MANAGER HOSPITALITY ? Performed By: MANAGER HOSPITALITY Consent for Airway ? Urgency: elective Indications [...] 11:42 AM CDT 06/03/2024 11:49 [address] CD[address] [facility] POCT LABORATORY POC [facility] [address] 1[address] floor, [address] [place] [address], [facility] * Lab Result - HIM Scan (05/24/2024 12:00 AM CDT) 05/24/2024 Provider Outside NON-BEAKER LAB TE STING * EKG Cardiac - HIM Scan (05/24/2024 12:00 AM CDT) Only the most recent of2 resultswithin the time period is included. 05/24/2024 Provider Outside ECG ORDERABLES from Last 3 Months Care Teams Virtual Assistant For Advertisers Relationship Specialty Start Date End Date Anneliese Mayorga MD [facility] [address] [place] [address] PCP - General Family Medicine 05/01/24
--- OUTSIDE RECORDS SUMMARY | 2024-07-16 11:51 | XMS_ITS | Encounter Summary ---
Author Organization [place] Address [address] [place] [address] Care Team Providers Care Magnetic Tape Winder Name Role Phone Anneliese Mayorga MD Primary Care Provider + Reason for Visit * Auth/Cert (Routine) Specialty Diagnoses / Procedures Referred By Zoran ibarra Referred To Contact Surgery Diagnoses History of mastectomy, bilateral Hx of breast cancer History of mastectomy, bilateral [Z90.13] Hx of breast cancer [Z85.3] Procedures DC INSERT BREAST PROS IMMED AFTER EXCIS DC DELAY BREAST PROS AFTER BREAST SURG DC BREAST RECONSTRUC W LAT DORSI FLAP DC BREAST RECONSTRUC W FREE FLAP DC BREAST RECONSTRUCTION SINGLE PEDICLED TRAM FLAP DC BREAST RECONSTRUCTION 1PEDICLED TRAM FLAP ANAST DC BREAST RECONSTRUCTION BIPEDICLED TRAM FLAP DC EXC BENIGN SKIN LESION TRUNK/ARM/LEG <=0.5 CM DC EXC BENIGN SKIN LESION TRUNK/ARM/LEG 0.6-1.0 CM DC EXC BENIGN SKIN LESION TRUNK/ARM/LEG 1.1-2.0 CM DC EXC BENIGN SKIN LESION TRUNK/ARM/LEG 2.1-3.0 CM DC EXC BENIGN SKIN LESION TRUNK/ARM/LEG 3.1-4.0 CM DC EXC BENIGN SKIN LESION TRUNK/ARM/LEG >4 CM Removal and enbloc capsulectomy bilateral breast reconstruction implants bilateral mastectomy scar revision Periop Services [address] [place] [phone] Referral ID Status Reason Start Date Expiration Date Visits Re quested Visits Authorized [id number] 1 1 Encounter Details Date Type Department Care Team (Late st Contact Info) Description 06/03/2024 1:00 PM CDT - 06/03/2024 3:[address] [facility] PeriOP Services [address] [place] [phone] Long López MD [facility] [address] [address] Removal and enbloc capsulectomy bilateral breast reconstruction [...] R econstruction 1 Lacey Sanchez PA-C Assisting Allergy Physician Authoriz ation 1 Special Needs *htn, t9nf-je vxwpwpf-zewqgbf-klue dose Sunday 05/27/38542umv req documented in this encounter Social History [...] about your procedure, call Dr López at [phone] documented in this encounter Medications at Time [...] length 64 cm SURGEON: Long López MD WHISTLE PUNK: Lacey Sanchez PA-C A surgical instrument mechanic was medically necessary for patient positioning, retraction [...] Hx of breast cancer Special Needs *htn, f3nd-pu hrqaoky-yuzoqms-nqiu dose Sunday 05/27/37958she req RECONSTRUCTION, BREAST, BILATERAL, WITH BREAST IMPLANT INSERTION 06/03/2024 12:47 PM CDT History of mastectomy, bilateral Hx of breast cancer Special Needs *htn, n2rk-ix atqcazd-sswqasw-xybt dose Sunday 05/27/50536sen req GLUCOSE BY METER Routine 06/03/2024 11:4 2 AM CDT LAB RESULT - HIM SCAN 05/24/2024 12:00 AM CDT EKG CARDIAC - HIM SCAN 05/24/2024 12:00 AM CDT EKG CARDIAC - HIM SCAN 05/04/2024 12:00 AM CDT documented in this encounter Results * Surgical Pathology Exam (06/03/2024 1:27 PM CDT) Case Report Surgical Pathology Report ? Case: [id number] ? Authorizing Provider: ??Long López, ??Collected: ? 06/03/2024 02:07 PM ? MD ? Ordering Location: ? [facility] ?Received: ?06/03/2024 02:58 PM ? [place] [facility] ? Pathologist: ? Marquise Boothe MD ? Specimens: ?? A) - Breast, Right, RIGHT BREAST ??IMPLANT AND CAPSULE ? B) - Breast, Left, LEFT BREAST IMPLANT AND CAPSULE ? 06/06/2024 3:39 PM [facility] Final Diagnosis A. Right breast implant capsule: - Breast implant identified (see gross description) with benign fibrofatty cystic capsule without appreciable inflammation or atypia B. Left breast implant and capsule: - Breast implant identified (see gross description) with benign fibrofatty cystic capsule without appreciable inflammation or atypia 06/06/2024 3:39 PM [facility] Clinical Information 63-year-old female. Procedure: Removal and enbloc capsulectomy bilateral breast reconstruction implants - Bilateral bilateral mastectomy scar revision - Bilateral Pre-op Diagnosis: History of mastectomy, bilateral [Z90.13] Hx of breast cancer [Z85.3] Post-op Diagnosis: Z90.13 - History of mastectomy, bilateral [ICD-10-CM] Z85.3 - Hx of breast cancer [ICD-10-CM] 06/06/2024 3:39 PM [facility] Gross Description A(1). Breast, Right, RIGHT BREAST IMPLANT AND CAPSULE: The specimen is received in formalin, labeled with the patient's name, medical record number and other identifying information designated right breast implant and capsule. It consists of a 800 g, 17.0 x 17.0 x 4.1 cm intact silicone breast implant. The implant is labeled as follows: Nash, [id number], HP 800 cc. Also received is a 82.9 g, 13.4 x 12.5 x 1.4 cm segment of soft tissue consistent with breast capsule. The outer surface is coffman-pink, fibrous with minimal attached adipose tissue. The inner surface is coffman-pink, smooth, and glistening. Sectioning reveals the capsule is up to 0.1 cm thick. No tumor is identified. Deck Officer sections of capsule are submitted in 2 [...] breast implant is labeled as follows: Imelda, [id number], HP 800 cc. Also received is a 76.5 g, 13.4 x 11.3 x 1.3 cm segment of soft tissue consistent with breast capsule. The outer surface is coffman-pink, fibrous with minimal attached coffman-yellow adipose tissue. The inner lining is coffman-pink, smooth, is glistening. Sectioning reveals the capsule is up to 0.1 cm thick. No tumor is identified. Deck Officer sections of the capsule are submitted in 2 cassettes. Time collected: 1327 Time in formalin: 132[address] ([address])06/04/2024 8:41 AM 06/06/2024 3:39 PM [facility] Microscopic Description Microscopic examination is performed with findings supportive of the diagnosis as noted. 06/06/2024 3:39 PM [facility] Performing Labs The technical component of this testing was completed at [facility]. Stain controls for all stains resulted within this report have been reviewed and show appropriate reactivity. 06/06/2024 3:39 PM [facility] Case Images 06/06/2024 3:39 PM T LABORATORY Implant LEFT BREAST STRUCTURE / Unknown 06/03/2024 2:07 PM CDT 06/03/2024 2:58 PM CDT Comment:RIGHT BREAST IMPLANT AND CAPSULE Implant submitted as specimen (specimen) LEFT BREAST STRUCTURE / Unknown 06/03/2024 1:27 PM CDT 06/03/2024 2:58 PM CDT Comment:LEFT BREAST IMPLANT AND CAPSULE Long [facility] [address] 1[address] floor, [address] [place] [address], [facility] [[email or web address]] [phone] * (ABNORMAL) Glucose by meter (06/03/2024 11:42 AM CDT) [facility] GLUCOSE BY METER POCT 102(H) 70 - 99 mg/dL 06/03/2024 11:49 AM CDT LABORATORY POC Blood, Capillary BLOOD SPECIMEN / Unknown 06/03/2024 11:42 AM CDT 06/03/2024 11:49 AM CDT Long [facility] POCT LABORATORY POC [facility] [address] 1[address] floor, [place] [address] [address], [facility] [[email or web address]] * Lab Result - HIM Scan (05/24/2024 [...] Juve Marcos RN)1529 ($Given - Provider: Juve E Hemant, RN) sodium chloride 0.9% (bottle) irrigation (CANCELED) PRN, Starting on Mon06/03/24 at 1310, Intra-procedure 1310 (Canceled Entry - Provider: Long López MD)1314 ($Given - Provider: Long López MD) documented in this encounter Care Teams Magnetic Tape Winder Relationship Specialty Start Date End Date Anneliese Mayorga MD [facility] & [address] [address] PCP - General Family Medicine 05/01/24 documented as of this encounter
--- OUTSIDE RECORDS SUMMARY | 2024-07-16 11:51 | XMS_ITS | Encounter Summary ---
Author Organization [place] Address [address] [place] [address] Care Team Providers Care Head Host/Hostess Name Role Phone Anneliese Mayorga MD Primary [...] [address] [place] [address] Referral ID Status Reason Start Date Expiration Date Visits Re quested Visits Authorized [id number] 1 1 Encounter Details Date Type Department Care Team (Late st Contact Info) Description 06/03/2024 12:47 PM CDT Anesthesia Event [facility] PeriOP Services [address] [place] [address] Nasrin Palumbo MD [facility] ANESTHESIOLOGY [address] [address] Anesthesia Record Procedure Summary Procedure Name Responsible Anesthesiologist Anesthesia Start Time Anesthesia Stop Time Removal and enbloc capsulectomy bilateral breast reconstruction implants (Bilateral: Breast) Nsarin Palumbo MD 06/03/24 1247 06/03/24 1458 Events [...] recorded are pre- induction. Domenica Fu APRN BAKER DOUGHNUT 1252 MD Present 1255 An Induction 1257 [...] 06/03/24; Left; Breast; Bulb (round drain); 15 Cambodian 06/03/24 0000 by Marko Colin RN 06/03/24 1833 by Inpatient, Nurse Closed/Suction Drain 06/03/24; Right; Breast; Bulb (round drain); 15 Cambodian 06/03/24 0000 by Marko Colin RN 06/03/24 [...] MAC 3; Grade View: 1; Placement Person: BAKER DOUGHNUT; Attempts: 1 06/03/24 1257 by Janett Rodriguez [...] PM Staff - Anesthesiologist: Nasrin Palumbo MD BAKER DOUGHNUT: Janett Rodriguez APRN CRNA Performed By: BAKER DOUGHNUT Consent for Airway Urgency: elective Indications and [...] and realistic alternatives discussed. Questions answered and patient/leather goods sales representative(s) expressed understanding. - Discussed: - Discussed [...] - ? Anesthesiologist: ??Nasrin Palumbo MD ? BAKER DOUGHNUT: Janett Rodriguez APRN BAKER DOUGHNUT ? Performed By: BAKER DOUGHNUT Consent for Airway ? Urgency: elective Indications [...] Time: 06/03/2024 12:57 PM Nasrin Palumbo MD IN ANESTHESIA documented in this encounter Visit Diagnoses [...] mg documented in this encounter Care Teams Head Host/Hostess Relationship Specialty Start Date End Date Anneliese Mayorga MD [address] [address] PCP - General Family Medicine 05/01/24 documented as of this encounter
--- OUTSIDE RECORDS SUMMARY | 2024-07-16 11:51 | XMS_ITS | Encounter Summary ---
Author Organization [place] Address [address] [place] [address] Care Team Providers Care Improvement Spec Name Role Phone Anneliese Mayorga MD Primary [...] on filedocumented in this encounter Care Teams Improvement Spec Relationship Specialty Start Date End Date Anneliese Mayorga MD [facility] & [address] [address] PCP - General Family Medicine 05/01/24 documented as of this encounter
--- OUTSIDE RECORDS SUMMARY | 2024-07-16 11:51 | XMS_ITS | Encounter Summary ---
Author Organization [place] Address [address] [place] [address] Care Team Providers Care Technical Support Agent Name Role Phone Anneliese Mayorga MD Primary Care Provider + Reason for Visit * Auth/Cert (Routine) Specialty Diagnoses / Procedures Referred By Zoran ibarra Referred To Contact Surgery Diagnoses History of mastectomy, bilateral Hx of breast cancer History of mastectomy, bilateral [Z90.13] Hx of breast cancer [Z85.3] Procedures CO INSERT BREAST PROS IMMED AFTER EXCIS CO DELAY BREAST PROS AFTER BREAST SURG CO BREAST RECONSTRUC W LAT DORSI FLAP CO BREAST RECONSTRUC W FREE FLAP CO BREAST RECONSTRUCTION SINGLE PEDICLED TRAM FLAP CO BREAST RECONSTRUCTION 1PEDICLED TRAM FLAP ANAST CO BREAST RECONSTRUCTION BIPEDICLED TRAM FLAP CO EXC BENIGN SKIN LESION TRUNK/ARM/LEG <=0.5 CM CO EXC BENIGN SKIN LESION TRUNK/ARM/LEG 0.6-1.0 CM CO EXC BENIGN SKIN LESION TRUNK/ARM/LEG 1.1-2.0 CM CO EXC BENIGN SKIN LESION TRUNK/ARM/LEG 2.1-3.0 CM CO EXC BENIGN SKIN LESION TRUNK/ARM/LEG 3.1-4.0 CM CO EXC BENIGN SKIN LESION TRUNK/ARM/LEG >4 CM Removal and enbloc capsulectomy bilateral breast reconstruction implants bilateral mastectomy scar revision Periop Services [address] [place] [address] Referral ID Status Reason Start Date Expiration Date Visits Re quested Visits Authorized [id number] 1 1 Encounter Details Date Type Department Care Team (Latest Contact Info) Description 06/03/2024 10:52 AM CDT - 06/03/2024 5:33 PM CDT Hospital Encounter [facility] PreOP/Phase II [address] [place] [phone] Long López MD [facility] [address] [address] S/p breast implant removal (Primary Dx) Discharge [...] about your procedure, call Dr López at [phone] documented in this encounter Medications at Time [...] length 64 cm SURGEON: Long López MD TOBACCO DRUMMER: Lacey Sanchez PA-C A surgical physician assistant was medically necessary for patient positioning, retraction [...] above Specimens: bilateral breast implants and capsules oLng López MD on 06/03/2024 at 2:52 PM documented in this encounter Plan of Treatment Not on file documented as of this encounter Procedures Procedure Name Priority Date/Time Associated Diagnosis Comments SURGICAL PATHOLOGY EXAM Routine 06/03/2024 1:27 PM CDT REVISION, SCAR, BREAST 06/03/2024 12:47 PM CDT History of mastectomy, bilateral Hx of breast cancer Special Needs *htn, f2ex-to pfriqzv-yqukfwf-xsxl dose Mondaymin req RECONSTRUCTION, BREAST, BILATERAL, WITH BREAST IMPLANT INSERTION 06/03/2024 12:47 PM CDT History of mastectomy, bilateral Hx of breast cancer Special Needs *htn, v2la-ha ospvwmu-cvgylnu-qsat dose Monday20min req GLUCOSE BY METER Routine 06/03/2024 11:4 2 AM CDT LAB RESULT - HIM SCAN 05/24/2024 12:00 AM CDT EKG CARDIAC - HIM SCAN 05/24/2024 12:00 AM CDT EKG CARDIAC - HIM SCAN 05/04/2024 12:00 AM CDT documented in this encounter Results * Surgical Pathology Exam (06/03/2024 1:27 PM CDT) Case Report Surgical Pathology Report ? Case: [id number] ? Authorizing Provider: ??Long López, ??Collected: ? 06/03/2024 02:07 PM ? MD ? Ordering Location: ? [facility] ?Received: ?06/03/2024 02:58 PM ? [place] Main [...] appreciable inflammation or atypia 06/06/2024 3:39 PM [facility] Clinical Information 63-year-old female. Procedure: Removal and enbloc capsulectomy bilateral breast reconstruction implants - Bilateral bilateral mastectomy scar revision - Bilateral Pre-op Diagnosis: History of mastectomy, bilateral [Z90.13] Hx of breast cancer [Z85.3] Post-op Diagnosis: Z90.13 - History of mastectomy, bilateral [ICD-10-CM] Z85.3 - Hx of breast cancer [ICD-10-CM] 06/06/2024 3:39 PM [facility] Gross Description A(1). Breast, Right, RIGHT BREAST IMPLANT AND CAPSULE: The specimen is received in formalin, labeled with the patient's name, medical record number and other identifying information designated right breast implant and capsule. It consists of a 800 g, 17.0 x 17.0 x 4.1 cm intact silicone breast implant. The implant is labeled as follows: Imelda, [id number], HP 800 cc. Also received is a 82.9 g, 13.4 x 12.5 x 1.4 cm segment of soft tissue consistent with breast capsule. The outer surface is coffman-pink, fibrous with minimal attached adipose tissue. The inner surface is coffman-pink, smooth, and glistening. Sectioning reveals the capsule is up to 0.1 cm thick. No tumor is identified. Assembly Machine Tool Setter sections of capsule are submitted in 2 [...] breast implant is labeled as follows: Imelda, [id number], HP 800 cc. Also received is a 76.5 g, 13.4 x 11.3 x 1.3 cm segment of soft tissue consistent with breast capsule. The outer surface is coffman-pink, fibrous with minimal attached coffman-yellow adipose tissue. The inner lining is coffman-pink, smooth, is glistening. Sectioning reveals the capsule is up to 0.1 cm thick. No tumor is identified. Assembly Machine Tool Setter sections of the capsule are submitted in 2 cassettes. Time collected: 1327 Time in formalin: 1327 ([address])06/04/2024 8:41 AM 06/06/2024 3:39 PM CDT LABORATORY Microscopic Description Microscopic examination is performed with findings supportive of the diagnosis as noted. 06/06/2024 3:39 PM CDT LABORATORY Performing Labs The technical component of this testing was completed at [facility]. Stain controls for [...] CAPSULE Long [facility] [address] 1[address] floor, [address] [place] [address], [facility] [phone] * (ABNORMAL) Glucose by meter (06/03/2024 11:42 AM CDT) GLUCOSE BY METER POCT 102(H) 70 - 99 mg/dL 06/03/2024 11:49 AM CDT LABORATORY POC Blood, Capillary BLOOD SPECIMEN / Unknown 06/03/2024 11:42 AM CDT 06/03/2024 11:49 AM CDT Long óLpez MD LAB - BEAKER POCT LABORATORY POC [facility] [address], [address] [place] [address] * Lab Result - HIM [...] Comment: Switch to gravity)1247 (Restarted - Provider: Jantet Rodriguez APRN CRNA)1421 (Anesthesia Volume Adjustment - [...] MD) documented in this encounter Care Teams Technical Support Agent Relationship Specialty Start Date End Date Anneliese Mayorga MD [facility] & [address] [address] PCP - General Family Medicine 05/01/24 documented as of this encounter
--- OUTSIDE RECORDS SUMMARY | 2024-07-16 11:51 | XMS_ITS | Clinical Summary ---
Author Organization [employer] Address [place], [place] [address] Care Team Providers Care Braid Maker Name Role Phone Lakisha Ramirezhleen Pina HOWARD [...] every 4 weeks. 06/01/2023 Active HYDROcodone-acetami nophen (Schriever) (5-325 mg/tablet)Indicatio ns:Chronic pain of left knee [...] Encounters Date Type Department Care Team Description 06/18/2024 3:00 PM CDT Procedure Only [facility] [address] [place] [place] [address] Jed Wong MD Procedure (Right knee genicular nerve block ) 06/17/2024 10:40 AM CDT Office Visit [facility] [address] [place] [address] Jed Wong MD Musculoskeletal Problem (Consult right [...] Body Mass Index 42.66 10/04/2023 3:09 PM TOP INVENTORY CONTROL EXECUTIVE Plan of Treatment Upcoming Encounters Date Type Department Care Team (Late st Contact Info) Description 07/16/2024 1:00 PM CDT Procedure Only [facility] [address] [place] [address] Jed Wong MD [address] [place] [address] Arrived Health Maintenance Due Date Last Done [...] this topic Medical Devices Implanted Type Area Burn Crew Member Device Identifier Shelf Expiration Date Model / Serial / Lot [id number] [id number] Implanted:Qty: 1 on 11/21/2012 at [facility] Left: Breast [employer] - Inamed [id number] / [id number] / Description:TISSUE RETAIL STOCKER [id number] [id number] Mammary 800cc [[id number]] Implanted:Qty: 1 on 06/26/2013 at [facility] Left: Breast [employer] [id number] # / [id number] breast 800cc Memorygel Rnd High Smooth Silcn - [id number] Implanted:Qty: 1 on 06/26/2013 at [facility] Explanted:at [facility] (Quantity not on file) Right: Breast [employer] 03/29/2018 [id number] # / [id number] / [id number] Procedures Procedure Name Priority Date/Time Associated Diagnosis Comments NM INJECTION AA&/STRD GENICULAR NRV BRANCHES W/IMG Routine 06/18/2024 12:00 AM CDT Primary osteoarthritis of right knee Chronic pain of right knee Lumbar radiculopathy from Last 3 Months Results * NM INJECTION AA&/STRD GENICULAR NRV BRANCHES W/IMG (06/18/2024 12:00 AM CDT) Jed Wong MD PB - NERVOUS SYSTE M SERVICES from Last 3 Months Advance Directives * Full Code (Latest Code [...] 6:23 AM 11/21/2012 8:45 AM Care Teams Braid Maker Relationship Specialty Start Date End Date Brigitte Ramirez DO PCP - General Family Practice 06/24/13
--- OUTSIDE RECORDS SUMMARY | 2024-07-16 11:52 | XMS_ITS | Encounter Summary ---
Author Organization [employer] Address [address] [address] Care Team Providers Care Electrical Repairer Name Role Phone Needs Pcp, Assignment Primary Care Provider [phone] Reason for Visit * Reason Comments Refill COSENTYX SENSOREADY PEN 150 MG/ML injection pen [Pharmacy Med Name: COSENTYX 150MG/ML SENSOREADY PEN] Encounter Details Date Type Department Care Team (Late st Contact Info) Description 06/04/2024 Refill Rheumatology at [address] [place], [place] [address] Teresa Cameron MD [address] [place] [phone] Refill (COSENTYX SENSOREADY PEN 150 MG/ML injection [...] TERESA CAMERON Ordering User: MARJORIE DUBOIS * Omar Up Xrwcomm - 06/04/2024 12:08 PM CDT COSENTYX [...] inflammation (changed) [employer] Embedded Refills, Reference: [id number], 06/04/2024 12:08:07 PM CDT, Pool: RHEUM PN REFILL [[id number]] ([id number]) documented in this encounter Plan of Treatment Upcoming Encounters Date Type Department Care Team (Late st Contact Info) Description 08/14/2024 4:00 PM CDT Appointment Rheumatology at [facility] [address] [id number] Teresa Cameron MD [address] [place], [place] [phone] documented as of this encounter Visit Diagnoses Not on filedocumented in this encounter Care Teams Electrical Repairer Relationship Specialty Start Date End Date Needs Pcp, Assignment [place], [place] [id number] PCP - General 10/07/21 documented as of this encounter
--- OUTSIDE RECORDS SUMMARY | 2024-07-16 11:52 | XMS_ITS | Clinical Summary ---
Author Organization [employer] Address [address] [place] [address] Care Team Providers Care Chair Installer Name Role Phone Needs Pcp, Assignment Primary Care Provider [phone] Source Comments You are receiving this document [...] for each transition of care or referral. [employer] Allergies Active Allergy Reactions Criticality Noted Date [...] mg) by mouth every morning. 04/14/2023 Active semaglutide (OZEMPIC, 0.25/0.5 MG/DOSE,) 2 MG/1.5ML injection Inject 0.25 mg subcutaneously once a week. 04/03/2024 Active DULoxetine (CYMBALTA) 30 MG capsule Take 1 Capsule (30 mg) by mouth daily. 90 Capsule 1 04/17/2024 Active predniSONE (DELTASONE) 5 MG tablet Take 20 mg/d for 3 days, 10 mg/d for 3 days, 5 mg/d for 3 days and then stop. 50 Tablet 06/17/2024 Active pregabalin (LYRICA) 50 MG capsule Take 1 Capsule (50 mg) by mouth two times a day. 180 Capsule 1 06/17/2024 06/17/20 25 Active secukinumab (COSENTYX SENSOREADY PEN) 150 MG/ML injection penIndications:A nkylosing Spondylitis,M45. 9 Inject 2 mL (300 mg) subcutaneously every 4 weeks. 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 Indications: Rheumatic Disease causing Vertebrae Inflammation 1 mL 11 06/04/2024 07/08/20 24 Discontinu ed(*Med change OR same med OR reorder, new dose/direc tions) Active Problems Problem Noted Date Diagnosed Date Spondyloarthritis 04/21/2021 Encounters Date Type Department Care Team Description 07/03/2024 Telephone Rheumatology at [address] [place] [address] Malia Kearney PA-C PHONE CALL TO PATIENT; Prior Authorization For Medication (Cosenytx dose increase) 06/27/2024 8:00 AM CDT Ancillary Procedure [facility] [address] [place] [address] Malia Kearney PA-C Chronic back pain, unspecified back location, unspecified back pain laterality; Chronic pain of lower extremity, bilateral 06/27/2024 7:20 AM CDT Lab Visit [facility] [address] [place] [phone] Chronic pain of lower extremity, bilateral 06/17/2024 8:00 AM CDT Office Visit Rheumatology at [facility] [address] [address] [address] [place] [address] Zaudke, Malia M, PA-C Spondyloarthritis (HRC) (Primary Dx); Anti-cyclic citrullinated peptide antibody positive; Osteoarthritis of multiple joints, unspecified osteoarthritis type; Chronic back pain, unspecified back location, unspecified back pain laterality; Primary osteoarthritis of both knees; Chronic pain of lower extremity, bilateral; Myofascial pain; Chronic pain syndrome; High risk medication use; 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; 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) 06/04/2024 Refill Rheumatology at [place] [address] [place] [address] Teresa Morales MD Refill (COSENTYX SENSOREADY PEN 150 MG/ML injection pen [Pharmacy Med Name: COSENTYX 150MG/ML SENSOREADY PEN]) 04/17/2024 4:00 PM CDT Office Visit [facility] at [facility] [address] [address] Teresa Morales MD Spondyloarthritis (HRC) (Primary Dx); Osteoarthritis of multiple joints, unspecified osteoarthritis type; Myofascial pain; 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); 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 from Last 3 Months Immunizations Name Administration Dates Next Due Flu Vac (3+ yrs) 07/24/2012 Flublok (RIV4) 09/11/2020 Influenza LAIV3 2-49 years (Flumist) 08/16/2010 Pfizer Monovalent 12+ Purple Top 02/06/2021,03/2 [...] 08/14/2024 4:00 PM CDT Appointment Rheumatology at [facility] [address] [address] [place] [address] Teresa Morales MD [address] [place] [address] Health Maintenance Due Date Last Done Comments Cervical Cancer Screening Due 1962 Colon Cancer Screening Plan Due 1962 MTM Covered 1962 Mammogram 1962 Adult Preventive Visit 1980 Cholesterol 2007 RSV (1 - Risk 60-74 years 1-dose series) 2022 COVID-19 Vaccine ( - season) 2024 02/06/2021, 01/16/2021 Influenza (#1) 2024 12/08/2023, 09/29, [...] Date/Time Associated Diagnosis Comments MR LUMBAR SPINE W/WO IV CONT Routine 06/27/2024 8:29 AM CDT Chronic back pain, unspecified back location, unspecified back pain laterality Chronic pain of lower extremity, bilateral CK, TOTAL Routine 06/27/2024 7:15 AM CDT Chronic pain of lower extremity, bilateral C-REACTIVE PROTEIN Routine 06/27/2024 7: 15 AM CDT Chronic pain of lower extremity, bilateral SEDIMENTATION RATE (ESR) Routine 06/27/2024 7:15 AM CDT Chronic pain of lower extremity, bilateral HIV 1/2 AG/AB 4TH GEN Routine 11/04/2020 12:43 PM HYBRID CORN BREEDER Inflammatory arthritis HEPATITIS PANEL ACUTE WITH REFLEX TO CONFIRMATION Routine 11/04/2020 12:43 PM HYBRID CORN BREEDER Inflammatory arthritis from Last 3 Months or Most Recently Relevant to Health Maintenance Results * MR Lumbar Spine W/WO IV Cont (06/27/2024 8:29 AM CDT) Anatomical Region Laterality Modality Spine, L-Spine, Skeletal, MSK Ma gnetic Resonance 06/27/2024 7:50 AM CDT Impressions 06/27/2024 4:03 PM CDT INDICATION: Chronic low back pain with intermittent bilateral lower extremity pain ?? TECHNIQUE: ??MRI of the lumbar spine with and without contrast, GADOBUTROL 1 MMOL/ML IV SOLN 12 mL. COMPARISON: ??05/19/2023. ? FINDINGS: Sagittal: ??Five lumbar-type vertebral bodies. ??The conus medullaris terminates at the level of the T12-L1 disc space Normal cord signal. ??Small multilevel Schmorl's nodes. Mild multilevel Modic type II degenerative endplate signal changes most pronounced at T12-L1. ??Slight grade 1 retrolisthesis of L2 on L3 and L3 on L4. ??Normal enhancement. The visualized paraspinal structures are unremarkable. Axial: T12-L1: Unremarkable. L1-2: Unremarkable. L2-3: Minimal disc bulge. Mild facet arthropathy with small facet effusions. No canal or foraminal stenosis. No change. L3-4: Minimal disc bulge. Mild facet arthropathy with small facet effusions. No canal or foraminal stenosis. No change. L4-5: Unremarkable. ?? L5-S1: Llug-ag-kbotpmar bilateral facet arthropathy. No canal or foraminal stenosis. No change. IMPRESSION: ?? 1. Stable degenerative changes compared to the prior MRI lumbar spine from 05/19/2023 without high-grade canal or foraminal stenosis at any lumbar level. 2. No abnormal enhancement. Comment: Many lumbar spine MRI findings are [...] (4-83%). Frequency percentages adapted from Mariya W, Luderekmer PH, Jorje B, et al. AJNR AM J Neuroradiol 2015:36:811-16. Narrative Procedure Note Migue Szymanski MD - 06/27/2024 IMPRESSION INDICATION: Chronic low back pain with intermittent bilateral lowerextremity pain TECHNIQUE: MRI of the lumbar spine with and without contrast, GADOBUTROL1 MMOL/ML IV SOLN 12 mL. COMPARISON: 05/19/2023. FINDINGS: Sagittal: Five lumbar-type vertebral bodies. The conus medullaristerminates at the level of the T12-L1 disc space Normal cord signal.Small multilevel Schmorl's nodes. Mild multilevel Modic type IIdegenerative endplate signal changes most pronounced at T12-L1. Slightgrade 1 retrolisthesis of L2 on L3 and L3 on L4. Normal enhancement. Thevisualized paraspinal structures are unremarkable. Axial: T12-L1: Unremarkable. L1-2: Unremarkable. L2-3: Minimal disc bulge. Mild facet arthropathy with small faceteffusions. No canal or foraminal stenosis. No change. L3-4: Minimal disc bulge. Mild facet arthropathy with small faceteffusions. No canal or foraminal stenosis. No change. L4-5: Unremarkable. L5-S1: Iyhy-me-ctmerxjx bilateral facet arthropathy. No canal or foraminalstenosis. No change. IMPRESSION: 1. Stable degenerative changes compared to the prior MRI lumbar spine from05/19/2023 without high-grade canal or foraminal stenosis at any lumbarlevel. 2. No abnormal enhancement. Comment: Many lumbar spine MRI findings are [...] degeneration(4-83%). Frequency percentages adapted from Mariya W, Luderekmer PH, [place] B, etal. AJNR AM J Neuroradiol 2015:36:811-16. Malia Kearney PA-C RAD MRI * (ABNORMAL) C-Reactive Protein - CRP (06/27/2024 7:15 AM CDT) C-Reactive Protein 2.6(H) 0.0 - 0.5 mg/dL 06/27/2024 10:03 AM CDT [facility] Blood Venipuncture / Unknown 06/27/2024 7:15 AM CDT 06/27/2024 7:41 AM CDT Malia SNELLC LAB_1 Performing Organization Address [facility] de Phone Number [facility] [address] [phone] * (ABNORMAL) CK, Total (06/27/2024 7:15 AM CDT) Pathologist [facility] CK, Total 18(L) 29 - 168 U/L 06/27/2024 10:03 AM CDT [facility] Blood Venipuncture / Unknown 06/27/2024 7:15 AM CDT 06/27/2024 7:41 AM CDT Malia Arnoldramu CEVALLOS LAB_1 Performing Organization Address [facility] de Phone Number [facility] [id number] [place] [address] [place] [address] * (ABNORMAL) Sedimentation Rate (ESR) (06/27/2024 7:15 AM CDT) [facility] Sedimentation Rate 45(H) 0 - 20 mm/hr 06/27/2024 1:08 PM CDT [facility] Blood Venipuncture / Unknown 06/27/2024 7:15 AM CDT 06/27/2024 7:41 AM CDT Malia Arnoldramu CE[facility] LAB_1 Performing Organization Address [facility] de Phone Number [facility] [address] [place], [place] [phone] * Hepatitis Panel with Reflex to Confirmation (11/04/2020 12:43 PM HYBRID CORN BREEDER) Pathologist [facility] Hepatitis A Antibody, IgM Negative (Non Reactive) Negative (Non Reactive) 11/04/2020 4:30 PM HYBRID CORN BREEDER [facility] Comment:IgM anti-HAV not det ected. Does not exclude the possibility of exposure to or infection with HAV. Levels of IgM anti-HAV may be below the cut-off in early infection. Hepatitis Bc Antibody,IgM Negative (Non Reactive) Negative (Non-Reacti ve) 11/04/2020 4:30 PM HYBRID CORN BREEDER [facility] Comment:IgM anti-HBc not det ected. Does not exclude the possibility of exposure to or infection with HBV. Hepatitis B Surface Antigen Negative (Non Reactive) Negative (Non Reactive) 11/04/2020 4:30 PM HYBRID CORN BREEDER [facility] Hepatitis C Antibody Negative (Non Reactive) Negative (Non Reactive) 11/04/2020 4:30 PM HYBRID CORN BREEDER [facility] Comment:Antibodies to HCV no t detected. Does not exclude the possiblity of exposure to HCV. Blood Venipuncture / Unknown 11/04/2020 12:43 PM HYBRID CORN BREEDER 11/04/2020 12:43 PM HYBRID CORN BREEDER Teresa Morales MD LAB_1 Performing Organization Address City/[facility]/ZIP Co de Phone Number [facility] [address] * HIV 1/2 Ag/Ab 4th Generation (11/04/2020 12:43 PM HYBRID CORN BREEDER) HIV 1/2 Antigen/Antib jeremy (4th generation) Negative (Non Reactive) Negative (Non Reactive) 11/06/2020 11:07 AM HYBRID CORN BREEDER [facility] Comment:HIV-1 p24 Antigen an d HIV-1/HIV-2 Antibody not detected Blood Venipuncture / Unknown 11/04/2020 12:43 PM HYBRID CORN BREEDER 11/04/2020 12:43 PM HYBRID CORN BREEDER Teresa Morales MD LAB_1 Performing Organization Address City/[facility] Co de Phone Number [facility] [address] from Last 3 Months or Most Recently Relevant to Health Maintenance Care Teams Chair Installer Relationship Specialty Start Date End Date Needs Pcp, [place] [address] PCP - General 10/07/21
--- OUTSIDE RECORDS SUMMARY | 2024-07-16 11:52 | XMS_ITS | Encounter Summary ---
Author Organization formerly [facility] Address [address] [address] Care Team Providers Care Sewage Disposal Worker Name Role Phone Needs Pcp, Assignment Primary Care Provider [phone] Encounter Details Date Type Department Care Team (Late Contact Info) Description 03/28/2024 E-Visit [facility] [address] [place] [phone] Mychart, [place] [address] Social History Tobacco Use Types Packs/Day Years [...] Upcoming Encounters Date Type Department Care Team ([facility] Contact Info) Description 08/14/2024 4:00 PM CDT Appointment Rheumatology at [facility] [place] [address] [place] [phone] Teresa Morales MD [address] [place], [place] [address] documented as of this encounter Visit Diagnoses Not on filedocumented in this encounter Care Teams Sewage Disposal Worker Relationship Specialty Start Date End Date Needs Pcp, Assignment [place], [place] [phone] PCP - General 10/07/21 documented as of this encounter
--- OUTSIDE RECORDS SUMMARY | 2024-07-16 11:52 | XMS_ITS | Encounter Summary ---
Author Organization [employer] Address [address] [address] Care Team Providers Care Clinical Data Specialist Name Role Phone Needs Pcp, Assignment Primary Care Provider [phone] Reason for Visit * Reason Comments PHONE CALL TO PATIENT Prior Authorization For Medication Cosen ytx dose increase Encounter Details Date Type Department Care Team (Late st Contact Info) Description 07/03/2024 Telephone Rheumatology at [place] [address] [address] [place] [address] Malia Kearney PA-C [address] [place], [place] [phone] PHONE CALL TO PATIENT; Prior Authorization For Medication (Cosenytx dose increase) Social History Tobacco Use Types Packs/Day Years Used Date Smoking Tobacco: Never Smokeless Tobacco: Never Alcohol Use Standard Drinks/Week Comments Yes 0 (1 standard drink = 0.6 oz pur e alcohol) Sex and Gender Information Value Date Recorded Sex Assigned at Not on file Gender Identity Not on file Sexual Orientation Not on file documented as of this encounter Nursing Notes * Kate Alejandre - 07/08/2024 10:22 AM CDT Images from the original note were not included. 300 mg dose covered by current PA Updated script t'd to [facility]. * Georgie Jiang RN - 07/04/2024 4:33 PM CDT Spoke with pt, given this information and verbalized understanding. * Malia Kearney PA-C - 07/04/2024 3:57 PM CDT I have started the prior authorization for the increased dose of Cosentyx. * Astrid Adams RN - 07/03/2024 12:21 PM CDT Patient called back, she is agreeable to try the increase. * Ludmila Fofana RN - 07/03/2024 11:32 AM CDT Left message for patient to return call. * Malia eKarney PA-C - 07/03/2024 8:31 AM CDT Please give Annamaria a quick call. I spoke with Dr. Morales. We are still not completely sure what is causing her flares of severe bilateral leg pain. I do think that the osteoarthritis in her knees is likely playing a role. However, given the elevated C-reactive protein inflammation test and the ongoing symptoms we think that it would be reasonable to try increasing the Cosentyx to 300 mg monthly. If she is agreeable to this I will start the prior authorization process to update the dose. documented in this encounter Plan of Treatment Upcoming Encounters Date Type Department Care Team (Late st Contact Info) Description 08/14/2024 4:00 PM CDT Appointment Rheumatology at [facility] [address] [place] [address] [place] [address] Teresa Morales MD [address] [place] [address] documented as of this encounter Visit Diagnoses Not on filedocumented in this encounter Care Teams Clinical Data Specialist Relationship Specialty Start Date End Date Needs Pcp, [place] [address] PCP - General 10/07/21 documented as of this encounter
--- OUTSIDE RECORDS SUMMARY | 2024-07-16 11:52 | XMS_ITS | Encounter Summary ---
Author Organization [employer] Address [address], [place] [address] Care Team Providers Care Smoke Jumper Name Role Phone Needs Pcp, Assignment Primary Care Provider [phone] Reason for Visit * Procedure/Equipment (Routine) - Incomplete Specialty Diagnoses / Procedures Referred By Frenchac t Referred To Contact Diagnoses Chronic back pain, unspecified back location, unspecified back pain laterality Chronic pain of lower extremity, bilateral Procedures MR Lumbar Spine W/WO IV Cont Malia Kearney PA-C [address] [place] [address] Referral ID Status Reason Start Date Expiration Date V isits Requested Visits Authorized [id number] Incomplete 06/17/2024 09/16/2025 1 1 Encounter Details Date Type Department Care Team (Latest Contact Info) Description 06/27/2024 8:00 AM CDT Ancillary Procedure [facility] [place] [address] [place] [address] Malia Kearney PA-C [address] [place] [address] Chronic back pain, unspecified back location, unspecified back pain laterality; Chronic pain of lower extremity, bilateral Social History Tobacco Use Types Packs/Day Years [...] 08/14/2024 4:00 PM CDT Appointment Rheumatology at [facility] [address] [address] [place] [address] Teresa Morales MD [address] [place] [address] documented as of this encounter Procedures Procedure Name Priority Date/Time Associated Diagnosis Comments MR LUMBAR SPINE W/WO IV CONT Routine 06/27/2024 8:29 AM CDT Chronic back pain, unspecified back location, unspecified back pain laterality Chronic pain of lower extremity, bilateral documented in this encounter Results * MR Lumbar Spine W/WO IV [...] stenosis. No change. L4-5: Unremarkable. ?? L5-S1: Upzn-ud-tmlwzoht bilateral facet arthropathy. No canal or foraminal [...] foraminal stenosis. No change. L4-5: Unremarkable. L5-S1: Lowy-ro-pyteebsd bilateral facet arthropathy. No canal or foraminalstenosis. [...] Neuroradiol 2015:36:811-16. Malia Kearney PA-C RAD MRI documented in this encounter Visit Diagnoses Diagnosis Chronic back pain, unspecified back location, unspecified back pain laterality Chronic pain of lower extremity, bilateral documented in this encounter Administered Medications Inactive Administered Medications - up to 3 most recent administrations Medication Order MAR Action Action Date Dose Rate Site gadobutrol (GADAVIST) 1 MMOL/ML injection 12 mL 12 mL, Intravenous, ONCE, On Kavya 06/27/24 at 0815, For 1 dose Given 06/27/2024 8:23 AM CDT 12 mL sodium chloride 0.9% injection 20 mL 20 mL, Intravenous, ONCE, On Kavya 06/27/24 at 0815, For 1 dose Given 06/27/2024 8:24 AM CDT 20 mL documented in this encounter Care Teams Smoke Jumper Relationship Specialty Start Date End Date Needs Pcp, [place] [address] PCP - General 10/07/21 documented as of this encounter
--- OUTSIDE RECORDS SUMMARY | 2024-07-16 11:52 | XMS_ITS | Encounter Summary ---
Author Organization [employer] Address [address], [place] [address] Care Team Providers Care Supply And Distribution Manager Name Role Phone Needs Pcp, Assignment Primary Care Provider [phone] Reason for Visit * Reason Comments Follow-up Encounter Details Date Type Department Care Team (Late st Contact Info) Description 04/17/2024 4:00 PM CDT Office Visit Rheumatology at [facility] [address] [address] Teresa Morales MD [address] [place], [place] [address] Spondyloarthritis (HRC) (Primary Dx); Osteoarthritis of multiple joints, unspecified osteoarthritis type; Myofascial pain; 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 Outside records received and reviewed from [facility]. She had been seen by her [...] Given recommendations for additional providers versus the [facility] as patient had requested. Interim history: Patient [...] research on this, she is going to [facility].She just took her Cosentyx last [...] 22 (negative) CCP 233 Outside records from [place] reviewed August 2020: slightly elevated RF at [...] Billing based on: complexity Teresa Morales MD [facility] Rheumat[facility] documented in this encounter Plan of Treatment Upcoming Encounters Date Type Department Care Team (Late st Contact Info) Description 08/14/2024 4:00 PM CDT Appointment Rheumatology at [facility] [address] [id number] Teresa Morales MD [address] [place] [address] documented as of this encounter Visit Diagnoses Diagnosis Spondyloarthritis (HRC)- Primary Spondylosis of unspecified site without mention of myelopathy Osteoarthritis of multiple joints, unspecified osteoarthritis type Myofascial pain Mylagia and myositis, unspecified 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
--- OUTSIDE RECORDS SUMMARY | 2024-07-16 11:52 | XMS_ITS | Encounter Summary ---
Author Organization [employer] Address [address] [address] Care Team Providers Care Ent Surgeon Name Role Phone Needs Pcp, Assignment Primary Care Provider [phone] Encounter Details Date Type Department Care Team (Late st Contact Info) Description 06/27/2024 7:20 AM CDT Lab Visit [facility] [address] [place] [address] Chronic pain of lower extremity, bilateral Social [...] Encounters Date Type Department Care Team (Late Contact Info) Description 08/14/2024 4:00 PM CDT Appointment Rheumatology at [facility] [address] [address] [address] [place] [address] Teresa Morales MD [address] [place] [address] documented as of this encounter Procedures Procedure Name Priority Date/Time Associated Diagnosis Comments C-REACTIVE PROTEIN Routine 06/27/2024 7: 15 AM CDT Chronic pain of lower extremity, bilateral CK, TOTAL Routine 06/27/2024 7:15 AM CDT Chronic pain of lower extremity, bilateral SEDIMENTATION RATE (ESR) Routine 06/27/2024 7:15 AM CDT Chronic pain of lower extremity, bilateral documented in this encounter Results * (ABNORMAL) CK, Total (06/27/2024 7:15 AM CDT) CK, Total 18(L) 29 - 168 U/L 06/27/2024 10:03 AM CDT [facility] Blood Venipuncture / Unknown 06/27/2024 7:15 AM CDT 06/27/2024 7:41 AM CDT Malia Kearney PA-C LAB_1 Performing Organization Address [facility]/ZIP Co de Phone Number [facility] [address] [place] [address] [place] [address] * (ABNORMAL) C-Reactive Protein - CRP (06/27/2024 7:15 AM CDT) Pathologist [facility] C-Reactive Protein 2.6(H) 0.0 - 0.5 mg/dL 06/27/2024 10:03 AM CDT [facility] Blood Venipuncture / Unknown 06/27/2024 7:15 AM CDT 06/27/2024 7:41 AM CDT Malia Kearney PA-C LAB_1 [facility] [address] * (ABNORMAL) Sedimentation Rate (ESR) (06/27/2024 7:15 AM CDT) Pathologist [facility] Sedimentation Rate 45(H) 0 - 20 mm/hr 06/27/2024 1:08 PM CDT [facility] Blood Venipuncture / Unknown 06/27/2024 7:15 AM CDT 06/27/2024 7:41 AM CDT Malia Kearney PA-C LAB_1 [facility] [address] [place] [address] documented in this encounter Visit Diagnoses Diagnosis Chronic pain of lower extremity, bilateral documented in this encounter Care Teams Ent Surgeon Relationship Specialty Start Date End Date Needs Pcp, [place] [address] PCP - General 10/07/21 documented as of this encounter
--- OUTSIDE RECORDS SUMMARY | 2024-07-16 11:52 | XMS_ITS | Encounter Summary ---
Author Organization [employer] Address [address] [address] Care Team Providers Care Manager Of Training And Development Name Role Phone Needs Pcp, Assignment Primary Care Provider [phone] Reason for Referral * Procedure/Equipment (Routine) - Incomplete Specialty Diagnoses / Procedures Referred By Zoran t Referred To Contact Diagnoses Chronic back pain, unspecified back location, unspecified back pain laterality Chronic pain of lower extremity, bilateral Procedures MR Lumbar Spine W/WO IV Cont Malia Kearney PA-C [address] [place] [address] Referral ID Status Reason Start Date Expiration Date V isits Requested Visits Authorized [id number] Incomplete 06/17/2024 09/16/2025 1 1 Reason for Visit * Reason Comments Follow-up Encounter Details Date Type Department Care Team (Latest Contact Info) Description 06/17/2024 8:00 AM CDT Office Visit Rheumatology at [facility] [address] [id number] Malia Kearney PA-C [address] [place], [place] [address] Spondyloarthritis (HRC) (Primary Dx); Anti-cyclic citrullinated peptide antibody positive; Osteoarthritis of multiple joints, unspecified osteoarthritis type; Chronic back pain, unspecified back location, unspecified back pain laterality; Primary osteoarthritis of both knees; Chronic pain of lower extremity, bilateral; Myofascial pain; Chronic pain syndrome; High risk medication use; MCFP current use of systemic steroids; Immunosuppression due [...] research on this, she is going to [facility]. November 2023: Continued to have [...] Given recommendations for additional providers versus the [facility] as patient had requested. March [...] History: . 2 adult children. Lives in [place]. Nonsmoker. No significant alcohol use. Patient Active Problem List Diagnosis Date Noted Spondyloarthritis ([facility]) 04/21/2021 Allergies Allergen Reactions Lisinopril Other, see [...] answered. Malia Kearney PA-C Department of Rheumatology Addendum: The patient's C-reactive protein is elevated to 2.6 and ESR to 45, given the ongoing flares of significant bilateral lower extremity pain that is prednisone responsive and elevated inflammatory markers, it is reasonable to try increasing the Cosentyx to 300 mg monthly. I will start the prior authorization for this. documented in this encounter Plan of Treatment Upcoming Encounters Date Type Department Care Team (Late st Contact Info) Description 08/14/2024 4:00 PM CDT Appointment Rheumatology at [facility] [address] [id number] Teresa Morales MD [address] [place], [place] [phone] documented as of this encounter Results * [...] stenosis. No change. L4-5: Unremarkable. ?? L5-S1: [id number] bilateral facet arthropathy. No canal or foraminal [...] (4-83%). Frequency percentages adapted from Mariya W, Luzander PH, Jorje B, et al. AJNR AM [...] foraminal stenosis. No change. L4-5: Unremarkable. L5-S1: [id number]-jj-[id number] bilateral facet arthropathy. No canal or foraminalstenosis. [...] degeneration(4-83%). Frequency percentages adapted from Mariya W, Luetmer PH, Marshallberg B, etal. AJNR AM J Neuroradiol 2015:36:811-16. Malia Kearney PA-C RAD MRI * (ABNORMAL) CK, Total (06/27/2024 7:15 AM CDT) CK, Total 18(L) 29 - 168 U/L 06/27/2024 10:03 AM CDT [facility] Blood Venipuncture / Unknown 06/27/2024 7:15 AM CDT 06/27/2024 7:41 AM CDT Malia Kearney PA-C LAB_1 Performing Organization Address [facility] de Phone Number [facility] [id number] [place] [address] [place] [address] * (ABNORMAL) C-Reactive Protein - CRP (06/27/2024 7:15 AM CDT) C-Reactive Protein 2.6(H) 0.0 - 0.5 mg/dL 06/27/2024 10:03 AM CDT [facility] Blood Venipuncture / Unknown 06/27/2024 7:15 AM CDT 06/27/2024 7:41 AM CDT Malia Kearney PA-C LAB_1 Performing Organization Address [facility] de Phone Number [place] [id number] [place] 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
== END 2024-07-16 11:50 | disposition home or self-care (01) ==
LOC: INJ CL 11:50
PROVIDERS: PCP Family Medicine; Visit Provider Family Medicine
DX: M17.11 Unilateral primary osteoarthritis, right knee (principal); M25.561 Pain in right knee; G89.29 Other chronic pain
CPT/HCPCS: 64624; J2250; J3010

== ENCOUNTER 2024-11-08 07:42 | Outpatient (CLI) | payer MEDICAID, SELFPAY ==
[2024-11-08] MEDS: PERFLUTREN LIPID MICROSPHERES 2 ML VIAL IVP (10:34)
--- NOTE | 2024-11-08 10:40 | PC.NURSE ---
20G IV placed in right AC. Definity given per certified medication technician instruction. IV removed intact once test completed.
== END 2024-11-08 07:43 | disposition home or self-care (01) ==
LOC: RAD 07:43
PROVIDERS: PCP Family Medicine; Visit Provider Family Medicine
DX: R01.1 Cardiac murmur, unspecified (principal)
CPT/HCPCS: 93306; Q9957

== ENCOUNTER 2024-12-05 09:30 | Outpatient (CLI) | payer MEDICAID, SELFPAY ==
[2024-12-05 10:45] LABS: Creatine Kinase* 36 U/L (41-117)
[2024-12-05 10:48] LABS: C Reactive Protein* 1.4 mg/dL (0.5-1.0)
[2024-12-05 11:03] LABS: Erythrocyte SedimentationRate* 49 mm/hr (2-20)
== END 2024-12-05 09:31 | disposition home or self-care (01) ==
LOC: NPINS 12-19 14:02
PROVIDERS: PCP Family Medicine; Visit Provider Internal Medicine
DX: M79.604 Pain in right leg (principal); M79.605 Pain in left leg; G89.29 Other chronic pain
CPT/HCPCS: 82550; 85651; 86140

== ENCOUNTER 2024-12-23 15:04 | Outpatient (CLI) | payer MEDICAID, SELFPAY | END 2024-12-23 15:05 | disposition home or self-care (01) | LOC: NFLDREF 12-25 03:46 | PROVIDERS: PCP Family Medicine; Referring Provider Family Medicine; Visit Provider Family Medicine | DX: I10 Essential (primary) hypertension (principal); E55.9 Vitamin D deficiency, unspecified; E78.5 Hyperlipidemia, unspecified; E11.69 Type 2 diabetes mellitus with other specified complication; E66.9 Obesity, unspecified; Z79.1 Long term (current) use of non-steroidal anti-inflammatories (NSAID) | CPT/HCPCS: 80053; 80061; 82043; 82306; 82570 ==

== ENCOUNTER 2025-04-02 15:23 | Outpatient (CLI) | payer MEDICAID, SELFPAY | END 2025-04-02 15:24 | disposition home or self-care (01) | LOC: NFLDREF 04-05 02:49 | PROVIDERS: PCP Family Medicine; Referring Provider Family Medicine; Visit Provider Family Medicine | DX: E55.9 Vitamin D deficiency, unspecified (principal); E78.5 Hyperlipidemia, unspecified; E11.69 Type 2 diabetes mellitus with other specified complication; I10 Essential (primary) hypertension; E53.8 Deficiency of other specified B group vitamins; E66.01 Morbid (severe) obesity due to excess calories; M45.0 Ankylosing spondylitis of multiple sites in spine | CPT/HCPCS: 80053; 80061; 82043; 82306; 82570; 82607 ==

== ENCOUNTER 2025-05-27 07:53 | Outpatient (CLI) | payer MEDICAID, SELFPAY ==
--- NOTE | 2025-05-27 09:51 | P.ANES_ITS ---
Anesthesia Charges Start Date/Time Anesthesia Start Date: 05/27/25 Anesthesia Start Time: 09:16 Stop Date/Time Anesthesia Stop Date: 05/27/25 Anesthesia Stop Time: 09:47 Coding CPT Codes CPT Codes: ANES LWR INTST NDSC NOS - 30769 ([id number]) P3 - PATIENT W/SEVERE SYS DISEASE, QZ - LOTTERIES AGENT SVC W/O FILAMENT WELDER BY
--- NOTE | 2025-05-27 09:51 | W.ANESCHARGE ---
Anesthesia Charges Start Date/Time Anesthesia Start Date: 05/27/25 Anesthesia Start Time: 09:16 Stop Date/Time Anesthesia Stop Date: 05/27/25 Anesthesia Stop Time: 09:47 Coding CPT Codes CPT Codes: ANES LWR INTST NDSC NOS - 66115 ([id number]) P3 - PATIENT W/SEVERE SYS DISEASE, QZ - AIRPLANE TUBE BUILDER SVC W/O INTERMEDIATE MANAGER BY
== END 2025-05-27 07:54 | disposition home or self-care (01) ==
LOC: OP CLINIC 07:53
PROVIDERS: PCP Family Medicine; Visit Provider Surgery
DX: Z12.11 Encounter for screening for malignant neoplasm of colon (principal); R19.5 Other fecal abnormalities; D12.3 Benign neoplasm of transverse colon; K57.30 Diverticulosis of large intestine without perforation or abscess without bleeding
CPT/HCPCS: 00811; 00812; 45380; 45385; 88305; J2704

== ENCOUNTER 2025-06-04 14:17 | Outpatient (RCR) | payer MEDICAID, SELFPAY ==
--- NOTE | 2025-06-05 15:03 | PT.OPE ---
PT [place] [facility] PT [facility] Outpatient Eval Start: 06/04/25 15:45 Freq: Status: Active Protocol: Document 06/04/25 15:46 ALCIDES (Rec: 06/04/25 15:51 ALCIDES [id number]) E-signed By JOHNNY GannonT, MS Physical Therapy Outpatient Evaluation Insurance Information Insurance Name Dona Medical Diagnosis Benign paroxysmal vertigo, unspecified ear Treating Diagnosis R BPPV, imbalance, sensory disorganization Subjective Preferred Name Jael Caballero Pt is a 64 y.o. female who presents to PT with c/o of positional dizziness of insidious origin getting out of bed 2.5 weeks ago. Describes sxs as room spinning dizziness with disorientation for 5-10 seconds following. Dizziness most frequently occurs with supine <>sit transfers in and out of bed, and with rolling in bed. Sx intensity improving but she generally feels off with mental and physical fatigue as the day progresses . Denies other changes in her hearing or vision. Denies previous hx of vertigo. Describes a complex PMH of significant LS and CS OA, DM-II, depression, HTN, breast CA, fibromyalgia and seasonal allergies. AGGR factors: rolling to R, lying on R side, looking up, fwd bending, supine<>sit and sit<>stand. ALLEV factors: rest, slower movement. 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 Pt also displays sensory disorganization with overreliance on vision for balance. Pt presented as resolved following CRM x 2 for R posterior canal with negative testing following. Sensory disorganization with balance testing consistent with peripheral vestibular dysfunction. All other neurological testing normal. She will benefit from continued skilled PT intervention to address these limitations. Primary Functional Rolling to R, lying on R side, looking up, fwd bending, Limitations supine<>sit Plan of Care Rehabilitation Excellent Potential Physical Therapy Therapy goals to be completed in 10 weeks: Goals 1. Patient will display resolution of R posterior canalithiasis BPPV symptoms for >5 consecutive days to improve safety with household cleaning activities. 2. Pt will display improved balance on compliant surfaces with e/c to improve safety walking in the dark . 3. Pt will report >75% improvement on DHI questionnaire to improve tolerance to daily activities. Coordination/ Referral Source Communication With Treatment Plan/ Canalith Repositioning,Joint Mobilization,Manual Direct Interventions Therapy,Neuromuscular Re-ed,Therapeutic Exercises Frequency/Duration 1-2x per week for as needed for at least 6-10 visits. Patient Will Be Completion of LTG(s),Skills Plateau,Independent w/HEP, Discharged From Independently Progressing Therapy Evaluation Billing Untimed Code 25 Treatment Minutes Complexity Moderate Certification Information Initial 06/04/25 Certification Date Ending Certification 09/02/25 Date Provider Signature Yes Required Provider Signature POC & Medical Necessity Shows Agreement With Physician NPI Number Write NPI# Here Physician Comment/ : Change Physician Signature Please Sign/Date Here & Date Requested
== END 2025-10-02 23:59 | disposition home or self-care (01) ==
PROVIDERS: PCP Family Medicine; Visit Provider Family Medicine
DX: H81.10 Benign paroxysmal vertigo, unspecified ear (principal); Z51.89 Encounter for other specified aftercare
CPT/HCPCS: 97162

== ENCOUNTER 2025-09-30 13:40 | Outpatient (CLI) | payer MEDICAID, SELFPAY | END 2025-09-30 13:41 | disposition home or self-care (01) | LOC: NFLDREF 10-05 03:12 | PROVIDERS: PCP Family Medicine; Referring Provider Family Medicine; Visit Provider Family Medicine | DX: E55.9 Vitamin D deficiency, unspecified (principal); E11.69 Type 2 diabetes mellitus with other specified complication; E66.9 Obesity, unspecified; Z68.41 Body mass index [BMI] 40.0-44.9, adult | CPT/HCPCS: 80053; 82306 ==